=== PATIENT | male | born 1940 | race Caucasian/White ===

== ENCOUNTER → 2016-09-02 | Outpatient (CLI) | payer MEDICARE ==
[2015-10-30 09:16] VITALS: BP 129/58
[~2016-09-02] MED LIST: ASPI325T4 PO; BENA40TA2 PO; CIPR500T94 PO; GABA600T2 PO; HUM100VI SQ; HYDR-2666 PO; NITR100C63 PO; SIMV40TA3 PO; TAMS0.4C2 PO
[2016-09-02 15:01] LABS: CALCIUM 8.3 mg/dL (8.5-10.1); CREATININE 2.1 mg/dL (0.7-1.3); GFR 30.9; POTASSIUM 4.1 mmol/L (3.5-5.1)
--- NOTE | 2016-09-02 15:03 | RAD ---
Exam performed: Renal sonogram. Indication: Chronic severe ureteral stricture Date of Service: 09/02/16 . Comparison: None available Technique: Real-time grayscale imaging of the kidneys is performed and images are obtained. Findings: Both kidneys are normal in size and echogenicity. The right kidney measures 11.8 x 8.4 x 7.0 cm whereas the left kidney measures 8.5 x 5.0 x 5.5 cm. There is moderate bilateral hydronephrosis. The urinary bladder is markedly distended with distorted contour and diffuse wall thickening. The urinary bladder wall measures 3.4 cm in thickness. Prostatomegaly. Precath bladder volume measures 309.8 mL. Impression: 1. Moderate bilateral hydronephrosis. 2. Distended distorted urinary bladder with severe wall thickening probably related to chronic outlet obstruction.
== END | disposition home or self-care (01) ==
LOC: US 14:02
PROVIDERS: ATTEND Urology
DX: Z12.5 Encounter for screening for malignant neoplasm of prostate (principal); N99.111 Postprocedural bulbous urethral stricture, male
CPT/HCPCS: 36415; 76770; 80048; G0103

== ENCOUNTER 2016-10-12 14:08 | Inpatient (IN) | payer MEDICARE ==
[~2016-10-12] VITALS: Ht 182.9 cm; Wt 78.1 kg
[~2016-10-12 14:08] MED LIST changes: -ASPI325T4 PO; +ASPI325T8 PO; -HYDR-2666 PO; +HYDR-2758 PO
[2016-10-12 15:00] VITALS: BP 99/49
[2016-10-12] MEDS ORDERED: DEXTROSE 50% 25 GM / 50ML DISP.SYRIN. IV PRN (15:15)
[2016-10-12] MEDS ORDERED: SODIUM POLYSTYRENE SULFONATE 15 GM/60 ML ORAL.SUSP. PO ONE ×2 (15:15→20:00)
[2016-10-12 15:56] LABS: HEMATOCRIT 35.6 % (39.0-53.0); HEMOGLOBIN 11.9 g/dL (13.0-17.5); RED BLOOD COUNT 3.99 x10^6/uL (4.30-5.70); RED CELL DISTRIBUTION WIDTH 14.6 % (11.5-14.5); WHITE BLOOD COUNT 11.6 x10^3/uL (4.0-11.0)
[2016-10-12] MEDS ORDERED: IV DEXTROSE 5% - 0.9 % NACL 1,000 ML IV SCH (16:00)
--- NOTE | 2016-10-12 16:24 | RAD ---
Indication hyperkalemia. Grayscale imaging targeted to the kidneys was performed. Note is made of a previous examination 09/02/2016 referencing bilateral hydronephrosis. The right kidney measures 12.3 x 6.3 x 6.7 cm. There is moderately severe hydronephrosis. A solid mass is not seen. The left kidney measures 10 x 5.4 x 5.3 cm. There is moderate hydronephrosis seen associated with the left kidney as well. There is irregularity associated with the urinary bladder. This may reflect debris and chronic bladder wall thickening.. A bladder mass is not entirely excluded. The abdominal aorta appeared unremarkable. The bilateral hydronephrosis is similar to the previous exam. IMPRESSION: Bilateral hydronephrosis similar to the previous exam. Probable debris and/or urinary bladder wall thickening. Bladder mass not entirely excluded.
[2016-10-12 16:25] LABS: ALBUMIN 2.2 g/dL (3.4-5.0); ALBUMIN/GLOBULIN RATIO 0.5 (1.0-1.7); CALCIUM 8.3 mg/dL (8.5-10.1); CREATININE 2.9 mg/dL (0.7-1.3); GFR 21.3; TOTAL BILIRUBIN 0.4 mg/dL (0.2-1.0); TOTAL PROTEIN 6.6 g/dL (6.4-8.2)
[2016-10-12 16:29] LABS: POTASSIUM 6.1 mmol/L (3.5-5.1)
[2016-10-12 16:37] LABS: BILIRUBIN,URINE NEGATIVE (NEG); GLUCOSE,URINE NEGATIVE (NEG); NITRITE,URINE POSITIVE (NEG); PH,URINE 5.5; PROTEIN,URINE 30 mg/dL (NEG-TRACE); UROBILINOGEN,URINE 0.2 mg/dL (0.2 mg/dL)
[2016-10-12] MEDS: IV DEXTROSE 5% - 0.9 % NACL 1,000 ML IV SCH ×2 (16:41→16:44)
[2016-10-12] MEDS: FAMOTIDINE 20 MG TABLET. PO SCH (16:42)
[2016-10-12 16:48] LABS: BACTERIA,URINE MANY /HPF (0-FEW); SQUAMOUS EPITHELIAL CELL,UR FEW /LPF; WBC,URINE TNTC /HPF (0-4)
--- NOTE | 2016-10-12 16:56 | RAD ---
Indication weight loss. Suspect occult malignancy. Axial noncontrast images through the chest abdomen and pelvis were obtained. No similar imaging is available. CT chest: Findings. There is moderately extensive coronary artery calcification. The ascending thoracic aorta is moderately prominent measuring approximately 4.3 cm in greatest dimension. There is no significant hilar or mediastinal adenopathy. There are 2 densely calcified granulomas in the right lower lobe. A similar calcified granuloma is noted in the lingula. In the left upper lobe there is a possible 1 cm nodule. The finding is not certain and could be artifactual and related to vessels. CT abdomen and pelvis: Findings The liver and spleen appear unremarkable. Clips are noted in the gallbladder fossa. The pancreas appears unremarkable. There are no adrenal masses. There is bilateral hydronephrosis. The left kidney is significantly atrophied. A solid mass is not seen associated with either kidney. There is significant bilateral hydroureter. There is asymmetric wall thickening particularly involving the cephalad aspect of the urinary bladder. There is a soft tissue mass at the base of the urinary bladder. The findings are most suggestive of neoplastic disease, likely primary, associated with the urinary bladder with associated significant obstruction at the ureterovesical junctions bilaterally. Diverticular disease is seen associated with the large bowel. Active inflammation is not seen. IMPRESSION: Findings in the pelvis most suggestive of primary urinary bladder neoplasm with associated moderate obstruction involving both ureterovesical junctions. Bilateral hydronephrosis and hydroureter is noted. The left kidney is atrophied. Prominent ascending thoracic aorta to approximately 4.3 cm. Possible 1 cm pulmonary in the left upper lobe. Finding is not certain PQRS Compliance Statement: One or more of the following individualized dose reduction techniques were utilized for this examination: 1. Automated exposure control 2. Adjustment of the mA and/or kV according to patient size 3. Use of iterative reconstruction technique
[2016-10-12] MEDS: INSULIN ASPART 300 UNITS/3 ML INSULN.PEN SQ SCH (17:00)
--- NOTE | 2016-10-12 17:30 | HP ---
ADMIT DATE: 10/12/2016 CHIEF COMPLAINT: Renal failure, hyperkalemia. HISTORY OF PRESENT ILLNESS: A 76-year-old white male who has been seen in our office for the last 2 weeks with progressive weight loss. He has known insulin-dependent diabetes and some degree of chronic kidney disease being stage 3 about a year ago. He has had a recent 40-50 pound weight loss with anorexia, but no clear etiology and CT scans were scheduled, but the lab works showed his creatinine to be around 2.8 with a potassium of 6.2 and he was admitted for hydration and potassium reduction therapy and further evaluation. He has been self-catheterizing per Dr. Lynn suggestion over the last few months, then stopped taking insulin 2 weeks ago because of weight loss and fear of hypoglycemia. PAST MEDICAL HISTORY: Medications include benazepril, Flomax, gabapentin, and Humulin 70/30 insulin. ALLERGIES: He has no allergies. PAST SURGICAL HISTORY: He has had "kidney surgery of uncertain type." Never had known heart disease. Recent laboratory study showed a normal PSA, TSH, and CBC with abnormal renal function mainly. SOCIAL HISTORY: Nonsmoker, , retired, not physically active, nondrinker. FAMILY HISTORY: Unremarkable. REVIEW OF SYSTEMS: No other specific complaints. OBJECTIVE: ENT: Significant periodontal disease and some missing teeth, otherwise all within normal limits. NECK: Revealed no carotid bruits, thyroid enlargement, masses, or nodes. LUNGS: Decreased breath sounds. No wheezing or tachypnea. CARDIOVASCULAR: Regular rate, mild tachycardia. No murmur. ABDOMEN: Soft, benign, nontender. No masses are felt. EXTREMITIES: Decreased pedal pulses. No joint or skin lesions or overt nail bed findings. No muscle masses noted. NEUROLOGIC: Physiologic, nonfocal, oriented x 4. ASSESSMENT: Progressive acute renal failure, multiple possible etiologies. He has also had ongoing significant weight loss of unknown cause and now has hyperkalemia likely secondary to renal failure and benazepril use. PLAN: Admit for saline hydration, Kayexalate therapy. Renal sonogram. CT scans of abdomen, pelvis and chest without contrast regarding his weight loss and further evaluation as his underlying malignancy certainly a concern. EMMA SHEIKH MD DR: CLAYTON/lester JOB#: [id number] / [id number]
[2016-10-12 19:15] VITALS: BP 114/95
[2016-10-12] MEDS: TAMSULOSIN 0.4 MG CAP.ER.24H. PO SCH (21:39)
[2016-10-12] MEDS: GABAPENTIN 300 MG CAPSULE. PO SCH (21:39)
[2016-10-12] MEDS: INSULIN DETEMIR 300 UNITS/3 ML INSULN.PEN. SQ SCH (21:46)
[2016-10-12] MEDS: PIPERACILLIN/TAZOBACTAM 2.25 GM in IV NORMAL SALINE 50ML 50 ML IV SCH (22:40)
[2016-10-12 22:44] VITALS: BP 70/39
[2016-10-13] VITALS (8 sets, daily range): BP systolic 73–141; BP diastolic 41–59
--- NOTE | 2016-10-13 03:20 | ACF ---
Admission Forms Criteria RENAL FAILURE, ACUTE Clinical Indications for Admission to Inpatient Care ( Place 'X' for any and all applicable criteria): Admission is indicated for ALL (if I & II) or III of the following [A](2)(3)(4)( 5)(6)(7): [ ]I. Acute renal failure as indicated by ANY ONE of the following: [ ]a) A 3-fold rise in serum creatinine from baseline [ ]b) Serum creatinine greater than 4 mg/dL (354 micromoles/L) with an acute rise greater than 0.5 mg/dL (44.2 micromoles/L) [ ]c) Reduction of more than 75% in estimated glomerular filtration rate from baseline [ ]d) Estimated glomerular filtration rate less than 35 mL/min/1.73m2 (0.59mL/sec/1.73m2)in a child up to 18 years of age [ ]e) Anuria indicated by ALL of the following: [ ]i) Adequate volume status [ ]ii) Cessation of urine output indicated by ANY ONE of the following: [ ]1) Urine output less than 0.3 mL/kg/hr for 24 hours [ ]2) Anuria (urine output less than 0.1 mL/kg/ hr) for 12 hours [ ] II. Renal failure cannot be managed in an outpatient setting or observational care setting as indicating by ANY ONE of the following: [ ]a) Altered mental status that is severe or persistent [ ]b) Volume overload or Respiratory distress (eg, clinically significant pulmonary edema) that is severe or persistent [ ]c) Cardiac arrhythmias of immediate concern [ ]d) Hemodynamic instability [ ]e) Clinically significant electrolyte abnormality that requires inpatient care (eg, hyperkalemia with severe ECG findings)[B] [ ]f) Clinically significant metabolic abnormality (eg, acidosis) that is severe or persistent [ ]g) Acute treatment of renal failure (eg, renal replacement therapy) not feasible or appropriate in observational care setting [ ]h) Clinical situation too unstable or uncertain (eg, inadequate urine output, ongoing decline in renal function, etiology unclear) [ ]i) Necessary support and caregiver ability to comply with outpatient treatment cannot be arranged in observation care timeframe (eg, within 24 hours) [ ]j) Other significant finding or clinical condition judged not to be within scope of observation care [X]III.General contraindications and/or Inappropriate clinical situations for Observational Care in patients with Acute Renal Failure, when ANY ONE of the following is required: [X]a) Prediction of prolongation of LOS based on ANY ONE of the following may be considered as a contraindication for observational care 2, 3, 4, 5, 6, 7, 8 , 9, 10, 11 [X]i) Age > 65 yrs. [ ]ii) Patient arriving by ambulance [ ]iii) Patient with high acuity [ ]iv) Patient requiring vital sign monitoring [ ]v) Patient on IV medication [ ]b) Systolic blood pressures 180mmHg 3,12 [ ]c) Patient with altered mental status including delirium and other alteration of consciousness, (3) [ ]d) Patient whose discharge disposition will be to a longterm home or rehabilitation home should not be managed in Emergency Department Observation Unit. CMS rule requires 3 days hospital stay before such placement.3,13 [ ]e) Patient with failure to thrive due to broad array of etiologies 3, 16,17 [ ]f) Inability to ambulate 3,14 Extended stay beyond goal length of stay may be needed for(13) [ ]a) Continuing uremic complications [ ]b) Care for comorbidities [ ]c) acute renal failure [ ]d) Need for dialysis The original [employer] content created by [employer] has been revised. The portions of the content which have been revised are identified through the use of italic text or in bold, and [facility] [employer] has neither reviewed nor approved the modified material. All other unmodified content is copyright [employer]. Please see references footnoted in the original [email or web address] edition 2015 Admission Criteria Met?: Yes CHIARA HERNANDEZ Oct 13, 2016 03:20
[2016-10-13 04:08] LABS: CALCIUM 7.9 mg/dL (8.5-10.1); CREATININE 2.9 mg/dL (0.7-1.3); GFR 21.3; POTASSIUM 5.2 mmol/L (3.5-5.1)
[2016-10-13] MEDS: PIPERACILLIN/TAZOBACTAM 2.25 GM in IV NORMAL SALINE 50ML 50 ML IV SCH ×3 (05:31→22:43)
[2016-10-13] MEDS: INSULIN ASPART 300 UNITS/3 ML INSULN.PEN SQ SCH ×3 (08:00→17:00)
[2016-10-13] MEDS: IV DEXTROSE 5% 250 ML IV PRN ×2 (08:15→12:30)
--- NOTE | 2016-10-13 08:56 | PDOC2 ---
CONSULT Date of Consult Date of Consult DATE: 10/13/16 TIME: 08:55 Reason for Consult Reason for Consult: LATA, ^ K Referring Physician Referring Physician: Dr Milligan Identification/Chief Complaint Chief Complaint ABN Labs Problems: Source Source: Chart review, Patient History of Present Illness Reason for Visit: as dictated Current Medications Current Medications Current Medications Dextrose/Sodium Chloride 187.5 ml @ 250 mls/hr Q45M IV Last administered on 16:44; Start 10/12/16 at 15:15; Stop 10/12/16 at 16:00; Status DC Dextrose/Sodium Chloride 1,000 ml @ 125 mls/hr Q8H IV Last administered on 18:30; Start 10/12/16 at 16:00; Stop 10/12/16 at 19:44; Status DC Gabapentin (Neurontin) 300 mg BID PO Last administered on 10/12/16 21:39; Start 10/12/16 at 21:00 Insulin Detemir (Levemir) 15 units BID SQ Last administered on 10/12/16 21:46 ; Start 10/12/16 at 21:00 Tamsulosin HCl (Flomax) 0.4 mg QHS PO Last administered on 10/12/16 21:39; Start 10/12/16 at 21:00 Famotidine (Pepcid) 20 mg DAILY PO Last administered on 10/12/16 16:42; Start 10/12/16 at 16:00 Sodium Polystyrene Sulfonate (Kayexalate) 15 gm 1X ONCE PO Last administered on 10/12/16 16:41; Start 10/12/16 at 15:15; Stop 10/12/16 at 15:29; Status DC Insulin Aspart (NovoLOG) 0-9 UNITS TIDWMEALS SQ ; Start 10/12/16 at 17:00 Dextrose (Dextrose 50%-Water Syringe) 12.5 gm PRN Q15MIN PRN IV SEE COMMENTS; Start 10/12/16 at 15:15 Sodium Polystyrene Sulfonate (Kayexalate) 45 gm 1X ONCE PO Last administered on 10/12/16 21:39; Start 10/12/16 at 20:00; Stop 10/12/16 at 20:01; Status DC Piperacillin Sod/ Tazobactam Sod 2.25 gm/Sodium Chloride 50 ml @ 100 mls/hr Q8HRS IV Last administered on 10/13/16t 05:31; Start 10/12/16 at 22:30 Active Scripts Active Reported Benazepril Hcl 40 Mg Tablet 40 Mg PO DAILY Tamsulosin Hcl 0.4 Mg Cap.er.24h 0.4 Mg PO DAILY Macrodantin (Nitrofurantoin Macrocrystal) 100 Mg Capsule 100 Mg PO DAILY Gabapentin 600 Mg Tablet 300 Mg PO BID Humulin 70-30 Vial (Hum Insulin Nph/Reg Insulin Hm) 100 Unit/1 Ml Vial 25 Unit SQ BID Allergies Allergies: Coded Allergies: No Known Drug Allergies (Unverified , 04/02/15) ROS Review of System GEN: no Fevers no Chills + Weakness and fatigue and wt loss EYES: no new Visual Complaints ENT: no EN Drainage no Hearing deficiets CVS: no Orthopnea no CP RESP: no SOB no PATEL GI: no Nausea no Vomiting : no Dysuria no Urgency - pt self caths TID HEME: no easy bruising no Palp Ly Nodes NEURO no Focal Weakness no Sz PSYCH: no Suicidal Ideation min Depression SKIN: no Rashes ENDO: no Polyuria or Polydipsia no Hot/Cold Intolerance MU SK: + Arthraigia no Myalgia Physical Exam Physical Exam General Appearance: Awake Alert Oriented x 3 In no Distress; Ch Ill appearring WM Eyes: VIsion Unchanged Conjunctiva Normal EN: No EN Drainage Mucous Memb. moist Neck: no JVD no JVP Supple no Thyromegaly CVS: S1 S2 no Murmur No Gallop No Rub no Edema Resp: no Rales no Rhonchi no Acc. Muscle use GI: BAS +ve NO Bruit Non Tender Non Distended : no CVA tenderness; no Suprapubic Tenderness SKIN: no Rashes Breast Exam deferred Mu.Sk: Adequate ROM + Muscle Atrophy Heme: Unable to palpate Obvious LAD no Splenomegaly NEURO: Good Strength and Tone Cranial Nerves II - XII grossly intact Psych: ? Depressed no Active hallucination Vital Signs Vital Signs Date Time Temp Pulse Resp B/P (MAP) Pulse Ox O2 Delivery O2 Flow Rate FiO2 10/13/16 07:46 97.5 61 20 101/42 (61) 98 Room Air 97.5 Assessment & Plan ARF: Not sure if Obst Uropahty isnew or old. Current FLuid and E-lyte status does not necessitate emergent need for Dialysis. Will re-evaluate for Dialysis in am ^K - now resolved with Kayexalate; D/c ZACKERY-i in setting of LATA/ CKD for now Wt loss - suspect associated with Pelvic Pathology (PSA WNL) Sev HypoAlbuminemia - ? due to FTT, Poor PO itnake CKD III at least vs IV due to Unilateral small kidney as noted on US/ CT Unilateral small kidney as noted on US/ CT - ? Ischemic Protirenuia is in the setting of hematuria Hematuria (ROLF) suspect due to bladder pathology - ? Need for Perc Bx in absence of URO services here vs Transfer to [facility] HTN: Current BP meds reviewed. See orders for changes. Hydronephrosis - unclear if this is Ch vs Ac - so PCN shantelle to Rt May be an option although UO is good so far Discussed Plan of Care and prognosis etc. at length with family. Labs Labs Laboratory Tests Test 10/12/16 15:50 10/12/16 16:30 10/12/16 16:41 10/12/16 20:47 White Blood Count 11.6 x10^3/uL (4.0-11.0) Red Blood Count 3.99 x10^6/uL (4.30-5.70) Hemoglobin 11.9 g/dL (13.0-17.5) Hematocrit 35.6 % (39.0-53.0) Mean Corpuscular Volume 89 fL (79-100) Mean Corpuscular Hemoglobin 30 pg (25-35) Mean Corpuscular Hemoglobin Concent 34 g/dL (31-37) Red Cell Distribution Width 14.6 % (11.5-14.5) Platelet Count 397 x10^3/uL (140-400) Erythrocyte Sedimentation Rate 60 (0-15) Sodium Level 138 mmol/L (136-145) Potassium Level 6.1 mmol/L (3.5-5.1) Chloride Level 106 mmol/L (98-107) Carbon Dioxide Level 23 mmol/L (21-32) Anion Gap 9 (6-14) Blood Urea Nitrogen 65 mg/dL (8-26) Creatinine 2.9 mg/dL (0.7-1.3) Estimated GFR (Cockcroft-Gault) 21.3 BUN/Creatinine Ratio 22 (6-20) Glucose Level 184 mg/dL (70-99) Calcium Level 8.3 mg/dL (8.5-10.1) Total Bilirubin 0.4 mg/dL (0.2-1.0) Aspartate Amino Transf (AST/SGOT) 12 U/L (15-37) Alanine Aminotransferase (ALT/SGPT) 19 U/L (16-63) Alkaline Phosphatase 217 U/L (46-116) Total Protein 6.6 g/dL (6.4-8.2) Albumin 2.2 g/dL (3.4-5.0) Albumin/Globulin Ratio 0.5 (1.0-1.7) Urine Collection Type Unknown Urine Color Yellow Urine Clarity Turbid Urine pH 5.5 Urine Specific [place] 1.010 Urine Protein 30 mg/dL (NEG-TRACE) Urine Glucose (UA) Negative mg/dL (NEG) Urine Ketones (Stick) Negative mg/dL (NEG) Urine Blood Large (NEG) Urine Nitrite Positive (NEG) Urine Bilirubin Negative (NEG) Urine Urobilinogen Dipstick 0.2 mg/dL (0.2 mg/dL) Urine Leukocyte Esterase Large (NEG) Urine RBC 3-5 /HPF (0-2) Urine WBC Tntc /HPF (0-4) Urine Squamous Epithelial Cells Few /LPF Urine Bacteria Many /HPF (0-FEW) Glucose (Fingerstick) 160 mg/dL (70-99) 186 mg/dL (70-99) Test 10/13/16 03:35 10/13/16 07:53 Sodium Level 142 mmol/L (136-145) Potassium Level 5.2 mmol/L (3.5-5.1) Chloride Level 111 mmol/L (98-107) Carbon Dioxide Level 21 mmol/L (21-32) Anion Gap 10 (6-14) Blood Urea Nitrogen 59 mg/dL (8-26) Creatinine 2.9 mg/dL (0.7-1.3) Estimated GFR (Cockcroft-Gault) 21.3 Glucose Level 145 mg/dL (70-99) Calcium Level 7.9 mg/dL (8.5-10.1) Glucose (Fingerstick) 47 mg/dL (70-99) Laboratory Tests Test 10/12/16 15:50 10/12/16 16:30 10/12/16 16:41 10/12/16 20:47 White Blood Count 11.6 x10^3/uL (4.0-11.0) Red Blood Count 3.99 x10^6/uL (4.30-5.70) Hemoglobin 11.9 g/dL (13.0-17.5) Hematocrit 35.6 % (39.0-53.0) Mean Corpuscular Volume 89 fL (79-100) Mean Corpuscular Hemoglobin 30 pg (25-35) Mean Corpuscular Hemoglobin Concent 34 g/dL (31-37) Red Cell Distribution Width 14.6 % (11.5-14.5) Platelet Count 397 x10^3/uL (140-400) Erythrocyte Sedimentation Rate 60 (0-15) Sodium Level 138 mmol/L (136-145) Potassium Level 6.1 mmol/L (3.5-5.1) Chloride Level 106 mmol/L (98-107) Carbon Dioxide Level 23 mmol/L (21-32) Anion Gap 9 (6-14) Blood Urea Nitrogen 65 mg/dL (8-26) Creatinine 2.9 mg/dL (0.7-1.3) Estimated GFR (Cockcroft-Gault) 21.3 BUN/Creatinine Ratio 22 (6-20) Glucose Level 184 mg/dL (70-99) Calcium Level 8.3 mg/dL (8.5-10.1) Total Bilirubin 0.4 mg/dL (0.2-1.0) Aspartate Amino Transf (AST/SGOT) 12 U/L (15-37) Alanine Aminotransferase (ALT/SGPT) 19 U/L (16-63) Alkaline Phosphatase 217 U/L (46-116) Total Protein 6.6 g/dL (6.4-8.2) Albumin 2.2 g/dL (3.4-5.0) Albumin/Globulin Ratio 0.5 (1.0-1.7) Urine Collection Type Unknown Urine Color Yellow Urine Clarity Turbid Urine pH 5.5 Urine Specific [place] 1.010 Urine Protein 30 mg/dL (NEG-TRACE) Urine Glucose (UA) Negative mg/dL (NEG) Urine Ketones (Stick) Negative mg/dL (NEG) Urine Blood Large (NEG) Urine Nitrite Positive (NEG) Urine Bilirubin Negative (NEG) Urine Urobilinogen Dipstick 0.2 mg/dL (0.2 mg/dL) Urine Leukocyte Esterase Large (NEG) Urine RBC 3-5 /HPF (0-2) Urine WBC Tntc /HPF (0-4) Urine Squamous Epithelial Cells Few /LPF Urine Bacteria Many /HPF (0-FEW) Glucose (Fingerstick) 160 mg/dL (70-99) 186 mg/dL (70-99) Test 10/13/16 03:35 10/13/16 07:53 Sodium Level 142 mmol/L (136-145) Potassium Level 5.2 mmol/L (3.5-5.1) Chloride Level 111 mmol/L (98-107) Carbon Dioxide Level 21 mmol/L (21-32) Anion Gap 10 (6-14) Blood Urea Nitrogen 59 mg/dL (8-26) Creatinine 2.9 mg/dL (0.7-1.3) Estimated GFR (Cockcroft-Gault) 21.3 Glucose Level 145 mg/dL (70-99) Calcium Level 7.9 mg/dL (8.5-10.1) Glucose (Fingerstick) 47 mg/dL (70-99) Images Images US IMPRESSION: Bilateral hydronephrosis similar to the previous exam. Probable debris and/or urinary bladder wall thickening. Bladder mass not entirely excluded. NON-CONTRAST CT : IMPRESSION: Findings in the pelvis most suggestive of primary urinary bladder neoplasm with associated moderate obstruction involving both ureterovesical junctions. Bilateral hydronephrosis and hydroureter is noted. The left kidney is atrophied. Prominent ascending thoracic aorta to approximately 4.3 cm. Possible 1 cm pulmonary in the left upper lobe. JACQUIE VALENZUELA MD Oct 13, 2016 08:56
[2016-10-13] MEDS: INSULIN DETEMIR 300 UNITS/3 ML INSULN.PEN. SQ SCH ×2 (09:00→22:51)
[2016-10-13] MEDS ORDERED: MAGNESIUM SULFATE 2GM 50 ML IV PRN (09:00)
[2016-10-13] MEDS ORDERED: IV DEXTROSE 5% 250 ML IV PRN (09:00)
[2016-10-13 09:01] LABS: INR 1.2 (0.8-1.1); PROTHROMBIN TIME PATIENT 14.2 SEC (11.7-14.0)
[2016-10-13] MEDS: FAMOTIDINE 20 MG TABLET. PO SCH (09:13)
[2016-10-13] MEDS: GABAPENTIN 300 MG CAPSULE. PO SCH ×2 (09:13→22:42)
--- NOTE | 2016-10-13 09:49 | PDOC ---
Provider Note Provider Note K+ down , creat better after fluids, was 2.1 - diwscussed likely dx of bladder CA, need for bx /nephrostomy re hysdro- likely will need to go to [facility] re uro needs EMMA SHEIKH MD Oct 13, 2016 09:49
[2016-10-13] MEDS: TAMSULOSIN 0.4 MG CAP.ER.24H. PO SCH (22:42)
[2016-10-14] VITALS (25 sets, daily range): BP systolic 72–111; BP diastolic 39–63
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
[2016-10-14 06:10] LABS: ALBUMIN 1.8 g/dL (3.4-5.0); CALCIUM 7.4 mg/dL (8.5-10.1); CREATININE 2.6 mg/dL (0.7-1.3); GFR 24.1; PHOSPHORUS 4.2 mg/dL (2.6-4.7); POTASSIUM 4.6 mmol/L (3.5-5.1)
[2016-10-14] MEDS: PIPERACILLIN/TAZOBACTAM 2.25 GM in IV NORMAL SALINE 50ML 50 ML IV SCH ×5 (06:20→18:29)
--- NOTE | 2016-10-14 06:50 | PDOC ---
Provider Note Provider Note IR Note: Image guided right percutaneous nephrostomy tube insertion planned this morning. Advanced right hydronephrosis and hydroureter noted at CT and U/S. Hydronephrotic, but globally atrophic left kidney also noted. Afebrile. VSS. INR normal. Platelets satisfactory. NPO. Thanks for the consult. FRANK TRIPP MD Oct 14, 2016 06:50
[2016-10-14] MEDS ORDERED: LIDOCAINE 1% / SOD BICARB 8.4% 20 ML VIAL. IJ ONE ×3 (06:59→09:00)
[2016-10-14] MEDS ORDERED: MIDAZOLAM HCL/PF 2 MG/2 ML VIAL. ONE (07:02)
[2016-10-14] MEDS ORDERED: fentaNYL PF VIAL 100 MCG/2 ML VIAL ONE (07:02)
[2016-10-14] MEDS: INSULIN ASPART 300 UNITS/3 ML INSULN.PEN SQ SCH ×3 (08:00→17:00)
[2016-10-14] MEDS ORDERED: IOHEXOL 300 MG/ML 50 ML VIAL. ONE ×2 (08:06→08:21)
[2016-10-14] MEDS ORDERED: IOHEXOL 300 MG/ML 50 ML VIAL. IART ONE (08:45)
--- NOTE | 2016-10-14 08:53 | PDOC ---
Provider Note Provider Note no temp- labs ok, urine cult pending- for nephrostomy today, will still need to go to [facility] for urologic dx/cysto- renal a little better , K+ EMMA Burgess MD Oct 14, 2016 08:53
[2016-10-14] MEDS ORDERED: fentaNYL PF VIAL 100 MCG/2 ML VIAL IV ONE (09:00)
[2016-10-14] MEDS ORDERED: MIDAZOLAM HCL/PF 2 MG/2 ML VIAL. IV ONE (09:00)
[2016-10-14] MEDS: INSULIN DETEMIR 300 UNITS/3 ML INSULN.PEN. SQ SCH ×2 (09:00→21:24)
--- NOTE | 2016-10-14 09:28 | PDOC ---
MODERATE SEDATION ASSESSMENT RISKS/ALTERNATIVES Risks/Alternatives Risks and alternatives of this type of sedation and procedure discussed with: RISK/ALTERNATIVES: Patient H & P ON CHART H & P H & P on chart and reviewed for co-morbid conditions and appropriate labs. H&P ON CHART: Yes STATUS PREG STATUS ASSESSED: N/A MEDS/ALLERGIES REVIEWED Meds/Allergies Reviewed Medications and Allergies including time and route of recently administered narcotics and sedatives. MEDS/ALLERGIES REVIEWED: Yes ASA RATING ASA RATING: III AIRWAY ASSESSMENT Airway Assessment Airway patency, oral function limitations, presence of caps, crowns, dentures, partials, and ability to extend neck assessed. AIRWAY ASSESSMENT: Yes MALLAMPATI SCORE MALLAMPATI SCORE: II PRE-SEDATION ASSESSMENT PRE-SEDATION ASSESSMENT: Yes FRANK TRIPP MD Oct 14, 2016 09:28
--- NOTE | 2016-10-14 09:30 | PDOC ---
Exam Powdered Sugar Supervisor Powdered Sugar Supervisor Mika Tree Surgeon Tree Surgeon F Ndumbu Pre-Procedure Diagnosis Pre-Procedure Diagnosis Advanced right hydronephrosis and hydroureter Post-Procedure Diagnosis Post-Procedure Diagnosis Mild-mod right hydronephrosis, improved since the CT study done 10/12/16. Partially obstructing filling defect within distal right ureter suggesting radiolucent stone or blood clot or polypoid tumor. Procedure Performed Procedure Performed CT and fluoro guided right PCN tube insertion Type of Anesthesia Type of Anesthesia Local + Mod sedation Estimated Blood Loss EBL: Minimal Drain/Tubes Drains/Tubes 10F locking pigtail right PCN drain-----to gravity drainage Condition of Patient Condition of Patient Stable. No apparent complication. Disposition Disposition From IR return to 206 for recovery. F/u with PCP and Renal. Full report to follow. FRANK TRIPP MD Oct 14, 2016 09:30
[2016-10-14] MEDS: IV DEXTROSE 5% 250 ML IV PRN (10:11)
--- NOTE | 2016-10-14 11:21 | PDOC ---
SUBJECTIVE ROS LATA Just back from PCN placment CVS: no Orthopnea, no CP RESP: no SOB, no PATEL GI: no Nausea, no Vomiting : no Dysuria, no Urgency - [place] in [place] OBJECTIVE Vital Signs Vital Signs Date Time Temp Pulse Resp B/P (MAP) Pulse Ox O2 Delivery O2 Flow Rate FiO2 10/14/16 09:09 17 98 Room Air 10/14/16 09:01 80 10/14/16 08:55 2.0 10/14/16 07:00 97.6 86/39 (55) 97.6 I & 0 Intake and Output 10/14/16 06:59 Intake Total 120 ml Output Total 1525 ml Balance -1405 ml Intake Oral 120 ml Output Urine Total 1525 ml # Bowel Movements 2 PHYSICAL EXAM Physical Exam General Appearance: Awake Alert Oriented x 3 In no Distress; Ch Ill appearring WM Eyes: VIsion Unchanged Conjunctiva Normal EN: No EN Drainage Mucous Memb. moist Neck: no JVD no JVP Supple no Thyromegaly CVS: S1 S2 no Murmur No Gallop No Rub no Edema Resp: no Rales no Rhonchi no Acc. Muscle use GI: BAS +ve NO Bruit Non Tender Non Distended : no CVA tenderness; no Suprapubic Tenderness Assessment & Plan ARF: Not sure if Obst Uropahty isnew or old. URO eval requested. Current FLuid and E-lyte status does not necessitate emergent need for Dialysis. Will re- evaluate for Dialysis in am ^K - now resolved , recc D/c ZACKERY-i in setting of LATA/ CKD for now Wt loss - suspect associated with Pelvic Pathology (PSA WNL) - may need CYSTO - defer timing to URO. Sev Hypoalbuminemia - ? due to FTT, Poor PO intake CKD III at least vs IV due to Unilateral small kidney as noted on US/ CT Unilateral small kidney as noted on US/ CT - ? Ischemic vs Ch Obstruction Proteinuria is in the setting of hematuria so not worked up further currenlty Hematuria (ROLF) suspect due to bladder pathology - URO eval pending HypoTN: May need IVF/ Alb Hydronephrosis - unclear if this is Ch vs Ac - so PCN to Rt done - Await URO eval Discussed Plan of Care and prognosis etc. at length with family. COMMENT/RELEVANT DATA Meds Current Medications Medications (Trade) Dose Ordered Sig/Cristina Start Time Stop Time Status Last Admin Dose Admin Dextrose 250 ml @ 1,500 mls/hr PRN Q1HR PRN 10/13/16 09:15 10/14/16 10:11 1,500 MLS/HR Dextrose (Dextrose 50%-Water Syringe) 12.5 gm PRN Q15MIN PRN 10/12/16 15:15 Dextrose/Sodium Chloride 1,000 ml @ 125 mls/hr Q8H 10/12/16 16:00 10/12/16 19:44 DC 10/12/16 18:30 125 MLS/HR Famotidine (Pepcid) 20 mg DAILY 10/12/16 16:00 10/13/16 09:13 20 MG Fentanyl Citrate (Fentanyl 2ml Vial) 100 mcg 1X ONCE 10/14/16 09:00 10/14/16 09:03 DC 10/14/16 09:09 100 MCG Gabapentin (Neurontin) 300 mg DAILY08 10/14/16 09:00 Heparin Sodium/ Sodium Chloride 1,000 unit 1X ONCE 10/14/16 08:45 10/14/16 08:46 DC 10/14/16 08:58 1,000 UNIT Insulin Aspart (NovoLOG) 0-9 UNITS TIDWMEALS 10/12/16 17:00 Insulin Detemir (Levemir) 6 units BID 10/14/16 09:00 Iohexol (Omnipaque 300 Mg/ml) 50 ml 1X ONCE 10/14/16 08:45 10/14/16 08:46 DC 10/14/16 08:58 15 ML Levofloxacin/ Dextrose 100 ml @ 100 mls/hr 1X ONCE 10/14/16 08:35 10/14/16 09:34 DC 10/14/16 08:58 100 MLS/HR Lidocaine/Sodium Bicarbonate (Buffered Lidocaine 1%) 7 ml 1X ONCE 10/14/16 09:00 10/14/16 09:03 DC 10/14/16 09:10 7 ML Magnesium Sulfate/ Dextrose 50 ml @ 25 mls/hr PRN DAILY PRN 10/13/16 09:00 Midazolam HCl (Versed) 2 mg 1X ONCE 10/14/16 09:00 10/14/16 09:03 DC 10/14/16 09:08 2 MG Piperacillin Sod/ Tazobactam Sod 2.25 gm/Sodium Chloride 50 ml @ 100 mls/hr Q6HRS 10/13/16 14:00 10/14/16 06:20 100 MLS/HR Sodium Polystyrene Sulfonate (Kayexalate) 45 gm 1X ONCE 10/12/16 20:00 10/12/16 20:01 DC 10/12/16 21:39 45 GM Tamsulosin HCl (Flomax) 0.4 mg QHS 10/12/16 21:00 10/13/16 22:42 0.4 MG Lab Laboratory Tests Test 10/13/16 11:53 10/13/16 13:05 10/13/16 14:17 10/13/16 17:02 Glucose (Fingerstick) 54 mg/dL (70-99) 73 mg/dL (70-99) 87 mg/dL (70-99) 115 mg/dL (70-99) Test 10/13/16 22:32 10/14/16 04:30 10/14/16 05:00 10/14/16 09:17 Glucose (Fingerstick) 149 mg/dL (70-99) 56 mg/dL (70-99) Hemoglobin 11.3 g/dL (13.0-17.5) Sodium Level 144 mmol/L (136-145) Potassium Level 4.6 mmol/L (3.5-5.1) Chloride Level 111 mmol/L (98-107) Carbon Dioxide Level 21 mmol/L (21-32) Anion Gap 12 (6-14) Blood Urea Nitrogen 52 mg/dL (8-26) Creatinine 2.6 mg/dL (0.7-1.3) Estimated GFR (Cockcroft-Gault) 24.1 Glucose Level 78 mg/dL (70-99) Calcium Level 7.4 mg/dL (8.5-10.1) Phosphorus Level 4.2 mg/dL (2.6-4.7) Albumin 1.8 g/dL (3.4-5.0) Magnesium Level 2.3 mg/dL (1.8-2.4) Test 10/14/16 09:55 10/14/16 11:07 Glucose (Fingerstick) 59 mg/dL (70-99) 144 mg/dL (70-99) JACQUIE VALENZUELA MD Oct 14, 2016 11:21
[2016-10-14] MEDS: FAMOTIDINE 20 MG TABLET. PO SCH (11:58)
[2016-10-14] MEDS: GABAPENTIN 300 MG CAPSULE. PO SCH (11:58)
[2016-10-14] MEDS: ALBUMIN HUMAN 5% 500 ML IV SCH ×2 (11:59→16:25)
--- NOTE | 2016-10-14 13:35 | PDOC ---
PROGRESS NOTES Subjective Subjective Pt. with urethral stricture disease Objective Objective Vital Signs Date Time Temp Pulse Resp B/P (MAP) Pulse Ox O2 Delivery O2 Flow Rate FiO2 10/14/16 12:56 97.4 59 18 103/45 (64) 99 Room Air 97.4 10/14/16 11:00 2.0 Intake and Output 10/14/16 07:00 Intake Total 120 ml Output Total 1525 ml Balance -1405 ml Intake Oral 120 ml Output Urine Total 1525 ml # Bowel Movements 2 Physical Exam Physical Exam Bladder mass on CT-possible bladder tumor vs. prostate Plan Plan of Care Plan for cysto and possible biopsy on Tuesday 10/17 Comment Review of Relevant I have reviewed the following items vikash (where applicable) has been applied. Labs Laboratory Tests Test 10/12/16 15:50 10/12/16 16:30 10/12/16 16:41 10/12/16 20:47 White Blood Count 11.6 x10^3/uL (4.0-11.0) Red Blood Count 3.99 x10^6/uL (4.30-5.70) Hemoglobin 11.9 g/dL (13.0-17.5) Hematocrit 35.6 % (39.0-53.0) Mean Corpuscular Volume 89 fL (79-100) Mean Corpuscular Hemoglobin 30 pg (25-35) Mean Corpuscular Hemoglobin Concent 34 g/dL (31-37) Red Cell Distribution Width 14.6 % (11.5-14.5) Platelet Count 397 x10^3/uL (140-400) Erythrocyte Sedimentation Rate 60 (0-15) Sodium Level 138 mmol/L (136-145) Potassium Level 6.1 mmol/L (3.5-5.1) Chloride Level 106 mmol/L (98-107) Carbon Dioxide Level 23 mmol/L (21-32) Anion Gap 9 (6-14) Blood Urea Nitrogen 65 mg/dL (8-26) Creatinine 2.9 mg/dL (0.7-1.3) Estimated GFR (Cockcroft-Gault) 21.3 BUN/Creatinine Ratio 22 (6-20) Glucose Level 184 mg/dL (70-99) Calcium Level 8.3 mg/dL (8.5-10.1) Total Bilirubin 0.4 mg/dL (0.2-1.0) Aspartate Amino Transf (AST/SGOT) 12 U/L (15-37) Alanine Aminotransferase (ALT/SGPT) 19 U/L (16-63) Alkaline Phosphatase 217 U/L (46-116) Total Protein 6.6 g/dL (6.4-8.2) Albumin 2.2 g/dL (3.4-5.0) Albumin/Globulin Ratio 0.5 (1.0-1.7) Urine Collection Type Unknown Urine Color Yellow Urine Clarity Turbid Urine pH 5.5 Urine Specific [place] 1.010 Urine Protein 30 mg/dL (NEG-TRACE) Urine Glucose (UA) Negative mg/dL (NEG) Urine Ketones (Stick) Negative mg/dL (NEG) Urine Blood Large (NEG) Urine Nitrite Positive (NEG) Urine Bilirubin Negative (NEG) Urine Urobilinogen Dipstick 0.2 mg/dL (0.2 mg/dL) Urine Leukocyte Esterase Large (NEG) Urine RBC 3-5 /HPF (0-2) Urine WBC Tntc /HPF (0-4) Urine Squamous Epithelial Cells Few /LPF Urine Bacteria Many /HPF (0-FEW) Glucose (Fingerstick) 160 mg/dL (70-99) 186 mg/dL (70-99) Test 10/13/16 03:35 10/13/16 07:53 10/13/16 08:35 10/13/16 09:20 Sodium Level 142 mmol/L (136-145) Potassium Level 5.2 mmol/L (3.5-5.1) Chloride Level 111 mmol/L (98-107) Carbon Dioxide Level 21 mmol/L (21-32) Anion Gap 10 (6-14) Blood Urea Nitrogen 59 mg/dL (8-26) Creatinine 2.9 mg/dL (0.7-1.3) Estimated GFR (Cockcroft-Gault) 21.3 Glucose Level 145 mg/dL (70-99) Calcium Level 7.9 mg/dL (8.5-10.1) Glucose (Fingerstick) 47 mg/dL (70-99) 110 mg/dL (70-99) Prothrombin Time 14.2 SEC (11.7-14.0) Prothromb Time International Ratio 1.2 (0.8-1.1) Test 10/13/16 11:53 10/13/16 13:05 10/13/16 14:17 10/13/16 17:02 Glucose (Fingerstick) 54 mg/dL (70-99) 73 mg/dL (70-99) 87 mg/dL (70-99) 115 mg/dL (70-99) Test 10/13/16 22:32 10/14/16 04:30 10/14/16 05:00 10/14/16 09:17 Glucose (Fingerstick) 149 mg/dL (70-99) 56 mg/dL (70-99) Hemoglobin 11.3 g/dL (13.0-17.5) Sodium Level 144 mmol/L (136-145) Potassium Level 4.6 mmol/L (3.5-5.1) Chloride Level 111 mmol/L (98-107) Carbon Dioxide Level 21 mmol/L (21-32) Anion Gap 12 (6-14) Blood Urea Nitrogen 52 mg/dL (8-26) Creatinine 2.6 mg/dL (0.7-1.3) Estimated GFR (Cockcroft-Gault) 24.1 Glucose Level 78 mg/dL (70-99) Calcium Level 7.4 mg/dL (8.5-10.1) Phosphorus Level 4.2 mg/dL (2.6-4.7) Albumin 1.8 g/dL (3.4-5.0) Magnesium Level 2.3 mg/dL (1.8-2.4) Test 10/14/16 09:55 10/14/16 11:07 Glucose (Fingerstick) 59 mg/dL (70-99) 144 mg/dL (70-99) Laboratory Tests Test 10/13/16 14:17 10/13/16 17:02 10/13/16 22:32 10/14/16 04:30 Glucose (Fingerstick) 87 mg/dL (70-99) 115 mg/dL (70-99) 149 mg/dL (70-99) Hemoglobin 11.3 g/dL (13.0-17.5) Sodium Level 144 mmol/L (136-145) Potassium Level 4.6 mmol/L (3.5-5.1) Chloride Level 111 mmol/L (98-107) Carbon Dioxide Level 21 mmol/L (21-32) Anion Gap 12 (6-14) Blood Urea Nitrogen 52 mg/dL (8-26) Creatinine 2.6 mg/dL (0.7-1.3) Estimated GFR (Cockcroft-Gault) 24.1 Glucose Level 78 mg/dL (70-99) Calcium Level 7.4 mg/dL (8.5-10.1) Phosphorus Level 4.2 mg/dL (2.6-4.7) Albumin 1.8 g/dL (3.4-5.0) Test 10/14/16 05:00 10/14/16 09:17 10/14/16 09:55 10/14/16 11:07 Magnesium Level 2.3 mg/dL (1.8-2.4) Glucose (Fingerstick) 56 mg/dL (70-99) 59 mg/dL (70-99) 144 mg/dL (70-99) Medications Current Medications Dextrose/Sodium Chloride 187.5 ml @ 250 mls/hr Q45M IV Last administered on 16:44; Start 10/12/16 at 15:15; Stop 10/12/16 at 16:00; Status DC Dextrose/Sodium Chloride 1,000 ml @ 125 mls/hr Q8H IV Last administered on 18:30; Start 10/12/16 at 16:00; Stop 10/12/16 at 19:44; Status DC Gabapentin (Neurontin) 300 mg BID PO Last administered on 10/13/16 22:42; Start 10/12/16 at 21:00; Stop 10/14/16 at 08:51; Status DC Insulin Detemir (Levemir) 15 units BID SQ Last administered on 10/13/16 22:51 ; Start 10/12/16 at 21:00; Stop 10/14/16 at 08:51; Status DC Tamsulosin HCl (Flomax) 0.4 mg QHS PO Last administered on 10/13/16 22:42; Start 10/12/16 at 21:00 Famotidine (Pepcid) 20 mg DAILY PO Last administered on 10/14/16 11:58; Start 10/12/16 at 16:00 Sodium Polystyrene Sulfonate (Kayexalate) 15 gm 1X ONCE PO Last administered on 10/12/16 16:41; Start 10/12/16 at 15:15; Stop 10/12/16 at 15:29; Status DC Insulin Aspart (NovoLOG) 0-9 UNITS TIDWMEALS SQ ; Start 10/12/16 at 17:00 Dextrose (Dextrose 50%-Water Syringe) 12.5 gm PRN Q15MIN PRN IV SEE COMMENTS; Start 10/12/16 at 15:15 Sodium Polystyrene Sulfonate (Kayexalate) 45 gm 1X ONCE PO Last administered on 10/12/16 21:39; Start 10/12/16 at 20:00; Stop 10/12/16 at 20:01; Status DC Piperacillin Sod/ Tazobactam Sod 2.25 gm/Sodium Chloride 50 ml @ 100 mls/hr Q8HRS IV Last administered on 10/13/16 05:31; Start 10/12/16 at 22:30; Stop at 13:09; Status DC Dextrose 250 ml @ 250 mls/hr Q1H PRN IV LOW BLOOD SUGAR; Start 10/13/16 at 09: 00; Status UNV Dextrose 250 ml @ 1,500 mls/hr PRN Q1HR PRN IV LOW BLOOD SUGAR Last administered on 10/14/16 10:11; Start 10/13/16 at 09:15 Magnesium Sulfate/ Dextrose 50 ml @ 25 mls/hr PRN DAILY PRN IV for Mag < 1.7 on am labs; Start 10/13/16 at 09:00 Piperacillin Sod/ Tazobactam Sod 2.25 gm/Sodium Chloride 50 ml @ 100 mls/hr Q6HRS IV Last administered on 10/14/16 11:59; Start 10/13/16 at 14:00 Lidocaine/Sodium Bicarbonate (Buffered Lidocaine 1%) 20 ml STK-MED ONCE IJ ; Start 10/14/16 at 06:59; Stop 10/14/16 at 07:00; Status DC Midazolam HCl (Versed) 2 mg STK-MED ONCE .ROUTE ; Start 10/14/16 at 07:02; Stop 10/14/16 at 07:03; Status DC Fentanyl Citrate (Fentanyl 2ml Vial) 100 mcg STK-MED ONCE .ROUTE ; Start at 07:02; Stop 10/14/16 at 07:03; Status DC Iohexol (Omnipaque 300 Mg/ml) 50 ml STK-MED ONCE .ROUTE ; Start 10/14/16 at 08: 06; Stop 10/14/16 at 08:07; Status DC Lidocaine/Sodium Bicarbonate (Buffered Lidocaine 1%) 20 ml STK-MED ONCE IJ ; Start 10/14/16 at 08:21; Stop 10/14/16 at 08:22; Status DC Iohexol (Omnipaque 300 Mg/ml) 50 ml STK-MED ONCE .ROUTE ; Start 10/14/16 at 08: 21; Stop 10/14/16 at 08:22; Status DC Heparin Sodium/ Sodium Chloride 500 ml @ As Directed STK-MED ONCE .ROUTE ; Start 10/14/16 at 08:21; Stop 10/14/16 at 08:22; Status DC Levofloxacin/ Dextrose 100 ml @ As Directed STK-MED ONCE IV ; Start 10/14/16 at 08:30; Stop 10/14/16 at 08:31; Status DC Heparin Sodium/ Sodium Chloride 1,000 unit 1X ONCE IART Last administered on 08:58; Start 10/14/16 at 08:45; Stop 10/14/16 at 08:46; Status DC Iohexol (Omnipaque 300 Mg/ml) 50 ml 1X ONCE IART Last administered on 08:58; Start 10/14/16 at 08:45; Stop 10/14/16 at 08:46; Status DC Levofloxacin/ Dextrose 100 ml @ 100 mls/hr 1X ONCE IV Last administered on 08:58; Start 10/14/16 at 08:35; Stop 10/14/16 at 09:34; Status DC Gabapentin (Neurontin) 300 mg DAILY08 PO Last administered on 10/14/16 11:58; Start 10/14/16 at 09:00 Insulin Detemir (Levemir) 6 units BID SQ ; Start 10/14/16 at 09:00 Lidocaine/Sodium Bicarbonate (Buffered Lidocaine 1%) 7 ml 1X ONCE IJ Last administered on 10/14/16 09:10; Start 10/14/16 at 09:00; Stop 10/14/16 at 09:03 ; Status DC Midazolam HCl (Versed) 2 mg 1X ONCE IV Last administered on 10/14/16 09:08; Start 10/14/16 at 09:00; Stop 10/14/16 at 09:03; Status DC Fentanyl Citrate (Fentanyl 2ml Vial) 100 mcg 1X ONCE IV Last administered on 09:09; Start 10/14/16 at 09:00; Stop 10/14/16 at 09:03; Status DC Albumin Human 500 ml @ 125 mls/hr Q4HRS IV Last administered on 10/14/16 11: 59; Start 10/14/16 at 11:30; Stop 10/14/16 at 15:59 Active Scripts Active Reported Benazepril Hcl 40 Mg Tablet 40 Mg PO DAILY Tamsulosin Hcl 0.4 Mg Cap.er.24h 0.4 Mg PO DAILY Macrodantin (Nitrofurantoin Macrocrystal) 100 Mg Capsule 100 Mg PO DAILY Gabapentin 600 Mg Tablet 300 Mg PO BID Humulin 70-30 Vial (Hum Insulin Nph/Reg Insulin Hm) 100 Unit/1 Ml Vial 25 Unit SQ BID Vitals/I & O Vital Sign - Last 24 Hours 10/13/16 10/13/16 10/13/16 10/13/16 14:50 19:10 20:00 22:21 Temp 97.7 97.9 98.0 97.7 97.9 98.0 Pulse 56 58 56 Resp 18 18 18 B/P (MAP) 116/43 (67) 141/59 (86) 136/50 (78) Pulse Ox 94 95 96 O2 Delivery Room Air Room Air Room Air Room Air 10/14/16 10/14/16 10/14/16 10/14/16 02:30 07:00 07:34 07:39 Temp 97.5 97.6 97.5 97.6 Pulse 54 57 51 47 Resp 16 18 18 13 B/P (MAP) 93/52 (66) 86/39 (55) Pulse Ox 98 98 100 100 O2 Delivery Room Air Room Air Nasal Cannula Nasal Cannula O2 Flow Rate 2.0 2.0 10/14/16 10/14/16 10/14/16 10/14/16 07:44 07:49 07:54 07:59 Pulse 53 66 59 51 Resp 13 14 17 16 Pulse Ox 100 100 100 100 O2 Delivery Nasal Cannula Nasal Cannula Nasal Cannula Nasal Cannula O2 Flow Rate 2.0 2.0 2.0 2.0 6/23/10/14/16 10/14/16 10/14/16 08:00 08:04 08:09 08:35 Pulse 54 56 63 Resp 18 18 18 Pulse Ox 100 100 100 O2 Delivery Room Air Nasal Cannula Nasal Cannula Nasal Cannula O2 Flow Rate 2.0 2.0 2.0 10/14/16 10/14/16 10/14/16 10/14/16 08:40 08:45 08:50 08:55 Pulse 58 70 70 67 Resp 18 16 18 18 Pulse Ox 100 100 100 100 O2 Delivery Nasal Cannula Nasal Cannula Nasal Cannula Nasal Cannula O2 Flow Rate 2.0 2.0 2.0 2.0 10/14/16 10/14/16 10/14/16 10/14/16 09:01 09:09 09:15 09:30 Temp 97.4 97.4 97.4 97.4 Pulse 80 40 69 Resp 17 16 16 B/P (MAP) 90/51 (64) 80/60 (67) Pulse Ox 98 98 91 91 O2 Delivery Room Air Room Air Room Air Room Air 10/14/16 10/14/16 10/14/16 10/14/16 10:00 10:30 11:00 12:56 Temp 97.4 97.4 97.4 97.4 97.4 97.4 97.4 97.4 Pulse 60 51 65 59 Resp 16 16 16 18 B/P (MAP) 105/61 (76) 95/41 (59) 100/52 (68) 103/45 (64) Pulse Ox 99 91 100 99 O2 Delivery Room Air Nasal Cannula Nasal Cannula Room Air O2 Flow Rate 2.0 2.0 Intake and Output 10/13/16 10/13/16 10/14/16 15:00 23:00 07:00 Intake Total 120 ml Output Total 500 ml 1025 ml Balance -500 ml -905 ml Nutrition Consultation Dietary Evaluation: Recommendations by RD: Increase Calorie Intake, Protein supplementation Comments: 49# wt loss x's 5 weeks, poor intake over the past month (1-2 bites of food at meals) Rec. add chocolate boost glucose control protein icecream shakes TID Encourage good PO intake Stage I pressure ulcer- rec. 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
[2016-10-14] MEDS: TAMSULOSIN 0.4 MG CAP.ER.24H. PO SCH (21:16)
[2016-10-15] MEDS: PIPERACILLIN/TAZOBACTAM 2.25 GM in IV NORMAL SALINE 50ML 50 ML IV SCH ×4 (00:22→17:32)
[2016-10-15 03:40] VITALS: BP 137/53
[2016-10-15 05:04] LABS: ALBUMIN 2.4 g/dL (3.4-5.0); CALCIUM 7.5 mg/dL (8.5-10.1); CREATININE 2.5 mg/dL (0.7-1.3); GFR 25.2; PHOSPHORUS 3.3 mg/dL (2.6-4.7)
[2016-10-15 07:00] VITALS: BP 112/55
[2016-10-15] MEDS: INSULIN ASPART 300 UNITS/3 ML INSULN.PEN SQ SCH ×3 (08:00→17:00)
[2016-10-15] MEDS: GABAPENTIN 300 MG CAPSULE. PO SCH (08:32)
[2016-10-15] MEDS: FAMOTIDINE 20 MG TABLET. PO SCH (08:32)
[2016-10-15] MEDS: INSULIN DETEMIR 300 UNITS/3 ML INSULN.PEN. SQ SCH ×2 (08:33→21:13)
[2016-10-15 11:10] VITALS: BP 105/41
--- NOTE | 2016-10-15 11:24 | RAD ---
CT and fluoroscopy guided insertion of right percutaneous nephrostomy tube Indication: 76-year-old male with advanced right hydronephrosis and hydroureter to a level near UVJ, as demonstrated on [facility] noncontrast CT from 10/12/2016. Left kidney also appeared hydronephrotic, but globally atrophic. Image guided right percutaneous nephrostomy tube insertion has been requested to preserve right renal function. Fluoroscopy time: 5.7 minutes Kerma-area Product: 22 Gycm2 Contrast material: 15 cc Omnipaque 300 was utilized. Anesthesia: 76 minutes moderate sedation was provided utilizing a total of 2 mg Versed and 100 mcg fentanyl, IV. The patient was appropriately monitored by a qualified independent observer throughout the time of moderate sedation. 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 This included a discussion of risks and benefits and commonly accepted alternatives to the procedure, as well as expected consequences of no treatment at all. Discussion of risks included, but was not limited to, those that are most frequent and those that are rare, but possibly severe or life-threatening, as well as the possibility of unforeseen complications. Sterility: All elements of maximal sterile barrier technique were utilized, including cap, mask, sterile gown, sterile gloves, large sterile sheet, appropriate hand hygiene, and 2% chlorhexidine for cutaneous antisepsis. Antibiotic: A single dose of Levaquin was administered within 1 hour of the procedure start time. Levaquin was considered superior to cephalosporin for this procedure. Procedure: Informed consent was obtained from the patient. Moderate sedation was provided with IV Versed and fentanyl. 500 mg Levaquin was given IV, prophylactically. CT-guided percutaneous access: Right renal collecting system was suboptimally evaluated on preliminary ultrasound examination. In order to avoid requirement for IV contrast material in this patient with renal insufficiency, the patient was placed prone on the CT scanner. Preliminary noncontrast CT images were obtained through abdomen. Those images revealed residual moderate right hydronephrosis, representing improvement since the CT scan done 10/12/2016. A right posterolateral skin site suitable for CT-guided needle access into right lower pole calyx was selected and marked. That area was prepped and draped in the usual sterile fashion. Using aseptic technique, local anesthesia, and CT guidance, a 19-gauge needle was successfully advanced into the selected right lower pole calyx. This needle was exchanged over a microguidewire for a 4 Mozambican dilator. A small amount of dilute contrast material was injected through the dilator and repeat CT images were obtained, which confirmed intraluminal position of the dilator, with contrast opacification of right renal collecting system and visualized proximal right ureter. The 4 Mozambican dilator was then secured in place at the skin exit site, and the patient was transported to the angiography suite for fluoroscopy guided nephrostomy tube insertion. Fluoroscopy percutaneous nephrostomy tube insertion: Following CT-guided percutaneous access into right lower pole collecting system, the patient was transported to the angiography suite. He was placed prone on the angiography table. Left flank was prepped and draped in the usual sterile fashion, utilizing all elements of maximal sterile barrier technique, as described above. Using aseptic technique and fluoroscopic control, diluted Omnipaque 300 was injected through the indwelling 4 Mozambican dilator, and antegrade pyelogram fluoroscopic spot images were obtained. Those images revealed moderate right hydronephrosis and moderate right hydroureter. A partially obstructing intraluminal filling defect was identified within distal right ureter, above UVJ. This filling defect is nonspecific, and could represent radiolucent stone, blood clot, or, possibly, polypoid tumor. The 4 Mozambican dilator was then removed over a 0.018 inch nitinol guidewire. The Skater introducer system was then advanced over the nitinol wire into right renal pelvis under fluoroscopic guidance. The skater introducer system was then removed over a 0.035 inch Amplatz wire. The percutaneous tract was then dilated and a 10 Mozambican locking pigtail all-purpose nephrostomy drain drain was easily introduced over the Amplatz wire, and was successfully coiled within right renal pelvis. Satisfactory position of the nephrostomy drain was confirmed with contrast injection and fluoroscopic spot images. The nephrostomy tube was then gently lavaged with heparinized saline, was connected to gravity drainage, and was secured at the skin exit site utilizing suture and sterile dressing. Patient tolerated the procedures well without apparent complication. Impression: 1. Successful, uneventful CT-guided percutaneous access into right renal collecting system, as described. 2. Fluoroscopy guided right antegrade pyelogram revealed moderate right hydronephrosis and moderate hydroureter to the level of distal ureter, where a partially obstructing intraluminal filling defect was demonstrated--- this defect is nonspecific, and could represent radiolucent stone, blood clot, or polypoid tumor. 3. Successful, uneventful fluoroscopy guided insertion of a 10 Mozambican locking pigtail right percutaneous nephrostomy drain, as described. PQRS Compliance Statement: One or more of the following individualized dose reduction techniques was/were utilized for this CT examination or procedure: 1. Automated exposure control. 2. Adjustment of mA and/or kV according to patient size. 3. Iterative reconstruction technique.
--- NOTE | 2016-10-15 12:47 | PDOC ---
GENERAL General: vss and afebrile. awake and alert and eating lunch. feels better. bladder mass with bilateral ureteral obstruction and bilateral hydronephrosis. percutaneous drainage right kidney by IR. left kidney atrophic. for cystoscopy on Monday. chest clear and heart regular. Problems: VITAL SIGNS Vital Signs: Vital Signs Date Time Temp Pulse Resp B/P (MAP) Pulse Ox O2 Delivery O2 Flow Rate FiO2 10/15/16 11:10 97.4 78 16 105/41 (62) 100 Room Air 97.4 10/15/16 08:05 2.0 I & O I & O Intake and Output 10/15/16 06:59 Intake Total 450 ml Output Total 1525 ml Balance -1075 ml Intake Oral 450 ml Output Urine Total 700 ml Drainage Total 825 ml # Bowel Movements 1 ALLERGIES Allergies: Allergies Coded Allergies Type Severity Reaction Last Updated Verified No Known Drug Allergies 04/02/15 No MEDS Medications: Current Medications Medications (Trade) Dose Ordered Sig/Cristina Start Time Stop Time Status Last Admin Dose Admin Albumin Human 500 ml @ 125 mls/hr Q4HRS 10/14/16 11:30 10/14/16 15:59 DC 10/14/16 16:25 125 MLS/HR Dextrose 250 ml @ 1,500 mls/hr PRN Q1HR PRN 10/13/16 09:15 10/14/16 10:11 1,500 MLS/HR Dextrose (Dextrose 50%-Water Syringe) 12.5 gm PRN Q15MIN PRN 10/12/16 15:15 Dextrose/Sodium Chloride 1,000 ml @ 125 mls/hr Q8H 10/12/16 16:00 10/12/16 19:44 DC 10/12/16 18:30 125 MLS/HR Famotidine (Pepcid) 20 mg DAILY 10/12/16 16:00 10/15/16 08:32 20 MG Fentanyl Citrate (Fentanyl 2ml Vial) 50 mcg PRN Q5MIN PRN 10/17/16 07:00 10/18/16 06:59 Gabapentin (Neurontin) 300 mg DAILY08 10/14/16 09:00 10/15/16 08:32 300 MG Heparin Sodium/ Sodium Chloride 1,000 unit 1X ONCE 10/14/16 08:45 10/14/16 08:46 DC 10/14/16 08:58 1,000 UNIT Hydromorphone HCl (Dilaudid) 0.5 mg PRN Q10MIN PRN 10/17/16 07:00 10/18/16 06:59 Insulin Aspart (NovoLOG) 0-9 UNITS TIDWMEALS 10/12/16 17:00 Insulin Detemir (Levemir) 6 units BID 10/14/16 09:00 10/14/16 21:24 6 UNITS Iohexol (Omnipaque 300 Mg/ml) 50 ml 1X ONCE 10/14/16 08:45 10/14/16 08:46 DC 10/14/16 08:58 15 ML Levofloxacin/ Dextrose 100 ml @ 100 mls/hr 1X ONCE 10/14/16 08:35 10/14/16 09:34 DC 10/14/16 08:58 100 MLS/HR Lidocaine HCl 2 ml PRN 1X PRN 10/17/16 07:00 10/18/16 06:59 Lidocaine/Sodium Bicarbonate (Buffered Lidocaine 1%) 7 ml 1X ONCE 10/14/16 09:00 10/14/16 09:03 DC 10/14/16 09:10 7 ML Magnesium Sulfate/ Dextrose 50 ml @ 25 mls/hr PRN DAILY PRN 10/13/16 09:00 Midazolam HCl (Versed) 2 mg 1X ONCE 10/14/16 09:00 10/14/16 09:03 DC 10/14/16 09:08 2 MG Morphine Sulfate 1 mg PRN Q10MIN PRN 10/17/16 07:00 10/18/16 06:59 Ondansetron HCl (Zofran) 4 mg PRN Q6HRS PRN 10/17/16 07:00 10/18/16 06:59 Piperacillin Sod/ Tazobactam Sod 2.25 gm/Sodium Chloride 50 ml @ 100 mls/hr Q6HRS 10/13/16 14:00 10/15/16 05:59 100 MLS/HR Prochlorperazine Edisylate (Compazine) 5 mg PACU PRN PRN 10/17/16 07:00 10/18/16 06:59 Ringer's Solution 1,000 ml @ 30 mls/hr Q24H 10/17/16 07:00 10/17/16 18:59 Sodium Polystyrene Sulfonate (Kayexalate) 45 gm 1X ONCE 10/12/16 20:00 10/12/16 20:01 DC 10/12/16 21:39 45 GM Tamsulosin HCl (Flomax) 0.4 mg QHS 10/12/16 21:00 10/14/16 21:16 0.4 MG LAB Lab: Laboratory Tests Test 10/14/16 16:39 10/14/16 21:20 10/15/16 04:00 10/15/16 07:34 Glucose (Fingerstick) 144 mg/dL (70-99) 153 mg/dL (70-99) 106 mg/dL (70-99) Sodium Level 144 mmol/L (136-145) Potassium Level 5.0 mmol/L (3.5-5.1) Chloride Level 111 mmol/L (98-107) Carbon Dioxide Level 22 mmol/L (21-32) Anion Gap 11 (6-14) Blood Urea Nitrogen 42 mg/dL (8-26) Creatinine 2.5 mg/dL (0.7-1.3) Estimated GFR (Cockcroft-Gault) 25.2 Glucose Level 113 mg/dL (70-99) Calcium Level 7.5 mg/dL (8.5-10.1) Phosphorus Level 3.3 mg/dL (2.6-4.7) Magnesium Level 2.0 mg/dL (1.8-2.4) Albumin 2.4 g/dL (3.4-5.0) Test 10/15/16 11:30 Glucose (Fingerstick) 122 mg/dL (70-99) Nutrition Consultation Dietary Evaluation: Recommendations by RD: Increase Calorie Intake, Protein supplementation Comments: 49# wt loss x's 5 weeks, poor intake over the past month (1-2 bites of food at meals) Rec. add chocolate boost glucose control protein icecream shakes TID Encourage good PO intake Stage I pressure ulcer- rec. a daily MVT and 500 mg Vitamin C/day Expected Outcomes/Goals: meet 75% estimated nutrition needs no further wt loss Interpretation of weight loss: >5% in 1 month Malnutrition Findings: Food and Nutrition Intake (Mod: <75% est energy req 7days Body Fat Depletion (Non Severe: Mild Depletion Reduced Asset Protection Assistant Strength: N/A Malnutrition related to morbid: No Weight Status: Appropriate Fluid Accumulation (N/A): N/A ESSENCE WEINER MD Oct 15, 2016 12:47
--- NOTE | 2016-10-15 12:59 | CONS ---
DATE OF CONSULTATION: 10/14/2016 LOCATION: The patient is in room #206. HISTORY OF PRESENT ILLNESS: The patient is a very pleasant 76-year-old white male with a history of urethral stricture disease, who came in with renal failure. The patient had a right percutaneous nephrostomy placed today. The patient has been doing intermittent self catheterization t.i.d. and is a regular patient of Dr. Joseph. He has had multiple urethral dilations and VIU procedures by Dr. Gonsalves and Dr. Soliman in the past. He was actually seen in the Urology office recently and referred to Urology with Dr. Carlson and ____. and the patient did not keep the appointment. The patient had a CT scan, which showed possible bladder mass and hydronephrosis. He had a right percutaneous nephrostomy tube placement. He has an atrophic left kidney. His creatinine currently is 2.6, down from 2.9. The patient is on IV antibiotics. He has Painter catheter to gravity drainage. He has right percutaneous nephrostomy to gravity drainage. Urine is grossly yellow in color. Testes are descended bilaterally. Phallus within normal limits. The patient also reports weight loss over the last 6 months of almost 50 pounds. I talked with the patient and his family concerning his findings - we will plan on doing a cystoscopy and possible biopsy on 10/17/2016 and then proceed accordingly. I certainly appreciate being allowed to participate in this patient's care. The patient had a rectal examination in the office on 08/26/2016 which was 30 grams, no nodules. ASAD GALVAN MD DR: STEW/lester JOB#: [id number] / [id number]
--- NOTE | 2016-10-15 13:48 | PDOC ---
SUBJECTIVE ROS LATA Doign better overall zhanna CVS: no Orthopnea, no CP RESP: no SOB, no PATEL GI: no Nausea, no Vomiting : no Dysuria, no Urgency OBJECTIVE Vital Signs Vital Signs Date Time Temp Pulse Resp B/P (MAP) Pulse Ox O2 Delivery O2 Flow Rate FiO2 10/15/16 11:10 97.4 78 16 105/41 (62) 100 Room Air 97.4 10/15/16 08:05 2.0 I & 0 Intake and Output 10/15/16 07:00 Intake Total 450 ml Output Total 1525 ml Balance -1075 ml Intake Oral 450 ml Output Urine Total 700 ml Drainage Total 825 ml # Bowel Movements 1 PHYSICAL EXAM Physical Exam General Appearance: Awake Alert Oriented x 3 In no Distress; Ch Ill appearing WM Eyes: VIsion Unchanged Conjunctiva Normal EN: No EN Drainage Mucous Memb. moist Neck: no JVD no JVP Supple no Thyromegaly CVS: S1 S2 no Murmur No Gallop No Rub no Edema Resp: no Rales no Rhonchi no Acc. Muscle use GI: BAS +ve NO Bruit Non Tender Non Distended : no CVA tenderness; no Suprapubic Tenderness Assessment & Plan ARF: Not sure if Obst Uropathy is new or old. URO eval appreciated. creat slowly trending down with PCN. Current FLuid and E-lyte status does not necessitate emergent need for Dialysis. Will re-evaluate for Dialysis in am Wt loss - suspect associated with Pelvic Pathology (PSA WNL) - CYSTO per URO. Sev Hypoalbuminemia - ? due to FTT, Poor PO intake CKD III at least vs IV due to Unilateral small kidney as noted on US/ CT Unilateral small kidney as noted on US/ CT - ? Ischemic vs Ch Obstruction Hematuria (ROLF) suspect due to bladder pathology - pending Cysto Discussed Plan of Care and prognosis etc. at length with family. COMMENT/RELEVANT DATA Meds Current Medications Medications (Trade) Dose Ordered Sig/Cristina Start Time Stop Time Status Last Admin Dose Admin Albumin Human 500 ml @ 125 mls/hr Q4HRS 10/14/16 11:30 10/14/16 15:59 DC 10/14/16 16:25 125 MLS/HR Dextrose 250 ml @ 1,500 mls/hr PRN Q1HR PRN 10/13/16 09:15 10/14/16 10:11 1,500 MLS/HR Dextrose (Dextrose 50%-Water Syringe) 12.5 gm PRN Q15MIN PRN 10/12/16 15:15 Dextrose/Sodium Chloride 1,000 ml @ 125 mls/hr Q8H 10/12/16 16:00 10/12/16 19:44 DC 10/12/16 18:30 125 MLS/HR Famotidine (Pepcid) 20 mg DAILY 10/12/16 16:00 10/15/16 08:32 20 MG Fentanyl Citrate (Fentanyl 2ml Vial) 50 mcg PRN Q5MIN PRN 10/17/16 07:00 10/18/16 06:59 Gabapentin (Neurontin) 300 mg DAILY08 10/14/16 09:00 10/15/16 08:32 300 MG Heparin Sodium/ Sodium Chloride 1,000 unit 1X ONCE 10/14/16 08:45 10/14/16 08:46 DC 10/14/16 08:58 1,000 UNIT Hydromorphone HCl (Dilaudid) 0.5 mg PRN Q10MIN PRN 10/17/16 07:00 10/18/16 06:59 Insulin Aspart (NovoLOG) 0-9 UNITS TIDWMEALS 10/12/16 17:00 Insulin Detemir (Levemir) 6 units BID 10/14/16 09:00 10/14/16 21:24 6 UNITS Iohexol (Omnipaque 300 Mg/ml) 50 ml 1X ONCE 10/14/16 08:45 10/14/16 08:46 DC 10/14/16 08:58 15 ML Levofloxacin/ Dextrose 100 ml @ 100 mls/hr 1X ONCE 10/14/16 08:35 10/14/16 09:34 DC 10/14/16 08:58 100 MLS/HR Lidocaine HCl 2 ml PRN 1X PRN 10/17/16 07:00 10/18/16 06:59 Lidocaine/Sodium Bicarbonate (Buffered Lidocaine 1%) 7 ml 1X ONCE 10/14/16 09:00 10/14/16 09:03 DC 10/14/16 09:10 7 ML Magnesium Sulfate/ Dextrose 50 ml @ 25 mls/hr PRN DAILY PRN 10/13/16 09:00 Midazolam HCl (Versed) 2 mg 1X ONCE 10/14/16 09:00 10/14/16 09:03 DC 10/14/16 09:08 2 MG Morphine Sulfate 1 mg PRN Q10MIN PRN 10/17/16 07:00 10/18/16 06:59 Ondansetron HCl (Zofran) 4 mg PRN Q6HRS PRN 10/17/16 07:00 10/18/16 06:59 Piperacillin Sod/ Tazobactam Sod 2.25 gm/Sodium Chloride 50 ml @ 100 mls/hr Q6HRS 10/13/16 14:00 10/15/16 13:11 100 MLS/HR Prochlorperazine Edisylate (Compazine) 5 mg PACU PRN PRN 10/17/16 07:00 10/18/16 06:59 Ringer's Solution 1,000 ml @ 30 mls/hr Q24H 10/17/16 07:00 10/17/16 18:59 Sodium Polystyrene Sulfonate (Kayexalate) 45 gm 1X ONCE 10/12/16 20:00 10/12/16 20:01 DC 10/12/16 21:39 45 GM Tamsulosin HCl (Flomax) 0.4 mg QHS 10/12/16 21:00 10/14/16 21:16 0.4 MG Lab Laboratory Tests Test 10/14/16 16:39 10/14/16 21:20 10/15/16 04:00 10/15/16 07:34 Glucose (Fingerstick) 144 mg/dL (70-99) 153 mg/dL (70-99) 106 mg/dL (70-99) Sodium Level 144 mmol/L (136-145) Potassium Level 5.0 mmol/L (3.5-5.1) Chloride Level 111 mmol/L (98-107) Carbon Dioxide Level 22 mmol/L (21-32) Anion Gap 11 (6-14) Blood Urea Nitrogen 42 mg/dL (8-26) Creatinine 2.5 mg/dL (0.7-1.3) Estimated GFR (Cockcroft-Gault) 25.2 Glucose Level 113 mg/dL (70-99) Calcium Level 7.5 mg/dL (8.5-10.1) Phosphorus Level 3.3 mg/dL (2.6-4.7) Magnesium Level 2.0 mg/dL (1.8-2.4) Albumin 2.4 g/dL (3.4-5.0) Test 10/15/16 11:30 Glucose (Fingerstick) 122 mg/dL (70-99) JACQUIE VALENZUELA MD Oct 15, 2016 13:48
[2016-10-15 15:00] VITALS: BP 114/48
--- NOTE | 2016-10-15 15:13 | PDOC2 ---
CONSULT Date of Consult Date of Consult DATE: 10/15/16 TIME: 15:05 Reason for Consult Reason for Consult: Bradycardia Referring Physician Referring Physician: Dr. Milligan Identification/Chief Complaint Chief Complaint Renal failure and hyperkalemia Problems: History of Present Illness Reason for Visit: Patient is a 76-year-old gentleman that denies any previous history of heart disease. He has been having kidney problems for sometimes and he requires self catheterizations. The patient has had a 50 pound weight loss over the last 6 months and he was brought in because he was feeling very poorly and was found to have an elevated potassium as well as BUN/creatinine. Following admission he appears to have obstructive uropathy with hydronephrosis and renal failure. The patient is being seen by the supervisor paper machine as well as the urologist and is probably going for a cystoscopy and possible bladder mass biopsy on Monday. From a cardiac standpoint the patient has been in sinus bradycardia since admission with very frequent PVCs but no V. tach. The blood pressure has not been compromised by the bradycardia. The vagus post that I found so far was 1.8 seconds. Past Medical History Cardiovascular: HTN Renal/: Chronic renal insuff, Benign prostatic enlarg., Other (urinary retention) Endocrine: Diabetes Current Medications Current Medications Current Medications Dextrose/Sodium Chloride 187.5 ml @ 250 mls/hr Q45M IV Last administered on 16:44; Start 10/12/16 at 15:15; Stop 10/12/16 at 16:00; Status DC Dextrose/Sodium Chloride 1,000 ml @ 125 mls/hr Q8H IV Last administered on 18:30; Start 10/12/16 at 16:00; Stop 10/12/16 at 19:44; Status DC Gabapentin (Neurontin) 300 mg BID PO Last administered on 10/13/16 22:42; Start 10/12/16 at 21:00; Stop 10/14/16 at 08:51; Status DC Insulin Detemir (Levemir) 15 units BID SQ Last administered on 10/13/16 22:51 ; Start 10/12/16 at 21:00; Stop 10/14/16 at 08:51; Status DC Tamsulosin HCl (Flomax) 0.4 mg QHS PO Last administered on 10/14/16 21:16; Start 10/12/16 at 21:00 Famotidine (Pepcid) 20 mg DAILY PO Last administered on 10/15/16 08:32; Start 10/12/16 at 16:00 Sodium Polystyrene Sulfonate (Kayexalate) 15 gm 1X ONCE PO Last administered on 10/12/16 16:41; Start 10/12/16 at 15:15; Stop 10/12/16 at 15:29; Status DC Insulin Aspart (NovoLOG) 0-9 UNITS TIDWMEALS SQ ; Start 10/12/16 at 17:00 Dextrose (Dextrose 50%-Water Syringe) 12.5 gm PRN Q15MIN PRN IV SEE COMMENTS; Start 10/12/16 at 15:15 Sodium Polystyrene Sulfonate (Kayexalate) 45 gm 1X ONCE PO Last administered on 10/12/16 21:39; Start 10/12/16 at 20:00; Stop 10/12/16 at 20:01; Status DC Piperacillin Sod/ Tazobactam Sod 2.25 gm/Sodium Chloride 50 ml @ 100 mls/hr Q8HRS IV Last administered on 10/13/16 05:31; Start 10/12/16 at 22:30; Stop at 13:09; Status DC Dextrose 250 ml @ 250 mls/hr Q1H PRN IV LOW BLOOD SUGAR; Start 10/13/16 at 09: 00; Status UNV Dextrose 250 ml @ 1,500 mls/hr PRN Q1HR PRN IV LOW BLOOD SUGAR Last administered on 10/14/16 10:11; Start 10/13/16 at 09:15 Magnesium Sulfate/ Dextrose 50 ml @ 25 mls/hr PRN DAILY PRN IV for Mag < 1.7 on am labs; Start 10/13/16 at 09:00 Piperacillin Sod/ Tazobactam Sod 2.25 gm/Sodium Chloride 50 ml @ 100 mls/hr Q6HRS IV Last administered on 10/15/16 13:11; Start 10/13/16 at 14:00 Lidocaine/Sodium Bicarbonate (Buffered Lidocaine 1%) 20 ml STK-MED ONCE IJ ; Start 10/14/16 at 06:59; Stop 10/14/16 at 07:00; Status DC Midazolam HCl (Versed) 2 mg STK-MED ONCE .ROUTE ; Start 10/14/16 at 07:02; Stop 10/14/16 at 07:03; Status DC Fentanyl Citrate (Fentanyl 2ml Vial) 100 mcg STK-MED ONCE .ROUTE ; Start at 07:02; Stop 10/14/16 at 07:03; Status DC Iohexol (Omnipaque 300 Mg/ml) 50 ml STK-MED ONCE .ROUTE ; Start 10/14/16 at 08: 06; Stop 10/14/16 at 08:07; Status DC Lidocaine/Sodium Bicarbonate (Buffered Lidocaine 1%) 20 ml STK-MED ONCE IJ ; Start 10/14/16 at 08:21; Stop 10/14/16 at 08:22; Status DC Iohexol (Omnipaque 300 Mg/ml) 50 ml STK-MED ONCE .ROUTE ; Start 10/14/16 at 08: 21; Stop 10/14/16 at 08:22; Status DC Heparin Sodium/ Sodium Chloride 500 ml @ As Directed STK-MED ONCE .ROUTE ; Start 10/14/16 at 08:21; Stop 10/14/16 at 08:22; Status DC Levofloxacin/ Dextrose 100 ml @ As Directed STK-MED ONCE IV ; Start 10/14/16 at 08:30; Stop 10/14/16 at 08:31; Status DC Heparin Sodium/ Sodium Chloride 1,000 unit 1X ONCE IART Last administered on 08:58; Start 10/14/16 at 08:45; Stop 10/14/16 at 08:46; Status DC Iohexol (Omnipaque 300 Mg/ml) 50 ml 1X ONCE IART Last administered on 08:58; Start 10/14/16 at 08:45; Stop 10/14/16 at 08:46; Status DC Levofloxacin/ Dextrose 100 ml @ 100 mls/hr 1X ONCE IV Last administered on 08:58; Start 10/14/16 at 08:35; Stop 10/14/16 at 09:34; Status DC Gabapentin (Neurontin) 300 mg DAILY08 PO Last administered on 10/15/16 08:32; Start 10/14/16 at 09:00 Insulin Detemir (Levemir) 6 units BID SQ Last administered on 10/14/16 21:24; Start 10/14/16 at 09:00 Lidocaine/Sodium Bicarbonate (Buffered Lidocaine 1%) 7 ml 1X ONCE IJ Last administered on 10/14/16 09:10; Start 10/14/16 at 09:00; Stop 10/14/16 at 09:03 ; Status DC Midazolam HCl (Versed) 2 mg 1X ONCE IV Last administered on 10/14/16 09:08; Start 10/14/16 at 09:00; Stop 10/14/16 at 09:03; Status DC Fentanyl Citrate (Fentanyl 2ml Vial) 100 mcg 1X ONCE IV Last administered on 09:09; Start 10/14/16 at 09:00; Stop 10/14/16 at 09:03; Status DC Albumin Human 500 ml @ 125 mls/hr Q4HRS IV Last administered on 10/14/16 16: 25; Start 10/14/16 at 11:30; Stop 10/14/16 at 15:59; Status DC Ondansetron HCl (Zofran) 4 mg PRN Q6HRS PRN IV NAUSEA/VOMITING; Start 10/17/16 at 07:00; Stop 10/18/16 at 06:59 Fentanyl Citrate (Fentanyl 2ml Vial) 25 mcg PRN Q5MIN PRN IV MILD PAIN; Start 10/17/16 at 07:00; Stop 10/18/16 at 06:59 Fentanyl Citrate (Fentanyl 2ml Vial) 50 mcg PRN Q5MIN PRN IV MODERATE PAIN; Start 10/17/16 at 07:00; Stop 10/18/16 at 06:59 Morphine Sulfate 1 mg PRN Q10MIN PRN IV SEVERE PAIN; Start 10/17/16 at 07:00; Stop 10/18/16 at 06:59 Ringer's Solution 1,000 ml @ 30 mls/hr Q24H IV ; Start 10/17/16 at 07:00; Stop 10/17/16 at 18:59 Lidocaine HCl 2 ml PRN 1X PRN ID PRIOR TO IV START; Start 10/17/16 at 07:00; Stop 10/18/16 at 06:59 Hydromorphone HCl (Dilaudid) 0.5 mg PRN Q10MIN PRN IV SEV PAIN, Second choice; Start 10/17/16 at 07:00; Stop 10/18/16 at 06:59 Prochlorperazine Edisylate (Compazine) 5 mg PACU PRN PRN IV NAUSEA, MRX1; Start 10/17/16 at 07:00; Stop 10/18/16 at 06:59 Active Scripts Active Reported Benazepril Hcl 40 Mg Tablet 40 Mg PO DAILY Tamsulosin Hcl 0.4 Mg Cap.er.24h 0.4 Mg PO DAILY Macrodantin (Nitrofurantoin Macrocrystal) 100 Mg Capsule 100 Mg PO DAILY Gabapentin 600 Mg Tablet 300 Mg PO BID Humulin 70-30 Vial (Hum Insulin Nph/Reg Insulin Hm) 100 Unit/1 Ml Vial 25 Unit SQ BID Allergies Allergies: Coded Allergies: No Known Drug Allergies (Unverified , 04/02/15) Physical Exam Physical Exam Patient is not in acute distress at this time. H EENT oral mucosa dry, poor dentition, pupils reactive. Neck is supple no JVD. Lungs are clear. Heart bradycardic but regular rate and rhythm with frequent ectopy S1-S2 no S3 no S4. Abdomen is soft bowel sounds are present. Extremities 1+ edema. Vitals VITALS Vital Signs Date Time Temp Pulse Resp B/P (MAP) Pulse Ox O2 Delivery O2 Flow Rate FiO2 10/15/16 11:10 97.4 78 16 105/41 (62) 100 Room Air 97.4 10/15/16 08:05 2.0 Labs Labs Laboratory Tests Test 10/13/16 17:02 10/13/16 22:32 10/14/16 04:30 10/14/16 05:00 Glucose (Fingerstick) 115 mg/dL (70-99) 149 mg/dL (70-99) Hemoglobin 11.3 g/dL (13.0-17.5) Sodium Level 144 mmol/L (136-145) Potassium Level 4.6 mmol/L (3.5-5.1) Chloride Level 111 mmol/L (98-107) Carbon Dioxide Level 21 mmol/L (21-32) Anion Gap 12 (6-14) Blood Urea Nitrogen 52 mg/dL (8-26) Creatinine 2.6 mg/dL (0.7-1.3) Estimated GFR (Cockcroft-Gault) 24.1 Glucose Level 78 mg/dL (70-99) Calcium Level 7.4 mg/dL (8.5-10.1) Phosphorus Level 4.2 mg/dL (2.6-4.7) Albumin 1.8 g/dL (3.4-5.0) Magnesium Level 2.3 mg/dL (1.8-2.4) Test 10/14/16 09:17 10/14/16 09:55 10/14/16 11:07 10/14/16 16:39 Glucose (Fingerstick) 56 mg/dL (70-99) 59 mg/dL (70-99) 144 mg/dL (70-99) 144 mg/dL (70-99) Test 10/14/16 21:20 10/15/16 04:00 10/15/16 07:34 10/15/16 11:30 Glucose (Fingerstick) 153 mg/dL (70-99) 106 mg/dL (70-99) 122 mg/dL (70-99) Sodium Level 144 mmol/L (136-145) Potassium Level 5.0 mmol/L (3.5-5.1) Chloride Level 111 mmol/L (98-107) Carbon Dioxide Level 22 mmol/L (21-32) Anion Gap 11 (6-14) Blood Urea Nitrogen 42 mg/dL (8-26) Creatinine 2.5 mg/dL (0.7-1.3) Estimated GFR (Cockcroft-Gault) 25.2 Glucose Level 113 mg/dL (70-99) Calcium Level 7.5 mg/dL (8.5-10.1) Phosphorus Level 3.3 mg/dL (2.6-4.7) Magnesium Level 2.0 mg/dL (1.8-2.4) Albumin 2.4 g/dL (3.4-5.0) Laboratory Tests Test 10/14/16 16:39 10/14/16 21:20 10/15/16 04:00 10/15/16 07:34 Glucose (Fingerstick) 144 mg/dL (70-99) 153 mg/dL (70-99) 106 mg/dL (70-99) Sodium Level 144 mmol/L (136-145) Potassium Level 5.0 mmol/L (3.5-5.1) Chloride Level 111 mmol/L (98-107) Carbon Dioxide Level 22 mmol/L (21-32) Anion Gap 11 (6-14) Blood Urea Nitrogen 42 mg/dL (8-26) Creatinine 2.5 mg/dL (0.7-1.3) Estimated GFR (Cockcroft-Gault) 25.2 Glucose Level 113 mg/dL (70-99) Calcium Level 7.5 mg/dL (8.5-10.1) Phosphorus Level 3.3 mg/dL (2.6-4.7) Magnesium Level 2.0 mg/dL (1.8-2.4) Albumin 2.4 g/dL (3.4-5.0) Test 10/15/16 11:30 Glucose (Fingerstick) 122 mg/dL (70-99) Assessment/Plan Assessment/Plan Patient with acute on chronic renal failure that has an obstructive uropathy and a possible bladder mass is being worked up for that and treated for the hyperkalemia and the renal insufficiency. Some of the patient's dysrhythmias may be secondary to the hyperkalemia however he has been tolerating the bradycardia very well without any significant drop in the blood pressure. I would like to get an echocardiogram to evaluate the present left ventricular function and will need to follow labs to correct the electrolyte imbalance. I will be happy to follow the patient with you. Thank you very much for asking me to participate in the care of this patient PHILIPPE HSU MD Oct 15, 2016 15:13
[2016-10-15 19:00] VITALS: BP 144/81
[2016-10-15] MEDS: TAMSULOSIN 0.4 MG CAP.ER.24H. PO SCH (21:09)
[2016-10-15 23:00] VITALS: BP 132/70
[2016-10-16] MEDS: PIPERACILLIN/TAZOBACTAM 2.25 GM in IV NORMAL SALINE 50ML 50 ML IV SCH ×5 (00:23→23:07)
[2016-10-16 03:00] VITALS: BP 113/47
[2016-10-16 05:49] LABS: ALBUMIN 2.3 g/dL (3.4-5.0); CALCIUM 8.1 mg/dL (8.5-10.1); CREATININE 2.4 mg/dL (0.7-1.3); GFR 26.5; PHOSPHORUS 3.1 mg/dL (2.6-4.7); POTASSIUM 4.7 mmol/L (3.5-5.1)
[2016-10-16 07:05] VITALS: BP 117/48
[2016-10-16] MEDS: INSULIN ASPART 300 UNITS/3 ML INSULN.PEN SQ SCH ×3 (08:00→17:06)
[2016-10-16] MEDS: FAMOTIDINE 20 MG TABLET. PO SCH (08:16)
[2016-10-16] MEDS: GABAPENTIN 300 MG CAPSULE. PO SCH (08:16)
[2016-10-16] MEDS: INSULIN DETEMIR 300 UNITS/3 ML INSULN.PEN. SQ SCH ×2 (08:19→20:59)
--- NOTE | 2016-10-16 09:59 | PDOC ---
SUBJECTIVE ROS LATA/ CKD ? doign and feeling better overall CVS: no Orthopnea, no CP RESP: no SOB, no PATEL GI: no Nausea, no Vomiting : no Dysuria, no Urgency OBJECTIVE Vital Signs Vital Signs Date Time Temp Pulse Resp B/P (MAP) Pulse Ox O2 Delivery O2 Flow Rate FiO2 10/16/16 08:03 Room Air 10/16/16 07:05 98.1 60 18 117/48 (71) 98 98.1 10/15/16 20:00 2.0 I & 0 Intake and Output 10/16/16 07:00 Intake Total 850 ml Output Total 2151 ml Balance -1301 ml Intake Oral 850 ml Output Urine Total 950 ml Stool Total 1 ml Drainage Total 1200 ml PHYSICAL EXAM Physical Exam General Appearance: Awake Alert Oriented x 3 In no Distress; Ch Ill appearing WM Eyes: VIsion Unchanged Conjunctiva Normal EN: No EN Drainage Mucous Memb. moist Neck: no JVD no JVP Supple no Thyromegaly CVS: S1 S2 no Murmur No Gallop No Rub no Edema Resp: no Rales no Rhonchi no Acc. Muscle use GI: BAS +ve NO Bruit Non Tender Non Distended : no CVA tenderness; no Suprapubic Tenderness Assessment & Plan ARF: Not sure if Obst Uropathy is new or old. Creat gradually trending down after PCN. URO eval appreciated. Current FLuid and E-lyte status does not necessitate emergent need for Dialysis. Will re-evaluate for Dialysis in am Wt loss - suspect associated with Pelvic Pathology (PSA WNL) - CYSTO per URO in am Sev Hypoalbuminemia - ? due to FTT, Poor PO intake CKD III at least vs IV due to Unilateral small kidney as noted on US/ CT Unilateral small kidney as noted on US/ CT - ? Ischemic vs Ch Obstruction Hematuria (ROLF) suspect due to bladder pathology - pending Cysto COMMENT/RELEVANT DATA Meds Current Medications Medications (Trade) Dose Ordered Sig/Cristina Start Time Stop Time Status Last Admin Dose Admin Albumin Human 500 ml @ 125 mls/hr Q4HRS 10/14/16 11:30 10/14/16 15:59 DC 10/14/16 16:25 125 MLS/HR Dextrose 250 ml @ 1,500 mls/hr PRN Q1HR PRN 10/13/16 09:15 10/14/16 10:11 1,500 MLS/HR Dextrose (Dextrose 50%-Water Syringe) 12.5 gm PRN Q15MIN PRN 10/12/16 15:15 Dextrose/Sodium Chloride 1,000 ml @ 125 mls/hr Q8H 10/12/16 16:00 10/12/16 19:44 DC 10/12/16 18:30 125 MLS/HR Famotidine (Pepcid) 20 mg DAILY 10/12/16 16:00 10/16/16 08:16 20 MG Fentanyl Citrate (Fentanyl 2ml Vial) 50 mcg PRN Q5MIN PRN 10/17/16 07:00 10/18/16 06:59 Gabapentin (Neurontin) 300 mg DAILY08 10/14/16 09:00 10/16/16 08:16 300 MG Heparin Sodium/ Sodium Chloride 1,000 unit 1X ONCE 10/14/16 08:45 10/14/16 08:46 DC 10/14/16 08:58 1,000 UNIT Hydromorphone HCl (Dilaudid) 0.5 mg PRN Q10MIN PRN 10/17/16 07:00 10/18/16 06:59 Insulin Aspart (NovoLOG) 0-9 UNITS TIDWMEALS 10/12/16 17:00 Insulin Detemir (Levemir) 6 units BID 10/14/16 09:00 10/16/16 08:19 6 UNITS Iohexol (Omnipaque 300 Mg/ml) 50 ml 1X ONCE 10/14/16 08:45 10/14/16 08:46 DC 10/14/16 08:58 15 ML Levofloxacin/ Dextrose 100 ml @ 100 mls/hr 1X ONCE 10/14/16 08:35 10/14/16 09:34 DC 10/14/16 08:58 100 MLS/HR Lidocaine HCl 2 ml PRN 1X PRN 10/17/16 07:00 10/18/16 06:59 Lidocaine/Sodium Bicarbonate (Buffered Lidocaine 1%) 7 ml 1X ONCE 10/14/16 09:00 10/14/16 09:03 DC 10/14/16 09:10 7 ML Magnesium Sulfate/ Dextrose 50 ml @ 25 mls/hr PRN DAILY PRN 10/13/16 09:00 Midazolam HCl (Versed) 2 mg 1X ONCE 10/14/16 09:00 10/14/16 09:03 DC 10/14/16 09:08 2 MG Morphine Sulfate 1 mg PRN Q10MIN PRN 10/17/16 07:00 10/18/16 06:59 Ondansetron HCl (Zofran) 4 mg PRN Q6HRS PRN 10/17/16 07:00 10/18/16 06:59 Piperacillin Sod/ Tazobactam Sod 2.25 gm/Sodium Chloride 50 ml @ 100 mls/hr Q6HRS 10/13/16 14:00 10/16/16 06:22 100 MLS/HR Prochlorperazine Edisylate (Compazine) 5 mg PACU PRN PRN 10/17/16 07:00 10/18/16 06:59 Ringer's Solution 1,000 ml @ 30 mls/hr Q24H 10/17/16 07:00 10/17/16 18:59 Sodium Polystyrene Sulfonate (Kayexalate) 45 gm 1X ONCE 10/12/16 20:00 10/12/16 20:01 DC 10/12/16 21:39 45 GM Tamsulosin HCl (Flomax) 0.4 mg QHS 10/12/16 21:00 10/15/16 21:09 0.4 MG Lab Laboratory Tests Test 10/15/16 11:30 10/15/16 17:20 10/15/16 18:04 10/15/16 21:07 Glucose (Fingerstick) 122 mg/dL (70-99) 100 mg/dL (70-99) 142 mg/dL (70-99) 105 mg/dL (70-99) Test 10/16/16 04:30 10/16/16 08:15 Sodium Level 143 mmol/L (136-145) Potassium Level 4.7 mmol/L (3.5-5.1) Chloride Level 110 mmol/L (98-107) Carbon Dioxide Level 25 mmol/L (21-32) Anion Gap 8 (6-14) Blood Urea Nitrogen 36 mg/dL (8-26) Creatinine 2.4 mg/dL (0.7-1.3) Estimated GFR (Cockcroft-Gault) 26.5 Glucose Level 73 mg/dL (70-99) Calcium Level 8.1 mg/dL (8.5-10.1) Phosphorus Level 3.1 mg/dL (2.6-4.7) Magnesium Level 2.0 mg/dL (1.8-2.4) Albumin 2.3 g/dL (3.4-5.0) Glucose (Fingerstick) 75 mg/dL (70-99) JACQUIE VALENZUELA MD Oct 16, 2016 09:59
--- NOTE | 2016-10-16 10:04 | PDOC ---
GENERAL General: vss and afebrile. awake and alert and feeling better. creatinine 2.4 and suspect CKD. chest clear and heart regular. PCN drainage little blood tinged. for cysto tomorrow, otherwise same. Problems: VITAL SIGNS Vital Signs: Vital Signs Date Time Temp Pulse Resp B/P (MAP) Pulse Ox O2 Delivery O2 Flow Rate FiO2 10/16/16 08:03 Room Air 10/16/16 07:05 98.1 60 18 117/48 (71) 98 98.1 10/15/16 20:00 2.0 I & O I & O Intake and Output 10/16/16 07:00 Intake Total 850 ml Output Total 2151 ml Balance -1301 ml Intake Oral 850 ml Output Urine Total 950 ml Stool Total 1 ml Drainage Total 1200 ml ALLERGIES Allergies: Allergies Coded Allergies Type Severity Reaction Last Updated Verified No Known Drug Allergies 04/02/15 No MEDS Medications: Current Medications Medications (Trade) Dose Ordered Sig/Cristina Start Time Stop Time Status Last Admin Dose Admin Albumin Human 500 ml @ 125 mls/hr Q4HRS 10/14/16 11:30 10/14/16 15:59 DC 10/14/16 16:25 125 MLS/HR Dextrose 250 ml @ 1,500 mls/hr PRN Q1HR PRN 10/13/16 09:15 10/14/16 10:11 1,500 MLS/HR Dextrose (Dextrose 50%-Water Syringe) 12.5 gm PRN Q15MIN PRN 10/12/16 15:15 Dextrose/Sodium Chloride 1,000 ml @ 125 mls/hr Q8H 10/12/16 16:00 10/12/16 19:44 DC 10/12/16 18:30 125 MLS/HR Famotidine (Pepcid) 20 mg DAILY 10/12/16 16:00 10/16/16 08:16 20 MG Fentanyl Citrate (Fentanyl 2ml Vial) 50 mcg PRN Q5MIN PRN 10/17/16 07:00 10/18/16 06:59 Gabapentin (Neurontin) 300 mg DAILY08 10/14/16 09:00 10/16/16 08:16 300 MG Heparin Sodium/ Sodium Chloride 1,000 unit 1X ONCE 10/14/16 08:45 10/14/16 08:46 DC 10/14/16 08:58 1,000 UNIT Hydromorphone HCl (Dilaudid) 0.5 mg PRN Q10MIN PRN 10/17/16 07:00 10/18/16 06:59 Insulin Aspart (NovoLOG) 0-9 UNITS TIDWMEALS 10/12/16 17:00 Insulin Detemir (Levemir) 6 units BID 10/14/16 09:00 10/16/16 08:19 6 UNITS Iohexol (Omnipaque 300 Mg/ml) 50 ml 1X ONCE 10/14/16 08:45 10/14/16 08:46 DC 10/14/16 08:58 15 ML Levofloxacin/ Dextrose 100 ml @ 100 mls/hr 1X ONCE 10/14/16 08:35 10/14/16 09:34 DC 10/14/16 08:58 100 MLS/HR Lidocaine HCl 2 ml PRN 1X PRN 10/17/16 07:00 10/18/16 06:59 Lidocaine/Sodium Bicarbonate (Buffered Lidocaine 1%) 7 ml 1X ONCE 10/14/16 09:00 10/14/16 09:03 DC 10/14/16 09:10 7 ML Magnesium Sulfate/ Dextrose 50 ml @ 25 mls/hr PRN DAILY PRN 10/13/16 09:00 Midazolam HCl (Versed) 2 mg 1X ONCE 10/14/16 09:00 10/14/16 09:03 DC 10/14/16 09:08 2 MG Morphine Sulfate 1 mg PRN Q10MIN PRN 10/17/16 07:00 10/18/16 06:59 Ondansetron HCl (Zofran) 4 mg PRN Q6HRS PRN 10/17/16 07:00 10/18/16 06:59 Piperacillin Sod/ Tazobactam Sod 2.25 gm/Sodium Chloride 50 ml @ 100 mls/hr Q6HRS 10/13/16 14:00 10/16/16 06:22 100 MLS/HR Prochlorperazine Edisylate (Compazine) 5 mg PACU PRN PRN 10/17/16 07:00 10/18/16 06:59 Ringer's Solution 1,000 ml @ 30 mls/hr Q24H 10/17/16 07:00 10/17/16 18:59 Sodium Polystyrene Sulfonate (Kayexalate) 45 gm 1X ONCE 10/12/16 20:00 10/12/16 20:01 DC 10/12/16 21:39 45 GM Tamsulosin HCl (Flomax) 0.4 mg QHS 10/12/16 21:00 10/15/16 21:09 0.4 MG LAB Lab: Laboratory Tests Test 10/15/16 11:30 10/15/16 17:20 10/15/16 18:04 10/15/16 21:07 Glucose (Fingerstick) 122 mg/dL (70-99) 100 mg/dL (70-99) 142 mg/dL (70-99) 105 mg/dL (70-99) Test 10/16/16 04:30 10/16/16 08:15 Sodium Level 143 mmol/L (136-145) Potassium Level 4.7 mmol/L (3.5-5.1) Chloride Level 110 mmol/L (98-107) Carbon Dioxide Level 25 mmol/L (21-32) Anion Gap 8 (6-14) Blood Urea Nitrogen 36 mg/dL (8-26) Creatinine 2.4 mg/dL (0.7-1.3) Estimated GFR (Cockcroft-Gault) 26.5 Glucose Level 73 mg/dL (70-99) Calcium Level 8.1 mg/dL (8.5-10.1) Phosphorus Level 3.1 mg/dL (2.6-4.7) Magnesium Level 2.0 mg/dL (1.8-2.4) Albumin 2.3 g/dL (3.4-5.0) Glucose (Fingerstick) 75 mg/dL (70-99) Nutrition Consultation Dietary Evaluation: Recommendations by RD: Increase Calorie Intake, Protein supplementation Comments: 49# wt loss x's 5 weeks, poor intake over the past month (1-2 bites of food at meals) Rec. add chocolate boost glucose control protein icecream shakes TID Encourage good PO intake Stage I pressure ulcer- rec. 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
[2016-10-16 11:01] VITALS: BP 113/49
--- NOTE | 2016-10-16 14:42 | CARD ---
APPROVED REPORT EXAM: Two-dimensional and M-mode echocardiogram with Doppler and color Doppler. Other Information Quality : Average Rhythm : NSR INDICATION Bradycardia 2D DIMENSIONS RVDd2.4 (2.9-3.5cm)Left Atrium(2D)2.9 (1.6-4.0cm) IVSd1.0 (0.7-1.1cm)Aortic Root(2D)3.3 (2.0-3.7cm) LVDd5.7 (3.9-5.9cm)LVOT Diameter2.3 (1.8-2.4cm) PWd1.0 (0.7-1.1cm)LVDs4.8 (2.5-4.0cm) FS (%) 18.9 %SV52.6 ml LVEF(%)35.0 (>50%) Aortic Valve AoV Peak Bar.110.0cm/sAoV VTI22.6cm AO Peak GR.4.8mmHgLVOT VTI 15.51cm AO Mean GR.3mmHgAI P 1/2 [id number] Mitral Valve MV E Vobcokkk01.2cm/sMV DECEL [id number] MV A Upeqyifp520.1cm/sE/A Ratio0.7 TDI Lateral E' P. V5.72cm/sMedial E' P. V5.92cm/s E/Lateral E'12.8E/Medial E'12.4 Tricuspid Valve TR P. [id number]/sRAP [id number] TR Peak Gr.[id number] LEFT VENTRICLE The left ventricle is mildly dilated There is normal left ventricular wall thickness. Left ventricle systolic function is moderately impaired. The Ejection Fraction is 35%. There is global hypokinesis o f the left ventricle. Tissue Doppler imaging reveals mild left ventricular diastolic dysfunction. Tra nsmitral Doppler flow pattern is Grade I-abnormal relaxation pattern. RIGHT VENTRICLE The right ventricle is normal size. The right ventricular systolic function is normal. ATRIA The left atrium size is normal. The right atrium size is normal. The interatrial septum is intact wit h no evidence for an atrial septal defect or patent foramen ovale as noted on 2-D or Doppler imaging. AORTIC VALVE The aortic valve is mildly calcified. The aortic valve is trileaflet. Doppler and Color Flow revealed mild to moderate aortic regurgitation. There is no significant aortic valvular stenosis. MITRAL VALVE The mitral valve is normal in structure There is no mitral valve stenosis. Doppler and Color Flow rev ealed mild mitral regurgitation. TRICUSPID VALVE The tricuspid valve is normal in structure and function. Doppler and Color Flow revealed trace tricus pid regurgitation. The PA pressure was estimated at 24 mmHg. There is no tricuspid valve stenosis. PULMONIC VALVE The pulmonic valve is not well visualized. Doppler and Color Flow revealed no pulmonic valvular regur gitation. There is no pulmonic valvular stenosis. GREAT VESSELS The aortic root is normal in size. The IVC was not visualized. PERICARDIAL EFFUSION There is no evidence of significant pericardial effusion. Critical Notification Date: 10/16/2016 Time: 10:41 Other Discipline : MARICRUZ Bucio Critical Value: Yes <Conclusion> Left ventricle systolic function is moderately impaired. The Ejection Fraction is 35%. Tissue Doppler imaging reveals mild left ventricular diastolic dysfunction. Transmitral Doppler flow pattern is Grade I-abnormal relaxation pattern. The left ventricle is mildly dilated The left atrium size is normal. The right atrium size is normal. The aortic valve is mildly calcified. The aortic valve is trileaflet. Doppler and Color Flow revealed mild to moderate aortic regurgitation. Doppler and Color Flow revealed mild mitral regurgitation. Doppler and Color Flow revealed trace tricuspid regurgitation. The PA pressure was estimated at 24 mmHg. The pulmonic valve is not well visualized. There is no evidence of significant pericardial effusion.
--- NOTE | 2016-10-16 15:07 | PDOC ---
PROGRESS NOTES Subjective Subjective Patient had the echocardiogram done and it showed: Left ventricle systolic function is moderately impaired. The Ejection Fraction is 35%. Tissue Doppler imaging reveals mild left ventricular diastolic dysfunction. Transmitral Doppler flow pattern is Grade I-abnormal relaxation pattern. The left ventricle is mildly dilated The left atrium size is normal. The right atrium size is normal. The aortic valve is mildly calcified. The aortic valve is trileaflet. Doppler and Color Flow revealed mild to moderate aortic regurgitation. Doppler and Color Flow revealed mild mitral regurgitation. Doppler and Color Flow revealed trace tricuspid regurgitation. The PA pressure was estimated at 24 mmHg. The pulmonic valve is not well visualized. There is no evidence of significant pericardial effusion. Objective Objective Vital Signs Date Time Temp Pulse Resp B/P (MAP) Pulse Ox O2 Delivery O2 Flow Rate FiO2 10/16/16 11:01 97.7 60 18 113/49 (70) Room Air 97.7 10/16/16 07:05 98 10/15/16 20:00 2.0 Intake and Output 10/16/16 07:00 Intake Total 850 ml Output Total 2151 ml Balance -1301 ml Intake Oral 850 ml Output Urine Total 950 ml Stool Total 1 ml Drainage Total 1200 ml Physical Exam Physical Exam No significant changes in cardiac exam Assessment Assessment The patient is going for a possible renal biopsy tomorrow and he is receiving IV antibiotics. I agree with the present plan for treatment and workup. He had in his previous echocardiogram a left ventricular ejection fraction of 55 % and now it's down to 35%. He needs a left heart catheterization to evaluate coronaries as well as the aortic valve. I would like to wait until the noncardiac workup is done before doing the heart catheterization. We will plan on doing that on Monday. Comment Review of Relevant I have reviewed the following items vikash (where applicable) has been applied. Labs Laboratory Tests Test 10/14/16 16:39 10/14/16 21:20 10/15/16 04:00 10/15/16 07:34 Glucose (Fingerstick) 144 mg/dL (70-99) 153 mg/dL (70-99) 106 mg/dL (70-99) Sodium Level 144 mmol/L (136-145) Potassium Level 5.0 mmol/L (3.5-5.1) Chloride Level 111 mmol/L (98-107) Carbon Dioxide Level 22 mmol/L (21-32) Anion Gap 11 (6-14) Blood Urea Nitrogen 42 mg/dL (8-26) Creatinine 2.5 mg/dL (0.7-1.3) Estimated GFR (Cockcroft-Gault) 25.2 Glucose Level 113 mg/dL (70-99) Calcium Level 7.5 mg/dL (8.5-10.1) Phosphorus Level 3.3 mg/dL (2.6-4.7) Magnesium Level 2.0 mg/dL (1.8-2.4) Albumin 2.4 g/dL (3.4-5.0) Test 10/15/16 11:30 10/15/16 17:20 10/15/16 18:04 10/15/16 21:07 Glucose (Fingerstick) 122 mg/dL (70-99) 100 mg/dL (70-99) 142 mg/dL (70-99) 105 mg/dL (70-99) Test 10/16/16 04:30 10/16/16 08:15 10/16/16 12:16 Sodium Level 143 mmol/L (136-145) Potassium Level 4.7 mmol/L (3.5-5.1) Chloride Level 110 mmol/L (98-107) Carbon Dioxide Level 25 mmol/L (21-32) Anion Gap 8 (6-14) Blood Urea Nitrogen 36 mg/dL (8-26) Creatinine 2.4 mg/dL (0.7-1.3) Estimated GFR (Cockcroft-Gault) 26.5 Glucose Level 73 mg/dL (70-99) Calcium Level 8.1 mg/dL (8.5-10.1) Phosphorus Level 3.1 mg/dL (2.6-4.7) Magnesium Level 2.0 mg/dL (1.8-2.4) Albumin 2.3 g/dL (3.4-5.0) Glucose (Fingerstick) 75 mg/dL (70-99) 93 mg/dL (70-99) Laboratory Tests Test 10/15/16 17:20 10/15/16 18:04 10/15/16 21:07 10/16/16 04:30 Glucose (Fingerstick) 100 mg/dL (70-99) 142 mg/dL (70-99) 105 mg/dL (70-99) Sodium Level 143 mmol/L (136-145) Potassium Level 4.7 mmol/L (3.5-5.1) Chloride Level 110 mmol/L (98-107) Carbon Dioxide Level 25 mmol/L (21-32) Anion Gap 8 (6-14) Blood Urea Nitrogen 36 mg/dL (8-26) Creatinine 2.4 mg/dL (0.7-1.3) Estimated GFR (Cockcroft-Gault) 26.5 Glucose Level 73 mg/dL (70-99) Calcium Level 8.1 mg/dL (8.5-10.1) Phosphorus Level 3.1 mg/dL (2.6-4.7) Magnesium Level 2.0 mg/dL (1.8-2.4) Albumin 2.3 g/dL (3.4-5.0) Test 10/16/16 08:15 10/16/16 12:16 Glucose (Fingerstick) 75 mg/dL (70-99) 93 mg/dL (70-99) Microbiology 10/14/16 Urine Culture - Preliminary, Resulted 10/14/16 Urine Culture Result 1 (PANTERA) - Preliminary, Resulted Medications Current Medications Dextrose/Sodium Chloride 187.5 ml @ 250 mls/hr Q45M IV Last administered on 16:44; Start 10/12/16 at 15:15; Stop 10/12/16 at 16:00; Status DC Dextrose/Sodium Chloride 1,000 ml @ 125 mls/hr Q8H IV Last administered on 18:30; Start 10/12/16 at 16:00; Stop 10/12/16 at 19:44; Status DC Gabapentin (Neurontin) 300 mg BID PO Last administered on 10/13/16 22:42; Start 10/12/16 at 21:00; Stop 10/14/16 at 08:51; Status DC Insulin Detemir (Levemir) 15 units BID SQ Last administered on 10/13/16 22:51 ; Start 10/12/16 at 21:00; Stop 10/14/16 at 08:51; Status DC Tamsulosin HCl (Flomax) 0.4 mg QHS PO Last administered on 10/15/16 21:09; Start 10/12/16 at 21:00 Famotidine (Pepcid) 20 mg DAILY PO Last administered on 10/16/16 08:16; Start 10/12/16 at 16:00 Sodium Polystyrene Sulfonate (Kayexalate) 15 gm 1X ONCE PO Last administered on 10/12/16 16:41; Start 10/12/16 at 15:15; Stop 10/12/16 at 15:29; Status DC Insulin Aspart (NovoLOG) 0-9 UNITS TIDWMEALS SQ ; Start 10/12/16 at 17:00 Dextrose (Dextrose 50%-Water Syringe) 12.5 gm PRN Q15MIN PRN IV SEE COMMENTS; Start 10/12/16 at 15:15 Sodium Polystyrene Sulfonate (Kayexalate) 45 gm 1X ONCE PO Last administered on 10/12/16 21:39; Start 10/12/16 at 20:00; Stop 10/12/16 at 20:01; Status DC Piperacillin Sod/ Tazobactam Sod 2.25 gm/Sodium Chloride 50 ml @ 100 mls/hr Q8HRS IV Last administered on 10/13/16 05:31; Start 10/12/16 at 22:30; Stop at 13:09; Status DC Dextrose 250 ml @ 250 mls/hr Q1H PRN IV LOW BLOOD SUGAR; Start 10/13/16 at 09: 00; Status UNV Dextrose 250 ml @ 1,500 mls/hr PRN Q1HR PRN IV LOW BLOOD SUGAR Last administered on 10/14/16 10:11; Start 10/13/16 at 09:15 Magnesium Sulfate/ Dextrose 50 ml @ 25 mls/hr PRN DAILY PRN IV for Mag < 1.7 on am labs; Start 10/13/16 at 09:00 Piperacillin Sod/ Tazobactam Sod 2.25 gm/Sodium Chloride 50 ml @ 100 mls/hr Q6HRS IV Last administered on 10/16/16 12:17; Start 10/13/16 at 14:00 Lidocaine/Sodium Bicarbonate (Buffered Lidocaine 1%) 20 ml STK-MED ONCE IJ ; Start 10/14/16 at 06:59; Stop 10/14/16 at 07:00; Status DC Midazolam HCl (Versed) 2 mg STK-MED ONCE .ROUTE ; Start 10/14/16 at 07:02; Stop 10/14/16 at 07:03; Status DC Fentanyl Citrate (Fentanyl 2ml Vial) 100 mcg STK-MED ONCE .ROUTE ; Start at 07:02; Stop 10/14/16 at 07:03; Status DC Iohexol (Omnipaque 300 Mg/ml) 50 ml STK-MED ONCE .ROUTE ; Start 10/14/16 at 08: 06; Stop 10/14/16 at 08:07; Status DC Lidocaine/Sodium Bicarbonate (Buffered Lidocaine 1%) 20 ml STK-MED ONCE IJ ; Start 10/14/16 at 08:21; Stop 10/14/16 at 08:22; Status DC Iohexol (Omnipaque 300 Mg/ml) 50 ml STK-MED ONCE .ROUTE ; Start 10/14/16 at 08: 21; Stop 10/14/16 at 08:22; Status DC Heparin Sodium/ Sodium Chloride 500 ml @ As Directed STK-MED ONCE .ROUTE ; Start 10/14/16 at 08:21; Stop 10/14/16 at 08:22; Status DC Levofloxacin/ Dextrose 100 ml @ As Directed STK-MED ONCE IV ; Start 10/14/16 at 08:30; Stop 10/14/16 at 08:31; Status DC Heparin Sodium/ Sodium Chloride 1,000 unit 1X ONCE IART Last administered on 08:58; Start 10/14/16 at 08:45; Stop 10/14/16 at 08:46; Status DC Iohexol (Omnipaque 300 Mg/ml) 50 ml 1X ONCE IART Last administered on 08:58; Start 10/14/16 at 08:45; Stop 10/14/16 at 08:46; Status DC Levofloxacin/ Dextrose 100 ml @ 100 mls/hr 1X ONCE IV Last administered on 08:58; Start 10/14/16 at 08:35; Stop 10/14/16 at 09:34; Status DC Gabapentin (Neurontin) 300 mg DAILY08 PO Last administered on 10/16/16 08:16; Start 10/14/16 at 09:00 Insulin Detemir (Levemir) 6 units BID SQ Last administered on 10/16/16 08:19; Start 10/14/16 at 09:00 Lidocaine/Sodium Bicarbonate (Buffered Lidocaine 1%) 7 ml 1X ONCE IJ Last administered on 10/14/16 09:10; Start 10/14/16 at 09:00; Stop 10/14/16 at 09:03 ; Status DC Midazolam HCl (Versed) 2 mg 1X ONCE IV Last administered on 10/14/16 09:08; Start 10/14/16 at 09:00; Stop 10/14/16 at 09:03; Status DC Fentanyl Citrate (Fentanyl 2ml Vial) 100 mcg 1X ONCE IV Last administered on 09:09; Start 10/14/16 at 09:00; Stop 10/14/16 at 09:03; Status DC Albumin Human 500 ml @ 125 mls/hr Q4HRS IV Last administered on 10/14/16 16: 25; Start 10/14/16 at 11:30; Stop 10/14/16 at 15:59; Status DC Ondansetron HCl (Zofran) 4 mg PRN Q6HRS PRN IV NAUSEA/VOMITING; Start 10/17/16 at 07:00; Stop 10/18/16 at 06:59 Fentanyl Citrate (Fentanyl 2ml Vial) 25 mcg PRN Q5MIN PRN IV MILD PAIN; Start 10/17/16 at 07:00; Stop 10/18/16 at 06:59 Fentanyl Citrate (Fentanyl 2ml Vial) 50 mcg PRN Q5MIN PRN IV MODERATE PAIN; Start 10/17/16 at 07:00; Stop 10/18/16 at 06:59 Morphine Sulfate 1 mg PRN Q10MIN PRN IV SEVERE PAIN; Start 10/17/16 at 07:00; Stop 10/18/16 at 06:59 Ringer's Solution 1,000 ml @ 30 mls/hr Q24H IV ; Start 10/17/16 at 07:00; Stop 10/17/16 at 18:59 Lidocaine HCl 2 ml PRN 1X PRN ID PRIOR TO IV START; Start 10/17/16 at 07:00; Stop 10/18/16 at 06:59 Hydromorphone HCl (Dilaudid) 0.5 mg PRN Q10MIN PRN IV SEV PAIN, Second choice; Start 10/17/16 at 07:00; Stop 10/18/16 at 06:59 Prochlorperazine Edisylate (Compazine) 5 mg PACU PRN PRN IV NAUSEA, MRX1; Start 10/17/16 at 07:00; Stop 10/18/16 at 06:59 Active Scripts Active Reported Benazepril Hcl 40 Mg Tablet 40 Mg PO DAILY Tamsulosin Hcl 0.4 Mg Cap.er.24h 0.4 Mg PO DAILY Macrodantin (Nitrofurantoin Macrocrystal) 100 Mg Capsule 100 Mg PO DAILY Gabapentin 600 Mg Tablet 300 Mg PO BID Humulin 70-30 Vial (Hum Insulin Nph/Reg Insulin Hm) 100 Unit/1 Ml Vial 25 Unit SQ BID Vitals/I & O Vital Sign - Last 24 Hours 10/15/16 10/15/16 10/15/16 10/16/16 19:00 20:00 23:00 03:00 Temp 98.2 98.2 98.1 98.2 98.2 98.1 Pulse 62 53 46 Resp 16 16 16 B/P (MAP) 144/81 (102) 132/70 (90) 113/47 (69) Pulse Ox 100 O2 Delivery Room Air Room Air Room Air Room Air O2 Flow Rate 2.0 10/16/16 10/16/16 10/16/16 07:05 08:03 11:01 Temp 98.1 97.7 98.1 97.7 Pulse 60 60 Resp 18 18 B/P (MAP) 117/48 (71) 113/49 (70) Pulse Ox 98 O2 Delivery Room Air Room Air Room Air Intake and Output 10/15/16 10/15/16 10/16/16 15:00 23:00 07:00 Intake Total 530 ml 320 ml Output Total 525 ml 876 ml 750 ml Balance -525 ml -346 ml -430 ml Nutrition Consultation Dietary Evaluation: Recommendations by RD: Increase Calorie Intake, Protein supplementation Comments: 49# wt loss x's 5 weeks, poor intake over the past month (1-2 bites of food at meals) Rec. add chocolate boost glucose control protein icecream shakes TID Encourage good PO intake Stage I pressure ulcer- rec. a daily MVT and 500 mg Vitamin C/day Expected Outcomes/Goals: meet 75% estimated nutrition needs no further wt loss Interpretation of weight loss: >5% in 1 month Malnutrition Findings: Food and Nutrition Intake (Mod: <75% est energy req 7days Body Fat Depletion (Non Severe: Mild Depletion Reduced [employer]otype [employer]er Strength: N/A Malnutrition related to morbid: No Weight Status: Appropriate Fluid Accumulation (N/A): N/A PHILIPPE HSU MD Oct 16, 2016 15:07
[2016-10-16 15:10] VITALS: BP 91/45
[2016-10-16 19:00] VITALS: BP 96/57
[2016-10-16] MEDS: TAMSULOSIN 0.4 MG CAP.ER.24H. PO SCH (20:59)
[2016-10-16 23:11] VITALS: BP 88/44
[2016-10-17] VITALS (11 sets, daily range): BP systolic 95–127; BP diastolic 48–76
[2016-10-17 05:05] LABS: ALBUMIN 2.1 g/dL (3.4-5.0); CREATININE 2.2 mg/dL (0.7-1.3); GFR 29.2; PHOSPHORUS 2.9 mg/dL (2.6-4.7); POTASSIUM 4.3 mmol/L (3.5-5.1)
[2016-10-17] MEDS: PIPERACILLIN/TAZOBACTAM 2.25 GM in IV NORMAL SALINE 50ML 50 ML IV SCH ×3 (05:38→17:43)
[2016-10-17] MEDS ORDERED: LIDOCAINE 1% 1 ML SYRINGE. ID PRN ×2 (07:00→11:30)
[2016-10-17] MEDS ORDERED: fentaNYL PF VIAL 100 MCG/2 ML VIAL IV PRN ×5 (07:00→11:30)
[2016-10-17] MEDS ORDERED: PROCHLORPERAZINE 10 MG/2 ML VIAL. IV PRN ×2 (07:00→11:30)
[2016-10-17] MEDS ORDERED: IV RINGERS,LACTATED 1000ML 1,000 ML IV SCH ×2 (07:00→11:23)
[2016-10-17] MEDS ORDERED: MORPHINE SULFATE 2 MG/ML DISP.SYRIN. IV PRN (07:00)
[2016-10-17] MEDS ORDERED: HYDROmorphone 2 MG/ML VIAL IV PRN ×2 (07:00→11:30)
[2016-10-17] MEDS ORDERED: ONDANSETRON PF 4 MG/2 ML VIAL. IV PRN (07:00)
[2016-10-17] MEDS: INSULIN ASPART 300 UNITS/3 ML INSULN.PEN SQ SCH ×3 (08:00→16:40)
--- NOTE | 2016-10-17 08:15 | PDOC ---
Provider Note Provider Note vss, bp low- renal fx slowly better , creat 2.2- for cysto today, cat 10/19, may well need consideration for cystectomy- glucose fine, culture shows enterococcus EMMA SHEIKH MD Oct 17, 2016 08:15
[2016-10-17] MEDS: INSULIN DETEMIR 300 UNITS/3 ML INSULN.PEN. SQ SCH ×2 (08:44→21:04)
[2016-10-17] MEDS ORDERED: LIDOCAINE 2% JELLY 6ML IN APPLICATOR. ONE (09:48)
--- NOTE | 2016-10-17 11:16 | PDOC ---
Renal-Progress Notes Subjective Notes Notes NO COMPLAINTS History of Present Illness Hx of present illness STABLE Vitals Vitals Vital Signs Date Time Temp Pulse Resp B/P (MAP) Pulse Ox O2 Delivery O2 Flow Rate FiO2 10/17/16 08:10 Room Air 10/17/16 07:00 98.0 52 20 103/56 (72) 100 98.0 Weight Weight [ ] I.O. Intake and Output Intake and Output 10/17/16 07:00 Intake Total 1100 ml Output Total 2025 ml Balance -925 ml Intake Oral 950 ml IV Total 150 ml Output Urine Total 1100 ml Drainage Total 925 ml Labs Labs Laboratory Tests Test 10/16/16 12:16 10/16/16 16:53 10/16/16 20:56 10/17/16 03:00 Glucose (Fingerstick) 93 mg/dL (70-99) 211 mg/dL (70-99) 146 mg/dL (70-99) Sodium Level 143 mmol/L (136-145) Potassium Level 4.3 mmol/L (3.5-5.1) Chloride Level 110 mmol/L (98-107) Carbon Dioxide Level 22 mmol/L (21-32) Anion Gap 11 (6-14) Blood Urea Nitrogen 33 mg/dL (8-26) Creatinine 2.2 mg/dL (0.7-1.3) Estimated GFR (Cockcroft-Gault) 29.2 Glucose Level 56 mg/dL (70-99) Calcium Level 8.0 mg/dL (8.5-10.1) Phosphorus Level 2.9 mg/dL (2.6-4.7) Magnesium Level 2.0 mg/dL (1.8-2.4) Albumin 2.1 g/dL (3.4-5.0) Test 10/17/16 07:41 10/17/16 08:39 Glucose (Fingerstick) 66 mg/dL (70-99) 104 mg/dL (70-99) Micro Micro Microbiology 10/14/16 Urine Culture - Preliminary, Resulted 10/14/16 Urine Culture Result 1 (PANTERA) - Preliminary, Resulted Review of Systems Constitutional: yes: malaise, weakness, alert, oriented Ears/Nose/Throat: Yes: no symptom reported Eyes: Yes: no symptom reported Pulmonary: Yes no symptom reported Cardiovascular: Yes no symptom reported Gastrointestional: Yes: no symptom reported Musculoskeletal: Yes: muscle stiffness Skin: Yes no symptom reported Psychiatric/Neurological: Yes: no symptom reported Physical Exam General Appearance: no apparent distress Skin: warm Respiratory: bilateral CTA Heart: S1S2, RRR Abdomen: soft, bowel sounds present Genitourinary: bladder flat Extremities: pulses present Neurology: alert, oriented Assessment Assessment IMP HYDRONEPHROSIS S/P RIGHT PCN LEFT RENAL ATROPHY LATA - BETTER WITH CR 2.2 FROM 2.6 ? CKD - CR WAS 2.1 IN AUGUST THIS YEAR BLADDER MASS WITH RECENT WT LOSS PLAN START IVF'S BLADDER MASS BX PENDING LABS IN AM UPDATED FAMILY RAN PACE MD Oct 17, 2016 11:16
[2016-10-17] MEDS ORDERED: MIDAZOLAM HCL/PF 2 MG/2 ML VIAL. IV PRN ×2 (11:30)
[2016-10-17] MEDS ORDERED: diphenhydrAMINE 50 MG/ML VIAL IV PRN (11:30)
[2016-10-17] MEDS ORDERED: MEPERIDINE PF 25 MG/ML VIAL. IV PRN (11:30)
[2016-10-17] MEDS ORDERED: MORPHINE SULFATE 4 MG/ML DISP.SYRIN. IV PRN (11:30)
[2016-10-17] MEDS: IV NORMAL SALINE 1000ML BAG 1,000 ML IV SCH (11:57)
[2016-10-17] MEDS ORDERED: ONDANSETRON PF 4 MG/2 ML VIAL. ONE (12:51)
[2016-10-17] MEDS ORDERED: PROPOFOL 20 ML IV ONE (12:51)
[2016-10-17] MEDS ORDERED: DEXAMETHASONE SOD PHOS 20 MG/5 ML VIAL. ONE (12:51)
[2016-10-17] MEDS ORDERED: LIDOCAINE 2% PF Vial for OR 5 ML VIAL. ONE (12:51)
[2016-10-17] MEDS ORDERED: ePHEDrine PF IN SALINE 50 MG/5 ML DISP.SYRIN IV ONE (14:19)
[2016-10-17] MEDS ORDERED: fentaNYL PF VIAL 100 MCG/2 ML VIAL ONE (14:50)
[2016-10-17] MEDS ORDERED: SEVOFLURANE 31 TO 60 MINUTES. IH ONE (15:00)
[2016-10-17] MEDS ORDERED: SEVOFLURANE 61 TO 120 MINUTES. IH ONE (15:03)
--- NOTE | 2016-10-17 15:23 | PDOC4 ---
Operative Note Operative Note pre-op dx-urethral stricture disease procedure-cystoscopy, bladder washings for cytology, [place] catheter change surgeon-amparo vale-general Pt. to PACU in stable condition ASAD GALVAN MD Oct 17, 2016 15:23
[2016-10-17] MEDS: GABAPENTIN 300 MG CAPSULE. PO SCH (16:39)
[2016-10-17] MEDS: FAMOTIDINE 20 MG TABLET. PO SCH (16:39)
--- NOTE | 2016-10-17 17:47 | PDOC ---
PROGRESS NOTES Subjective Subjective Tolerated the cystoscopy well. No cardiac complaints now Objective Objective Vital Signs Date Time Temp Pulse Resp B/P (MAP) Pulse Ox O2 Delivery O2 Flow Rate FiO2 10/17/16 16:40 97.4 72 18 124/76 (92) 100 Room Air 97.4 10/17/16 15:33 10 Intake and Output 10/17/16 07:00 Intake Total 1100 ml Output Total 2025 ml Balance -925 ml Intake Oral 950 ml IV Total 150 ml Output Urine Total 1100 ml Drainage Total 925 ml Physical Exam Physical Exam No changes in cardiac exam Assessment Assessment Patient undergoing evaluation. From a cardiac standpoint he has a cardiomyopathy and will need to evaluate him with a heart catheterization if it's okay with urology and nephrology. We will do it on Monday if patient is cleared. Comment Review of Relevant I have reviewed the following items vikash (where applicable) has been applied. Labs Laboratory Tests Test 10/15/16 18:04 10/15/16 21:07 10/16/16 04:30 10/16/16 08:15 Glucose (Fingerstick) 142 mg/dL (70-99) 105 mg/dL (70-99) 75 mg/dL (70-99) Sodium Level 143 mmol/L (136-145) Potassium Level 4.7 mmol/L (3.5-5.1) Chloride Level 110 mmol/L (98-107) Carbon Dioxide Level 25 mmol/L (21-32) Anion Gap 8 (6-14) Blood Urea Nitrogen 36 mg/dL (8-26) Creatinine 2.4 mg/dL (0.7-1.3) Estimated GFR (Cockcroft-Gault) 26.5 Glucose Level 73 mg/dL (70-99) Calcium Level 8.1 mg/dL (8.5-10.1) Phosphorus Level 3.1 mg/dL (2.6-4.7) Magnesium Level 2.0 mg/dL (1.8-2.4) Albumin 2.3 g/dL (3.4-5.0) Test 10/16/16 12:16 10/16/16 16:53 10/16/16 20:56 10/17/16 03:00 Glucose (Fingerstick) 93 mg/dL (70-99) 211 mg/dL (70-99) 146 mg/dL (70-99) Sodium Level 143 mmol/L (136-145) Potassium Level 4.3 mmol/L (3.5-5.1) Chloride Level 110 mmol/L (98-107) Carbon Dioxide Level 22 mmol/L (21-32) Anion Gap 11 (6-14) Blood Urea Nitrogen 33 mg/dL (8-26) Creatinine 2.2 mg/dL (0.7-1.3) Estimated GFR (Cockcroft-Gault) 29.2 Glucose Level 56 mg/dL (70-99) Calcium Level 8.0 mg/dL (8.5-10.1) Phosphorus Level 2.9 mg/dL (2.6-4.7) Magnesium Level 2.0 mg/dL (1.8-2.4) Albumin 2.1 g/dL (3.4-5.0) Test 10/17/16 07:41 10/17/16 08:39 10/17/16 11:21 10/17/16 15:30 Glucose (Fingerstick) 66 mg/dL (70-99) 104 mg/dL (70-99) 83 mg/dL (70-99) 92 mg/dL (70-99) Test 10/17/16 16:37 Glucose (Fingerstick) 105 mg/dL (70-99) Laboratory Tests Test 10/16/16 20:56 10/17/16 03:00 10/17/16 07:41 10/17/16 08:39 Glucose (Fingerstick) 146 mg/dL (70-99) 66 mg/dL (70-99) 104 mg/dL (70-99) Sodium Level 143 mmol/L (136-145) Potassium Level 4.3 mmol/L (3.5-5.1) Chloride Level 110 mmol/L (98-107) Carbon Dioxide Level 22 mmol/L (21-32) Anion Gap 11 (6-14) Blood Urea Nitrogen 33 mg/dL (8-26) Creatinine 2.2 mg/dL (0.7-1.3) Estimated GFR (Cockcroft-Gault) 29.2 Glucose Level 56 mg/dL (70-99) Calcium Level 8.0 mg/dL (8.5-10.1) Phosphorus Level 2.9 mg/dL (2.6-4.7) Magnesium Level 2.0 mg/dL (1.8-2.4) Albumin 2.1 g/dL (3.4-5.0) Test 10/17/16 11:21 10/17/16 15:30 10/17/16 16:37 Glucose (Fingerstick) 83 mg/dL (70-99) 92 mg/dL (70-99) 105 mg/dL (70-99) Microbiology 10/14/16 Urine Culture - Preliminary, Resulted 10/14/16 Urine Culture Result 1 (PANTERA) - Preliminary, Resulted Medications Current Medications Dextrose/Sodium Chloride 187.5 ml @ 250 mls/hr Q45M IV Last administered on 16:44; Start 10/12/16 at 15:15; Stop 10/12/16 at 16:00; Status DC Dextrose/Sodium Chloride 1,000 ml @ 125 mls/hr Q8H IV Last administered on 18:30; Start 10/12/16 at 16:00; Stop 10/12/16 at 19:44; Status DC Gabapentin (Neurontin) 300 mg BID PO Last administered on 10/13/16 22:42; Start 10/12/16 at 21:00; Stop 10/14/16 at 08:51; Status DC Insulin Detemir (Levemir) 15 units BID SQ Last administered on 10/13/16 22:51 ; Start 10/12/16 at 21:00; Stop 10/14/16 at 08:51; Status DC Tamsulosin HCl (Flomax) 0.4 mg QHS PO Last administered on 10/16/16 20:59; Start 10/12/16 at 21:00 Famotidine (Pepcid) 20 mg DAILY PO Last administered on 10/17/16 16:39; Start 10/12/16 at 16:00 Sodium Polystyrene Sulfonate (Kayexalate) 15 gm 1X ONCE PO Last administered on 10/12/16 16:41; Start 10/12/16 at 15:15; Stop 10/12/16 at 15:29; Status DC Insulin Aspart (NovoLOG) 0-9 UNITS TIDWMEALS SQ Last administered on 10/16/16 17:06; Start 10/12/16 at 17:00 Dextrose (Dextrose 50%-Water Syringe) 12.5 gm PRN Q15MIN PRN IV SEE COMMENTS; Start 10/12/16 at 15:15 Sodium Polystyrene Sulfonate (Kayexalate) 45 gm 1X ONCE PO Last administered on 10/12/16 21:39; Start 10/12/16 at 20:00; Stop 10/12/16 at 20:01; Status DC Piperacillin Sod/ Tazobactam Sod 2.25 gm/Sodium Chloride 50 ml @ 100 mls/hr Q8HRS IV Last administered on 10/13/16 05:31; Start 10/12/16 at 22:30; Stop at 13:09; Status DC Dextrose 250 ml @ 250 mls/hr Q1H PRN IV LOW BLOOD SUGAR; Start 10/13/16 at 09: 00; Status UNV Dextrose 250 ml @ 1,500 mls/hr PRN Q1HR PRN IV LOW BLOOD SUGAR Last administered on 10/14/16 10:11; Start 10/13/16 at 09:15 Magnesium Sulfate/ Dextrose 50 ml @ 25 mls/hr PRN DAILY PRN IV for Mag < 1.7 on am labs; Start 10/13/16 at 09:00 Piperacillin Sod/ Tazobactam Sod 2.25 gm/Sodium Chloride 50 ml @ 100 mls/hr Q6HRS IV Last administered on 10/17/16 17:43; Start 10/13/16 at 14:00 Lidocaine/Sodium Bicarbonate (Buffered Lidocaine 1%) 20 ml STK-MED ONCE IJ ; Start 10/14/16 at 06:59; Stop 10/14/16 at 07:00; Status DC Midazolam HCl (Versed) 2 mg STK-MED ONCE .ROUTE ; Start 10/14/16 at 07:02; Stop 10/14/16 at 07:03; Status DC Fentanyl Citrate (Fentanyl 2ml Vial) 100 mcg STK-MED ONCE .ROUTE ; Start at 07:02; Stop 10/14/16 at 07:03; Status DC Iohexol (Omnipaque 300 Mg/ml) 50 ml STK-MED ONCE .ROUTE ; Start 10/14/16 at 08: 06; Stop 10/14/16 at 08:07; Status DC Lidocaine/Sodium Bicarbonate (Buffered Lidocaine 1%) 20 ml STK-MED ONCE IJ ; Start 10/14/16 at 08:21; Stop 10/14/16 at 08:22; Status DC Iohexol (Omnipaque 300 Mg/ml) 50 ml STK-MED ONCE .ROUTE ; Start 10/14/16 at 08: 21; Stop 10/14/16 at 08:22; Status DC Heparin Sodium/ Sodium Chloride 500 ml @ As Directed STK-MED ONCE .ROUTE ; Start 10/14/16 at 08:21; Stop 10/14/16 at 08:22; Status DC Levofloxacin/ Dextrose 100 ml @ As Directed STK-MED ONCE IV ; Start 10/14/16 at 08:30; Stop 10/14/16 at 08:31; Status DC Heparin Sodium/ Sodium Chloride 1,000 unit 1X ONCE IART Last administered on 08:58; Start 10/14/16 at 08:45; Stop 10/14/16 at 08:46; Status DC Iohexol (Omnipaque 300 Mg/ml) 50 ml 1X ONCE IART Last administered on 08:58; Start 10/14/16 at 08:45; Stop 10/14/16 at 08:46; Status DC Levofloxacin/ Dextrose 100 ml @ 100 mls/hr 1X ONCE IV Last administered on 08:58; Start 10/14/16 at 08:35; Stop 10/14/16 at 09:34; Status DC Gabapentin (Neurontin) 300 mg DAILY08 PO Last administered on 10/17/16 16:39; Start 10/14/16 at 09:00 Insulin Detemir (Levemir) 6 units BID SQ Last administered on 10/16/16 20:59; Start 10/14/16 at 09:00; Stop 10/17/16 at 08:17; Status DC Lidocaine/Sodium Bicarbonate (Buffered Lidocaine 1%) 7 ml 1X ONCE IJ Last administered on 10/14/16 09:10; Start 10/14/16 at 09:00; Stop 10/14/16 at 09:03 ; Status DC Midazolam HCl (Versed) 2 mg 1X ONCE IV Last administered on 10/14/16 09:08; Start 10/14/16 at 09:00; Stop 10/14/16 at 09:03; Status DC Fentanyl Citrate (Fentanyl 2ml Vial) 100 mcg 1X ONCE IV Last administered on 09:09; Start 10/14/16 at 09:00; Stop 10/14/16 at 09:03; Status DC Albumin Human 500 ml @ 125 mls/hr Q4HRS IV Last administered on 10/14/16t 16: 25; Start 10/14/16 at 11:30; Stop 10/14/16 at 15:59; Status DC Ondansetron HCl (Zofran) 4 mg PRN Q6HRS PRN IV NAUSEA/VOMITING; Start 10/17/16 at 07:00; Stop 10/18/16 at 06:59 Fentanyl Citrate (Fentanyl 2ml Vial) 25 mcg PRN Q5MIN PRN IV MILD PAIN; Start 10/17/16 at 07:00; Stop 10/18/16 at 06:59 Fentanyl Citrate (Fentanyl 2ml Vial) 50 mcg PRN Q5MIN PRN IV MODERATE PAIN; Start 10/17/16 at 07:00; Stop 10/18/16 at 06:59 Morphine Sulfate 1 mg PRN Q10MIN PRN IV SEVERE PAIN; Start 10/17/16 at 07:00; Stop 10/18/16 at 06:59 Ringer's Solution 1,000 ml @ 30 mls/hr Q24H IV ; Start 10/17/16 at 07:00; Stop 10/17/16 at 17:29; Status DC Lidocaine HCl 2 ml PRN 1X PRN ID PRIOR TO IV START; Start 10/17/16 at 07:00; Stop 10/18/16 at 06:59 Hydromorphone HCl (Dilaudid) 0.5 mg PRN Q10MIN PRN IV SEV PAIN, Second choice; Start 10/17/16 at 07:00; Stop 10/18/16 at 06:59 Prochlorperazine Edisylate (Compazine) 5 mg PACU PRN PRN IV NAUSEA, MRX1; Start 10/17/16 at 07:00; Stop 10/18/16 at 06:59 Insulin Detemir (Levemir) 3 units BID SQ ; Start 10/17/16 at 09:00 Lidocaine HCl (Glydo (Lidocaine) Jelly) 6 ursula STK-MED ONCE .ROUTE ; Start at 09:48; Stop 10/17/16 at 09:49; Status DC Sodium Chloride 1,000 ml @ 75 mls/hr [id number] IV Last administered on t 11:57; Start 10/17/16 at 11:30 Fentanyl Citrate (Fentanyl 2ml Vial) 50 mcg PRN Q5MIN PRN IV Acute Pain; Start 10/17/16 at 11:30; Stop 10/18/16 at 11:29 Morphine Sulfate 4 mg PRN Q10MIN PRN IV Moderate Pain; Start 10/17/16 at 11:30 ; Stop 10/18/16 at 11:29 Hydromorphone HCl (Dilaudid) 0.4 mg PRN Q10MIN PRN IV Moderate to severe pain; Start 10/17/16 at 11:30; Stop 10/18/16 at 11:29 Meperidine HCl (Demerol) 12.5 mg PRN Q5MIN PRN IV SHIVERING; Start 10/17/16 at 11:30; Stop 10/18/16 at 11:29 Prochlorperazine Edisylate (Compazine) 5 mg PRN Q6HRS PRN IV Nausea/Vomiting, 1st Choice; Start 10/17/16 at 11:30; Stop 10/18/16 at 11:29 Diphenhydramine HCl (Benadryl) 12.5 mg PRN Q2HR PRN IV ITCHING; Start 10/17/16 at 11:30; Stop 10/18/16 at 11:29 Midazolam HCl (Versed) 2 mg PRN 1X PRN IV PRIOR TO PROCEDURE; Start 10/17/16 at 11:30; Stop 10/18/16 at 11:29 Midazolam HCl (Versed) 1 mg PRN 1X PRN IV PRIOR TO PROCEDURE; Start 10/17/16 at 11:30; Stop 10/18/16 at 11:29 Fentanyl Citrate (Fentanyl 2ml Vial) 25 mcg PRN Q5MIN PRN IV X 2 DOSES FOR PAIN ; Start 10/17/16 at 11:30; Stop 10/18/16 at 11:29 Fentanyl Citrate (Fentanyl 2ml Vial) 50 mcg PRN Q5MIN PRN IV X 2 DOSES FOR PAIN ; Start 10/17/16 at 11:30; Stop 10/18/16 at 11:29 Ringer's Solution 1,000 ml @ 125 mls/hr Q8H IV ; Start 10/17/16 at 11:23; Stop 10/17/16 at 17:29; Status DC Lidocaine HCl 2 ml 1X PRN PRN ID IV START; Start 10/17/16 at 11:30; Stop at 11:29 Dexamethasone Sodium Phosphate (Decadron) 20 mg STK-MED ONCE .ROUTE ; Start at 12:51; Stop 10/17/16 at 13:20; Status DC Lidocaine HCl (Lidocaine Pf 2% Vial) 5 ml STK-MED ONCE .ROUTE ; Start 10/17/16 at 12:51; Stop 10/17/16 at 13:20; Status DC Ondansetron HCl (Zofran) 4 mg STK-MED ONCE .ROUTE ; Start 10/17/16 at 12:51; Stop 10/17/16 at 13:20; Status DC Propofol 20 ml @ As Directed STK-MED ONCE IV ; Start 10/17/16 at 12:51; Stop at 13:20; Status DC Ephedrine Sulfate 50 mg STK-MED ONCE IV ; Start 10/17/16 at 14:19; Stop at 14:20; Status DC Fentanyl Citrate (Fentanyl 2ml Vial) 100 mcg STK-MED ONCE .ROUTE ; Start at 14:50; Stop 10/17/16 at 14:51; Status DC Sevoflurane (Ultane) 30 ml STK-MED ONCE IH ; Start 10/17/16 at 15:00; Stop 10/17 at 15:01; Status DC Sevoflurane (Ultane) 60 ml STK-MED ONCE IH ; Start 10/17/16 at 15:03; Stop 10/17 at 15:04; Status DC Active Scripts Active Reported Benazepril Hcl 40 Mg Tablet 40 Mg PO DAILY Tamsulosin Hcl 0.4 Mg Cap.er.24h 0.4 Mg PO DAILY Macrodantin (Nitrofurantoin Macrocrystal) 100 Mg Capsule 100 Mg PO DAILY Gabapentin 600 Mg Tablet 300 Mg PO BID Humulin 70-30 Vial (Hum Insulin Nph/Reg Insulin Hm) 100 Unit/1 Ml Vial 25 Unit SQ BID Vitals/I & O Vital Sign - Last 24 Hours 10/16/16 10/16/16 10/16/16/26/17 19:00 19:51 23:11 03:00 Temp 98.1 98.1 98.2 98.1 98.1 98.2 Pulse 62 67 56 Resp 18 18 18 B/P (MAP) 96/57 (70) 88/44 (59) 95/58 (70) Pulse Ox 98 100 98 O2 Delivery Room Air Room Air Room Air Room Air 10/17/16 10/17/16 10/17/16 10/17/16 07:00 08:10 11:00 12:40 Temp 98.0 98.0 97.1 98.0 98.0 97.1 Pulse 52 52 59 Resp 20 18 18 B/P (MAP) 103/56 (72) 113/48 (69) 118/57 Pulse Ox 100 94 100 O2 Delivery Room Air Room Air Room Air Room Air O2 Flow Rate 2.0 10/17/16 10/17/16 10/17/16 10/17/16 15:18 15:18 15:33 15:48 Temp 99.3 99.3 Pulse 73 74 70 Resp 22 21 20 B/P (MAP) 116/65 112/61 119/57 Pulse Ox 100 100 99 O2 Delivery Simple Mask Mask Simple Mask Room Air O2 Flow Rate 10 10 10 10/17/16 10/17/16 10/17/16 15:49 16:03 16:40 Temp 98.1 97.4 98.1 97.4 Pulse 68 72 Resp 20 18 B/P (MAP) 109/52 124/76 (92) Pulse Ox 99 100 O2 Delivery Room Air Room Air Room Air Intake and Output 10/16/16 10/16/16 10/17/16 15:00 23:00 07:00 Intake Total 400 ml 500 ml 200 ml Output Total 1200 ml 825 ml Balance 400 ml -700 ml -625 ml Nutrition Consultation Dietary Evaluation: Recommendations by RD: Increase Calorie Intake, Protein supplementation Comments: 49# wt loss x's 5 weeks, poor intake over the past month (1-2 bites of food at meals) Stage I pressure ulcer- rec. a daily MVT and 500 mg Vitamin C/day Add boost breeze BID @ lunch and dinner (250 calories/9 grams protein) Add vanilla boost pudding @ breakfast (240 calories/7 grams protein) add 2% milk TID Expected Outcomes/Goals: meet 75% estimated nutrition needs no further wt loss Interpretation of weight loss: >5% in 1 month Malnutrition Findings: Food and Nutrition Intake (Mod: <75% est energy req 7days Body Fat Depletion (Non Severe: Mild Depletion Reduced First Coat Operator Strength: N/A Malnutrition related to morbid: No Weight Status: Appropriate Fluid Accumulation (N/A): N/A PHILIPPE HSU MD Oct 17, 2016 17:47
[2016-10-17] MEDS: TAMSULOSIN 0.4 MG CAP.ER.24H. PO SCH (20:30)
--- NOTE | 2016-10-17 21:47 | OP ---
DATE OF SURGERY: OPERATION: Cystoscopy with bladder washings and Painter catheter change. SURGEON: Asad Lynn MD ANESTHESIA: General. PREOPERATIVE DIAGNOSIS: Urethral stricture disease, in question of bladder tumor. POSTOPERATIVE DIAGNOSES: Urethral stricture disease and median lobe protrusion of the prostate. INDICATIONS: The patient is a very pleasant 76-year-old white male with a long history of urethral stricture disease with multiple urethral procedures including VIU and dilation. The patient was hospitalized for some renal failure and had a right percutaneous nephrostomy tube placed along with a Painter catheter placed. X-ray studies showed a question of bladder mass and with bilateral hydronephrosis and an atrophied left kidney. I discussed with the patient and his family the options, alternatives, benefits, risks, and possible complications of cystoscopy and possible biopsy and they understand this and they wish to proceed with the operation. DESCRIPTION OF PROCEDURE: After obtaining informed consent, the patient was taken to the operating room. After an excellent general anesthetic, the patient was placed in a dorsal lithotomy position. Groin was prepped and draped in the sterile fashion. ____The patient is already on IV antibiotics, which will cover him for the procedure today. Indwelling Painter catheter was removed. Penis was prepped and draped in the sterile fashion. Flexible cystoscopy was then performed. The patient was noted to have severe urethral stricture disease and ____ panurethral stricture disease involving the entire urethra. Scope was unable to be passed through this area; however external sphincter appeared intact. Prostatic urethra showed marked bilobar enlargement with significant median lobe protrusion up into the bladder and this in fact is what appears to be the mass that was seen on CT scan. Bladder was inspected after irrigating out a large amount of mucus from the bladder. Bladder washings were obtained and sent for cytologic analysis. The patient was noted to have a markedly trabeculated bladder with cellule and diverticular formation, but no obvious bladder tumors or bladder stones were identified, just appeared to be inflammation of the bladder mucosa, but no true bladder tumors were identified. Following this, the bladder was inspected and found to be intact and a floppy-tipped ZIP wire was passed under direct vision into the bladder and the scope removed from the patient and a 16-[place] catheter was then passed over the ZIP wire into the bladder. Clear drainage was noted; therefore, Painter balloon was inflated, the ZIP wire removed and the Painter catheter connected to gravity drainage and secured the patient's left thigh with a StatLock. The patient tolerated the procedure well and was taken to recovery room in stable condition. Plan will be to keep the Painter catheter in place along with the right percutaneous nephrostomy tube in place and then have the patient follow up with Dr. Ellis and Dr. Martinez at Urology for further evaluation of his upper tract obstruction and severe urethral stricture disease and then proceed accordingly. ASAD LYNN MD DR: STEW/lester JOB#: [id number] / [id number]
[2016-10-18] MEDS: PIPERACILLIN/TAZOBACTAM 2.25 GM in IV NORMAL SALINE 50ML 50 ML IV SCH ×2 (00:26→06:16)
[2016-10-18 03:45] VITALS: BP 92/49
[2016-10-18 05:38] LABS: BASO % 0 % (0-3); EOS % 0 % (0-3); HEMATOCRIT 33.1 % (39.0-53.0); HEMOGLOBIN 11.1 g/dL (13.0-17.5); LYMPH # 1.7 x10^3/uL (1.0-4.8); LYMPH % 21 % (24-48); MEAN CORPUSCULAR HEMOGLOBIN 30 pg (25-35); MEAN CORPUSCULAR HGB CONC 34 g/dL (31-37); MEAN CORPUSCULAR VOLUME 89 fL (79-100); MONO % 6 % (0-9); NEUT % 73 % (31-73); PLATELET COUNT 367 x10^3/uL (140-400); RED BLOOD COUNT 3.73 x10^6/uL (4.30-5.70); RED CELL DISTRIBUTION WIDTH 14.1 % (11.5-14.5); WHITE BLOOD COUNT 8.2 x10^3/uL (4.0-11.0)
[2016-10-18] MEDS: IV NORMAL SALINE 1000ML BAG 1,000 ML IV SCH ×2 (06:17→19:49)
[2016-10-18 07:00] VITALS: BP 116/64
[2016-10-18] MEDS: INSULIN ASPART 300 UNITS/3 ML INSULN.PEN SQ SCH ×3 (08:00→17:00)
--- NOTE | 2016-10-18 08:35 | PDOC ---
Provider Note Provider Note CREAT BACK TO BASELINE 2.1- NO BLADDER ca SEEN PER DR GALVAN, WILL NEED UROLOGIC SURG PER KU WHEN HEART EVAL OVER- EMMA SHEIKH MD Oct 18, 2016 08:35
--- NOTE | 2016-10-18 08:42 | PDOC ---
PROGRESS NOTES Subjective Subjective Pt. feeling well Objective Objective Vital Signs Date Time Temp Pulse Resp B/P (MAP) Pulse Ox O2 Delivery O2 Flow Rate FiO2 10/18/16 07:00 97.7 50 18 116/64 (81) 95 Room Air 97.7 10/17/16 15:33 10 Intake and Output 10/18/16 07:00 Intake Total 1955 ml Output Total 950 ml Balance 1005 ml Intake Oral 505 ml IV Total 550 ml Other 900 ml Output Urine Total 950 ml # Bowel Movements 1 Physical Exam Physical Exam [place] and perc tube in place large median lobe and inflammation seen on cysto yesterday bladder washings for cytology sent Plan Plan of Care keep sal[place] and perc in place follow up with Dr. Blanton and Dr. Marks at urology in 2-3 weeks for further evaluation and treatment Comment Review of Relevant I have reviewed the following items vikash (where applicable) has been applied. Labs Laboratory Tests Test 10/16/16 12:16 10/16/16 16:53 10/16/16 20:56 10/17/16 03:00 Glucose (Fingerstick) 93 mg/dL (70-99) 211 mg/dL (70-99) 146 mg/dL (70-99) Sodium Level 143 mmol/L (136-145) Potassium Level 4.3 mmol/L (3.5-5.1) Chloride Level 110 mmol/L (98-107) Carbon Dioxide Level 22 mmol/L (21-32) Anion Gap 11 (6-14) Blood Urea Nitrogen 33 mg/dL (8-26) Creatinine 2.2 mg/dL (0.7-1.3) Estimated GFR (Cockcroft-Gault) 29.2 Glucose Level 56 mg/dL (70-99) Calcium Level 8.0 mg/dL (8.5-10.1) Phosphorus Level 2.9 mg/dL (2.6-4.7) Magnesium Level 2.0 mg/dL (1.8-2.4) Albumin 2.1 g/dL (3.4-5.0) Test 10/17/16 07:41 10/17/16 08:39 10/17/16 11:21 10/17/16 15:30 Glucose (Fingerstick) 66 mg/dL (70-99) 104 mg/dL (70-99) 83 mg/dL (70-99) 92 mg/dL (70-99) Test 10/17/16 16:37 10/17/16 20:43 10/18/16 05:08 10/18/16 07:56 Glucose (Fingerstick) 105 mg/dL (70-99) 227 mg/dL (70-99) 144 mg/dL (70-99) White Blood Count 8.2 x10^3/uL (4.0-11.0) Red Blood Count 3.73 x10^6/uL (4.30-5.70) Hemoglobin 11.1 g/dL (13.0-17.5) Hematocrit 33.1 % (39.0-53.0) Mean Corpuscular Volume 89 fL (79-100) Mean Corpuscular Hemoglobin 30 pg (25-35) Mean Corpuscular Hemoglobin Concent 34 g/dL (31-37) Red Cell Distribution Width 14.1 % (11.5-14.5) Platelet Count 367 x10^3/uL (140-400) Neutrophils (%) (Auto) 73 % (31-73) Lymphocytes (%) (Auto) 21 % (24-48) Monocytes (%) (Auto) 6 % (0-9) Eosinophils (%) (Auto) 0 % (0-3) Basophils (%) (Auto) 0 % (0-3) Neutrophils # (Auto) 6.0 x10^3uL (1.8-7.7) Lymphocytes # (Auto) 1.7 x10^3/uL (1.0-4.8) Monocytes # (Auto) 0.5 x10^3/uL (0.0-1.1) Eosinophils # (Auto) 0.0 x10^3/uL (0.0-0.7) Basophils # (Auto) 0.0 x10^3/uL (0.0-0.2) Sodium Level 141 mmol/L (136-145) Potassium Level 4.6 mmol/L (3.5-5.1) Chloride Level 110 mmol/L (98-107) Carbon Dioxide Level 22 mmol/L (21-32) Anion Gap 9 (6-14) Blood Urea Nitrogen 31 mg/dL (8-26) Creatinine 2.1 mg/dL (0.7-1.3) Estimated GFR (Cockcroft-Gault) 30.9 Glucose Level 178 mg/dL (70-99) Calcium Level 7.6 mg/dL (8.5-10.1) Magnesium Level 1.9 mg/dL (1.8-2.4) Laboratory Tests Test 10/17/16 11:21 10/17/16 15:30 10/17/16 16:37 10/17/16 20:43 Glucose (Fingerstick) 83 mg/dL (70-99) 92 mg/dL (70-99) 105 mg/dL (70-99) 227 mg/dL (70-99) Test 10/18/16 05:08 10/18/16 07:56 White Blood Count 8.2 x10^3/uL (4.0-11.0) Red Blood Count 3.73 x10^6/uL (4.30-5.70) Hemoglobin 11.1 g/dL (13.0-17.5) Hematocrit 33.1 % (39.0-53.0) Mean Corpuscular Volume 89 fL (79-100) Mean Corpuscular Hemoglobin 30 pg (25-35) Mean Corpuscular Hemoglobin Concent 34 g/dL (31-37) Red Cell Distribution Width 14.1 % (11.5-14.5) Platelet Count 367 x10^3/uL (140-400) Neutrophils (%) (Auto) 73 % (31-73) Lymphocytes (%) (Auto) 21 % (24-48) Monocytes (%) (Auto) 6 % (0-9) Eosinophils (%) (Auto) 0 % (0-3) Basophils (%) (Auto) 0 % (0-3) Neutrophils # (Auto) 6.0 x10^3uL (1.8-7.7) Lymphocytes # (Auto) 1.7 x10^3/uL (1.0-4.8) Monocytes # (Auto) 0.5 x10^3/uL (0.0-1.1) Eosinophils # (Auto) 0.0 x10^3/uL (0.0-0.7) Basophils # (Auto) 0.0 x10^3/uL (0.0-0.2) Sodium Level 141 mmol/L (136-145) Potassium Level 4.6 mmol/L (3.5-5.1) Chloride Level 110 mmol/L (98-107) Carbon Dioxide Level 22 mmol/L (21-32) Anion Gap 9 (6-14) Blood Urea Nitrogen 31 mg/dL (8-26) Creatinine 2.1 mg/dL (0.7-1.3) Estimated GFR (Cockcroft-Gault) 30.9 Glucose Level 178 mg/dL (70-99) Calcium Level 7.6 mg/dL (8.5-10.1) Magnesium Level 1.9 mg/dL (1.8-2.4) Glucose (Fingerstick) 144 mg/dL (70-99) Microbiology 10/14/16 Urine Culture - Preliminary, Resulted 10/14/16 Urine Culture Result 1 (PANTERA) - Preliminary, Resulted Medications Current Medications Dextrose/Sodium Chloride 187.5 ml @ 250 mls/hr Q45M IV Last administered on 16:44; Start 10/12/16 at 15:15; Stop 10/12/16 at 16:00; Status DC Dextrose/Sodium Chloride 1,000 ml @ 125 mls/hr Q8H IV Last administered on 18:30; Start 10/12/16 at 16:00; Stop 10/12/16 at 19:44; Status DC Gabapentin (Neurontin) 300 mg BID PO Last administered on 10/13/16 22:42; Start 10/12/16 at 21:00; Stop 10/14/16 at 08:51; Status DC Insulin Detemir (Levemir) 15 units BID SQ Last administered on 10/13/16 22:51 ; Start 10/12/16 at 21:00; Stop 10/14/16 at 08:51; Status DC Tamsulosin HCl (Flomax) 0.4 mg QHS PO Last administered on 10/17/16 20:30; Start 10/12/16 at 21:00 Famotidine (Pepcid) 20 mg DAILY PO Last administered on 10/17/16 16:39; Start 10/12/16 at 16:00 Sodium Polystyrene Sulfonate (Kayexalate) 15 gm 1X ONCE PO Last administered on 10/12/16 16:41; Start 10/12/16 at 15:15; Stop 10/12/16 at 15:29; Status DC Insulin Aspart (NovoLOG) 0-9 UNITS TIDWMEALS SQ Last administered on 10/16/16 17:06; Start 10/12/16 at 17:00 Dextrose (Dextrose 50%-Water Syringe) 12.5 gm PRN Q15MIN PRN IV SEE COMMENTS; Start 10/12/16 at 15:15 Sodium Polystyrene Sulfonate (Kayexalate) 45 gm 1X ONCE PO Last administered on 10/12/16 21:39; Start 10/12/16 at 20:00; Stop 10/12/16 at 20:01; Status DC Piperacillin Sod/ Tazobactam Sod 2.25 gm/Sodium Chloride 50 ml @ 100 mls/hr Q8HRS IV Last administered on 10/13/16 05:31; Start 10/12/16 at 22:30; Stop at 13:09; Status DC Dextrose 250 ml @ 250 mls/hr Q1H PRN IV LOW BLOOD SUGAR; Start 10/13/16 at 09: 00; Status UNV Dextrose 250 ml @ 1,500 mls/hr PRN Q1HR PRN IV LOW BLOOD SUGAR Last administered on 10/14/16 10:11; Start 10/13/16 at 09:15 Magnesium Sulfate/ Dextrose 50 ml @ 25 mls/hr PRN DAILY PRN IV for Mag < 1.7 on am labs; Start 10/13/16 at 09:00 Piperacillin Sod/ Tazobactam Sod 2.25 gm/Sodium Chloride 50 ml @ 100 mls/hr Q6HRS IV Last administered on 10/18/16 06:16; Start 10/13/16 at 14:00; Stop at 08:31; Status DC Lidocaine/Sodium Bicarbonate (Buffered Lidocaine 1%) 20 ml STK-MED ONCE IJ ; Start 10/14/16 at 06:59; Stop 10/14/16 at 07:00; Status DC Midazolam HCl (Versed) 2 mg STK-MED ONCE .ROUTE ; Start 10/14/16 at 07:02; Stop 10/14/16 at 07:03; Status DC Fentanyl Citrate (Fentanyl 2ml Vial) 100 mcg STK-MED ONCE .ROUTE ; Start at 07:02; Stop 10/14/16 at 07:03; Status DC Iohexol (Omnipaque 300 Mg/ml) 50 ml STK-MED ONCE .ROUTE ; Start 10/14/16 at 08: 06; Stop 10/14/16 at 08:07; Status DC Lidocaine/Sodium Bicarbonate (Buffered Lidocaine 1%) 20 ml STK-MED ONCE IJ ; Start 10/14/16 at 08:21; Stop 10/14/16 at 08:22; Status DC Iohexol (Omnipaque 300 Mg/ml) 50 ml STK-MED ONCE .ROUTE ; Start 10/14/16 at 08: 21; Stop 10/14/16 at 08:22; Status DC Heparin Sodium/ Sodium Chloride 500 ml @ As Directed STK-MED ONCE .ROUTE ; Start 10/14/16 at 08:21; Stop 10/14/16 at 08:22; Status DC Levofloxacin/ Dextrose 100 ml @ As Directed STK-MED ONCE IV ; Start 10/14/16 at 08:30; Stop 10/14/16 at 08:31; Status DC Heparin Sodium/ Sodium Chloride 1,000 unit 1X ONCE IART Last administered on 08:58; Start 10/14/16 at 08:45; Stop 10/14/16 at 08:46; Status DC Iohexol (Omnipaque 300 Mg/ml) 50 ml 1X ONCE IART Last administered on 08:58; Start 10/14/16 at 08:45; Stop 10/14/16 at 08:46; Status DC Levofloxacin/ Dextrose 100 ml @ 100 mls/hr 1X ONCE IV Last administered on 08:58; Start 10/14/16 at 08:35; Stop 10/14/16 at 09:34; Status DC Gabapentin (Neurontin) 300 mg DAILY08 PO Last administered on 10/17/16 16:39; Start 10/14/16 at 09:00 Insulin Detemir (Levemir) 6 units BID SQ Last administered on 10/16/16 20:59; Start 10/14/16 at 09:00; Stop 10/17/16 at 08:17; Status DC Lidocaine/Sodium Bicarbonate (Buffered Lidocaine 1%) 7 ml 1X ONCE IJ Last administered on 10/14/16 09:10; Start 10/14/16 at 09:00; Stop 10/14/16 at 09:03 ; Status DC Midazolam HCl (Versed) 2 mg 1X ONCE IV Last administered on 10/14/16 09:08; Start 10/14/16 at 09:00; Stop 10/14/16 at 09:03; Status DC Fentanyl Citrate (Fentanyl 2ml Vial) 100 mcg 1X ONCE IV Last administered on 09:09; Start 10/14/16 at 09:00; Stop 10/14/16 at 09:03; Status DC Albumin Human 500 ml @ 125 mls/hr Q4HRS IV Last administered on 10/14/16 16: 25; Start 10/14/16 at 11:30; Stop 10/14/16 at 15:59; Status DC Ondansetron HCl (Zofran) 4 mg PRN Q6HRS PRN IV NAUSEA/VOMITING; Start 10/17/16 at 07:00; Stop 10/18/16 at 06:59; Status DC Fentanyl Citrate (Fentanyl 2ml Vial) 25 mcg PRN Q5MIN PRN IV MILD PAIN; Start 10/17/16 at 07:00; Stop 10/18/16 at 06:59; Status DC Fentanyl Citrate (Fentanyl 2ml Vial) 50 mcg PRN Q5MIN PRN IV MODERATE PAIN; Start 10/17/16 at 07:00; Stop 10/18/16 at 06:59; Status DC Morphine Sulfate 1 mg PRN Q10MIN PRN IV SEVERE PAIN; Start 10/17/16 at 07:00; Stop 10/18/16 at 06:59; Status DC Ringer's Solution 1,000 ml @ 30 mls/hr Q24H IV ; Start 10/17/16 at 07:00; Stop 10/17/16 at 17:29; Status DC Lidocaine HCl 2 ml PRN 1X PRN ID PRIOR TO IV START; Start 10/17/16 at 07:00; Stop 10/18/16 at 06:59; Status DC Hydromorphone HCl (Dilaudid) 0.5 mg PRN Q10MIN PRN IV SEV PAIN, Second choice; Start 10/17/16 at 07:00; Stop 10/18/16 at 06:59; Status DC Prochlorperazine Edisylate (Compazine) 5 mg PACU PRN PRN IV NAUSEA, MRX1; Start 10/17/16 at 07:00; Stop 10/18/16 at 06:59; Status DC Insulin Detemir (Levemir) 3 units BID SQ Last administered on 10/17/16t 21:04; Start 10/17/16 at 09:00 Lidocaine HCl (Glydo (Lidocaine) Jelly) 6 ursula STK-MED ONCE .ROUTE ; Start at 09:48; Stop 10/17/16 at 09:49; Status DC Sodium Chloride 1,000 ml @ 75 mls/hr [id number] IV Last administered on 06:17; Start 10/17/16 at 11:30 Fentanyl Citrate (Fentanyl 2ml Vial) 50 mcg PRN Q5MIN PRN IV Acute Pain; Start 10/17/16 at 11:30; Stop 10/18/16 at 11:29 Morphine Sulfate 4 mg PRN Q10MIN PRN IV Moderate Pain; Start 10/17/16 at 11:30 ; Stop 10/18/16 at 11:29 Hydromorphone HCl (Dilaudid) 0.4 mg PRN Q10MIN PRN IV Moderate to severe pain; Start 10/17/16 at 11:30; Stop 10/18/16 at 11:29 Meperidine HCl (Demerol) 12.5 mg PRN Q5MIN PRN IV SHIVERING; Start 10/17/16 at 11:30; Stop 10/18/16 at 11:29 Prochlorperazine Edisylate (Compazine) 5 mg PRN Q6HRS PRN IV Nausea/Vomiting, 1st Choice; Start 10/17/16 at 11:30; Stop 10/18/16 at 11:29 Diphenhydramine HCl (Benadryl) 12.5 mg PRN Q2HR PRN IV ITCHING; Start 10/17/16 at 11:30; Stop 10/18/16 at 11:29 Midazolam HCl (Versed) 2 mg PRN 1X PRN IV PRIOR TO PROCEDURE; Start 10/17/16 at 11:30; Stop 10/18/16 at 11:29 Midazolam HCl (Versed) 1 mg PRN 1X PRN IV PRIOR TO PROCEDURE; Start 10/17/16 at 11:30; Stop 10/18/16 at 11:29 Fentanyl Citrate (Fentanyl 2ml Vial) 25 mcg PRN Q5MIN PRN IV X 2 DOSES FOR PAIN ; Start 10/17/16 at 11:30; Stop 10/18/16 at 11:29 Fentanyl Citrate (Fentanyl 2ml Vial) 50 mcg PRN Q5MIN PRN IV X 2 DOSES FOR PAIN ; Start 10/17/16 at 11:30; Stop 10/18/16 at 11:29 Ringer's Solution 1,000 ml @ 125 mls/hr Q8H IV ; Start 10/17/16 at 11:23; Stop 10/17/16 at 17:29; Status DC Lidocaine HCl 2 ml 1X PRN PRN ID IV START; Start 10/17/16 at 11:30; Stop at 11:29 Dexamethasone Sodium Phosphate (Decadron) 20 mg STK-MED ONCE .ROUTE ; Start at 12:51; Stop 10/17/16 at 13:20; Status DC Lidocaine HCl (Lidocaine Pf 2% Vial) 5 ml STK-MED ONCE .ROUTE ; Start 10/17/16 at 12:51; Stop 10/17/16 at 13:20; Status DC Ondansetron HCl (Zofran) 4 mg STK-MED ONCE .ROUTE ; Start 10/17/16 at 12:51; Stop 10/17/16 at 13:20; Status DC Propofol 20 ml @ As Directed STK-MED ONCE IV ; Start 10/17/16 at 12:51; Stop at 13:20; Status DC Ephedrine Sulfate 50 mg STK-MED ONCE IV ; Start 10/17/16 at 14:19; Stop at 14:20; Status DC Fentanyl Citrate (Fentanyl 2ml Vial) 100 mcg STK-MED ONCE .ROUTE ; Start at 14:50; Stop 10/17/16 at 14:51; Status DC Sevoflurane (Ultane) 30 ml STK-MED ONCE IH ; Start 10/17/16 at 15:00; Stop 10/17 at 15:01; Status DC Sevoflurane (Ultane) 60 ml STK-MED ONCE IH ; Start 10/17/16 at 15:03; Stop 10/17 at 15:04; Status DC Active Scripts Active Reported Benazepril Hcl 40 Mg Tablet 40 Mg PO DAILY Tamsulosin Hcl 0.4 Mg Cap.er.24h 0.4 Mg PO DAILY Macrodantin (Nitrofurantoin Macrocrystal) 100 Mg Capsule 100 Mg PO DAILY Gabapentin 600 Mg Tablet 300 Mg PO BID Humulin 70-30 Vial (Hum Insulin Nph/Reg Insulin Hm) 100 Unit/1 Ml Vial 25 Unit SQ BID Vitals/I & O Vital Sign - Last 24 Hours 10/17/16 10/17/16 10/17/16 10/17/16 11:00 12:40 15:18 15:18 Temp 98.0 97.1 99.3 98.0 97.1 99.3 Pulse 52 59 73 Resp 18 18 22 B/P (MAP) 113/48 (69) 118/57 116/65 Pulse Ox 94 100 100 O2 Delivery Room Air Room Air Simple Mask Mask O2 Flow Rate 2.0 10 10 10/17/16 10/17/16 10/17/16 10/17/16 15:33 15:48 15:49 16:03 Temp 98.1 98.1 Pulse 74 70 68 Resp 21 20 20 B/P (MAP) 112/61 119/57 109/52 Pulse Ox 100 99 99 O2 Delivery Simple Mask Room Air Room Air Room Air O2 Flow Rate 10 10/17/16 10/17/16 10/17/16 10/17/16 16:40 16:45 17:00 17:30 Temp 97.4 97.4 Pulse 72 60 66 66 Resp 18 B/P (MAP) 124/76 (92) 124/70 (88) 114/61 (78) 119/72 (88) Pulse Ox 100 100 100 100 O2 Delivery Room Air 10/17/16 10/17/16 10/17/16 10/17/16 17:45 18:30 19:30 20:26 Temp 97.7 97.7 Pulse 62 66 67 Resp 20 B/P (MAP) 127/71 (89) 112/51 (71) 109/64 (79) Pulse Ox 100 100 100 O2 Delivery Room Air Room Air 10/17/16 10/18/16 10/18/16 23:00 03:45 07:00 Temp 97.8 97.8 97.7 97.8 97.8 97.7 Pulse 71 58 50 Resp 18 20 18 B/P (MAP) 100/58 (72) 92/49 (63) 116/64 (81) Pulse Ox 98 99 95 O2 Delivery Room Air Room Air Room Air Intake and Output 10/17/16 10/17/16 10/18/16 15:00 23:00 07:00 Intake Total 550 ml 25 ml 1380 ml Output Total 200 ml 750 ml Balance 550 ml -175 ml 630 ml Nutrition Consultation Dietary Evaluation: Recommendations by RD: Increase Calorie Intake, Protein supplementation Comments: 49# wt loss x's 5 weeks, poor intake over the past month (1-2 bites of food at meals) Stage I pressure ulcer- rec. a daily MVT and 500 mg Vitamin C/day Add boost breeze BID @ lunch and dinner (250 calories/9 grams protein) Add vanilla boost pudding @ breakfast (240 calories/7 grams protein) add 2% milk TID Expected Outcomes/Goals: meet 75% estimated nutrition needs no further wt loss Interpretation of weight loss: >5% in 1 month Malnutrition Findings: Food and Nutrition Intake (Mod: <75% est energy req 7days Body Fat Depletion (Non Severe: Mild Depletion Reduced Weed Eradicator Strength: N/A Malnutrition related to morbid: No Weight Status: Appropriate Fluid Accumulation (N/A): N/A ASAD GALVAN MD Oct 18, 2016 08:42
[2016-10-18] MEDS: GABAPENTIN 300 MG CAPSULE. PO SCH (09:58)
[2016-10-18] MEDS: FAMOTIDINE 20 MG TABLET. PO SCH (09:58)
[2016-10-18] MEDS: INSULIN DETEMIR 300 UNITS/3 ML INSULN.PEN. SQ SCH ×2 (10:00→21:37)
[2016-10-18 10:10] LABS: ALBUMIN 2.1 g/dL (3.4-5.0); CREATININE 2.1 mg/dL (0.7-1.3); GFR 30.9; PHOSPHORUS 4.4 mg/dL (2.6-4.7)
[2016-10-18 10:12] LABS: CALCIUM 7.6 mg/dL (8.5-10.1); POTASSIUM 4.6 mmol/L (3.5-5.1)
--- NOTE | 2016-10-18 10:37 | PDOC ---
Renal-Progress Notes Subjective Notes Notes NONE History of Present Illness Hx of present illness STABLE Vitals Vitals Vital Signs Date Time Temp Pulse Resp B/P (MAP) Pulse Ox O2 Delivery O2 Flow Rate FiO2 10/18/16 07:00 97.7 50 18 116/64 (81) 95 Room Air 97.7 10/17/16 15:33 10 Weight Weight [ ] I.O. Intake and Output Intake and Output 10/18/16 06:59 Intake Total 1955 ml Output Total 950 ml Balance 1005 ml Intake Oral 505 ml IV Total 550 ml Other 900 ml Output Urine Total 950 ml # Bowel Movements 1 Labs Labs Laboratory Tests Test 10/17/16 11:21 10/17/16 15:30 10/17/16 16:37 10/17/16 20:43 Glucose (Fingerstick) 83 mg/dL (70-99) 92 mg/dL (70-99) 105 mg/dL (70-99) 227 mg/dL (70-99) Test 10/18/16 05:08 10/18/16 07:56 White Blood Count 8.2 x10^3/uL (4.0-11.0) Red Blood Count 3.73 x10^6/uL (4.30-5.70) Hemoglobin 11.1 g/dL (13.0-17.5) Hematocrit 33.1 % (39.0-53.0) Mean Corpuscular Volume 89 fL (79-100) Mean Corpuscular Hemoglobin 30 pg (25-35) Mean Corpuscular Hemoglobin Concent 34 g/dL (31-37) Red Cell Distribution Width 14.1 % (11.5-14.5) Platelet Count 367 x10^3/uL (140-400) Neutrophils (%) (Auto) 73 % (31-73) Lymphocytes (%) (Auto) 21 % (24-48) Monocytes (%) (Auto) 6 % (0-9) Eosinophils (%) (Auto) 0 % (0-3) Basophils (%) (Auto) 0 % (0-3) Neutrophils # (Auto) 6.0 x10^3uL (1.8-7.7) Lymphocytes # (Auto) 1.7 x10^3/uL (1.0-4.8) Monocytes # (Auto) 0.5 x10^3/uL (0.0-1.1) Eosinophils # (Auto) 0.0 x10^3/uL (0.0-0.7) Basophils # (Auto) 0.0 x10^3/uL (0.0-0.2) Sodium Level 141 mmol/L (136-145) Potassium Level 4.6 mmol/L (3.5-5.1) Chloride Level 110 mmol/L (98-107) Carbon Dioxide Level 22 mmol/L (21-32) Anion Gap 9 (6-14) Blood Urea Nitrogen 31 mg/dL (8-26) Creatinine 2.1 mg/dL (0.7-1.3) Estimated GFR (Cockcroft-Gault) 30.9 Glucose Level 178 mg/dL (70-99) Calcium Level 7.6 mg/dL (8.5-10.1) Phosphorus Level 4.4 mg/dL (2.6-4.7) Magnesium Level 1.9 mg/dL (1.8-2.4) Albumin 2.1 g/dL (3.4-5.0) Glucose (Fingerstick) 144 mg/dL (70-99) Micro Micro Microbiology 10/14/16 Urine Culture - Preliminary, Resulted 10/14/16 Urine Culture Result 1 (PANTERA) - Preliminary, Resulted Review of Systems Constitutional: yes: malaise, weakness, alert, oriented Ears/Nose/Throat: Yes: no symptom reported Eyes: Yes: no symptom reported Pulmonary: Yes no symptom reported Cardiovascular: Yes no symptom reported Gastrointestional: Yes: no symptom reported Musculoskeletal: Yes: muscle stiffness Skin: Yes no symptom reported Psychiatric/Neurological: Yes: no symptom reported Physical Exam General Appearance: no apparent distress Skin: warm Respiratory: bilateral CTA Heart: S1S2, RRR Abdomen: soft, bowel sounds present Genitourinary: bladder flat Extremities: pulses present Neurology: alert, oriented Assessment Assessment 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 CKD - CR WAS 2.1 IN AUGUST THIS YEAR BLADDER MASS WITH RECENT WT LOSS PLAN CONT IVF'S BLADDER WASHING CYTOLOGY PENDING PROB TRANSFER TO [facility] PER UROLOGY LABS IN AM RAN PACE MD Oct 18, 2016 10:37
[2016-10-18 11:00] VITALS: BP 97/52
[2016-10-18 15:00] VITALS: BP 107/56
--- NOTE | 2016-10-18 18:29 | PDOC ---
PROGRESS NOTES Subjective Subjective Patient feels much better today. He is still very forgetful. Objective Objective Vital Signs Date Time Temp Pulse Resp B/P (MAP) Pulse Ox O2 Delivery O2 Flow Rate FiO2 10/18/16 15:00 98.1 52 18 107/56 (73) 99 Room Air 98.1 10/17/16 15:33 10 Intake and Output 10/18/16 07:00 Intake Total 1955 ml Output Total 950 ml Balance 1005 ml Intake Oral 505 ml IV Total 550 ml Other 900 ml Output Urine Total 950 ml # Bowel Movements 1 Physical Exam Physical Exam No significant changes in cardiac exam Assessment Assessment Patient seems to be doing better today. I would like to do a heart catheterization tomorrow if it's okay with nephrology. I have discussed the procedure with the patient and his family. Comment Review of Relevant I have reviewed the following items vikash (where applicable) has been applied. Labs Laboratory Tests Test 10/16/16 20:56 10/17/16 03:00 10/17/16 07:41 10/17/16 08:39 Glucose (Fingerstick) 146 mg/dL (70-99) 66 mg/dL (70-99) 104 mg/dL (70-99) Sodium Level 143 mmol/L (136-145) Potassium Level 4.3 mmol/L (3.5-5.1) Chloride Level 110 mmol/L (98-107) Carbon Dioxide Level 22 mmol/L (21-32) Anion Gap 11 (6-14) Blood Urea Nitrogen 33 mg/dL (8-26) Creatinine 2.2 mg/dL (0.7-1.3) Estimated GFR (Cockcroft-Gault) 29.2 Glucose Level 56 mg/dL (70-99) Calcium Level 8.0 mg/dL (8.5-10.1) Phosphorus Level 2.9 mg/dL (2.6-4.7) Magnesium Level 2.0 mg/dL (1.8-2.4) Albumin 2.1 g/dL (3.4-5.0) Test 10/17/16 11:21 10/17/16 15:30 10/17/16 16:37 10/17/16 20:43 Glucose (Fingerstick) 83 mg/dL (70-99) 92 mg/dL (70-99) 105 mg/dL (70-99) 227 mg/dL (70-99) Test 10/18/16 05:08 10/18/16 07:56 10/18/16 12:21 10/18/16 16:43 White Blood Count 8.2 x10^3/uL (4.0-11.0) Red Blood Count 3.73 x10^6/uL (4.30-5.70) Hemoglobin 11.1 g/dL (13.0-17.5) Hematocrit 33.1 % (39.0-53.0) Mean Corpuscular Volume 89 fL (79-100) Mean Corpuscular Hemoglobin 30 pg (25-35) Mean Corpuscular Hemoglobin Concent 34 g/dL (31-37) Red Cell Distribution Width 14.1 % (11.5-14.5) Platelet Count 367 x10^3/uL (140-400) Neutrophils (%) (Auto) 73 % (31-73) Lymphocytes (%) (Auto) 21 % (24-48) Monocytes (%) (Auto) 6 % (0-9) Eosinophils (%) (Auto) 0 % (0-3) Basophils (%) (Auto) 0 % (0-3) Neutrophils # (Auto) 6.0 x10^3uL (1.8-7.7) Lymphocytes # (Auto) 1.7 x10^3/uL (1.0-4.8) Monocytes # (Auto) 0.5 x10^3/uL (0.0-1.1) Eosinophils # (Auto) 0.0 x10^3/uL (0.0-0.7) Basophils # (Auto) 0.0 x10^3/uL (0.0-0.2) Sodium Level 141 mmol/L (136-145) Potassium Level 4.6 mmol/L (3.5-5.1) Chloride Level 110 mmol/L (98-107) Carbon Dioxide Level 22 mmol/L (21-32) Anion Gap 9 (6-14) Blood Urea Nitrogen 31 mg/dL (8-26) Creatinine 2.1 mg/dL (0.7-1.3) Estimated GFR (Cockcroft-Gault) 30.9 Glucose Level 178 mg/dL (70-99) Calcium Level 7.6 mg/dL (8.5-10.1) Phosphorus Level 4.4 mg/dL (2.6-4.7) Magnesium Level 1.9 mg/dL (1.8-2.4) Albumin 2.1 g/dL (3.4-5.0) Glucose (Fingerstick) 144 mg/dL (70-99) 193 mg/dL (70-99) 110 mg/dL (70-99) Laboratory Tests Test 10/17/16 20:43 10/18/16 05:08 10/18/16 07:56 10/18/16 12:21 Glucose (Fingerstick) 227 mg/dL (70-99) 144 mg/dL (70-99) 193 mg/dL (70-99) White Blood Count 8.2 x10^3/uL (4.0-11.0) Red Blood Count 3.73 x10^6/uL (4.30-5.70) Hemoglobin 11.1 g/dL (13.0-17.5) Hematocrit 33.1 % (39.0-53.0) Mean Corpuscular Volume 89 fL (79-100) Mean Corpuscular Hemoglobin 30 pg (25-35) Mean Corpuscular Hemoglobin Concent 34 g/dL (31-37) Red Cell Distribution Width 14.1 % (11.5-14.5) Platelet Count 367 x10^3/uL (140-400) Neutrophils (%) (Auto) 73 % (31-73) Lymphocytes (%) (Auto) 21 % (24-48) Monocytes (%) (Auto) 6 % (0-9) Eosinophils (%) (Auto) 0 % (0-3) Basophils (%) (Auto) 0 % (0-3) Neutrophils # (Auto) 6.0 x10^3uL (1.8-7.7) Lymphocytes # (Auto) 1.7 x10^3/uL (1.0-4.8) Monocytes # (Auto) 0.5 x10^3/uL (0.0-1.1) Eosinophils # (Auto) 0.0 x10^3/uL (0.0-0.7) Basophils # (Auto) 0.0 x10^3/uL (0.0-0.2) Sodium Level 141 mmol/L (136-145) Potassium Level 4.6 mmol/L (3.5-5.1) Chloride Level 110 mmol/L (98-107) Carbon Dioxide Level 22 mmol/L (21-32) Anion Gap 9 (6-14) Blood Urea Nitrogen 31 mg/dL (8-26) Creatinine 2.1 mg/dL (0.7-1.3) Estimated GFR (Cockcroft-Gault) 30.9 Glucose Level 178 mg/dL (70-99) Calcium Level 7.6 mg/dL (8.5-10.1) Phosphorus Level 4.4 mg/dL (2.6-4.7) Magnesium Level 1.9 mg/dL (1.8-2.4) Albumin 2.1 g/dL (3.4-5.0) Test 10/18/16 16:43 Glucose (Fingerstick) 110 mg/dL (70-99) Microbiology 10/14/16 Urine Culture - Preliminary, Resulted 10/14/16 Urine Culture Result 1 (PANTERA) - Preliminary, Resulted Medications Current Medications Dextrose/Sodium Chloride 187.5 ml @ 250 mls/hr Q45M IV Last administered on 16:44; Start 10/12/16 at 15:15; Stop 10/12/16 at 16:00; Status DC Dextrose/Sodium Chloride 1,000 ml @ 125 mls/hr Q8H IV Last administered on 18:30; Start 10/12/16 at 16:00; Stop 10/12/16 at 19:44; Status DC Gabapentin (Neurontin) 300 mg BID PO Last administered on 10/13/16 22:42; Start 10/12/16 at 21:00; Stop 10/14/16 at 08:51; Status DC Insulin Detemir (Levemir) 15 units BID SQ Last administered on 10/13/16 22:51 ; Start 10/12/16 at 21:00; Stop 10/14/16 at 08:51; Status DC Tamsulosin HCl (Flomax) 0.4 mg QHS PO Last administered on 10/17/16 20:30; Start 10/12/16 at 21:00 Famotidine (Pepcid) 20 mg DAILY PO Last administered on 10/18/16 09:58; Start 10/12/16 at 16:00 Sodium Polystyrene Sulfonate (Kayexalate) 15 gm 1X ONCE PO Last administered on 10/12/16 16:41; Start 10/12/16 at 15:15; Stop 10/12/16 at 15:29; Status DC Insulin Aspart (NovoLOG) 0-9 UNITS TIDWMEALS SQ Last administered on 10/18/16 12:59; Start 10/12/16 at 17:00 Dextrose (Dextrose 50%-Water Syringe) 12.5 gm PRN Q15MIN PRN IV SEE COMMENTS; Start 10/12/16 at 15:15 Sodium Polystyrene Sulfonate (Kayexalate) 45 gm 1X ONCE PO Last administered on 10/12/16 21:39; Start 10/12/16 at 20:00; Stop 10/12/16 at 20:01; Status DC Piperacillin Sod/ Tazobactam Sod 2.25 gm/Sodium Chloride 50 ml @ 100 mls/hr Q8HRS IV Last administered on 10/13/16 05:31; Start 10/12/16 at 22:30; Stop at 13:09; Status DC Dextrose 250 ml @ 250 mls/hr Q1H PRN IV LOW BLOOD SUGAR; Start 10/13/16 at 09: 00; Status UNV Dextrose 250 ml @ 1,500 mls/hr PRN Q1HR PRN IV LOW BLOOD SUGAR Last administered on 10/14/16 10:11; Start 10/13/16 at 09:15 Magnesium Sulfate/ Dextrose 50 ml @ 25 mls/hr PRN DAILY PRN IV for Mag < 1.7 on am labs; Start 10/13/16 at 09:00 Piperacillin Sod/ Tazobactam Sod 2.25 gm/Sodium Chloride 50 ml @ 100 mls/hr Q6HRS IV Last administered on 10/18/16 06:16; Start 10/13/16 at 14:00; Stop at 08:31; Status DC Lidocaine/Sodium Bicarbonate (Buffered Lidocaine 1%) 20 ml STK-MED ONCE IJ ; Start 10/14/16 at 06:59; Stop 10/14/16 at 07:00; Status DC Midazolam HCl (Versed) 2 mg STK-MED ONCE .ROUTE ; Start 10/14/16 at 07:02; Stop 10/14/16 at 07:03; Status DC Fentanyl Citrate (Fentanyl 2ml Vial) 100 mcg STK-MED ONCE .ROUTE ; Start at 07:02; Stop 10/14/16 at 07:03; Status DC Iohexol (Omnipaque 300 Mg/ml) 50 ml STK-MED ONCE .ROUTE ; Start 10/14/16 at 08: 06; Stop 10/14/16 at 08:07; Status DC Lidocaine/Sodium Bicarbonate (Buffered Lidocaine 1%) 20 ml STK-MED ONCE IJ ; Start 10/14/16 at 08:21; Stop 10/14/16 at 08:22; Status DC Iohexol (Omnipaque 300 Mg/ml) 50 ml STK-MED ONCE .ROUTE ; Start 10/14/16 at 08: 21; Stop 10/14/16 at 08:22; Status DC Heparin Sodium/ Sodium Chloride 500 ml @ As Directed STK-MED ONCE .ROUTE ; Start 10/14/16 at 08:21; Stop 10/14/16 at 08:22; Status DC Levofloxacin/ Dextrose 100 ml @ As Directed STK-MED ONCE IV ; Start 10/14/16 at 08:30; Stop 10/14/16 at 08:31; Status DC Heparin Sodium/ Sodium Chloride 1,000 unit 1X ONCE IART Last administered on 08:58; Start 10/14/16 at 08:45; Stop 10/14/16 at 08:46; Status DC Iohexol (Omnipaque 300 Mg/ml) 50 ml 1X ONCE IART Last administered on 08:58; Start 10/14/16 at 08:45; Stop 10/14/16 at 08:46; Status DC Levofloxacin/ Dextrose 100 ml @ 100 mls/hr 1X ONCE IV Last administered on 08:58; Start 10/14/16 at 08:35; Stop 10/14/16 at 09:34; Status DC Gabapentin (Neurontin) 300 mg DAILY08 PO Last administered on 10/18/16 09:58; Start 10/14/16 at 09:00 Insulin Detemir (Levemir) 6 units BID SQ Last administered on 10/16/16 20:59; Start 10/14/16 at 09:00; Stop 10/17/16 at 08:17; Status DC Lidocaine/Sodium Bicarbonate (Buffered Lidocaine 1%) 7 ml 1X ONCE IJ Last administered on 10/14/16 09:10; Start 10/14/16 at 09:00; Stop 10/14/16 at 09:03 ; Status DC Midazolam HCl (Versed) 2 mg 1X ONCE IV Last administered on 10/14/16 09:08; Start 10/14/16 at 09:00; Stop 10/14/16 at 09:03; Status DC Fentanyl Citrate (Fentanyl 2ml Vial) 100 mcg 1X ONCE IV Last administered on 09:09; Start 10/14/16 at 09:00; Stop 10/14/16 at 09:03; Status DC Albumin Human 500 ml @ 125 mls/hr Q4HRS IV Last administered on 10/14/16 16: 25; Start 10/14/16 at 11:30; Stop 10/14/16 at 15:59; Status DC Ondansetron HCl (Zofran) 4 mg PRN Q6HRS PRN IV NAUSEA/VOMITING; Start 10/17/16 at 07:00; Stop 10/18/16 at 06:59; Status DC Fentanyl Citrate (Fentanyl 2ml Vial) 25 mcg PRN Q5MIN PRN IV MILD PAIN; Start 10/17/16 at 07:00; Stop 10/18/16 at 06:59; Status DC Fentanyl Citrate (Fentanyl 2ml Vial) 50 mcg PRN Q5MIN PRN IV MODERATE PAIN; Start 10/17/16 at 07:00; Stop 10/18/16 at 06:59; Status DC Morphine Sulfate 1 mg PRN Q10MIN PRN IV SEVERE PAIN; Start 10/17/16 at 07:00; Stop 10/18/16 at 06:59; Status DC Ringer's Solution 1,000 ml @ 30 mls/hr Q24H IV ; Start 10/17/16 at 07:00; Stop 10/17/16 at 17:29; Status DC Lidocaine HCl 2 ml PRN 1X PRN ID PRIOR TO IV START; Start 10/17/16 at 07:00; Stop 10/18/16 at 06:59; Status DC Hydromorphone HCl (Dilaudid) 0.5 mg PRN Q10MIN PRN IV SEV PAIN, Second choice; Start 10/17/16 at 07:00; Stop 10/18/16 at 06:59; Status DC Prochlorperazine Edisylate (Compazine) 5 mg PACU PRN PRN IV NAUSEA, MRX1; Start 10/17/16 at 07:00; Stop 10/18/16 at 06:59; Status DC Insulin Detemir (Levemir) 3 units BID SQ Last administered on 10/18/16 10:00; Start 10/17/16 at 09:00 Lidocaine HCl (Glydo (Lidocaine) Jelly) [facility] ; Start at 09:48; Stop 10/17/16 at 09:49; Status DC Sodium Chloride 1,000 ml @ 75 mls/hr [id number] IV Last administered on 06:17; Start 10/17/16 at 11:30 Fentanyl Citrate (Fentanyl 2ml Vial) 50 mcg PRN Q5MIN PRN IV Acute Pain; Start 10/17/16 at 11:30; Stop 10/18/16 at 11:29; Status DC Morphine Sulfate 4 mg PRN Q10MIN PRN IV Moderate Pain; Start 10/17/16 at 11:30 ; Stop 10/18/16 at 11:29; Status DC Hydromorphone HCl (Dilaudid) 0.4 mg PRN Q10MIN PRN IV Moderate to severe pain; Start 10/17/16 at 11:30; Stop 10/18/16 at 11:29; Status DC Meperidine HCl (Demerol) 12.5 mg PRN Q5MIN PRN IV SHIVERING; Start 10/17/16 at 11:30; Stop 10/18/16 at 11:29; Status DC Prochlorperazine Edisylate (Compazine) 5 mg PRN Q6HRS PRN IV Nausea/Vomiting, 1st Choice; Start 10/17/16 at 11:30; Stop 10/18/16 at 11:29; Status DC Diphenhydramine HCl (Benadryl) 12.5 mg PRN Q2HR PRN IV ITCHING; Start 10/17/16 at 11:30; Stop 10/18/16 at 11:29; Status DC Midazolam HCl (Versed) 2 mg PRN 1X PRN IV PRIOR TO PROCEDURE; Start 10/17/16 at 11:30; Stop 10/18/16 at 11:29; Status DC Midazolam HCl (Versed) 1 mg PRN 1X PRN IV PRIOR TO PROCEDURE; Start 10/17/16 at 11:30; Stop 10/18/16 at 11:29; Status DC Fentanyl Citrate (Fentanyl 2ml Vial) 25 mcg PRN Q5MIN PRN IV X 2 DOSES FOR PAIN ; Start 10/17/16 at 11:30; Stop 10/18/16 at 11:29; Status DC Fentanyl Citrate (Fentanyl 2ml Vial) 50 mcg PRN Q5MIN PRN IV X 2 DOSES FOR PAIN ; Start 10/17/16 at 11:30; Stop 10/18/16 at 11:29; Status DC Ringer's Solution 1,000 ml @ 125 mls/hr Q8H IV ; Start 10/17/16 at 11:23; Stop 10/17/16 at 17:29; Status DC Lidocaine HCl 2 ml 1X PRN PRN ID IV START; Start 10/17/16 at 11:30; Stop at 11:29; Status DC Dexamethasone Sodium Phosphate (Decadron) 20 mg STK-MED ONCE .ROUTE ; Start at 12:51; Stop 10/17/16 at 13:20; Status DC Lidocaine HCl (Lidocaine Pf 2% Vial) 5 ml STK-MED ONCE .ROUTE ; Start 10/17/16 at 12:51; Stop 10/17/16 at 13:20; Status DC Ondansetron HCl (Zofran) 4 mg STK-MED ONCE .ROUTE ; Start 10/17/16 at 12:51; Stop 10/17/16 at 13:20; Status DC Propofol 20 ml @ As Directed STK-MED ONCE IV ; Start 10/17/16 at 12:51; Stop at 13:20; Status DC Ephedrine Sulfate 50 mg STK-MED ONCE IV ; Start 10/17/16 at 14:19; Stop at 14:20; Status DC Fentanyl Citrate (Fentanyl 2ml Vial) 100 mcg STK-MED ONCE .ROUTE ; Start at 14:50; Stop 10/17/16 at 14:51; Status DC Sevoflurane (Ultane) 30 ml STK-MED ONCE IH ; Start 10/17/16 at 15:00; Stop 10/17 at 15:01; Status DC Sevoflurane (Ultane) 60 ml STK-MED ONCE IH ; Start 10/17/16 at 15:03; Stop 10/17 at 15:04; Status DC Active Scripts Active Reported Benazepril Hcl 40 Mg Tablet 40 Mg PO DAILY Tamsulosin Hcl 0.4 Mg Cap.er.24h 0.4 Mg PO DAILY Macrodantin (Nitrofurantoin Macrocrystal) 100 Mg Capsule 100 Mg PO DAILY Gabapentin 600 Mg Tablet 300 Mg PO BID Humulin 70-30 Vial (Hum Insulin Nph/Reg Insulin Hm) 100 Unit/1 Ml Vial 25 Unit SQ BID Vitals/I & O Vital Sign - Last 24 Hours 10/17/16 10/17/16 10/17/16 10/17/16 18:30 19:30 20:26 23:00 Temp 97.7 97.8 97.7 97.8 Pulse 66 67 71 Resp 20 18 B/P (MAP) 112/51 (71) 109/64 (79) 100/58 (72) Pulse Ox 100 100 98 O2 Delivery Room Air Room Air Room Air 10/18/16 10/18/16 10/18/16 10/18/16 03:45 07:00 08:00 11:00 Temp 97.8 97.7 97.9 97.8 97.7 97.9 Pulse 58 50 50 Resp 20 18 18 B/P (MAP) 92/49 (63) 116/64 (81) 97/52 (67) Pulse Ox 99 95 100 O2 Delivery Room Air Room Air Room Air Room Air 10/18/16 15:00 Temp 98.1 98.1 Pulse 52 Resp 18 B/P (MAP) 107/56 (73) Pulse Ox 99 O2 Delivery Room Air Intake and Output 10/17/16 10/17/16 10/18/16 15:00 23:00 07:00 Intake Total 550 ml 25 ml 1380 ml Output Total 200 ml 750 ml Balance 550 ml -175 ml 630 ml Nutrition Consultation Dietary Evaluation: Recommendations by RD: Increase Calorie Intake, Protein supplementation Comments: 49# wt loss x's 5 weeks, poor intake over the past month (1-2 bites of food at meals) Stage I pressure ulcer- rec. 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
[2016-10-18 19:40] VITALS: BP 110/48
[2016-10-18] MEDS: TAMSULOSIN 0.4 MG CAP.ER.24H. PO SCH (19:53)
[2016-10-18 23:00] VITALS: BP 117/57
[2016-10-19] VITALS (19 sets, daily range): BP systolic 98–132; BP diastolic 50–66
[2016-10-19] MEDS: IV NORMAL SALINE 1000ML BAG 1,000 ML IV SCH ×2 (03:30→15:20)
[2016-10-19 05:30] LABS: CALCIUM 7.7 mg/dL (8.5-10.1); CREATININE 1.7 mg/dL (0.7-1.3); GFR 39.4; PHOSPHORUS 2.7 mg/dL (2.6-4.7); POTASSIUM 4.3 mmol/L (3.5-5.1)
[2016-10-19] MEDS: INSULIN ASPART 300 UNITS/3 ML INSULN.PEN SQ SCH ×3 (08:00→17:00)
[2016-10-19] MEDS: INSULIN DETEMIR 300 UNITS/3 ML INSULN.PEN. SQ SCH ×2 (08:46→21:28)
--- NOTE | 2016-10-19 08:46 | PDOC ---
Provider Note Provider Note vss, no new sxs- creat lower 1.7 pre cath- cont same, mild bradycardia at present, ? may need pacer- will go to [facility] urology 11/05 EMMA SHEIKH MD Oct 19, 2016 08:46
--- NOTE | 2016-10-19 10:25 | PDOC ---
MODERATE SEDATION ASSESSMENT RISKS/ALTERNATIVES Risks/Alternatives Risks and alternatives of this type of sedation and procedure discussed with: RISK/ALTERNATIVES: Patient H & P ON CHART H & P H & P on chart and reviewed for co-morbid conditions and appropriate labs. H&P ON CHART: Yes STATUS PREG STATUS ASSESSED: Yes MEDS/ALLERGIES REVIEWED Meds/Allergies Reviewed Medications and Allergies including time and route of recently administered narcotics and sedatives. MEDS/ALLERGIES REVIEWED: Yes ASA RATING ASA RATING: II AIRWAY ASSESSMENT Airway Assessment Airway patency, oral function limitations, presence of caps, crowns, dentures, partials, and ability to extend neck assessed. AIRWAY ASSESSMENT: Yes MALLAMPATI SCORE MALLAMPATI SCORE: II PRE-SEDATION ASSESSMENT PRE-SEDATION ASSESSMENT: Yes PHILIPPE HSU MD Oct 19, 2016 10:25
[2016-10-19] MEDS ORDERED: LIDOCAINE 2% 20 ML VIAL. ONE (10:48)
[2016-10-19] MEDS ORDERED: IODIXANOL 320 MG/ML 100 ML VIAL. ONE (10:48)
[2016-10-19] MEDS ORDERED: MIDAZOLAM HCL/PF 2 MG/2 ML VIAL. ONE (11:05)
[2016-10-19] MEDS ORDERED: fentaNYL PF VIAL 100 MCG/2 ML VIAL ONE (11:05)
[2016-10-19] MEDS ORDERED: fentaNYL PF VIAL 100 MCG/2 ML VIAL IV ONE (11:30)
[2016-10-19] MEDS ORDERED: IODIXANOL 320 MG/ML 100 ML VIAL. IART ONE (11:30)
[2016-10-19] MEDS ORDERED: LIDOCAINE 2% 20 ML VIAL. IJ ONE (11:30)
[2016-10-19] MEDS ORDERED: CONTRAST GIVEN MC PRN (11:30)
[2016-10-19] MEDS ORDERED: MIDAZOLAM HCL/PF 2 MG/2 ML VIAL. IV ONE (11:30)
--- NOTE | 2016-10-19 11:44 | PDOC ---
Renal-Progress Notes Subjective Notes Notes NONE History of Present Illness Hx of present illness NO CHANGE Vitals Vitals Vital Signs Date Time Temp Pulse Resp B/P (MAP) Pulse Ox O2 Delivery O2 Flow Rate FiO2 10/19/16 11:36 12 99 Room Air 10/19/16 11:28 72 10/19/16 07:00 98.0 108/53 (71) 98.0 Weight Weight [ ] I.O. Intake and Output Intake and Output 10/19/16 07:00 Intake Total 2300 ml Output Total 1650 ml Balance 650 ml Intake Oral 650 ml IV Total 750 ml Other 900 ml Output Urine Total 1650 ml Labs Labs Laboratory Tests Test 10/18/16 12:21 10/18/16 16:43 10/18/16 21:08 10/19/16 04:05 Glucose (Fingerstick) 193 mg/dL (70-99) 110 mg/dL (70-99) 176 mg/dL (70-99) Sodium Level 143 mmol/L (136-145) Potassium Level 4.3 mmol/L (3.5-5.1) Chloride Level 111 mmol/L (98-107) Carbon Dioxide Level 24 mmol/L (21-32) Anion Gap 8 (6-14) Blood Urea Nitrogen 28 mg/dL (8-26) Creatinine 1.7 mg/dL (0.7-1.3) Estimated GFR (Cockcroft-Gault) 39.4 Glucose Level 85 mg/dL (70-99) Calcium Level 7.7 mg/dL (8.5-10.1) Phosphorus Level 2.7 mg/dL (2.6-4.7) Albumin 2.0 g/dL (3.4-5.0) Test 10/19/16 07:59 Glucose (Fingerstick) 84 mg/dL (70-99) Micro Micro Microbiology 10/14/16 Urine Culture - Preliminary, Resulted 10/14/16 Urine Culture Result 1 (PANTERA) - Preliminary, Resulted Review of Systems Constitutional: yes: malaise, weakness, alert, oriented Ears/Nose/Throat: Yes: no symptom reported Eyes: Yes: no symptom reported Pulmonary: Yes no symptom reported Cardiovascular: Yes no symptom reported Gastrointestional: Yes: no symptom reported Musculoskeletal: Yes: muscle stiffness Skin: Yes no symptom reported Psychiatric/Neurological: Yes: no symptom reported Physical Exam General Appearance: no apparent distress Skin: warm Respiratory: bilateral CTA Heart: S1S2, RRR Abdomen: soft, bowel sounds present Genitourinary: bladder flat Extremities: pulses present Neurology: alert, oriented Assessment Assessment IMP HYDRONEPHROSIS S/P RIGHT PCN LEFT RENAL ATROPHY LATA - BETTER WITH CR 1.7 FROM 2.6 ? CKD - CR WAS 2.1 IN AUGUST THIS YEAR HX OF URETHRAL STRICTURES PLAN CONT IVF'S D/W UROLOGY PLAN APPARENTLY IS TO D/C WITH PCN AND ANGULO AND F/U WITH [facility] CATH TODAY RAN PACE MD Oct 19, 2016 11:44
--- NOTE | 2016-10-19 13:12 | PATHOLOGY ---
CYTOPATHOLOGY REPORT CLINICAL HISTORY: Ureteral stricture SPECIMEN(S) RECEIVED: A.Washing, Bladder B.Washing, Bladder FINAL DIAGNOSIS: A. Bladder washing, ThinPrep: - No malignant cells identified. - Reactive urothelial cells and squamous epithelial cells are identified within a background of marked acute inflammation with focal small yeast/pseudohyphae identified. B. Bladder washing: - No malignant cells identified. - Scattered reactive urothelial cells and squamous epithelial cells are identified within a background of acute inflammatory cells. PATHOLOGIST: Ashish Soriano M.D. REPORT ELECTRONICALLY SIGNED BY: Ashish Soriano M.D. DATE/TIME: 10/19/2016 13:12 GROSS PATHOLOGY: A. Washing, Bladder : The specimen is submitted unfixed, labeled "Thomas Panchal". Received by the Cytology Department is 115 mL of peach colored fluid. One ThinPrep slide was prepared. (mm 10.17.2016) B. Washing, Bladder: The specimen is submitted unfixed, labeled "Rush Thomas Salas". Received by the Cytology Department is 120 mL of clear colorless fluid. One ThinPrep slide was prepared. (mm 6) GUARD RANGE(S): JAZMIN Brandon(ASCP) INITIAL CPT CODE(S): A; 35328 B; 32303 Professional services performed [place] [facility] [place] [address] Technical services performed by [facility] at [address] [place] [address], [address] [address]. PATIENT: THOMAS PANCHAL /AGE: 10 1940 (Age: 76) SEX: M PATIENT #: [id number] ALT CASE #: SPECIMEN COLLECTION DATE: 10/17/2016 SPECIMEN RECEIVED DATE: 10/17/[address] [facility] [address] [place] [address], [address] [place] [address] PHONE: [phone] DIRECTOR: Franko Augustine M.D. * * * END OF REPORT * * *
[2016-10-19] MEDS: GABAPENTIN 300 MG CAPSULE. PO SCH (15:19)
[2016-10-19] MEDS: FAMOTIDINE 20 MG TABLET. PO SCH (15:19)
--- NOTE | 2016-10-19 19:06 | PDOC4 ---
PROCEDURE Procedure Procedure note This patient had a left heart catheterization done. The patient tolerated the procedure well. The report for the procedure has been done in PHILIPPE Mendez MD Oct 19, 2016 19:06
[2016-10-19] MEDS: TAMSULOSIN 0.4 MG CAP.ER.24H. PO SCH (21:27)
--- NOTE | 2016-10-19 21:59 | CARD ---
APPROVED REPORT Procedure(s) performed: Left Heart Catheterization w/ Aortic Root Injection HISTORY The patient is a 76 year-old male with a history of : previous CHF, coronary artery disease, previous PCI (The PCI date was ), hypertension. INDICATION The indication(s) include : murmur, jugular vein distension, peripheral edema, dyspnea, valvular hear t disease. CASE TECHNIQUE The patient was brought electively into the cardiac catheterization lab. A timeout was performed conf irming the patient's name, date of , procedure, and site of procedure. All necessary parties wer e wearing the appropriate personal protective equipment and radiation monitoring devices. After expla ining the risks and benefits of the procedure, informed consent was obtained.(See nursing notes for m edications administered). The right groin was sterilely prepped and draped. The right femoral groin w as infiltrated with 2% Lidocaine subcutaneous anesthesia. During this case, Fluoroscopy and low osmol ar contrast were used for imaging. A sheath was inserted into the right femoral artery without diffic ulty. Coronary angiography was performed using coronary diagnostic catheters. The left coronary syste m was accessed and visualized with a Diagnostic catheter. The right coronary system was accessed and visualized with a Diagnostic catheter. The left ventricle was accessed and visualized with a Diagnost ic catheter. Left ventricular/Aortic Valve gradient assessed on pullback. Left ventriculogram was per formed in AVITIA projection. An aortogram of the ascending aorta was performed. Pre-demployment femoral angiogram was performed . Closure device was deployed with a Angioseal without any complications. The patient tolerated the procedure well and there were no complications associated with the procedure. Coronary Angiography The patient's coronary anatomy is left dominant. The left main coronary artery is a large size vessel free of disease. The left main trifurcates to th e left anterior descending, circumflex, and ramus. The left anterior descending artery is a large size vessel with intimal irregularities and without si gnificant stenosis. The first diagonal branch is a medium size vessel with intimal irregularities and without significant stenosis. The second diagonal branch is a small size vessel with intimal irregul arities and without significant stenosis. The third diagonal branch is a small size vessel free of di sease. The circumflex artery is a large size vessel with intimal irregularities and without significant sten osis. There is a 40% stenosis in the mid segment. The first obtuse marginal branch is a medium size v essel with intimal irregularities and without significant stenosis. The second obtuse marginal branch is a small size vessel free of disease. The third obtuse marginal branch is a small size vessel with intimal irregularities and without significant stenosis. The left posterior descending artery is a s mall size vessel free of disease. The ramus intermedius artery is a small size vessel free of disease. The right coronary artery is a small size vessel with intimal irregularities and without significant stenosis. There is a 45% stenosis in the proximal segment. Left Ventriculography The left ventricle is dilated in size with poor contractility. The left ventricular ejection fraction is estimated to be 25-30%%. The left ventricular end diastolic pressure is 20 mmHg. There was no gra dient across the aortic valve upon pullback. Aorta The ascending aorta appears to be mildly dilated and in the ascending aortogram mild to moderate aort ic insufficiency was seen. Conclusion This patient has a dilated cardiomyopathy with an ejection fraction that was estimated to be at the 25-30% range. There is no significant coronary artery disease but there is some plaquing of all the vessels. The ascending aorta is mildly dilated and there is mild to moderate aortic insufficiency. At this time from a cardiac standpoint I would recommend medical treatment for this patient. If he needs to have any noncardiac surgery I would suggest to try to minimize fluids to avoid overloa ding the patient. I do not think that the patient needs to go for any cardiac surgery at this time. Recommendations Medical Therapy
[2016-10-20 02:47] VITALS: BP 98/50
[2016-10-20] MEDS: IV NORMAL SALINE 1000ML BAG 1,000 ML IV SCH (02:53)
[2016-10-20 05:37] LABS: ALBUMIN 2.1 g/dL (3.4-5.0); CALCIUM 7.5 mg/dL (8.5-10.1); CREATININE 1.5 mg/dL (0.7-1.3); GFR 45.5; PHOSPHORUS 2.5 mg/dL (2.6-4.7); POTASSIUM 4.4 mmol/L (3.5-5.1)
[2016-10-20 07:00] VITALS: BP 117/70
[2016-10-20] MEDS: INSULIN ASPART 300 UNITS/3 ML INSULN.PEN SQ SCH ×3 (08:00→17:59)
[2016-10-20] MEDS: GABAPENTIN 300 MG CAPSULE. PO SCH (08:39)
[2016-10-20] MEDS: FAMOTIDINE 20 MG TABLET. PO SCH (08:39)
[2016-10-20] MEDS: INSULIN DETEMIR 300 UNITS/3 ML INSULN.PEN. SQ SCH (08:41)
--- NOTE | 2016-10-20 08:46 | PDOC ---
Provider Note Provider Note vss, bp ok, creat 1.5- will dc iv fluid too allow better pt, may need short rehab re weakness EMMA SHEIKH MD Oct 20, 2016 08:46
[2016-10-20 11:00] VITALS: BP 100/57
--- NOTE | 2016-10-20 12:33 | PDOC ---
Renal-Progress Notes Subjective Notes Notes FEELING WELL, SITTING UP History of Present Illness Hx of present illness STABLE Vitals Vitals Vital Signs Date Time Temp Pulse Resp B/P (MAP) Pulse Ox O2 Delivery O2 Flow Rate FiO2 10/20/16 11:00 97.9 65 18 100/57 (71) 100 Room Air 97.9 10/19/16 15:51 10.0 Weight Weight [ ] I.O. Intake and Output Intake and Output 10/20/16 07:00 Intake Total 300 ml Output Total 2000 ml Balance -1700 ml Intake Oral 300 ml Output Urine Total 2000 ml Labs Labs Laboratory Tests Test 10/19/16 17:20 10/19/16 21:26 10/20/16 04:35 10/20/16 07:38 Glucose (Fingerstick) 199 mg/dL (70-99) 143 mg/dL (70-99) 96 mg/dL (70-99) Sodium Level 142 mmol/L (136-145) Potassium Level 4.4 mmol/L (3.5-5.1) Chloride Level 112 mmol/L (98-107) Carbon Dioxide Level 24 mmol/L (21-32) Anion Gap 6 (6-14) Blood Urea Nitrogen 22 mg/dL (8-26) Creatinine 1.5 mg/dL (0.7-1.3) Estimated GFR (Cockcroft-Gault) 45.5 Glucose Level 98 mg/dL (70-99) Calcium Level 7.5 mg/dL (8.5-10.1) Phosphorus Level 2.5 mg/dL (2.6-4.7) Albumin 2.1 g/dL (3.4-5.0) Test 10/20/16 11:17 Glucose (Fingerstick) 122 mg/dL (70-99) Micro Micro Microbiology 10/14/16 Urine Culture - Final, Complete 10/14/16 Urine Culture Result 1 (PANTERA) - Final, Complete 10/14/16 Antimicrobic Susceptibility - Final, Complete Review of Systems Constitutional: yes: malaise, weakness, alert, oriented Ears/Nose/Throat: Yes: no symptom reported Eyes: Yes: no symptom reported Pulmonary: Yes no symptom reported Cardiovascular: Yes no symptom reported Gastrointestional: Yes: no symptom reported Musculoskeletal: Yes: muscle stiffness Skin: Yes no symptom reported Psychiatric/Neurological: Yes: no symptom reported Physical Exam General Appearance: no apparent distress Skin: warm Respiratory: bilateral CTA Heart: S1S2, RRR Abdomen: soft, bowel sounds present Genitourinary: bladder flat Extremities: pulses present Neurology: alert, oriented Assessment Assessment IMP HYDRONEPHROSIS S/P RIGHT PCN LEFT RENAL ATROPHY LATA - BETTER WITH CR 1.5 FROM 2.6 ? CKD - UNKNOWN BASELINE HX OF URETHRAL STRICTURES MILD HYPOPHOSPHATEMIA-SHOULD CORRECT ITSELF PLAN OFF IVF'S D/W UROLOGY PLAN APPARENTLY IS TO D/C WITH PCN AND ANGULO AND F/U WITH [facility] UPDATED FAMILY RAN PACE MD Oct 20, 2016 12:33
[2016-10-20 14:55] VITALS: BP 107/54
--- NOTE | 2016-10-20 16:50 | PDOC ---
PROGRESS NOTES Subjective Subjective Patient has no new complaints. He has been having PVCs and episodes of bradycardia usually with a compensatory pause following the PVCs. Objective Objective Vital Signs Date Time Temp Pulse Resp B/P (MAP) Pulse Ox O2 Delivery O2 Flow Rate FiO2 10/20/16 14:55 97.9 62 107/54 (71) 96 Room Air 97.9 10/20/16 11:00 18 10/19/16 15:51 10.0 Intake and Output 10/20/16 07:00 Intake Total 300 ml Output Total 2000 ml Balance -1700 ml Intake Oral 300 ml Output Urine Total 2000 ml Physical Exam Physical Exam Lungs moving air well. No Rales. Heart no changes. Extremities no changes. Assessment Assessment Chin compensated at this time. I would recommend to continue with medical treatment on this patient. He needs physical therapy to help with his weakness and severe deconditioning Comment Review of Relevant I have reviewed the following items vikash (where applicable) has been applied. Labs Laboratory Tests Test 10/18/16 21:08 10/19/16 04:05 10/19/16 07:59 10/19/16 12:08 Glucose (Fingerstick) 176 mg/dL (70-99) 84 mg/dL (70-99) 90 mg/dL (70-99) Sodium Level 143 mmol/L (136-145) Potassium Level 4.3 mmol/L (3.5-5.1) Chloride Level 111 mmol/L (98-107) Carbon Dioxide Level 24 mmol/L (21-32) Anion Gap 8 (6-14) Blood Urea Nitrogen 28 mg/dL (8-26) Creatinine 1.7 mg/dL (0.7-1.3) Estimated GFR (Cockcroft-Gault) 39.4 Glucose Level 85 mg/dL (70-99) Calcium Level 7.7 mg/dL (8.5-10.1) Phosphorus Level 2.7 mg/dL (2.6-4.7) Albumin 2.0 g/dL (3.4-5.0) Test 10/19/16 17:20 10/19/16 21:26 10/20/16 04:35 10/20/16 07:38 Glucose (Fingerstick) 199 mg/dL (70-99) 143 mg/dL (70-99) 96 mg/dL (70-99) Sodium Level 142 mmol/L (136-145) Potassium Level 4.4 mmol/L (3.5-5.1) Chloride Level 112 mmol/L (98-107) Carbon Dioxide Level 24 mmol/L (21-32) Anion Gap 6 (6-14) Blood Urea Nitrogen 22 mg/dL (8-26) Creatinine 1.5 mg/dL (0.7-1.3) Estimated GFR (Cockcroft-Gault) 45.5 Glucose Level 98 mg/dL (70-99) Calcium Level 7.5 mg/dL (8.5-10.1) Phosphorus Level 2.5 mg/dL (2.6-4.7) Albumin 2.1 g/dL (3.4-5.0) Test 10/20/16 11:17 10/20/16 16:41 Glucose (Fingerstick) 122 mg/dL (70-99) 250 mg/dL (70-99) Laboratory Tests Test 10/19/16 17:20 10/19/16 21:26 10/20/16 04:35 10/20/16 07:38 Glucose (Fingerstick) 199 mg/dL (70-99) 143 mg/dL (70-99) 96 mg/dL (70-99) Sodium Level 142 mmol/L (136-145) Potassium Level 4.4 mmol/L (3.5-5.1) Chloride Level 112 mmol/L (98-107) Carbon Dioxide Level 24 mmol/L (21-32) Anion Gap 6 (6-14) Blood Urea Nitrogen 22 mg/dL (8-26) Creatinine 1.5 mg/dL (0.7-1.3) Estimated GFR (Cockcroft-Gault) 45.5 Glucose Level 98 mg/dL (70-99) Calcium Level 7.5 mg/dL (8.5-10.1) Phosphorus Level 2.5 mg/dL (2.6-4.7) Albumin 2.1 g/dL (3.4-5.0) Test 10/20/16 11:17 10/20/16 16:41 Glucose (Fingerstick) 122 mg/dL (70-99) 250 mg/dL (70-99) Microbiology 10/14/16 Urine Culture - Final, Complete 10/14/16 Urine Culture Result 1 (PANTERA) - Final, Complete 10/14/16 Antimicrobic Susceptibility - Final, Complete Medications Current Medications Dextrose/Sodium Chloride 187.5 ml @ 250 mls/hr Q45M IV Last administered on 16:44; Start 10/12/16 at 15:15; Stop 10/12/16 at 16:00; Status DC Dextrose/Sodium Chloride 1,000 ml @ 125 mls/hr Q8H IV Last administered on 18:30; Start 10/12/16 at 16:00; Stop 10/12/16 at 19:44; Status DC Gabapentin (Neurontin) 300 mg BID PO Last administered on 10/13/16 22:42; Start 10/12/16 at 21:00; Stop 10/14/16 at 08:51; Status DC Insulin Detemir (Levemir) 15 units BID SQ Last administered on 10/13/16 22:51 ; Start 10/12/16 at 21:00; Stop 10/14/16 at 08:51; Status DC Tamsulosin HCl (Flomax) 0.4 mg QHS PO Last administered on 10/19/16 21:27; Start 10/12/16 at 21:00; Stop 10/20/16 at 08:45; Status DC Famotidine (Pepcid) 20 mg DAILY PO Last administered on 10/20/16 08:39; Start 10/12/16 at 16:00 Sodium Polystyrene Sulfonate (Kayexalate) 15 gm 1X ONCE PO Last administered on 10/12/16 16:41; Start 10/12/16 at 15:15; Stop 10/12/16 at 15:29; Status DC Insulin Aspart (NovoLOG) 0-9 UNITS TIDWMEALS SQ Last administered on 10/18/16 12:59; Start 10/12/16 at 17:00 Dextrose (Dextrose 50%-Water Syringe) 12.5 gm PRN Q15MIN PRN IV SEE COMMENTS; Start 10/12/16 at 15:15 Sodium Polystyrene Sulfonate (Kayexalate) 45 gm 1X ONCE PO Last administered on 10/12/16 21:39; Start 10/12/16 at 20:00; Stop 10/12/16 at 20:01; Status DC Piperacillin Sod/ Tazobactam Sod 2.25 gm/Sodium Chloride 50 ml @ 100 mls/hr Q8HRS IV Last administered on 10/13/16 05:31; Start 10/12/16 at 22:30; Stop at 13:09; Status DC Dextrose 250 ml @ 250 mls/hr Q1H PRN IV LOW BLOOD SUGAR; Start 10/13/16 at 09: 00; Status UNV Dextrose 250 ml @ 1,500 mls/hr PRN Q1HR PRN IV LOW BLOOD SUGAR Last administered on 10/14/16 10:11; Start 10/13/16 at 09:15 Magnesium Sulfate/ Dextrose 50 ml @ 25 mls/hr PRN DAILY PRN IV for Mag < 1.7 on am labs; Start 10/13/16 at 09:00 Piperacillin Sod/ Tazobactam Sod 2.25 gm/Sodium Chloride 50 ml @ 100 mls/hr Q6HRS IV Last administered on 10/18/16 06:16; Start 10/13/16 at 14:00; Stop at 08:31; Status DC Lidocaine/Sodium Bicarbonate (Buffered Lidocaine 1%) 20 ml STK-MED ONCE IJ ; Start 10/14/16 at 06:59; Stop 10/14/16 at 07:00; Status DC Midazolam HCl (Versed) 2 mg STK-MED ONCE .ROUTE ; Start 10/14/16 at 07:02; Stop 10/14/16 at 07:03; Status DC Fentanyl Citrate (Fentanyl 2ml Vial) 100 mcg STK-MED ONCE .ROUTE ; Start at 07:02; Stop 10/14/16 at 07:03; Status DC Iohexol (Omnipaque 300 Mg/ml) 50 ml STK-MED ONCE .ROUTE ; Start 10/14/16 at 08: 06; Stop 10/14/16 at 08:07; Status DC Lidocaine/Sodium Bicarbonate (Buffered Lidocaine 1%) 20 ml STK-MED ONCE IJ ; Start 10/14/16 at 08:21; Stop 10/14/16 at 08:22; Status DC Iohexol (Omnipaque 300 Mg/ml) 50 ml STK-MED ONCE .ROUTE ; Start 10/14/16 at 08: 21; Stop 10/14/16 at 08:22; Status DC Heparin Sodium/ Sodium Chloride 500 ml @ As Directed STK-MED ONCE .ROUTE ; Start 10/14/16 at 08:21; Stop 10/14/16 at 08:22; Status DC Levofloxacin/ Dextrose 100 ml @ As Directed STK-MED ONCE IV ; Start 10/14/16 at 08:30; Stop 10/14/16 at 08:31; Status DC Heparin Sodium/ Sodium Chloride 1,000 unit 1X ONCE IART Last administered on 08:58; Start 10/14/16 at 08:45; Stop 10/14/16 at 08:46; Status DC Iohexol (Omnipaque 300 Mg/ml) 50 ml 1X ONCE IART Last administered on 08:58; Start 10/14/16 at 08:45; Stop 10/14/16 at 08:46; Status DC Levofloxacin/ Dextrose 100 ml @ 100 mls/hr 1X ONCE IV Last administered on 08:58; Start 10/14/16 at 08:35; Stop 10/14/16 at 09:34; Status DC Gabapentin (Neurontin) 300 mg DAILY08 PO Last administered on 10/20/16 08:39; Start 10/14/16 at 09:00 Insulin Detemir (Levemir) 6 units BID SQ Last administered on 10/16/16 20:59; Start 10/14/16 at 09:00; Stop 10/17/16 at 08:17; Status DC Lidocaine/Sodium Bicarbonate (Buffered Lidocaine 1%) 7 ml 1X ONCE IJ Last administered on 10/14/16 09:10; Start 10/14/16 at 09:00; Stop 10/14/16 at 09:03 ; Status DC Midazolam HCl (Versed) 2 mg 1X ONCE IV Last administered on 10/14/16 09:08; Start 10/14/16 at 09:00; Stop 10/14/16 at 09:03; Status DC Fentanyl Citrate (Fentanyl 2ml Vial) 100 mcg 1X ONCE IV Last administered on 09:09; Start 10/14/16 at 09:00; Stop 10/14/16 at 09:03; Status DC Albumin Human 500 ml @ 125 mls/hr Q4HRS IV Last administered on 10/14/16 16: 25; Start 10/14/16 at 11:30; Stop 10/14/16 at 15:59; Status DC Ondansetron HCl (Zofran) 4 mg PRN Q6HRS PRN IV NAUSEA/VOMITING; Start 10/17/16 at 07:00; Stop 10/18/16 at 06:59; Status DC Fentanyl Citrate (Fentanyl 2ml Vial) 25 mcg PRN Q5MIN PRN IV MILD PAIN; Start 10/17/16 at 07:00; Stop 10/18/16 at 06:59; Status DC Fentanyl Citrate (Fentanyl 2ml Vial) 50 mcg PRN Q5MIN PRN IV MODERATE PAIN; Start 10/17/16 at 07:00; Stop 10/18/16 at 06:59; Status DC Morphine Sulfate 1 mg PRN Q10MIN PRN IV SEVERE PAIN; Start 10/17/16 at 07:00; Stop 10/18/16 at 06:59; Status DC Ringer's Solution 1,000 ml @ 30 mls/hr Q24H IV ; Start 10/17/16 at 07:00; Stop 10/17/16 at 17:29; Status DC Lidocaine HCl 2 ml PRN 1X PRN ID PRIOR TO IV START; Start 10/17/16 at 07:00; Stop 10/18/16 at 06:59; Status DC Hydromorphone HCl (Dilaudid) 0.5 mg PRN Q10MIN PRN IV SEV PAIN, Second choice; Start 10/17/16 at 07:00; Stop 10/18/16 at 06:59; Status DC Prochlorperazine Edisylate (Compazine) 5 mg PACU PRN PRN IV NAUSEA, MRX1; Start 10/17/16 at 07:00; Stop 10/18/16 at 06:59; Status DC Insulin Detemir (Levemir) 3 units BID SQ Last administered on 10/19/16 21:28; Start 10/17/16 at 09:00; Stop 10/20/16 at 08:45; Status DC Lidocaine HCl (Glydo (Lidocaine) Jelly) 6 urusla [facility]-MED ONCE .ROUTE ; Start at 09:48; Stop 10/17/16 at 09:49; Status DC Sodium Chloride 1,000 ml @ 75 mls/hr [id number] IV Last administered on 6/29/ 17at 02:53; Start 10/17/16 at 11:30; Stop 10/20/16 at 08:45; Status DC Fentanyl Citrate (Fentanyl 2ml Vial) 50 mcg PRN Q5MIN PRN IV Acute Pain; Start 10/17/16 at 11:30; Stop 10/18/16 at 11:29; Status DC Morphine Sulfate 4 mg PRN Q10MIN PRN IV Moderate Pain; Start 10/17/16 at 11:30 ; Stop 10/18/16 at 11:29; Status DC Hydromorphone HCl (Dilaudid) 0.4 mg PRN Q10MIN PRN IV Moderate to severe pain; Start 10/17/16 at 11:30; Stop 10/18/16 at 11:29; Status DC Meperidine HCl (Demerol) 12.5 mg PRN Q5MIN PRN IV SHIVERING; Start 10/17/16 at 11:30; Stop 10/18/16 at 11:29; Status DC Prochlorperazine Edisylate (Compazine) 5 mg PRN Q6HRS PRN IV Nausea/Vomiting, 1st Choice; Start 10/17/16 at 11:30; Stop 10/18/16 at 11:29; Status DC Diphenhydramine HCl (Benadryl) 12.5 mg PRN Q2HR PRN IV ITCHING; Start 10/17/16 at 11:30; Stop 10/18/16 at 11:29; Status DC Midazolam HCl (Versed) 2 mg PRN 1X PRN IV PRIOR TO PROCEDURE; Start 10/17/16 at 11:30; Stop 10/18/16 at 11:29; Status DC Midazolam HCl (Versed) 1 mg PRN 1X PRN IV PRIOR TO PROCEDURE; Start 10/17/16 at 11:30; Stop 10/18/16 at 11:29; Status DC Fentanyl Citrate (Fentanyl 2ml Vial) 25 mcg PRN Q5MIN PRN IV X 2 DOSES FOR PAIN ; Start 10/17/16 at 11:30; Stop 10/18/16 at 11:29; Status DC Fentanyl Citrate (Fentanyl 2ml Vial) 50 mcg PRN Q5MIN PRN IV X 2 DOSES FOR PAIN ; Start 10/17/16 at 11:30; Stop 10/18/16 at 11:29; Status DC Ringer's Solution 1,000 ml @ 125 mls/hr Q8H IV ; Start 10/17/16 at 11:23; Stop 10/17/16 at 17:29; Status DC Lidocaine HCl 2 ml 1X PRN PRN ID IV START; Start 10/17/16 at 11:30; Stop at 11:29; Status DC Dexamethasone Sodium Phosphate (Decadron) 20 mg STK-MED ONCE .ROUTE ; Start at 12:51; Stop 10/17/16 at 13:20; Status DC Lidocaine HCl (Lidocaine Pf 2% Vial) 5 ml STK-MED ONCE .ROUTE ; Start 10/17/16 at 12:51; Stop 10/17/16 at 13:20; Status DC Ondansetron HCl (Zofran) 4 mg STK-MED ONCE .ROUTE ; Start 10/17/16 at 12:51; Stop 10/17/16 at 13:20; Status DC Propofol 20 ml @ As Directed STK-MED ONCE IV ; Start 10/17/16 at 12:51; Stop at 13:20; Status DC Ephedrine Sulfate 50 mg STK-MED ONCE IV ; Start 10/17/16 at 14:19; Stop at 14:20; Status DC Fentanyl Citrate (Fentanyl 2ml Vial) 100 mcg STK-MED ONCE .ROUTE ; Start at 14:50; Stop 10/17/16 at 14:51; Status DC Sevoflurane (Ultane) 30 ml STK-MED ONCE IH ; Start 10/17/16 at 15:00; Stop 10/17 at 15:01; Status DC Sevoflurane (Ultane) 60 ml STK-MED ONCE IH ; Start 10/17/16 at 15:03; Stop 10/17 at 15:04; Status DC Lidocaine HCl 20 ml STK-MED ONCE .ROUTE ; Start 10/19/16 at 10:48; Stop at 10:49; Status DC Heparin Sodium/ Sodium Chloride 500 ml @ As Directed STK-MED ONCE .ROUTE ; Start 10/19/16 at 10:48; Stop 10/19/16 at 10:49; Status DC Iodixanol (Visipaque 320) 100 ml STK-MED ONCE .ROUTE ; Start 10/19/16 at 10:48; Stop 10/19/16 at 10:49; Status DC Midazolam HCl (Versed) 2 mg STK-MED ONCE .ROUTE ; Start 10/19/16 at 11:05; Stop 10/19/16 at 11:06; Status DC Fentanyl Citrate (Fentanyl 2ml Vial) 100 mcg STK-MED ONCE .ROUTE ; Start at 11:05; Stop 10/19/16 at 11:06; Status DC Heparin Sodium/ Sodium Chloride 1,000 unit 1X ONCE IART Last administered on 11:35; Start 10/19/16 at 11:30; Stop 10/19/16 at 11:31; Status DC Midazolam HCl (Versed) 2 mg 1X ONCE IV Last administered on 10/19/16 11:35; Start 10/19/16 at 11:30; Stop 10/19/16 at 11:31; Status DC Fentanyl Citrate (Fentanyl 2ml Vial) 100 mcg 1X ONCE IV Last administered on 11:36; Start 10/19/16 at 11:30; Stop 10/19/16 at 11:31; Status DC Iodixanol (Visipaque 320) 100 ml 1X ONCE IART Last administered on 10/19/16 11:36; Start 10/19/16 at 11:30; Stop 10/19/16 at 11:31; Status DC Lidocaine HCl 20 ml 1X ONCE IJ Last administered on 10/19/16 11:35; Start at 11:30; Stop 10/19/16 at 11:31; Status DC Info (Do NOT chart on this entry -- for MONITORING) 1 each PRN DAILY PRN MC SEE COMMENTS; Start 10/19/16 at 11:30; Stop 10/21/16 at 11:29 Active Scripts Active Reported Benazepril Hcl 40 Mg Tablet 40 Mg PO DAILY Tamsulosin Hcl 0.4 Mg Cap.er.24h 0.4 Mg PO DAILY Macrodantin (Nitrofurantoin Macrocrystal) 100 Mg Capsule 100 Mg PO DAILY Gabapentin 600 Mg Tablet 300 Mg PO BID Humulin 70-30 Vial (Hum Insulin Nph/Reg Insulin Hm) 100 Unit/1 Ml Vial 25 Unit SQ BID Vitals/I & O Vital Sign - Last 24 Hours 10/19/16 10/19/16 10/19/16 10/19/16 17:30 19:42 20:02 22:46 Temp 98.4 97.8 98.4 97.8 Pulse 80 56 60 Resp 18 B/P (MAP) 108/66 (80) 128/52 (77) 115/55 (75) Pulse Ox 98 97 O2 Delivery Room Air Room Air Room Air 10/20/16 10/20/16 10/20/16 10/20/16 02:47 07:00 08:00 11:00 Temp 98.1 97.8 97.9 98.1 97.8 97.9 Pulse 54 56 65 Resp 20 18 18 B/P (MAP) 98/50 (66) 117/70 (86) 100/57 (71) Pulse Ox 97 99 100 O2 Delivery Room Air Room Air Room Air Room Air 10/20/16 14:55 Temp 97.9 97.9 Pulse 62 B/P (MAP) 107/54 (71) Pulse Ox 96 O2 Delivery Room Air Intake and Output 10/19/16 10/19/16 10/20/16 15:00 23:00 07:00 Intake Total 200 ml 100 ml Output Total 1250 ml 750 ml Balance -1050 ml -650 ml Nutrition Consultation Dietary Evaluation: Recommendations by RD: Increase Calorie Intake, Protein supplementation Comments: 49# wt loss x's 5 weeks, poor intake over the past month (1-2 bites of food at meals) Stage I pressure ulcer- rec. a daily MVT and 500 mg Vitamin C/day Pt refusing most foods Agrees to boost icecream shakes at lunch and dinner (boost = 360 calories/14 g pro per serving) Add vanilla boost pudding @ breakfast (240 calories/7 grams protein) Continue the 2% milk at breakfast Expected Outcomes/Goals: meet 75% estimated nutrition needs - goal not met no further wt loss - goal met Interpretation of weight loss: >5% in 1 month Malnutrition Findings: Food and Nutrition Intake (Mod: <75% est energy req 7days Body Fat Depletion (Non Severe: Mild Depletion Reduced Glass Bulb Machine Adjuster Strength: N/A Malnutrition related to morbid: No Weight Status: Appropriate Fluid Accumulation (N/A): N/A PHILIPPE HSU MD Oct 20, 2016 16:50
[2016-10-20 19:39] VITALS: BP 130/72
[2016-10-20 22:48] VITALS: BP 117/61
[2016-10-21 03:06] VITALS: BP 115/44
[2016-10-21 05:53] LABS: CREATININE 1.5 mg/dL (0.7-1.3); GFR 45.5; POTASSIUM 4.3 mmol/L (3.5-5.1)
[2016-10-21 07:00] VITALS: BP 126/74
[2016-10-21] MEDS: INSULIN ASPART 300 UNITS/3 ML INSULN.PEN SQ SCH (08:00)
--- NOTE | 2016-10-21 08:38 | DISCH ---
DISCHARGE CONDITION ON DISCHARGE: Stable SNF STAY <30 DAYS: Yes POST DISCHARGE ORDERS ACTIVITY ORDERS: Activity as tolerated DIET AFTER DISCHARGE: ADA CHECKS AFTER DISCHARGE COMMENTS: back/kidney- drainage tube FOLLOW-UP PHYSICIAN FOLLOW-UP: as scheduled EMMA SHEIKH MD Oct 21, 2016 08:38
[2016-10-21] MEDS: GABAPENTIN 300 MG CAPSULE. PO SCH (08:41)
[2016-10-21] MEDS: FAMOTIDINE 20 MG TABLET. PO SCH (08:41)
--- NOTE | 2016-10-21 08:47 | PDOC ---
Provider Note Provider Note dc summary- presented w/ wt loss, found bilat hydro on ct w/ atrpphic L kidney, R nephrostomy place per dr nash and renal fx better, creat 1.5 from 2.9- cysto dr christensen revealed large prostate , no mass, washings neg re CA- cardiac cath clearm, EF 35 % by echo0=- still very weak, to [facility] for rehab, off insulin re wt loss- will go to [facility] in 2 weeks for definative procedure re hydronephrosis, strictures EMMA SHEIKH MD Oct 21, 2016 08:47
[2016-10-21 11:00] VITALS: BP 132/72
--- NOTE | 2016-10-21 12:28 | PDOC ---
Renal-Progress Notes Subjective Notes Notes FEELS WELL History of Present Illness Hx of present illness NO CHANGE Vitals Vitals Vital Signs Date Time Temp Pulse Resp B/P (MAP) Pulse Ox O2 Delivery O2 Flow Rate FiO2 10/21/16 11:00 97.9 54 20 132/72 (92) 99 Room Air 97.9 Weight Weight [ ] I.O. Intake and Output Intake and Output 10/21/16 07:00 Intake Total 1300 ml Output Total 2300 ml Balance -1000 ml Intake Oral 1300 ml Output Urine Total 2300 ml # Bowel Movements 1 Labs Labs Laboratory Tests Test 10/20/16 16:41 10/20/16 21:01 10/21/16 05:20 10/21/16 07:35 Glucose (Fingerstick) 250 mg/dL (70-99) 155 mg/dL (70-99) 111 mg/dL (70-99) Sodium Level 141 mmol/L (136-145) Potassium Level 4.3 mmol/L (3.5-5.1) Chloride Level 113 mmol/L (98-107) Carbon Dioxide Level 25 mmol/L (21-32) Anion Gap 3 (6-14) Blood Urea Nitrogen 18 mg/dL (8-26) Creatinine 1.5 mg/dL (0.7-1.3) Estimated GFR (Cockcroft-Gault) 45.5 Glucose Level 112 mg/dL (70-99) Calcium Level 8.0 mg/dL (8.5-10.1) Test 10/21/16 11:42 Glucose (Fingerstick) 152 mg/dL (70-99) Micro Micro Microbiology 10/14/16 Urine Culture - Final, Complete 10/14/16 Urine Culture Result 1 (PANTERA) - Final, Complete 10/14/16 Antimicrobic Susceptibility - Final, Complete Review of Systems Constitutional: yes: malaise, weakness, alert, oriented Ears/Nose/Throat: Yes: no symptom reported Eyes: Yes: no symptom reported Pulmonary: Yes no symptom reported Cardiovascular: Yes no symptom reported Gastrointestional: Yes: no symptom reported Musculoskeletal: Yes: muscle stiffness Skin: Yes no symptom reported Psychiatric/Neurological: Yes: no symptom reported Physical Exam General Appearance: no apparent distress Skin: warm Respiratory: bilateral CTA Heart: S1S2, RRR Abdomen: soft, bowel sounds present Genitourinary: bladder flat Extremities: pulses present Neurology: alert, oriented Assessment Assessment IMP HYDRONEPHROSIS S/P RIGHT PCN LEFT RENAL ATROPHY LATA - BETTER WITH CR 1.5 FROM 2.6 ? CKD - UNKNOWN BASELINE HX OF URETHRAL STRICTURES MILD HYPOPHOSPHATEMIA-SHOULD CORRECT ITSELF PLAN TO PP TODAY UPDATED FAMILY RAN PACE MD Oct 21, 2016 12:28
--- NOTE | 2016-10-21 12:33 | PDOC ---
PROGRESS NOTES Subjective Subjective Patient has no new complaints at this point. He is being transferred to a residential facility. Objective Objective Vital Signs Date Time Temp Pulse Resp B/P (MAP) Pulse Ox O2 Delivery O2 Flow Rate FiO2 10/21/16 11:00 97.9 54 20 132/72 (92) 99 Room Air 97.9 10/19/16 15:51 10.0 Intake and Output 10/21/16 07:00 Intake Total 1300 ml Output Total 2300 ml Balance -1000 ml Intake Oral 1300 ml Output Urine Total 2300 ml # Bowel Movements 1 Physical Exam Physical Exam No significant changes in cardiac exam Assessment Assessment Patient with aortic insufficiency and a severe cardiomyopathy is a poor surgical risk in view of his overall deconditioning. I agree with transfer to a residential facility for rehabilitation. He is going to need to go to for bladder surgery. I have had a long conversation with the patient and his about his situation options and prognosis. I have answered all their questions. I have explained to them what a poor surgical candidate he would be for a big open heart surgery with a valve replacement. I would recommend medical treatment for this patient for now. The patient and the agree with this approach. Comment Review of Relevant I have reviewed the following items vikash (where applicable) has been applied. Labs Laboratory Tests Test 10/19/16 17:20 10/19/16 21:26 10/20/16 04:35 10/20/16 07:38 Glucose (Fingerstick) 199 mg/dL (70-99) 143 mg/dL (70-99) 96 mg/dL (70-99) Sodium Level 142 mmol/L (136-145) Potassium Level 4.4 mmol/L (3.5-5.1) Chloride Level 112 mmol/L (98-107) Carbon Dioxide Level 24 mmol/L (21-32) Anion Gap 6 (6-14) Blood Urea Nitrogen 22 mg/dL (8-26) Creatinine 1.5 mg/dL (0.7-1.3) Estimated GFR (Cockcroft-Gault) 45.5 Glucose Level 98 mg/dL (70-99) Calcium Level 7.5 mg/dL (8.5-10.1) Phosphorus Level 2.5 mg/dL (2.6-4.7) Albumin 2.1 g/dL (3.4-5.0) Test 10/20/16 11:17 10/20/16 16:41 10/20/16 21:01 10/21/16 05:20 Glucose (Fingerstick) 122 mg/dL (70-99) 250 mg/dL (70-99) 155 mg/dL (70-99) Sodium Level 141 mmol/L (136-145) Potassium Level 4.3 mmol/L (3.5-5.1) Chloride Level 113 mmol/L (98-107) Carbon Dioxide Level 25 mmol/L (21-32) Anion Gap 3 (6-14) Blood Urea Nitrogen 18 mg/dL (8-26) Creatinine 1.5 mg/dL (0.7-1.3) Estimated GFR (Cockcroft-Gault) 45.5 Glucose Level 112 mg/dL (70-99) Calcium Level 8.0 mg/dL (8.5-10.1) Test 10/21/16 07:35 10/21/16 11:42 Glucose (Fingerstick) 111 mg/dL (70-99) 152 mg/dL (70-99) Laboratory Tests Test 10/20/16 16:41 10/20/16 21:01 10/21/16 05:20 10/21/16 07:35 Glucose (Fingerstick) 250 mg/dL (70-99) 155 mg/dL (70-99) 111 mg/dL (70-99) Sodium Level 141 mmol/L (136-145) Potassium Level 4.3 mmol/L (3.5-5.1) Chloride Level 113 mmol/L (98-107) Carbon Dioxide Level 25 mmol/L (21-32) Anion Gap 3 (6-14) Blood Urea Nitrogen 18 mg/dL (8-26) Creatinine 1.5 mg/dL (0.7-1.3) Estimated GFR (Cockcroft-Gault) 45.5 Glucose Level 112 mg/dL (70-99) Calcium Level 8.0 mg/dL (8.5-10.1) Test 10/21/16 11:42 Glucose (Fingerstick) 152 mg/dL (70-99) Microbiology 10/14/16 Urine Culture - Final, Complete 10/14/16 Urine Culture Result 1 (PANTERA) - Final, Complete 10/14/16 Antimicrobic Susceptibility - Final, Complete Medications Current Medications Dextrose/Sodium Chloride 187.5 ml @ 250 mls/hr Q45M IV Last administered on 16:44; Start 10/12/16 at 15:15; Stop 10/12/16 at 16:00; Status DC Dextrose/Sodium Chloride 1,000 ml @ 125 mls/hr Q8H IV Last administered on 18:30; Start 10/12/16 at 16:00; Stop 10/12/16 at 19:44; Status DC Gabapentin (Neurontin) 300 mg BID PO Last administered on 10/13/16 22:42; Start 10/12/16 at 21:00; Stop 10/14/16 at 08:51; Status DC Insulin Detemir (Levemir) 15 units BID SQ Last administered on 10/13/16 22:51 ; Start 10/12/16 at 21:00; Stop 10/14/16 at 08:51; Status DC Tamsulosin HCl (Flomax) 0.4 mg QHS PO Last administered on 10/19/16 21:27; Start 10/12/16 at 21:00; Stop 10/20/16 at 08:45; Status DC Famotidine (Pepcid) 20 mg DAILY PO Last administered on 10/21/16 08:41; Start 10/12/16 at 16:00; Stop 10/21/16 at 12:28; Status DC Sodium Polystyrene Sulfonate (Kayexalate) 15 gm 1X ONCE PO Last administered on 10/12/16 16:41; Start 10/12/16 at 15:15; Stop 10/12/16 at 15:29; Status DC Insulin Aspart (NovoLOG) 0-9 UNITS TIDWMEALS SQ Last administered on 10/20/16 17:59; Start 10/12/16 at 17:00; Stop 10/21/16 at 12:28; Status DC Dextrose (Dextrose 50%-Water Syringe) 12.5 gm PRN Q15MIN PRN IV SEE COMMENTS; Start 10/12/16 at 15:15; Stop 10/21/16 at 12:28; Status DC Sodium Polystyrene Sulfonate (Kayexalate) 45 gm 1X ONCE PO Last administered on 10/12/16 21:39; Start 10/12/16 at 20:00; Stop 10/12/16 at 20:01; Status DC Piperacillin Sod/ Tazobactam Sod 2.25 gm/Sodium Chloride 50 ml @ 100 mls/hr Q8HRS IV Last administered on 10/13/16 05:31; Start 10/12/16 at 22:30; Stop at 13:09; Status DC Dextrose 250 ml @ 250 mls/hr Q1H PRN IV LOW BLOOD SUGAR; Start 10/13/16 at 09: 00; Status UNV Dextrose 250 ml @ 1,500 mls/hr PRN Q1HR PRN IV LOW BLOOD SUGAR Last administered on 10/14/16 10:11; Start 10/13/16 at 09:15; Stop 10/21/16 at 12:28 ; Status DC Magnesium Sulfate/ Dextrose 50 ml @ 25 mls/hr PRN DAILY PRN IV for Mag < 1.7 on am labs; Start 10/13/16 at 09:00; Stop 10/21/16 at 12:28; Status DC Piperacillin Sod/ Tazobactam Sod 2.25 gm/Sodium Chloride 50 ml @ 100 mls/hr Q6HRS IV Last administered on 10/18/16 06:16; Start 10/13/16 at 14:00; Stop at 08:31; Status DC Lidocaine/Sodium Bicarbonate (Buffered Lidocaine 1%) 20 ml STK-MED ONCE IJ ; Start 10/14/16 at 06:59; Stop 10/14/16 at 07:00; Status DC Midazolam HCl (Versed) 2 mg STK-MED ONCE .ROUTE ; Start 10/14/16 at 07:02; Stop 10/14/16 at 07:03; Status DC Fentanyl Citrate (Fentanyl 2ml Vial) 100 mcg STK-MED ONCE .ROUTE ; Start at 07:02; Stop 10/14/16 at 07:03; Status DC Iohexol (Omnipaque 300 Mg/ml) 50 ml STK-MED ONCE .ROUTE ; Start 10/14/16 at 08: 06; Stop 10/14/16 at 08:07; Status DC Lidocaine/Sodium Bicarbonate (Buffered Lidocaine 1%) 20 ml STK-MED ONCE IJ ; Start 10/14/16 at 08:21; Stop 10/14/16 at 08:22; Status DC Iohexol (Omnipaque 300 Mg/ml) 50 ml STK-MED ONCE .ROUTE ; Start 10/14/16 at 08: 21; Stop 10/14/16 at 08:22; Status DC Heparin Sodium/ Sodium Chloride 500 ml @ As Directed STK-MED ONCE .ROUTE ; Start 10/14/16 at 08:21; Stop 10/14/16 at 08:22; Status DC Levofloxacin/ Dextrose 100 ml @ As Directed STK-MED ONCE IV ; Start 10/14/16 at 08:30; Stop 10/14/16 at 08:31; Status DC Heparin Sodium/ Sodium Chloride 1,000 unit 1X ONCE IART Last administered on 08:58; Start 10/14/16 at 08:45; Stop 10/14/16 at 08:46; Status DC Iohexol (Omnipaque 300 Mg/ml) 50 ml 1X ONCE IART Last administered on 08:58; Start 10/14/16 at 08:45; Stop 10/14/16 at 08:46; Status DC Levofloxacin/ Dextrose 100 ml @ 100 mls/hr 1X ONCE IV Last administered on 08:58; Start 10/14/16 at 08:35; Stop 10/14/16 at 09:34; Status DC Gabapentin (Neurontin) 300 mg DAILY08 PO Last administered on 10/21/16 08:41; Start 10/14/16 at 09:00; Stop 10/21/16 at 12:28; Status DC Insulin Detemir (Levemir) 6 units BID SQ Last administered on 10/16/16 20:59; Start 10/14/16 at 09:00; Stop 10/17/16 at 08:17; Status DC Lidocaine/Sodium Bicarbonate (Buffered Lidocaine 1%) 7 ml 1X ONCE IJ Last administered on 10/14/16 09:10; Start 10/14/16 at 09:00; Stop 10/14/16 at 09:03 ; Status DC Midazolam HCl (Versed) 2 mg 1X ONCE IV Last administered on 10/14/16 09:08; Start 10/14/16 at 09:00; Stop 10/14/16 at 09:03; Status DC Fentanyl Citrate (Fentanyl 2ml Vial) 100 mcg 1X ONCE IV Last administered on 09:09; Start 10/14/16 at 09:00; Stop 10/14/16 at 09:03; Status DC Albumin Human 500 ml @ 125 mls/hr Q4HRS IV Last administered on 10/14/16 16: 25; Start 10/14/16 at 11:30; Stop 10/14/16 at 15:59; Status DC Ondansetron HCl (Zofran) 4 mg PRN Q6HRS PRN IV NAUSEA/VOMITING; Start 10/17/16 at 07:00; Stop 10/18/16 at 06:59; Status DC Fentanyl Citrate (Fentanyl 2ml Vial) 25 mcg PRN Q5MIN PRN IV MILD PAIN; Start 10/17/16 at 07:00; Stop 10/18/16 at 06:59; Status DC Fentanyl Citrate (Fentanyl 2ml Vial) 50 mcg PRN Q5MIN PRN IV MODERATE PAIN; Start 10/17/16 at 07:00; Stop 10/18/16 at 06:59; Status DC Morphine Sulfate 1 mg PRN Q10MIN PRN IV SEVERE PAIN; Start 10/17/16 at 07:00; Stop 10/18/16 at 06:59; Status DC Ringer's Solution 1,000 ml @ 30 mls/hr Q24H IV ; Start 10/17/16 at 07:00; Stop 10/17/16 at 17:29; Status DC Lidocaine HCl 2 ml PRN 1X PRN ID PRIOR TO IV START; Start 10/17/16 at 07:00; Stop 10/18/16 at 06:59; Status DC Hydromorphone HCl (Dilaudid) 0.5 mg PRN Q10MIN PRN IV SEV PAIN, Second choice; Start 10/17/16 at 07:00; Stop 10/18/16 at 06:59; Status DC Prochlorperazine Edisylate (Compazine) 5 mg PACU PRN PRN IV NAUSEA, MRX1; Start 10/17/16 at 07:00; Stop 10/18/16 at 06:59; Status DC Insulin Detemir (Levemir) 3 units BID SQ Last administered on 10/19/16 21:28; Start 10/17/16 at 09:00; Stop 10/20/16 at 08:45; Status DC Lidocaine HCl (Glydo (Lidocaine) Jelly) 6 ursula [facility]-MED ONCE .ROUTE ; Start at 09:48; Stop 10/17/16 at 09:49; Status DC Sodium Chloride 1,000 ml @ 75 mls/hr [id number] IV Last administered on t 02:53; Start 10/17/16 at 11:30; Stop 10/20/16 at 08:45; Status DC Fentanyl Citrate (Fentanyl 2ml Vial) 50 mcg PRN Q5MIN PRN IV Acute Pain; Start 10/17/16 at 11:30; Stop 10/18/16 at 11:29; Status DC Morphine Sulfate 4 mg PRN Q10MIN PRN IV Moderate Pain; Start 10/17/16 at 11:30 ; Stop 10/18/16 at 11:29; Status DC Hydromorphone HCl (Dilaudid) 0.4 mg PRN Q10MIN PRN IV Moderate to severe pain; Start 10/17/16 at 11:30; Stop 10/18/16 at 11:29; Status DC Meperidine HCl (Demerol) 12.5 mg PRN Q5MIN PRN IV SHIVERING; Start 10/17/16 at 11:30; Stop 10/18/16 at 11:29; Status DC Prochlorperazine Edisylate (Compazine) 5 mg PRN Q6HRS PRN IV Nausea/Vomiting, 1st Choice; Start 10/17/16 at 11:30; Stop 10/18/16 at 11:29; Status DC Diphenhydramine HCl (Benadryl) 12.5 mg PRN Q2HR PRN IV ITCHING; Start 10/17/16 at 11:30; Stop 10/18/16 at 11:29; Status DC Midazolam HCl (Versed) 2 mg PRN 1X PRN IV PRIOR TO PROCEDURE; Start 10/17/16 at 11:30; Stop 10/18/16 at 11:29; Status DC Midazolam HCl (Versed) 1 mg PRN 1X PRN IV PRIOR TO PROCEDURE; Start 10/17/16 at 11:30; Stop 10/18/16 at 11:29; Status DC Fentanyl Citrate (Fentanyl 2ml Vial) 25 mcg PRN Q5MIN PRN IV X 2 DOSES FOR PAIN ; Start 10/17/16 at 11:30; Stop 10/18/16 at 11:29; Status DC Fentanyl Citrate (Fentanyl 2ml Vial) 50 mcg PRN Q5MIN PRN IV X 2 DOSES FOR PAIN ; Start 10/17/16 at 11:30; Stop 10/18/16 at 11:29; Status DC Ringer's Solution 1,000 ml @ 125 mls/hr Q8H IV ; Start 10/17/16 at 11:23; Stop 10/17/16 at 17:29; Status DC Lidocaine HCl 2 ml 1X PRN PRN ID IV START; Start 10/17/16 at 11:30; Stop at 11:29; Status DC Dexamethasone Sodium Phosphate (Decadron) 20 mg STK-MED ONCE .ROUTE ; Start at 12:51; Stop 10/17/16 at 13:20; Status DC Lidocaine HCl (Lidocaine Pf 2% Vial) 5 ml STK-MED ONCE .ROUTE ; Start 10/17/16 at 12:51; Stop 10/17/16 at 13:20; Status DC Ondansetron HCl (Zofran) 4 mg STK-MED ONCE .ROUTE ; Start 10/17/16 at 12:51; Stop 10/17/16 at 13:20; Status DC Propofol 20 ml @ As Directed STK-MED ONCE IV ; Start 10/17/16 at 12:51; Stop at 13:20; Status DC Ephedrine Sulfate 50 mg STK-MED ONCE IV ; Start 10/17/16 at 14:19; Stop at 14:20; Status DC Fentanyl Citrate (Fentanyl 2ml Vial) 100 mcg STK-MED ONCE .ROUTE ; Start at 14:50; Stop 10/17/16 at 14:51; Status DC Sevoflurane (Ultane) 30 ml STK-MED ONCE IH ; Start 10/17/16 at 15:00; Stop 10/17 at 15:01; Status DC Sevoflurane (Ultane) 60 ml STK-MED ONCE IH ; Start 10/17/16 at 15:03; Stop 10/17 at 15:04; Status DC Lidocaine HCl 20 ml STK-MED ONCE .ROUTE ; Start 10/19/16 at 10:48; Stop at 10:49; Status DC Heparin Sodium/ Sodium Chloride 500 ml @ As Directed STK-MED ONCE .ROUTE ; Start 10/19/16 at 10:48; Stop 10/19/16 at 10:49; Status DC Iodixanol (Visipaque 320) 100 ml STK-MED ONCE .ROUTE ; Start 10/19/16 at 10:48; Stop 10/19/16 at 10:49; Status DC Midazolam HCl (Versed) 2 mg STK-MED ONCE .ROUTE ; Start 10/19/16 at 11:05; Stop 10/19/16 at 11:06; Status DC Fentanyl Citrate (Fentanyl 2ml Vial) 100 mcg STK-MED ONCE .ROUTE ; Start at 11:05; Stop 10/19/16 at 11:06; Status DC Heparin Sodium/ Sodium Chloride 1,000 unit 1X ONCE IART Last administered on 11:35; Start 10/19/16 at 11:30; Stop 10/19/16 at 11:31; Status DC Midazolam HCl (Versed) 2 mg 1X ONCE IV Last administered on 10/19/16 11:35; Start 10/19/16 at 11:30; Stop 10/19/16 at 11:31; Status DC Fentanyl Citrate (Fentanyl 2ml Vial) 100 mcg 1X ONCE IV Last administered on 11:36; Start 10/19/16 at 11:30; Stop 10/19/16 at 11:31; Status DC Iodixanol (Visipaque 320) 100 ml 1X ONCE IART Last administered on 10/19/16 11:36; Start 10/19/16 at 11:30; Stop 10/19/16 at 11:31; Status DC Lidocaine HCl 20 ml 1X ONCE IJ Last administered on 10/19/16 11:35; Start at 11:30; Stop 10/19/16 at 11:31; Status DC Info (Do NOT chart on this entry -- for MONITORING) 1 each PRN DAILY PRN MC SEE COMMENTS; Start 10/19/16 at 11:30; Stop 10/21/16 at 11:29; Status DC Active Scripts Active Reported Benazepril Hcl 40 Mg Tablet 40 Mg PO DAILY Tamsulosin Hcl 0.4 Mg Cap.er.24h 0.4 Mg PO DAILY Macrodantin (Nitrofurantoin Macrocrystal) 100 Mg Capsule 100 Mg PO DAILY Gabapentin 600 Mg Tablet 300 Mg PO BID Humulin 70-30 Vial (Hum Insulin Nph/Reg Insulin Hm) 100 Unit/1 Ml Vial 25 Unit SQ BID Vitals/I & O Vital Sign - Last 24 Hours 10/20/16 10/20/16 10/20/16 10/20/16 14:55 19:39 19:55 22:48 Temp 97.9 97.9 97.6 97.9 97.9 97.6 Pulse 62 65 53 Resp 18 20 B/P (MAP) 107/54 (71) 130/72 (91) 117/61 (79) Pulse Ox 96 99 100 O2 Delivery Room Air Room Air Room Air Room Air 10/21/16 10/21/16 10/21/16 10/21/16 03:06 07:00 08:00 11:00 Temp 98.3 98.4 97.9 98.3 98.4 97.9 Pulse 55 70 54 Resp 16 19 20 B/P (MAP) 115/44 (67) 126/74 (91) 132/72 (92) Pulse Ox 98 98 99 O2 Delivery Room Air Room Air Room Air Room Air Intake and Output 10/20/16 10/20/16 10/21/16 15:00 23:00 07:00 Intake Total 900 ml 400 ml Output Total 1000 ml 1300 ml Balance -100 ml -900 ml Nutrition Consultation Dietary Evaluation: Recommendations by RD: Increase Calorie Intake, Protein supplementation Comments: 49# wt loss x's 5 weeks, poor intake over the past month (1-2 bites of food at meals) Stage I pressure ulcer- rec. a daily MVT and 500 mg Vitamin C/day Pt refusing most foods Agrees to boost icecream shakes at lunch and dinner (boost = 360 calories/14 g pro per serving) Add vanilla boost pudding @ breakfast (240 calories/7 grams protein) Continue the 2% milk at breakfast Expected Outcomes/Goals: meet 75% estimated nutrition needs - goal not met no further wt loss - goal met Interpretation of weight loss: >5% in 1 month Malnutrition Findings: Food and Nutrition Intake (Mod: <75% est energy req 7days Body Fat Depletion (Non Severe: Mild Depletion Reduced [place] Reporter Strength: N/A Malnutrition related to morbid: No Weight Status: Appropriate Fluid Accumulation (N/A): N/A PHILIPPE HSU MD Oct 21, 2016 12:33
== END 2016-10-21 12:28 | DRG 682 ==
LOC: 2 NORTH 14:29
PROVIDERS: ADMIT Family Medicine; ATTEND Family Medicine
PROC: 0T9030Z Drainage of Right Kidney with Drainage Device, Percutaneous Approach (ICD-10-PCS; 2016-10-14)
PROC: 0T2BX0Z Change Drainage Device in Bladder, External Approach (ICD-10-PCS; 2016-10-17)
PROC: 3E1K88Z Irrigation of Genitourinary Tract using Irrigating Substance, Via Natural or Artificial Opening Endoscopic (ICD-10-PCS; 2016-10-17)
PROC: 4A023N7 Measurement of Cardiac Sampling and Pressure, Left Heart, Percutaneous Approach (ICD-10-PCS; principal; 2016-10-19)
PROC: B2111ZZ Fluoroscopy of Multiple Coronary Arteries using Low Osmolar Contrast (ICD-10-PCS; 2016-10-19)
PROC: B2151ZZ Fluoroscopy of Left Heart using Low Osmolar Contrast (ICD-10-PCS; 2016-10-19)
DX: N17.9 Acute kidney failure, unspecified (principal); E43 Unspecified severe protein-calorie malnutrition; I42.0 Dilated cardiomyopathy; N13.30 Unspecified hydronephrosis; N35.9 Urethral stricture, unspecified; E87.5 Hyperkalemia; E11.42 Type 2 diabetes mellitus with diabetic polyneuropathy; E11.22 Type 2 diabetes mellitus with diabetic chronic kidney disease; I25.10 Atherosclerotic heart disease of native coronary artery without angina pectoris; I12.9 Hypertensive chronic kidney disease with stage 1 through stage 4 chronic kidney disease, or unspecified chronic kidney disease; E83.39 Other disorders of phosphorus metabolism; K21.9 Gastro-esophageal reflux disease without esophagitis; I49.3 Ventricular premature depolarization; I48.91 Unspecified atrial fibrillation; N18.3 Chronic kidney disease, stage 3 (moderate); M19.90 Unspecified osteoarthritis, unspecified site; E88.09 Other disorders of plasma-protein metabolism, not elsewhere classified; I95.9 Hypotension, unspecified; H54.7 Unspecified visual loss; Z79.899 Other long term (current) drug therapy; Z79.4 Long term (current) use of insulin; Z82.49 Family history of ischemic heart disease and other diseases of the circulatory system; Z87.440 Personal history of urinary (tract) infections; Z95.2 Presence of prosthetic heart valve; Z87.442 Personal history of urinary calculi; Z95.5 Presence of coronary angioplasty implant and graft; Z87.898 Personal history of other specified conditions; Z79.1 Long term (current) use of non-steroidal anti-inflammatories (NSAID); Z86.718 Personal history of other venous thrombosis and embolism; Z68.23 Body mass index [BMI] 23.0-23.9, adult; R31.9 Hematuria, unspecified; I35.1 Nonrheumatic aortic (valve) insufficiency
CPT/HCPCS: 36415; 50432; 71250; 74176; 76770; 80048; 80053; 80069; 81001; 82962; 83735; 85018; 85027; 85610; 85651; 87086; 87186; 88112; 93306; 93458; 93567; 99152; 99153; A4215; A6539; C1713; C1729; C1769; C1771; C1892; C1894; G0269; J1100; J1644; J1815; J1956; J2001; J2250; J2405; J2543; J2704; J3010; J7030; J7042; P9045; Q9967; 97110; 97116; 97530

== ENCOUNTER 2016-11-14 17:47 | Emergency (ER) | payer MEDICARE ==
[~2016-11-14] VITALS: Ht 182.9 cm; Wt 78.0 kg
[2016-11-14 18:54] LABS: BILIRUBIN,URINE NEGATIVE (NEG); GLUCOSE,URINE NEGATIVE (NEG); NITRITE,URINE POSITIVE (NEG); PH,URINE 5.5; PROTEIN,URINE 100 mg/dL (NEG-TRACE); UROBILINOGEN,URINE 0.2 mg/dL (0.2 mg/dL)
[2016-11-14 18:59] VITALS: BP 137/67
[2016-11-14 19:03] LABS: BACTERIA,URINE MANY /HPF (0-FEW); RBC,URINE TNTC /HPF (0-2); SQUAMOUS EPITHELIAL CELL,UR MOD /LPF; WBC,URINE TNTC /HPF (0-4)
[2016-11-14] MEDS ORDERED: LEVO750T31 PO (19:35)
--- NOTE | 2016-11-14 19:35 | PHYS DOC ---
Past Medical History Past Medical History: Other Additional Past Medical Histor: kidney disease, only has one kidney, bph, Past Surgical History: Other Additional Past Surgical Histo: unknown sx Alcohol Use: None Drug Use: None Adult General Chief Complaint Chief Complaint: URINE CATHETER PROBLEM HPI HPI Patient is a 76 year old male who presents with [place] catheter problem. The patient states he was hospitalized last week, experiencing urinary retention secondary to BPH. Had [place] catheter placed and discharged home with leg bag. Since last night he has been leaking urine around the catheter with decreased urine output. Reports suprapubic discomfort. Denies fevers or chills, nausea or vomiting, flank pain. History of hydronephrosis and nephrostomy tube placement by interventional radiology. Review of Systems Review of Systems Constitutional: Denies fever or chills HENT: Denies nasal congestion or sore throat Respiratory: Denies cough or shortness of breath Cardiovascular: Denies chest pain GI: Denies abdominal pain, nausea, vomiting or diarrhea : Reports catheter problem Musculoskeletal: Denies back pain or joint pain Integument: Denies rash Neurologic: Denies headache Allergies Allergies Allergies Coded Allergies Type Severity Reaction Last Updated Verified No Known Drug Allergies 04/02/15 No Physical Exam Physical Exam Constitutional: Well developed, well nourished, no acute distress, non-toxic appearance. HENT: Normocephalic, atraumatic, bilateral external ears normal, oropharynx moist, nose normal. Eyes: conjunctiva normal, no discharge. Cardiovascular: no edema. Lungs & Thorax: no respiratory distress. Abdomen: soft, nontender, nondistended. Skin: Warm, dry, no erythema, no rash. Back: No CVA tenderness. Extremities: No deformity Neurologic: Alert and oriented X 3 Current Patient Data Vital Signs Vital Signs Date Time Temp Pulse Resp B/P (MAP) Pulse Ox O2 Delivery O2 Flow Rate FiO2 11/14/16 18:59 65 24 137/67 (90) 99 Room Air 11/14/16 18:00 97.9 97.9 Lab Values Laboratory Tests Test 11/14/16 18:46 Urine Collection Type U cath Urine Color Yellow Urine Clarity Turbid Urine pH 5.5 Urine Specific [place] 1.015 Urine Protein 100 mg/dL (NEG-TRACE) Urine Glucose (UA) Negative mg/dL (NEG) Urine Ketones (Stick) Negative mg/dL (NEG) Urine Blood Large (NEG) Urine Nitrite Positive (NEG) Urine Bilirubin Negative (NEG) Urine Urobilinogen Dipstick 0.2 mg/dL (0.2 mg/dL) Urine Leukocyte Esterase Large (NEG) Urine RBC Tntc /HPF (0-2) Urine WBC Tntc /HPF (0-4) Urine Squamous Epithelial Cells Mod /LPF Urine Bacteria Many /HPF (0-FEW) EKG EKG [] Radiology/Procedures Radiology/Procedures [] Course & Med Decision Making Course & Med Decision Making Pertinent Labs and Imaging studies reviewed. (See chart for details) The patient presents with [place] problem. Catheter was replaced by software test technician. Had outflow yellow urine and improvement of symptoms. UA shows hematuria and urinary tract infection. Gave prescription for Levaquin. Recommend rest and by mouth hydration. Follow up if possible with Dr. Lynn in the urology clinic within one week. May need to establish care with a different urologist due to staffing changes. Return to the emergency department for high fever, severe pain , uncontrolled vomiting, any otherwise worsening condition. Discharged home in stable and improved condition. [] Dragon Disclaimer Dragon Disclaimer This electronic medical record was generated, in whole or in part, using a voice recognition dictation system. Departure Departure Impression: Primary Impression: [place] catheter problem Additional Impressions: Urinary tract infection Hematuria Disposition: 01 HOME, SELF-CARE Condition: STABLE Referrals: EMMA SHEIKH MD (PCP) ASAD LYNN MD Patient Instructions: [place] Catheter Care, Adult, Urinary Tract Infection, Easy -to-Read Additional Instructions: You were seen in the emergency department today for salinas catheter problem. It was replaced by the nurse. You have infection and blood in your urine. Please take the prescribed antibiotic. Drink fluids to stay hydrated. Follow-up with Dr. Lynn if possible. If he is not excepting appointments you may need to find a new urologist. Return to the emergency department for high fever, severe pain, uncontrolled vomiting, any otherwise worsening condition. Scripts Levofloxacin (LEVAQUIN) 750 Mg Tablet 1 TAB PO DAILY, #5 TAB Prov: RM PATEL MD 11/14/16 Problem Qualifiers RM PATEL MD Nov 14, 2016 19:35
== END 2016-11-14 19:41 | disposition home or self-care (01) ==
LOC: ER 17:47
DX: T83.098A Other mechanical complication of other urinary catheter, initial encounter (principal); N39.0 Urinary tract infection, site not specified; N40.1 Benign prostatic hyperplasia with lower urinary tract symptoms; Y84.6 Urinary catheterization as the cause of abnormal reaction of the patient, or of later complication, without mention of misadventure at the time of the procedure; Y92.89 Other specified places as the place of occurrence of the external cause
CPT/HCPCS: 51702; 81001; 87086; 99284-25

== ENCOUNTER 2017-03-10 17:52 | Emergency (ER) | payer MEDICARE ==
[~2017-03-10] VITALS: Ht 182.9 cm; Wt 75.3 kg
[~2017-03-10 17:52] MED LIST changes: +LEVO750T31 PO
[2017-03-10 18:17] VITALS: BP 132/86
[2017-03-10 19:02] LABS: BILIRUBIN,URINE NEGATIVE (NEG); GLUCOSE,URINE NEGATIVE (NEG); NITRITE,URINE NEGATIVE (NEG); PH,URINE 8.5; PROTEIN,URINE 100 mg/dL (NEG-TRACE); UROBILINOGEN,URINE 0.2 mg/dL (0.2 mg/dL)
[2017-03-10 19:20] LABS: BACTERIA,URINE MOD /HPF (0-FEW); SQUAMOUS EPITHELIAL CELL,UR OCC /LPF; WBC,URINE TNTC /HPF (0-4)
[2017-03-10] MEDS ORDERED: CEPHALEXIN 250 MG CAPSULE. PO STA (19:35)
[2017-03-10] MEDS ORDERED: CEPHALEXIN 250 MG CAPSULE. ONE (19:42)
[2017-03-10] MEDS ORDERED: CEPH-264 PO (19:46)
--- NOTE | 2017-03-10 19:46 | PHYS DOC ---
Past Medical History Past Medical History: A-Fib, Diabetes-Type II, GERD, Hypertension, Renal Disease, Other Additional Past Medical Histor: bph, neuropathy Past Surgical History: Knee Replacement, Other Additional Past Surgical Histo: Suprapubic Catheter, Heart Cath Alcohol Use: None Drug Use: None Adult General Chief Complaint Chief Complaint: URINE CATHETER PROBLEM HPI HPI 77-year-old male with a history of suprapubic catheter in place now sent to the emergency department for evaluation of obstructed catheter. Patient feels some discomfort that he thinks is from bladder distention. Catheter was unable to be flushed prior to arrival. Review of Systems Review of Systems Constitutional: Denies fever or chills [] Eyes: Denies change in visual acuity, redness, or eye pain [] HENT: Denies nasal congestion or sore throat [] Respiratory: Denies cough or shortness of breath [] Cardiovascular: No additional information not addressed in HPI [] GI: Denies abdominal pain, nausea, vomiting, bloody stools or diarrhea [] : Denies dysuria or hematuria [] Musculoskeletal: Denies back pain or joint pain [] Integument: Denies rash or skin lesions [] Neurologic: Denies headache, focal weakness or sensory changes [] Endocrine: Denies polyuria or polydipsia [] All other systems were reviewed and found to be within normal limits, except as documented in this note. Current Medications Current Medications Current Medications Medications (Trade) Dose Ordered Sig/Cristina Start Time Stop Time Status Last Admin Dose Admin Cephalexin HCl (Keflex) 500 mg 1X STAT 03/10/17 19:35 03/10/17 19:36 UNV Allergies Allergies Allergies Coded Allergies Type Severity Reaction Last Updated Verified No Known Drug Allergies 04/02/15 No Physical Exam Physical Exam Well-appearing 77-year-old male no acute distress clear lungs regular rate and rhythm no tachycardia benign abdomen positive suprapubic fullness and leakage around urinary catheter. Catheter cannot be flushed despite treatment with [employer]. Extremities unremarkable Constitutional: Well developed, well nourished, no acute distress, non-toxic appearance. [] HENT: Normocephalic, atraumatic, bilateral external ears normal, oropharynx moist, no oral exudates, nose normal. [] Eyes: PERRLA, EOMI, conjunctiva normal, no discharge. [] Neck: Normal range of motion, no tenderness, supple, no stridor. [] Cardiovascular:Heart rate regular rhythm, no murmur [] Lungs & Thorax: Bilateral breath sounds clear to auscultation [] Abdomen: Bowel sounds normal, soft, no tenderness, no masses, no pulsatile masses. [] Skin: Warm, dry, no erythema, no rash. [] Back: No tenderness, no CVA tenderness. [] Extremities: No tenderness, no cyanosis, no clubbing, ROM intact, no edema. [] Neurologic: Alert and oriented X 3, normal motor function, normal sensory function, no focal deficits noted. [] Psychologic: Affect normal, judgement normal, mood normal. [] Current Patient Data Vital Signs Vital Signs Date Time Temp Pulse Resp B/P (MAP) Pulse Ox O2 Delivery O2 Flow Rate FiO2 03/10/17 18:17 98.7 66 18 132/86 (101) 97 Room Air 98.7 Lab Values Laboratory Tests Test 03/10/17 18:53 Urine Collection Type Unknown Urine Color Yellow Urine Clarity Turbid Urine pH 8.5 Urine Specific [place] 1.015 Urine Protein 100 mg/dL (NEG-TRACE) Urine Glucose (UA) Negative mg/dL (NEG) Urine Ketones (Stick) Negative mg/dL (NEG) Urine Blood Large (NEG) Urine Nitrite Negative (NEG) Urine Bilirubin Negative (NEG) Urine Urobilinogen Dipstick 0.2 mg/dL (0.2 mg/dL) Urine Leukocyte Esterase Large (NEG) Urine RBC 11-20 /HPF (0-2) Urine WBC Tntc /HPF (0-4) Urine Squamous Epithelial Cells Occ /LPF Urine Bacteria Mod /HPF (0-FEW) EKG EKG [] Radiology/Procedures Radiology/Procedures [] Course & Med Decision Making Course & Med Decision Making Pertinent Labs and Imaging studies reviewed. (See chart for details) Signs and symptoms consistent with obstructed urinary catheter. Per patient urology authorized catheter change if flushing unsuccessful. Obstruction unable to be cleared with [employer]. 18 Somali urinary catheter placed by me to replace clogged tube. Patient tolerated well without complication. Urinalysis clearly consistent with infection. This will be cultured. At about treatment initiated with Keflex by mouth. Patient has no signs of systemic illness prescription will be dispensed for Keflex and will follow-up with his primary care doctor and technical editor. No further workup or treatment indicated patient agrees with outpatient follow-up and strict return precautions given Dragon Disclaimer Dragon Disclaimer This electronic medical record was generated, in whole or in part, using a voice recognition dictation system. Departure Departure Impression: Primary Impression: Urinary tract infection Additional Impression: Obstruction of suprapubic catheter Disposition: HOME, SELF-CARE Condition: IMPROVED Referrals: EMMA SHEIKH MD (PCP) Additional Instructions: Your suprapubic catheter was obstructed today. It's been replaced with a new 18 Somali suprapubic catheter. Your urinalysis results is consistent with infection. We've given you Keflex to start antibiotic treatment and dispensed a prescription for this. Finish as prescribed. A urine culture is pending for your primary care doctor and urologist to follow to guide your continued therapy. Return immediately for new severe worsening symptoms specifically for fevers worsening signs of illness. Scripts Cephalexin (KEFLEX) 500 Mg Capsule 1 CAP PO QID, #40 CAP Prov: MAN BARRON MD 03/10/17 Problem Qualifiers MAN BARRON MD Mar 10, 2017 19:46
--- NOTE | 2017-03-13 16:16 | VNOTE ---
CALL BACK NOTE CALL BACK Microbiology 03/10/17 Urine Culture - Final, Complete 03/10/17 Urine Culture Result 1 (PANTERA) - Final, Complete 03/10/17 Antimicrobic Susceptibility - Final, Complete Cephalexin provides coverage. No additional antibiotic required. Reviewed with Dr. Vasquez. CONNIE KILLIAN Mar 13, 2017 16:16
== END 2017-03-10 19:50 | disposition home or self-care (01) ==
LOC: ER 17:52
DX: N39.0 Urinary tract infection, site not specified (principal); T83.198A Other mechanical complication of other urinary devices and implants, initial encounter; I48.91 Unspecified atrial fibrillation; K21.9 Gastro-esophageal reflux disease without esophagitis; N40.0 Benign prostatic hyperplasia without lower urinary tract symptoms; E11.40 Type 2 diabetes mellitus with diabetic neuropathy, unspecified; I12.9 Hypertensive chronic kidney disease with stage 1 through stage 4 chronic kidney disease, or unspecified chronic kidney disease; E11.22 Type 2 diabetes mellitus with diabetic chronic kidney disease; N18.9 Chronic kidney disease, unspecified; Y84.6 Urinary catheterization as the cause of abnormal reaction of the patient, or of later complication, without mention of misadventure at the time of the procedure; Y92.89 Other specified places as the place of occurrence of the external cause
CPT/HCPCS: 51702; 81001; 87086; 99284-25

== ENCOUNTER 2017-03-31 13:31 | Emergency (ER) | payer MEDICARE ==
[~2017-03-31] VITALS: Ht 182.9 cm; Wt 77.6 kg
[~2017-03-31 13:31] MED LIST changes: +CEPH-264 PO
[2017-03-31 14:53] LABS: BILIRUBIN,URINE NEGATIVE (NEG); GLUCOSE,URINE NEGATIVE (NEG); NITRITE,URINE POSITIVE (NEG); PROTEIN,URINE 100 mg/dL (NEG-TRACE); UROBILINOGEN,URINE 0.2 mg/dL (0.2 mg/dL)
[2017-03-31 15:00] VITALS: BP 162/75
[2017-03-31 15:16] LABS: BACTERIA,URINE MANY /HPF (0-FEW); RBC,URINE 0 /HPF (0-2)
[2017-03-31] MEDS ORDERED: CIPR500T94 PO (15:20)
--- NOTE | 2017-03-31 15:20 | PHYS DOC ---
Past Medical History Past Medical History: A-Fib, Diabetes-Type II, GERD, Hypertension, Renal Disease, Other Additional Past Medical Histor: bph, neuropathy Past Surgical History: Knee Replacement, Other Additional Past Surgical Histo: Suprapubic Catheter, Heart Cath Alcohol Use: None Drug Use: None Adult General Chief Complaint Chief Complaint: decreased urine output [facility] HPI Patient is a 77 year old male who presents with decreased urine output in salinas bag with suprapubic pain. He normally flushes his salinas daily and it has not been able to flush since yesterday. Urology is at . Pt has suprapubic catheter for BPH. No fevers, no nausea or vomiting. Pt's noted some of the urine coming out of the penis. Review of Systems Review of Systems Constitutional: Denies fever or chills [] Eyes: Denies change in visual acuity, redness, or eye pain [] HENT: Denies nasal congestion or sore throat [] Respiratory: Denies cough or shortness of breath [] Cardiovascular: No additional information not addressed in HPI [] GI: Denies nausea, vomiting, bloody stools or diarrhea [] : per hpi Musculoskeletal: Denies back pain or joint pain [] Integument: Denies rash or skin lesions [] Neurologic: Denies headache, focal weakness or sensory changes [] Allergies Allergies Allergies Coded Allergies Type Severity Reaction Last Updated Verified No Known Drug Allergies 04/02/15 No Physical Exam Physical Exam Constitutional: Well developed, well nourished, no acute distress, non-toxic appearance. [] HENT: Normocephalic, atraumatic, bilateral external ears normal, oropharynx moist, no oral exudates, nose normal. [] Eyes: PERRLA, EOMI, conjunctiva normal, no discharge. [] Neck: Normal range of motion, no tenderness, supple, no stridor. [] Cardiovascular:Heart rate regular with regular rhythm, no murmur [] Lungs & Thorax: Bilateral breath sounds clear to auscultation [] Abdomen: Bowel sounds normal, soft, no tenderness, no masses, no pulsatile masses. [] Skin: Warm, dry, no erythema, no rash. [] Back: No tenderness, no CVA tenderness. [] Extremities: No tenderness, no cyanosis, no clubbing, ROM intact, no edema. [] Neurologic: Alert and oriented X 3, normal motor function, normal sensory function, no focal deficits noted. [] Psychologic: Affect normal, judgement normal, mood normal. [] Current Patient Data Vital Signs Vital Signs Date Time Temp Pulse Resp B/P (MAP) Pulse Ox O2 Delivery O2 Flow Rate FiO2 03/31/17 13:57 97.9 68 18 216/123 (154) 100 Room Air 97.9 EKG EKG [] Radiology/Procedures Radiology/Procedures Bladder scan showed about 225 ml in bladder, but as no output, I exchanged it with a 16Fr salinas without difficulty using sterile technique. Pt tolerated well and immediately had good urine output. Course & Med Decision Making Course & Med Decision Making Pertinent Labs and Imaging studies reviewed. (See chart for details) Salinas changed, urine ordered. Pt's blood pressure significantly improved but still slightly elevated. Pt instructed to f/u with PCP for recheck of blood pressure. Pt declined blood work. Urinalysis + UTI, dc'd with cipro, pt to f/u with urologist. Dragon Disclaimer Dragon Disclaimer This electronic medical record was generated, in whole or in part, using a voice recognition dictation system. Departure Departure Impression: Primary Impression: Salinas catheter problem Additional Impressions: Hypertension UTI (urinary tract infection) Disposition: 01 HOME, SELF-CARE Condition: STABLE Referrals: EMMA SHEIKH MD (PCP) Patient Instructions: [place] Catheter Care, Adult, Hypertension Scripts Ciprofloxacin Hcl (CIPRO) 500 Mg Tablet 1 TAB PO BID, #14 TAB Prov: GRISELDA MARTINO MD 03/31/17 Problem Qualifiers GRISELDA MARTINO MD Mar 31, 2017 15:20
== END 2017-03-31 15:30 | disposition home or self-care (01) ==
LOC: ER 13:31
DX: T83.098A Other mechanical complication of other urinary catheter, initial encounter (principal); N39.0 Urinary tract infection, site not specified; I12.9 Hypertensive chronic kidney disease with stage 1 through stage 4 chronic kidney disease, or unspecified chronic kidney disease; E11.22 Type 2 diabetes mellitus with diabetic chronic kidney disease; N18.9 Chronic kidney disease, unspecified; E11.40 Type 2 diabetes mellitus with diabetic neuropathy, unspecified; I48.91 Unspecified atrial fibrillation; K21.9 Gastro-esophageal reflux disease without esophagitis; N40.0 Benign prostatic hyperplasia without lower urinary tract symptoms; Y92.89 Other specified places as the place of occurrence of the external cause
CPT/HCPCS: 51702; 81001; 87086; 99285-25

== ENCOUNTER 2017-05-01 08:27 | Emergency (ER) | payer MEDICARE ==
[2017-05-01 09:22] LABS: BILIRUBIN,URINE NEGATIVE (NEG); CLARITY,URINE CLOUDY; COLOR,URINE YELLOW; GLUCOSE,URINE NEGATIVE (NEG); NITRITE,URINE POSITIVE (NEG); PROTEIN,URINE 100 mg/dL (NEG-TRACE); UROBILINOGEN,URINE 0.2 mg/dL (0.2 mg/dL)
[2017-05-01 09:31] LABS: SQUAMOUS EPITHELIAL CELL,UR FEW /LPF
[2017-05-01 09:32] LABS: BACTERIA,URINE MANY /HPF (0-FEW); WBC,URINE TNTC /HPF (0-4)
== END 2017-05-01 10:30 | disposition home or self-care (01) ==
LOC: ER 08:27
DX: T83.098A Other mechanical complication of other urinary catheter, initial encounter (principal); E11.9 Type 2 diabetes mellitus without complications; I48.91 Unspecified atrial fibrillation; I12.9 Hypertensive chronic kidney disease with stage 1 through stage 4 chronic kidney disease, or unspecified chronic kidney disease; E11.22 Type 2 diabetes mellitus with diabetic chronic kidney disease; N18.9 Chronic kidney disease, unspecified; E11.40 Type 2 diabetes mellitus with diabetic neuropathy, unspecified; N40.0 Benign prostatic hyperplasia without lower urinary tract symptoms; Y82.8 Other medical devices associated with adverse incidents; Y92.89 Other specified places as the place of occurrence of the external cause
CPT/HCPCS: 51702; 81001; 87086; 99285-25

== ENCOUNTER 2018-12-27 08:32 | Inpatient (IN) | payer MEDICARE ==
[~2018-12-27] VITALS: Ht 185.4 cm; Wt 78.7 kg
[~2018-12-27 08:32] MED LIST changes: -BENA40TA2 PO; +BENA40TA3 PO; -GABA600T2 PO; +GABA600T7 PO; -HYDR-2758 PO; +HYDR-2761 PO
--- NOTE | 2018-12-27 09:03 | PHYS DOC ---
Past Medical History Past Medical History: A-Fib, Diabetes-Type II, GERD, Hypertension, Renal Disease, Other Additional Past Medical Histor: bph, neuropathy Past Surgical History: Knee Replacement, Other Additional Past Surgical Histo: Suprapubic Catheter, Heart Cath Alcohol Use: None Drug Use: None Adult General Chief Complaint Chief Complaint: MECHANICAL FALL HPI HPI Patient is a 78 year old male with history of A. fib, diabetes type 2, hypertension, renal disease, who presents to the ED today from home to be inflated after being found on the floor this morning. Patient apparently sleeps in a chair. The woke up this morning and found patient on the floor. She states the last time she had checked on patient was 2 AM this morning. Patient is alert and oriented �1, states this is unusual for him. She reports patient is usually alert and oriented �3. also reports patient has not had anything to eat or drink in 4 days. Review of Systems Review of Systems Constitutional: Denies fever or chills [] Eyes: Denies change in visual acuity, redness, or eye pain [] HENT: Denies nasal congestion or sore throat [] Respiratory: Denies cough or shortness of breath [] Cardiovascular: No additional information not addressed in HPI [] GI: Denies abdominal pain, nausea, vomiting, bloody stools or diarrhea [] : Denies dysuria or hematuria [] Musculoskeletal: Reports falling. Denies back pain or joint pain [] Integument: Denies rash or skin lesions [] Neurologic: Reports altered mental status. Denies headache, focal weakness or sensory changes [] All other systems were reviewed and found to be within normal limits, except as documented in this note. Current Medications Current Medications Current Medications Medications (Trade) Dose Ordered Sig/[facility] Start Time Stop Time Status Last Admin Dose Admin Sodium Chloride 1,000 ml @ 1,000 mls/hr 1X ONCE 12/27/18 09:30 12/27/18 10:29 DC 12/27/18 09:21 1,000 MLS/HR Allergies Allergies Allergies Coded Allergies Type Severity Reaction Last Updated Verified No Known Drug Allergies 04/02/15 No Physical Exam Physical Exam Constitutional: Well developed, well nourished, no acute distress, non-toxic appearance. [] HENT: Normocephalic, atraumatic, bilateral external ears normal, oropharynx moist, no oral exudates, nose normal. [] Eyes: PERRLA, EOMI, conjunctiva normal, no discharge. [] Neck: Normal range of motion, no tenderness, supple, no stridor. [] Cardiovascular: Irregular heartbeat Lungs & Thorax: Bilateral breath sounds clear to auscultation [] Abdomen: Bowel sounds normal, soft, no tenderness, no masses, no pulsatile masses. [] Skin: Warm, dry, no erythema, no rash. Bruising noted to bilateral upper and lower extremities consistent with a patient on blood thinner Back: No tenderness, no CVA tenderness. [] Extremities: No tenderness, no cyanosis, no clubbing, ROM intact, no edema. [] Neurologic: Alert and oriented X 1, normal motor function, normal sensory function, no focal deficits noted. Cranial nerves II through XII intact. Psychologic: Affect normal, judgement normal, mood normal. [] Current Patient Data Vital Signs Vital Signs Date Time Temp Pulse Resp B/P (MAP) Pulse Ox O2 Delivery O2 Flow Rate FiO2 12/27/18 10:54 66 18 97 12/27/18 08:40 97.4 152/95 (114) 97.4 Lab Values Laboratory Tests Test 12/27/18 08:50 12/27/18 10:21 White Blood Count 11.7 x10^3/uL (4.0-11.0) H Red Blood Count 4.35 x10^6/uL (4.30-5.70) Hemoglobin 12.6 g/dL (13.0-17.5) L Hematocrit 39.0 % (39.0-53.0) Mean Corpuscular Volume 90 fL (79-100) Mean Corpuscular Hemoglobin 29 pg (25-35) Mean Corpuscular Hemoglobin Concent 32 g/dL (31-37) Red Cell Distribution Width 18.0 % (11.5-14.5) H Platelet Count 336 x10^3/uL (140-400) Neutrophils (%) (Auto) 87 % (31-73) H Lymphocytes (%) (Auto) 5 % (24-48) L Monocytes (%) (Auto) 8 % (0-9) Eosinophils (%) (Auto) 0 % (0-3) Basophils (%) (Auto) 0 % (0-3) Neutrophils # (Auto) 10.1 x10^3/uL (1.8-7.7) H Lymphocytes # (Auto) 0.6 x10^3/uL (1.0-4.8) L Monocytes # (Auto) 0.9 x10^3/uL (0.0-1.1) Eosinophils # (Auto) 0.0 x10^3/uL (0.0-0.7) Basophils # (Auto) 0.0 x10^3/uL (0.0-0.2) Segmented Neutrophils % 93 % (35-66) H Band Neutrophils % 2 % (0-9) Lymphocytes % 5 % (24-48) L Platelet Estimate Adequate (ADEQUATE) Sodium Level 148 mmol/L (136-145) H Potassium Level 4.4 mmol/L (3.5-5.1) Chloride Level 111 mmol/L (98-107) H Carbon Dioxide Level 24 mmol/L (21-32) Anion Gap 13 (6-14) Blood Urea Nitrogen 46 mg/dL (8-26) H Creatinine 1.7 mg/dL (0.7-1.3) H Estimated GFR (Cockcroft-Gault) 39.2 BUN/Creatinine Ratio 27 (6-20) H Glucose Level 144 mg/dL (70-99) H Lactic Acid Level 2.9 mmol/L (0.4-2.0) H Calcium Level 8.6 mg/dL (8.5-10.1) Magnesium Level 2.2 mg/dL (1.8-2.4) Total Bilirubin 2.5 mg/dL (0.2-1.0) H Aspartate Amino Transferase (AST) 282 U/L (15-37) H Alanine Aminotransferase (ALT) 271 U/L (16-63) H Alkaline Phosphatase 228 U/L (46-116) H Ammonia 13 mcmol/L (11-34) Creatine Kinase 317 U/L (39-308) H Creatine Kinase MB (Mass) 5.7 ng/mL (0.0-3.6) H Creatine Kinase MB Relative Index 1.8 % (0-4) Troponin I Quantitative 0.079 ng/mL (0.000-0.055) QG-Cgo-G-Type Natriuretic Peptide > 94180 pg/mL (0-449) H Total Protein 6.6 g/dL (6.4-8.2) Albumin 3.0 g/dL (3.4-5.0) L Albumin/Globulin Ratio 0.8 (1.0-1.7) L Procalcitonin 0.11 ng/mL (0.00-0.10) H Thyroid Stimulating Hormone (TSH) 3.775 uIU/mL (0.358-3.74) H Ethyl Alcohol Level < 10 mg/dL (0-10) Urine Collection Type Void Urine Color Yellow Urine Clarity Cloudy Urine pH 6.5 Urine Specific [employer] 1.015 Urine Protein 100 mg/dL (NEG-TRACE) Urine Glucose (UA) Negative mg/dL (NEG) Urine Ketones (Stick) Trace mg/dL (NEG) Urine Blood Moderate (NEG) Urine Nitrite Negative (NEG) Urine Bilirubin Negative (NEG) Urine Urobilinogen Dipstick 1.0 mg/dL (0.2 mg/dL) Urine Leukocyte Esterase Large (NEG) Urine RBC 3-5 /HPF (0-2) Urine WBC >40 /HPF (0-4) Urine Squamous Epithelial Cells Few /LPF Urine Renal Epithelial Cells Few /LPF Urine Bacteria 0 /HPF (0-FEW) Urine Opiates Screen Neg (NEG) Urine Methadone Screen Neg (NEG) Urine Barbiturates Neg (NEG) Urine Phencyclidine Screen Neg (NEG) Urine Amphetamine/Methamphetamine Neg (NEG) Urine Benzodiazepines Screen Neg (NEG) Urine Cocaine Screen Neg (NEG) Urine Cannabinoids Screen Neg (NEG) Urine Ethyl Alcohol Neg (NEG) Laboratory Tests 12/27/18 08:50 Laboratory Tests 12/27/18 08:50 EKG EKG [address] Card afib HR 74 no STEMI[] Radiology/Procedures Radiology/Procedures []PROCEDURE: PORTABLE CHEST 1V EXAM: CHEST 1 VIEW History: Altered mental status COMPARISON: 09/14/2009 TECHNIQUE: Single portable radiograph of the chest Findings/ impression: Low lung volumes and technique accentuates heart size and pulmonary vascularity. Moderate cardiomegaly. Diffuse prominent appearing bilateral interstitial lung markings could be congestive changes with diffuse airspace opacities identified in the bilateral lungs, left greater than right, could be multifocal pneumonia or atelectasis or infiltrates. Right upper lobe consolidation changes identified. Probable bilateral pleural effusions, right greater than left. Electronically signed by: Rah Urena MD (12/27/2018 9:35 AM) [facility] DICTATED and SIGNED BY: RAH URENA MD DATE: 12/27/18 0935 PROCEDURE: CT HEAD AND CERVICAL SPINE WO EXAM: CT HEAD WITHOUT IV CONTRAST CLINICAL HISTORY: Fall, altered mental status COMPARISON: None. TECHNIQUE: Routine CT of the head without contrast. Soft tissues and bone windows were reviewed. PQRS compliance statement - One or more of the following individualized dose reduction techniques were utilized for this study: 1. Automated exposure control 2. Adjustment of the mA and/or kV according to patient size 3. Use of iterative reconstruction technique FINDINGS: There is no evidence of hemorrhage, mass or extra-axial fluid collection. Eaton-white differentiation is maintained. Subcortical, periventricular as well as deep white matter hypoattenuation may be seen with chronic small vessel disease. There is no mass effect or shift of the intracranial structures. There is prominence of the ventricles and sulci bilaterally consistent with generalized atrophy. Wedge-shaped hypoattenuation in the left cerebellum possibly old cerebellar infarct, evaluation limited given streak artifact. The calvarium demonstrates no evidence of fracture or focal lesion. Nodular opacification of the right maxillary sinus likely sinusitis. The visualized portions of the orbits are normal. IMPRESSION: No evidence for acute intracranial process. EXAM: CT CERVICAL SPINE WITHOUT IV CONTRAST CLINICAL HISTORY: COMPARISON: None available. TECHNIQUE: Helical CT of the cervical spine was performed. Axial, coronal and sagittal reformatted images were also performed. PQRS compliance statement - One or more of the following individualized dose reduction techniques were utilized for this study: 1. Automated exposure control 2. Adjustment of the mA and/or kV according to patient size 3. Use of iterative reconstruction technique FINDINGS: Diffusely decreased bone mineral density. Vertebral body heights are preserved. Moderate C4-5 and mild C3-4, C5-6 disc height loss. Posterior disc osteophyte complex at C4-5 results in moderate central canal stenosis and mild bilateral neural foraminal narrowing. Small posterior disc osteophyte complex at C5-6 results in mild central canal stenosis and mild right neural foraminal narrowing. Atlantodental degenerative changes are seen. Grossly anatomic alignment of the cervical spine. Moderate right pleural effusion. Debris is seen within the auditory canals bilaterally. IMPRESSION: 1. No evidence for acute fracture or subluxation. 2. Multilevel degenerative changes most prominent at C4-5 Electronically signed by: Tony Borjas MD (12/27/2018 9:23 AM) [facility] DICTATED and SIGNED BY: TONY BORJAS MD DATE: 12/27/18 0923 Course & Med Decision Making Course & Med Decision Making Pertinent Labs and Imaging studies reviewed. (See chart for details) This is a 78-year-old male patient presents to the ED today from home, patient fell from his chair sometimes last night, it's unknown how long he was laying on the floor by the believes since 2 AM. Patient is alert and oriented �1 which the reports as unusual for him. He has no complaints of pain. also reports patient has not had anything to eat or drink in [address] of the head and cervical spine are negative for any acute findings. CBC with a WBC of 11.7, CMP with creatinine of 1.7, BUN of 46, sodium 148, AST 282 ALT is 270 1 AM K2 28. Troponin 0.079, patient has no chest pain lactic 2.9 BNP 35,000 Urine analysis is noted for UTI. Vitals on arrival to the ED temperature 97.4, heart rate 67, respirations 16, blood pressure 152/95, O2 sats 97%. Chest x-ray noted for possible CHF exacerbation, possible pneumonia, pleural effusions. Started on Rocephin Patient was given one liter of IV fluids we had to be conservative on IV hydration considering the risk of worsening CHF, poor kidney function, and BNP >[id number] Sheikh who accepted patient for admission Spoke with cardiology estrella who will f/u with patient. Fran Disclaimer Dragon Disclaimer This electronic medical record was generated, in whole or in part, using a voice recognition dictation system. Departure Departure Impression: Primary Impression: Altered mental status Additional Impressions: Urinary tract infection Fall Bilateral pulmonary infiltrates on chest x-ray CHF exacerbation Elevated troponin Disposition: ADMITTED INPATIENT Condition: STABLE Referrals: EMMA SHEIKH MD (PCP) Problem Qualifiers Primary Impression: Altered mental status Altered mental status type: unspecified Qualified Codes: R41.82 - Altered mental status, unspecified Additional Impressions: Urinary tract infection Urinary tract infection type: site unspecified Hematuria presence: without hematuria Qualified Codes: N39.0 - Urinary tract infection, site not specified Fall Encounter type: initial encounter Qualified Codes: W19.XXXA - Unspecified fall, initial encounter CHF exacerbation Heart failure type: unspecified Qualified Codes: I50.9 - Heart failure, unspecified MEÑO BORGES [employer] OPERATOR Dec 27, 2018 09:03
[2018-12-27 09:09] LABS: BASO % 0 % (0-3); EOS % 0 % (0-3); HEMOGLOBIN 12.6 g/dL (13.0-17.5); LYMPH # 0.6 x10^3/uL (1.0-4.8); LYMPH % 5 % (24-48); MEAN CORPUSCULAR HEMOGLOBIN 29 pg (25-35); MEAN CORPUSCULAR HGB CONC 32 g/dL (31-37); MEAN CORPUSCULAR VOLUME 90 fL (79-100); MONO # 0.9 x10^3/uL (0.0-1.1); MONO % 8 % (0-9); NEUT # 10.1 x10^3/uL (1.8-7.7); NEUT % 87 % (31-73); PLATELET COUNT 336 x10^3/uL (140-400); RED BLOOD COUNT 4.35 x10^6/uL (4.30-5.70); WHITE BLOOD COUNT 11.7 x10^3/uL (4.0-11.0)
[2018-12-27 09:20] LABS: CALCIUM 8.6 mg/dL (8.5-10.1); CREATININE 1.7 mg/dL (0.7-1.3); GFR 39.2; POTASSIUM 4.4 mmol/L (3.5-5.1)
--- NOTE | 2018-12-27 09:26 | RAD ---
EXAM: CT HEAD WITHOUT IV CONTRAST CLINICAL HISTORY: Fall, altered mental status COMPARISON: None. TECHNIQUE: Routine CT of the head without contrast. Soft tissues and bone windows were reviewed. PQRS compliance statement - One or more of the following individualized dose reduction techniques were utilized for this study: 1. Automated exposure control 2. Adjustment of the mA and/or kV according to patient size 3. Use of iterative reconstruction technique FINDINGS: There is no evidence of hemorrhage, mass or extra-axial fluid collection. Eaton-white differentiation is maintained. Subcortical, periventricular as well as deep white matter hypoattenuation may be seen with chronic small vessel disease. There is no mass effect or shift of the intracranial structures. There is prominence of the ventricles and sulci bilaterally consistent with generalized atrophy. Wedge-shaped hypoattenuation in the left cerebellum possibly old cerebellar infarct, evaluation limited given streak artifact. The calvarium demonstrates no evidence of fracture or focal lesion. Nodular opacification of the right maxillary sinus likely sinusitis. The visualized portions of the orbits are normal. IMPRESSION: No evidence for acute intracranial process. EXAM: CT CERVICAL SPINE WITHOUT IV CONTRAST CLINICAL HISTORY: COMPARISON: None available. TECHNIQUE: Helical CT of the cervical spine was performed. Axial, coronal and sagittal reformatted images were also performed. PQRS compliance statement - One or more of the following individualized dose reduction techniques were utilized for this study: 1. Automated exposure control 2. Adjustment of the mA and/or kV according to patient size 3. Use of iterative reconstruction technique FINDINGS: Diffusely decreased bone mineral density. Vertebral body heights are preserved. Moderate C4-5 and mild C3-4, C5-6 disc height loss. Posterior disc osteophyte complex at C4-5 results in moderate central canal stenosis and mild bilateral neural foraminal narrowing. Small posterior disc osteophyte complex at C5-6 results in mild central canal stenosis and mild right neural foraminal narrowing. Atlantodental degenerative changes are seen. Grossly anatomic alignment of the cervical spine. Moderate right pleural effusion. Debris is seen within the auditory canals bilaterally. IMPRESSION: 1. No evidence for acute fracture or subluxation. 2. Multilevel degenerative changes most prominent at C4-5 Electronically signed by: Tony Mccarthy MD (12/27/2018 9:23 AM) [facility]
[2018-12-27] MEDS ORDERED: IV NORMAL SALINE 1000ML BAG 1,000 ML IV ONE (09:30)
[2018-12-27 09:32] LABS: ALBUMIN/GLOBULIN RATIO 0.8 (1.0-1.7); MAGNESIUM 2.2 mg/dL (1.8-2.4); TOTAL BILIRUBIN 2.5 mg/dL (0.2-1.0); TOTAL PROTEIN 6.6 g/dL (6.4-8.2)
[2018-12-27 09:34] LABS: CREATINE KINASE 317 U/L (39-308)
--- NOTE | 2018-12-27 09:38 | RAD ---
EXAM: CHEST 1 VIEW History: Altered mental status COMPARISON: 09/14/2009 TECHNIQUE: Single portable radiograph of the chest Findings/ impression: Low lung volumes and technique accentuates heart size and pulmonary vascularity. Moderate cardiomegaly. Diffuse prominent appearing bilateral interstitial lung markings could be congestive changes with diffuse airspace opacities identified in the bilateral lungs, left greater than right, could be multifocal pneumonia or atelectasis or infiltrates. Right upper lobe consolidation changes identified. Probable bilateral pleural effusions, right greater than left. Electronically signed by: Rah Urena MD (12/27/2018 9:35 AM) [place] [id number]
--- NOTE | 2018-12-27 09:54 | EKG ---
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
[2018-12-27 10:39] LABS: BILIRUBIN,URINE NEGATIVE (NEG); CLARITY,URINE CLOUDY; COLOR,URINE YELLOW; NITRITE,URINE NEGATIVE (NEG); PH,URINE 6.5; PROTEIN,URINE 100 mg/dL (NEG-TRACE)
[2018-12-27 10:46] LABS: AMPHETAMINE/METHAMPHETAMINE NEG (NEG); BARBITURATES NEG (NEG); BENZODIAZEPINES NEG (NEG); CANNABINOIDS NEG (NEG); COCAINE NEG (NEG); METHADONE NEG (NEG); OPIATES NEG (NEG); PHENCYCLIDINE NEG (NEG)
[2018-12-27 10:55] LABS: SQUAMOUS EPITHELIAL CELL,UR FEW /LPF
[2018-12-27 10:56] LABS: BACTERIA,URINE 0 /HPF (0-FEW); WBC,URINE >40 /HPF (0-4)
[2018-12-27 11:18] LABS: % BANDS 2 % (0-9); % LYMPHS 5 % (24-48); % SEGS 93 % (35-66); PLT ESTIMATE ADEQUATE (ADEQUATE)
[2018-12-27] MEDS ORDERED: ONDANSETRON PF 4 MG/2 ML VIAL. IV PRN (12:45)
[2018-12-27] MEDS ORDERED: ACETAMINOPHEN 325 MG TABLET. PO PRN (12:45)
[2018-12-27] MEDS ORDERED: cefTRIAXone IV Push 1 GM VIAL. IVP ONE (13:00)
[2018-12-27 13:25] VITALS: BP 139/78
--- NOTE | 2018-12-27 14:03 | PDOC2 ---
YUE NAVARRO ANNETTE 12/27/18 1403: CARDIAC CONSULT DATE OF CONSULT Date of Consult DATE: 12/27/18 TIME: 13:48 REASON FOR CONSULT Reason for Consult: Elevated troponin REFERRING PHYSICIAN Referring Physician: Reta Urban APRN SOURCE Source: Chart review, Patient HISTORY OF PRESENT ILLNESS HISTORY OF PRESENT ILLNESS This is a 78 yo male who presented secondary to being found down on the floor. reports patient hasn't been feel well for the last week for so. C/o his stomach "not feeling right". Has not eaten anything for the last 4 days. Has been confused since late last week. Patient normally sleeps in a recliner for comfort. last checked on him at 4:30am this morning. At 7:45am, she found him face-down on the floor and called EMS. She assumes he attempted to get up as he had one shoe on and the other was off. Did not hear him fall or call for help. reports this is the 3rd fall in the last 3 weeks. Had a toenail take off last Monday at Dr. Milligan's office. Was place on oral antibiotic therapy at that time. Has a chronic history of AFIB, but not on OAC or ASA. No previous h/o GIB or PUD. Also has h/o BPH is scheduled for urology procedure here next week. reports his urine flow has been decreased. PAST MEDICAL HISTORY Cardiovascular: AFIB, CAD, CHF, HTN, Hyperlipidemia CENTRAL NERVOUS SYSTEM: Periperal neuropathy GI: GERD Heme/Onc: Other (PE/DVT) Musculoskeletal: Osteoarthritis Renal/: Chronic renal insuff, Benign prostatic enlarg. Endocrine: Diabetes PAST SURGICAL HISTORY Past Surgical History: Other (PCI/stent 2003) FAMILY HISTORY Family History: Coronary Artery Disease (mom, sister), Diabetes, Hypertension SOCIAL HISTORY Smoke: No ALCOHOL: none Drugs: None Lives: with Family CURRENT MEDICATIONS CURRENT MEDICATIONS Current Medications Medications (Trade) Dose Ordered Sig/Cristina Route PRN Reason Start Time Stop Time Status Last Admin Dose Admin Sodium Chloride 1,000 ml @ 1,000 mls/hr 1X ONCE IV 12/27/18 09:30 12/27/18 10:29 DC 12/27/18 09:21 Ceftriaxone Sodium (Rocephin) 1 gm 1X ONCE IVP 12/27/18 13:00 12/27/18 13:01 DC 12/27/18 13:06 ALLERGIES ALLERGIES: Coded Allergies: No Known Drug Allergies (Unverified , 04/02/15) ROS Review of System unobtainable PHYSICAL EXAM General: Alert, No acute distress, Other (oriented to person only. Processing d elayed) HEENT: Atraumatic, Mucous membr. moist/pink Lungs: Other (fine bibasilar crackles ) Heart: Other (IRRR; tele AFIB) Abdomen: Soft, No tenderness Extremities: Other (1-2+ bilateral LE edema ) Skin: No significant lesion Neuro: Sensation intact Psych/Mental Status: Other (calm, cooperative) MUSCULOSKELETAL: Osteoarthritic changes both hands VITALS/I&O VITALS/I&O: Vital Signs Date Time Temp Pulse Resp B/P (MAP) Pulse Ox O2 Delivery O2 Flow Rate FiO2 12/27/18 13:25 97.6 73 18 139/78 (98) 95 Room Air 97.6 LABS Lab: Laboratory Tests Test 12/27/18 08:50 12/27/18 10:21 12/27/18 12:33 12/27/18 12:35 White Blood Count 11.7 x10^3/uL (4.0-11.0) H Red Blood Count 4.35 x10^6/uL (4.30-5.70) Hemoglobin 12.6 g/dL (13.0-17.5) L Hematocrit 39.0 % (39.0-53.0) Mean Corpuscular Volume 90 fL (79-100) Mean Corpuscular Hemoglobin 29 pg (25-35) Mean Corpuscular Hemoglobin Concent 32 g/dL (31-37) Red Cell Distribution Width 18.0 % (11.5-14.5) H Platelet Count 336 x10^3/uL (140-400) Neutrophils (%) (Auto) 87 % (31-73) H Lymphocytes (%) (Auto) 5 % (24-48) L Monocytes (%) (Auto) 8 % (0-9) Eosinophils (%) (Auto) 0 % (0-3) Basophils (%) (Auto) 0 % (0-3) Neutrophils # (Auto) 10.1 x10^3/uL (1.8-7.7) H Lymphocytes # (Auto) 0.6 x10^3/uL (1.0-4.8) L Monocytes # (Auto) 0.9 x10^3/uL (0.0-1.1) Eosinophils # (Auto) 0.0 x10^3/uL (0.0-0.7) Basophils # (Auto) 0.0 x10^3/uL (0.0-0.2) Segmented Neutrophils % 93 % (35-66) H Band Neutrophils % 2 % (0-9) Lymphocytes % 5 % (24-48) L Platelet Estimate Adequate (ADEQUATE) Sodium Level 148 mmol/L (136-145) H Potassium Level 4.4 mmol/L (3.5-5.1) Chloride Level 111 mmol/L (98-107) H Carbon Dioxide Level 24 mmol/L (21-32) Anion Gap 13 (6-14) Blood Urea Nitrogen 46 mg/dL (8-26) H Creatinine 1.7 mg/dL (0.7-1.3) H Estimated GFR (Cockcroft-Gault) 39.2 BUN/Creatinine Ratio 27 (6-20) H Glucose Level 144 mg/dL (70-99) H Lactic Acid Level 2.9 mmol/L (0.4-2.0) H 1.8 mmol/L (0.4-2.0) Calcium Level 8.6 mg/dL (8.5-10.1) Magnesium Level 2.2 mg/dL (1.8-2.4) Total Bilirubin 2.5 mg/dL (0.2-1.0) H Aspartate Amino Transferase (AST) 282 U/L (15-37) H Alanine Aminotransferase (ALT) 271 U/L (16-63) H Alkaline Phosphatase 228 U/L (46-116) H Ammonia 13 mcmol/L (11-34) Creatine Kinase 317 U/L (39-308) H Creatine Kinase MB (Mass) 5.7 ng/mL (0.0-3.6) H Creatine Kinase MB Relative Index 1.8 % (0-4) Troponin I Quantitative 0.079 ng/mL (0.000-0.055) 0.044 ng/mL (0.000-0.055) EB-Tkc-U-Type Natriuretic Peptide > 55201 pg/mL (0-449) H Total Protein 6.6 g/dL (6.4-8.2) Albumin 3.0 g/dL (3.4-5.0) L Albumin/Globulin Ratio 0.8 (1.0-1.7) L Procalcitonin 0.11 ng/mL (0.00-0.10) H Thyroid Stimulating Hormone (TSH) 3.775 uIU/mL (0.358-3.74) H Ethyl Alcohol Level < 10 mg/dL (0-10) Urine Collection Type Void Urine Color Yellow Urine Clarity Cloudy Urine pH 6.5 Urine Specific [place] 1.015 Urine Protein 100 mg/dL (NEG-TRACE) Urine Glucose (UA) Negative mg/dL (NEG) Urine Ketones (Stick) Trace mg/dL (NEG) Urine Blood Moderate (NEG) Urine Nitrite Negative (NEG) Urine Bilirubin Negative (NEG) Urine Urobilinogen Dipstick 1.0 mg/dL (0.2 mg/dL) Urine Leukocyte Esterase Large (NEG) Urine RBC 3-5 /HPF (0-2) Urine WBC >40 /HPF (0-4) Urine Squamous Epithelial Cells Few /LPF Urine Renal Epithelial Cells Few /LPF Urine Bacteria 0 /HPF (0-FEW) Urine Opiates Screen Neg (NEG) Urine Methadone Screen Neg (NEG) Urine Barbiturates Neg (NEG) Urine Phencyclidine Screen Neg (NEG) Urine Amphetamine/Methamphetamine Neg (NEG) Urine Benzodiazepines Screen Neg (NEG) Urine Cocaine Screen Neg (NEG) Urine Cannabinoids Screen Neg (NEG) Urine Ethyl Alcohol Neg (NEG) Laboratory Tests 12/27/18 08:50 Laboratory Tests 12/27/18 08:50 ECHOCARDIOGRAM ECHOCARDIOGRAM <Conclusion> Left ventricle systolic function is moderately impaired. The Ejection Fraction is 35%. Tissue Doppler imaging reveals mild left ventricular diastolic dysfunction. Transmitral Doppler flow pattern is Grade I-abnormal relaxation pattern. The left ventricle is mildly dilated The left atrium size is normal. The right atrium size is normal. The aortic valve is mildly calcified. The aortic valve is trileaflet. Doppler and Color Flow revealed mild to moderate aortic regurgitation. Doppler and Color Flow revealed mild mitral regurgitation. Doppler and Color Flow revealed trace tricuspid regurgitation. The PA pressure was estimated at 24 mmHg. The pulmonic valve is not well visualized. There is no evidence of significant pericardial effusion. DATE: 10/16/16 1442 HEART CATH HEART CATH Coronary Angiography: - The patient's coronary anatomy is left dominant. - The left main coronary artery is a large size vessel free of disease. The left main trifurcates to the left anterior descending, circumflex, and ramus. - The left anterior descending artery is a large size vessel with intimal irregularities and without significant stenosis. The first diagonal branch is a medium size vessel with intimal irregularities and without significant stenosis. The second diagonal branch is a small size vessel with intimal irregularities and without significant stenosis. The third diagonal branch is a small size vessel free of disease. - The circumflex artery is a large size vessel with intimal irregularities and without significant stenosis. There is a 40% stenosis in the mid segment. The first obtuse marginal branch is a medium size vessel with intimal irregularities and without significant stenosis. The second obtuse marginal branch is a small size vessel free of disease. The third obtuse marginal branch is a small size vessel with intimal irregularities and without significant stenosis. The left posterior descending artery is a small size vessel free of disease. - The ramus intermedius artery is a small size vessel free of disease. - The right coronary artery is a small size vessel with intimal irregularities and without significant stenosis. There is a 45% stenosis in the proximal segment. Left Ventriculography The left ventricle is dilated in size with poor contractility. The left ventricular ejection fraction is estimated to be 25-30%%. The left ventricular end diastolic pressure is 20 mmHg. There was no gradient across the aortic valve upon pullback. Aorta The ascending aorta appears to be mildly dilated and in the ascending aortogram mild to moderate aortic insufficiency was seen. Conclusion This patient has a dilated cardiomyopathy with an ejection fraction that was estimated to be at the 25-30% range. There is no significant coronary artery disease but there is some plaquing of all the vessels. The ascending aorta is mildly dilated and there is mild to moderate aortic insufficiency. At this time from a cardiac standpoint I would recommend medical treatment for this patient. If he needs to have any noncardiac surgery I would suggest to try to minimize fluids to avoid overloading the patient. I do not think that the patient needs to go for any cardiac surgery at this time. Recommendations Medical Therapy DICTATED and SIGNED BY: PHILIPPE GALLO MD DATE: 10/19/16 9962 ASSESSMENT/PLAN ASSESSMENT/PLAN 1. Weakness, falls. FTT. No appetite > 4 days. 2. Elevated troponin; highest 0.07. Most probably type II, demand ischemia. Multifactorial 3. Acute on chronic systolic HF 4. NICM; LVEF 35% 2016 5. CAD s/p PCI/stent 2003. Cath 2016 without obstructive disease. Previous followed with Dr. Gallo. 6. Hypertension; controlled 7. Hyperlipidemia; not on statin 8. Diabetes, II 9. Chronic AFIB; not on ASA or OAC. Rate controlled without therapy. 10. Leukocytosis, Lactic acidosis, ? UTI 11. LATA on CKD 12. Elevated LFTs 13. Metabolic encephalopathy Recommendations Echo to assess LV systolic function Would recommend ASA for stroke prevention. Poor candidate for OAC given recurrent falls. Lipid panel Secondary prevention measures Low-dose BB Antibiotic therapy as per PCP MAGNUS TERRAZAS MD 12/27/18 3386: CARDIAC CONSULT ASSESSMENT/PLAN ASSESSMENT/PLAN Pt. seen and examined. Agree with above BASKET TURNER note. 78 y.o with multiple medical problems and frequent falls. continue rate control and will reassess need for anticoagulation on an outpt b asis given his recurrent falls. Consider referral for watchman device. Thanks YUE NAVARRO APRN Dec 27, 2018 14:03 MAGNUS TERRAZAS MD Dec 27, 2018 18:44
[2018-12-27 15:00] VITALS: BP 145/82
--- NOTE | 2018-12-27 15:22 | CARD ---
MR#: [id number] Date of Study: 12/27/2018 Ordering Physician: BIANCA WARREN, Referring Physician: BIANCA WARREN, Tech: Yusra Hernández APPROVED REPORT EXAM: Two-dimensional and M-mode echocardiogram with Doppler and color Doppler. Other Information Quality : GoodHR: 67bpm Technically limited study due to body habitus. INDICATION Atrial Fibrillation Congestive Heart Failure Elevated Troponin RISK FACTORS Hypertension Hyperlipidemia 2D DIMENSIONS RVDd3.5 (2.9-3.5cm)Left Atrium(2D)4.4 (1.6-4.0cm) IVSd1.3 (0.7-1.1cm)Aortic Root(2D)3.3 (2.0-3.7cm) LVDd6.2 (3.9-5.9cm)LVOT Diameter2.1 (1.8-2.4cm) PWd1.1 (0.7-1.1cm)LVDs5.3 (2.5-4.0cm) FS (%) 14.0 %SV56.8 ml LVEF(%)29.3 (>50%) Aortic Valve AoV Peak Bar.167.3cm/sAoV VTI27.5cm AO Peak GR.11.2mmHgLVOT VTI 18.88cm AO Mean GR.5mmHgAI P 1/2 Ueby470rd Mitral Valve MV E Cnjfcdcc910.4cm/sMV E Peak Gr.94mmHg MV DECEL SALG126ygRJ A Xmvuflnm34.9cm/s E/A Ratio2.8 TDI Lateral E' P. V12.05cm/sMedial E' P. V4.02cm/s E/Lateral E'9.0E/Medial E'27.0 Tricuspid Valve TR P. Jmybqeea084ab/sRAP TFSVFWEE71xhVi TR Peak Gr.67mmHg Pulmonary Vein S1 Ksxaecmx29.9cm/sS2 Aaxbgsqm32.92cm/s D2 Lyvkrhvl23.9cm/s LEFT VENTRICLE The Left Ventricle is mildly dilated. There is mild to moderate concentric left ventricular hypertrop hy. The systolic function is severely impaired. The Ejection Fraction is 30-35%. There is global hypo kinesis of the left ventricle. Tissue Doppler imaging reveals moderate left ventricular diastolic dys function. RIGHT VENTRICLE The right ventricle is borderline dilated. There is normal right ventricular wall thickness. Systolic function is borderline reduced. ATRIA The left atrium size is normal. The right atrium is mildly dilated. The interatrial septum is intact with no evidence for an atrial septal defect or patent foramen ovale as noted on 2-D or Doppler imagi ng. AORTIC VALVE The aortic valve is normal in structure and function. Doppler and Color Flow revealed mild aortic reg urgitation. There is no significant aortic valvular stenosis. MITRAL VALVE The mitral valve is mildly thickened. There is no evidence of mitral valve prolapse. There is no mitr al valve stenosis. Doppler and Color-flow revealed trace to mild mitral regurgitation. TRICUSPID VALVE The tricuspid valve is normal in structure and function. Doppler and Color Flow revealed trace to mil d tricuspid regurgitation with an estimated PAP of 28 mmHg. There is no tricuspid valve stenosis. PULMONIC VALVE Doppler and Color Flow revealed no pulmonic valvular regurgitation. There is no pulmonic valvular marcus nosis. GREAT VESSELS The aortic root is normal in size. The IVC is dilated and collapses <50% with inspiration. PERICARDIAL EFFUSION There is no evidence of significant pericardial effusion. Critical Notification Critical Value: No <Conclusion> The systolic function is severely impaired. The Ejection Fraction is 30-35%. There is global hypokinesis of the left ventricle. Technically difficult study Signed by : Neo Topete, Electronically Approved : 12/27/2018 15:22:02
[2018-12-27] MEDS ORDERED: FUROSEMIDE 20 MG/2 ML VIAL. IVP ONE (17:00)
[2018-12-27] MEDS: ASPIRIN ENTERIC COATED 81 MG TABLET.DR. PO SCH (17:44)
[2018-12-27 19:00] VITALS: BP 128/67
[2018-12-27] MEDS ORDERED: CIPROFLOXACIN HCL 250 MG TABLET. PO SCH (21:00)
[2018-12-27] MEDS: METOPROLOL TART IMMED RELEASE 25 MG TABLET. PO SCH (22:43)
[2018-12-27] MEDS: NEOMY/BACITR/POLYMYXIN OINT PACKET. TP SCH (22:44)
[2018-12-27] MEDS: GABAPENTIN 300 MG CAPSULE. PO SCH (22:44)
[2018-12-27 23:00] VITALS: BP 142/78
[2018-12-28 03:00] VITALS: BP 112/64
[2018-12-28 04:31] LABS: BASO % 0 % (0-3); EOS % 0 % (0-3); HEMATOCRIT 38.3 % (39.0-53.0); HEMOGLOBIN 12.6 g/dL (13.0-17.5); LYMPH # 0.6 x10^3/uL (1.0-4.8); LYMPH % 6 % (24-48); MEAN CORPUSCULAR HEMOGLOBIN 29 pg (25-35); MEAN CORPUSCULAR HGB CONC 33 g/dL (31-37); MEAN CORPUSCULAR VOLUME 89 fL (79-100); MONO # 0.7 x10^3/uL (0.0-1.1); MONO % 7 % (0-9); NEUT # 8.7 x10^3/uL (1.8-7.7); NEUT % 86 % (31-73); PLATELET COUNT 269 x10^3/uL (140-400); RED BLOOD COUNT 4.29 x10^6/uL (4.30-5.70); RED CELL DISTRIBUTION WIDTH 17.7 % (11.5-14.5); WHITE BLOOD COUNT 10.1 x10^3/uL (4.0-11.0)
[2018-12-28 04:41] LABS: CALCIUM 8.1 mg/dL (8.5-10.1); CREATININE 1.6 mg/dL (0.7-1.3); POTASSIUM 3.8 mmol/L (3.5-5.1)
[2018-12-28 04:47] LABS: CHOLESTEROL/HDL RATIO 3.9
[2018-12-28 07:32] VITALS: BP 140/80
--- NOTE | 2018-12-28 09:11 | PDOC ---
Provider Note Provider Note dictated EMMA SHEIKH MD Dec 28, 2018 09:11
[2018-12-28] MEDS: GABAPENTIN 300 MG CAPSULE. PO SCH ×2 (09:31→21:21)
[2018-12-28] MEDS: ASPIRIN ENTERIC COATED 81 MG TABLET.DR. PO SCH (09:32)
[2018-12-28] MEDS: METOPROLOL TART IMMED RELEASE 25 MG TABLET. PO SCH (09:35)
[2018-12-28] MEDS: NEOMY/BACITR/POLYMYXIN OINT PACKET. TP SCH ×2 (09:35→21:21)
[2018-12-28 11:32] VITALS: BP 134/77
--- NOTE | 2018-12-28 11:36 | NUR ---
Wound Care Wound care consult for R great toe wound. Pt has had great toe nail removed, no open wound noted. Left bandaid in place for protection. No other wounds noted on full skin inspection, pt left on right side with heels floated. WC will sign off at this time, please reconsult if new wounds develop.
[2018-12-28] MEDS ORDERED: FUROSEMIDE 20 MG/2 ML VIAL. IVP ONE (12:00)
--- NOTE | 2018-12-28 12:04 | PDOC ---
BIANCA WARREN OPERATION MANAGER 12/28/18 1204: CARDIO Progress Notes Date and Time Date of Service 12/28/2018 Time of Evaluation 1145 Subjective Subjective: No Chest Pain, No shortness of breath, No Palpitations, Other (laying flat no SOA) Vitals Vitals Vital Signs Date Time Temp Pulse Resp B/P (MAP) Pulse Ox O2 Delivery O2 Flow Rate FiO2 12/28/18 09:35 76 140/80 12/28/18 08:12 Room Air 12/28/18 07:32 97.4 20 100 97.4 Weight Weight [ ] Input and Output Intake and Output Intake and Output 12/28/18 06:59 Intake Total 2050 ml Output Total 100 ml Balance 1950 ml Intake Oral 1050 ml IV Total 1000 ml Output Urine Total 100 ml # Voids 1 Laboratory Labs Laboratory Tests Test 12/27/18 12:33 12/27/18 12:35 12/27/18 15:55 12/27/18 17:28 Lactic Acid Level 1.8 mmol/L (0.4-2.0) Troponin I Quantitative 0.044 ng/mL (0.000-0.055) 0.070 ng/mL (0.000-0.055) Glucose (Fingerstick) 107 mg/dL (70-99) Test 12/28/18 04:00 White Blood Count 10.1 x10^3/uL (4.0-11.0) Red Blood Count 4.29 x10^6/uL (4.30-5.70) Hemoglobin 12.6 g/dL (13.0-17.5) Hematocrit 38.3 % (39.0-53.0) Mean Corpuscular Volume 89 fL (79-100) Mean Corpuscular Hemoglobin 29 pg (25-35) Mean Corpuscular Hemoglobin Concent 33 g/dL (31-37) Red Cell Distribution Width 17.7 % (11.5-14.5) Platelet Count 269 x10^3/uL (140-400) Neutrophils (%) (Auto) 86 % (31-73) Lymphocytes (%) (Auto) 6 % (24-48) Monocytes (%) (Auto) 7 % (0-9) Eosinophils (%) (Auto) 0 % (0-3) Basophils (%) (Auto) 0 % (0-3) Neutrophils # (Auto) 8.7 x10^3/uL (1.8-7.7) Lymphocytes # (Auto) 0.6 x10^3/uL (1.0-4.8) Monocytes # (Auto) 0.7 x10^3/uL (0.0-1.1) Eosinophils # (Auto) 0.0 x10^3/uL (0.0-0.7) Basophils # (Auto) 0.0 x10^3/uL (0.0-0.2) Sodium Level 147 mmol/L (136-145) Potassium Level 3.8 mmol/L (3.5-5.1) Chloride Level 111 mmol/L (98-107) Carbon Dioxide Level 24 mmol/L (21-32) Anion Gap 12 (6-14) Blood Urea Nitrogen 44 mg/dL (8-26) Creatinine 1.6 mg/dL (0.7-1.3) Estimated GFR (Cockcroft-Gault) 42.0 Glucose Level 120 mg/dL (70-99) Calcium Level 8.1 mg/dL (8.5-10.1) Triglycerides Level 63 mg/dL (0-150) Cholesterol Level 116 mg/dL (0-200) LDL Cholesterol, Calculated 73 mg/dL (0-100) VLDL Cholesterol, Calculated 13 mg/dL (0-40) Non-HDL Cholesterol Calculated 86 mg/dL (0-129) HDL Cholesterol 30 mg/dL (40-60) Cholesterol/HDL Ratio 3.9 Microbiology Micro Microbiology 12/27/18 Blood Culture - Preliminary, Resulted NO GROWTH AFTER 1 DAY Physical Exam HEENT: Neck Supple W Full Motion Chest: Symmetric LUNGS: Other (basilar crackles) Heart: irregularly irregular (AFIB) Abdomen: Soft N/T Extremities: Other (2+ bilateral LE pitting edema) Neurology: alert, oriented, follow commands, other (forgetful) Assessment Assessment 1. Weakness/debility/falls/FTT 2. Elevated troponin; highest 0.07. Most probably type II, demand ischemia. Multifactorial 3. Acute on chronic systolic CHF: appears compensated but still overloaded 4. NICM; LVEF 35% same as 2017 5. CAD s/p PCI/stent 2003. Cath 2016 without obstructive disease. Previous followed with Dr. Gallo. 6. Hypertension; controlled 7. Hyperlipidemia; not on statin 8. Diabetes, II 9. Chronic AFIB; not on ASA or OAC. Rate controlled with intermittent episodes of bradycardia 10. Leukocytosis/UTI; antibiotic per PCP 11. LATA on CKD 12. Transaminitis: hepatic congestion vs cholestasis issue?. Defer to PCP 13. Metabolic encephalopathy with suspect underlying dementia Recommendations 1. Change to toprol but lower dose. 2. Once renal function is better then consider ACEi or ARB 3. Discussed conservative vs aggressive measures with daughter. Poor supervisor intermediates prognosis 4. AICD/watchman are options for aggressive therapy. 5. Would recommend ASA for stroke prevention. Poor candidate for OAC given recurrent falls. 6. lasix therapy. Hold statin for now. 7. Check INR and LFTs MAGNUS TERRAZAS MD 12/29/18 0024: CARDIO Progress Notes Plan Plan Pt. seen and examined. Agree with above job compositor note. Continue PT/OT modalities and supportive care Will f/u in the office and discuss further any aggresive measures. He is cachectic, bed ridden with poor snf prognosis, no acute indication for icd or other aggressive measures . Thanks BIANCA WARREN APRN Dec 28, 2018 12:04 MAGNUS TERRAZAS MD Dec 29, 2018 00:24
[2018-12-28] MEDS ORDERED: FUROSEMIDE 40 MG/4 ML VIAL. IVP ONE (12:15)
[2018-12-28] MEDS: POTASSIUM CL 20MEQ D5-0.45NACL 1,000 ML IV SCH ×2 (12:27→21:46)
[2018-12-28 12:46] LABS: ALBUMIN 2.6 g/dL (3.4-5.0); TOTAL BILIRUBIN 1.5 mg/dL (0.2-1.0); TOTAL PROTEIN 5.9 g/dL (6.4-8.2)
--- NOTE | 2018-12-28 13:45 | HP ---
ADMIT DATE: 12/28/2018 CHIEF COMPLAINT: Weakness and fall. HISTORY OF PRESENT ILLNESS: The patient was recently seen in the office with an infected toe when he got weaker and had a fall at home, he was unable to ambulate, and was also found to have urinary tract infection. He is sleeping now after receiving IV Rocephin and on the monitor, there have been no further problems. PAST MEDICAL HISTORY: Ongoing chronic urinary tract problems and prostate and bladder manipulations per his urologist. HOME MEDICATIONS: Listed. ALLERGIES: No known allergies. SOCIAL HISTORY: , not physically active, nondrinker. FAMILY HISTORY: Unremarkable. REVIEW OF SYSTEMS: No other known problems. OBJECTIVE: ENT: Mucosa dry. No specific lesions. He has dental caries present. NECK: No masses, nodes or bruits. LUNGS: Clear. CARDIOVASCULAR: Regular rate. No irregular beat or murmur. ABDOMEN: Soft, benign and nontender. EXTREMITIES: Reduced pedal pulses. No joint or skin lesions. NEUROLOGIC: Sleeping, was oriented and physiologic in the ER. ASSESSMENT: Urinary tract infections, infected toe, chronic kidney disease 3 with some degree of dehydration and weakness. PLAN: As ordered. EMMA SHEIKH MD DR: CLAYTON/lester JOB#: [id number] / [id number]
--- NOTE | 2018-12-28 15:11 | NUR ---
SS following for discharge planning. SS reviewed pt chart. Pt is from home with spouse and is currently on room air. No discharge needs noted at this time. SS will continue to follow for discharge planning.
[2018-12-28 15:26] VITALS: BP 126/66
[2018-12-28 16:13] LABS: PROTHROMBIN TIME PATIENT 18.3 SEC (11.7-14.0)
[2018-12-28] MEDS: cefTRIAXone IV Push 1 GM VIAL. IVP SCH (17:04)
[2018-12-28 19:00] VITALS: BP 142/79
[2018-12-28] MEDS: LACTOBACILLUS RHAMNOSUS GG 1 CAPSULE. PO SCH (21:21)
[2018-12-28 23:06] VITALS: BP 109/56
[2018-12-29 03:09] VITALS: BP 142/78
[2018-12-29 05:13] LABS: CALCIUM 7.7 mg/dL (8.5-10.1); CREATININE 1.5 mg/dL (0.7-1.3); GFR 45.3; POTASSIUM 3.9 mmol/L (3.5-5.1)
[2018-12-29 07:55] VITALS: BP 123/73
[2018-12-29] MEDS: GABAPENTIN 300 MG CAPSULE. PO SCH (08:40)
[2018-12-29] MEDS: ASPIRIN ENTERIC COATED 81 MG TABLET.DR. PO SCH (08:40)
[2018-12-29] MEDS: LACTOBACILLUS RHAMNOSUS GG 1 CAPSULE. PO SCH (08:40)
[2018-12-29] MEDS: METOPROLOL SUCC 24HR ER 25 MG TAB.ER.24H. PO SCH (08:41)
[2018-12-29] MEDS: NEOMY/BACITR/POLYMYXIN OINT PACKET. TP SCH ×2 (08:41→20:50)
[2018-12-29] MEDS ORDERED: METOPROLOL SUCC 24HR ER 25 MG TAB.ER.24H. PO SCH (09:00)
[2018-12-29] MEDS ORDERED: FUROSEMIDE 40 MG TABLET. PO SCH (09:00)
[2018-12-29 11:29] VITALS: BP 119/73
--- NOTE | 2018-12-29 11:55 | PDOC ---
Provider Note Provider Note asleep, vss, no temp- renal better re lab, fluids- has large RUL in filtrate/lesion on cxr , suspect tumor- will ct - transfer to floor as comfort care, same meds re ? uti/pneumonia for now EMMA SHEIKH MD Dec 29, 2018 11:55
[2018-12-29] MEDS: POTASSIUM CL 20MEQ D5-0.45NACL 1,000 ML IV SCH (12:00)
[2018-12-29] MEDS: GABAPENTIN 100 MG CAPSULE. PO SCH ×2 (12:01→20:49)
--- NOTE | 2018-12-29 13:08 | RAD ---
CT scan of the chest without contrast 12/29/2018 CLINICAL HISTORY: Consolidation seen in the right upper lobe on chest radiograph. TECHNIQUE: Unenhanced, contiguous, 5 mm axial sections were obtained through the chest and upper abdomen. One or more of the following individualized dose reduction techniques were utilized for this study: 1. Automated exposure control. 2. Adjustment of the mA and/or kV according to patient size. 3. Use of iterative reconstruction technique. FINDINGS: Comparison is made to patient's portable chest radiograph dated 12/27/2018. Atherosclerotic calcification of the thoracic aorta and its branches is noted. The thoracic aorta is tortuous but tapers normally. Fairly extensive coronary artery calcifications are seen. The heart is mildly enlarged. Calcified left hilar lymph nodes are seen. A moderate to large sized right pleural effusion is seen. A small left pleural effusion is noted. Right upper lobe atelectasis and/or infiltrate and right lower lobe atelectasis and/or infiltrate are seen. Dependent subsegmental atelectasis is seen involving the right middle lobe. Subsegmental atelectasis is seen involving the left upper lobe and left lower lobe. No pneumothorax is seen. Images through the upper abdomen demonstrate atrophy of the left kidney. Multiple renal calculi are seen, left greater than right. A small amount of ascites is noted. Atherosclerotic calcification of the abdominal aorta is seen. Degenerative changes are seen involving the thoracic spine. IMPRESSION: Moderate to large right pleural effusion. Small left pleural effusion. Areas of atelectasis and/ or infiltrate are seen involving the right upper lobe and right lower lobe. Areas of subsegmental atelectasis are seen involving the left upper lobe, left upper lobe and right middle lobe. Electronically signed by: Joshua Umana MD (12/29/2018 1:05 PM) [facility]
[2018-12-29] MEDS: cefTRIAXone IV Push 1 GM VIAL. IVP SCH (15:47)
[2018-12-29 15:54] VITALS: BP 116/71
[2018-12-29] MEDS ORDERED: FUROSEMIDE 40 MG/4 ML VIAL. IVP ONE (16:15)
[2018-12-29 19:44] VITALS: BP 120/71
[2018-12-29] MEDS ORDERED: LACTOBACILLUS RHAMNOSUS GG 1 CAPSULE. PO SCH (21:00)
[2018-12-29 22:08] VITALS: BP 123/75
[2018-12-30 03:00] VITALS: BP 119/64
[2018-12-30 07:00] VITALS: BP 125/72
[2018-12-30] MEDS: GABAPENTIN 100 MG CAPSULE. PO SCH ×2 (08:47→21:08)
[2018-12-30] MEDS: NEOMY/BACITR/POLYMYXIN OINT PACKET. TP SCH ×2 (08:47→21:08)
[2018-12-30] MEDS: METOPROLOL SUCC 24HR ER 25 MG TAB.ER.24H. PO SCH (08:48)
--- NOTE | 2018-12-30 10:46 | PDOC ---
Provider Note Provider Note more alert , good output, no more temp- seems some af, rate slow re metop- prior cath 2016 showed no CAD- large R pleural effusion per CT, ? cardiogenic vs infection/occult CA- will seek tap re cytology, cults, ph dr perrin to see as pt states he is having some uro procedure soon- no OAC for now- more iv lasix re fluid- NEEDS TO BE IN HOSPITAL EMMA SHEIKH MD Dec 30, 2018 10:46
[2018-12-30 11:00] VITALS: BP 129/74
[2018-12-30] MEDS ORDERED: FUROSEMIDE 40 MG/4 ML VIAL. IVP ONE (11:00)
[2018-12-30] MEDS: SPIRONOLACTONE 25 MG TABLET PO SCH (12:00)
[2018-12-30] MEDS: POTASSIUM CHLORIDE 10 MEQ TABLET.ER. PO SCH ×2 (12:01→16:07)
--- NOTE | 2018-12-30 12:09 | PDOC ---
Provider Note Provider Note [id number] acute resp fail abnl cxr pleural effusion see orders DULCE FIELDS MD Dec 30, 2018 12:09
--- NOTE | 2018-12-30 12:33 | PDOC2 ---
UROLOGY CONSULT Date of Consult Date of Consult DATE: 12/30/18 TIME: 12:26 Source Source: Chart review, Patient History of Present Illness Reason for Visit: 78 yo male admitted for respiratory failure. CT shows large pleural effusion. Patient reports improved breathing since admission. He sees Dr. Carreno, urology, has known severe urethral stricture, planning for urethral dilation in OR on 01/09. Urine culture 12/27 growing gram negative organisms. Patient denies urinary difficulty. He is having frequent urination, voiding with out awareness. Past Medical History Cardiovascular: AFIB, CAD, CHF, HTN, Hyperlipidemia CENTRAL NERVOUS SYSTEM: Periperal neuropathy GI: GERD Heme/Onc: Other (PE/DVT) Musculoskeletal: Osteoarthritis Renal/: Chronic renal insuff, Benign prostatic enlarg. Endocrine: Diabetes Past Surgical History Past Surgical History: Other Family History Family History: Coronary Artery Disease, Diabetes, Hypertension Social History No ALCOHOL: none Drugs: None Lives: with Family Current Medications Current Medications Current Medications Furosemide (Lasix) 40 mg 1X ONCE IVP Last administered on 12/29/18at 16:38; Start 12/29/18 at 16:15; Stop 12/29/18 at 16:20; Status DC Furosemide (Lasix) 40 mg 1X ONCE IVP Last administered on 12/30/18at 12:04; Start 12/30/18 at 11:00; Stop 12/30/18 at 11:01; Status DC Gabapentin (Neurontin) 100 mg BID PO Last administered on 12/30/18at 08:50; Start 12/29/18 at 12:30 Lactobacillus Rhamnosus (Culturelle) 1 cap BID PO ; Start 12/29/18 at 21:00; Stop 12/29/18 at 16:02; Status DC Potassium Chloride (Klor-Con) 10 meq BIDAFTMEAL PO Last administered on 12/30/18at 12:04; Start 12/30/18 at 12:00 Spironolactone (Aldactone) 25 mg DAILY PO Last administered on 12/30/18at 12:04; Start 12/30/18 at 11:00 Allergies Allergies: Coded Allergies: No Known Drug Allergies (Unverified , 04/02/15) ROS Review Of Systems: Except as noted in HPI: CONSTITUTIONAL: No fever or chills EYES: No recent changes SKIN: No rash or itching CARDIOVASCULAR: No chest pain, syncope, palpitations, or edema RESPIRATORY: + SOB - improved since admission GASTROINTESTINAL: No nausea, vomiting or abdominal pain NEUROLOGICAL: No headaches or weakness ENDOCRINE: No cold or heat intolerance GENITOURINARY: No urgency or frequency of urination MUSCULOSKELETAL: No back pain or joint pain LYMPHATICS: No enlarged lymph nodes PSYCHIATRIC: No anxiety or depression Physical Exam Physical Exam: General: Pleasant, no acute distress, well groomed Eyes: conjunctiva anicteric, eyes full range of motion ENT: moist oral mucosa, normal dentition Neck: Trachea midline, no masses Respiratory: unlabored breathing, not using accessory muscles, no crackles or wheezes Cardiovascular: Regular rate and rhythm, no peripheral edema Abdomen: nontender, nondistended, no hepatosplenomegaly, no masses Skin: no rashes or skin lesions on visualized skin Psych: normal mood, affect. Alert and oriented x 3. Vitals VITALS Vital Signs Date Time Temp Pulse Resp B/P (MAP) Pulse Ox O2 Delivery O2 Flow Rate FiO2 12/30/18 11:00 97.4 60 16 129/74 (92) 100 Nasal Cannula 2.0 97.4 Labs Labs Laboratory Tests Test 12/28/18 14:20 12/29/18 03:00 Prothrombin Time 18.3 SEC (11.7-14.0) Prothromb Time International Ratio 1.6 (0.8-1.1) Sodium Level 146 mmol/L (136-145) Potassium Level 3.9 mmol/L (3.5-5.1) Chloride Level 111 mmol/L (98-107) Carbon Dioxide Level 26 mmol/L (21-32) Anion Gap 9 (6-14) Blood Urea Nitrogen 37 mg/dL (8-26) Creatinine 1.5 mg/dL (0.7-1.3) Estimated GFR (Cockcroft-Gault) 45.3 Glucose Level 256 mg/dL (70-99) Calcium Level 7.7 mg/dL (8.5-10.1) Assessment/Plan Assessment/Plan Urethral stricture: Does not need acute treatment. Needs UTI treated and pleural effusion addressed before he can go to OR. Pending above management, might be able to treat urethral stricture later this admission. CONNIE CARRERA MD Dec 30, 2018 12:33
[2018-12-30 15:00] VITALS: BP 137/75
[2018-12-30] MEDS: cefTRIAXone IV Push 1 GM VIAL. IVP SCH (15:29)
[2018-12-30 19:17] VITALS: BP 127/81
--- NOTE | 2018-12-30 22:20 | CONS ---
DATE OF CONSULTATION: 12/30/2018 I was asked to see this 78-year-old gentleman for abnormal CT of the chest and pleural effusion. HISTORY OF PRESENT ILLNESS: The patient is somewhat confused. He is alert to himself, but does not know how old he is and answers "I don't remember" to most of my questions. Apparently, his found him on the floor. reported that the patient had not been feeling well for a week or so, although he said that he has not been able to walk for 6 weeks. He did not eat much. He was confused. He has had multiple falls. He had a toenail taken off last week and was placed on oral antibiotic per Dr. Milligan. He has history of AFib, but not on anticoagulation. He said he feels tired. Denied shortness of breath. He has occasional cough. He denies fever or chills. He had a chest x-ray done, which did show bilateral effusion. A CT of the chest was done on 12/29 did show bilateral pleural effusion, moderate to large on the right side and small on the left. There is atelectasis and/or infiltrate in the right upper lobe and right lower lobe area. Subsegmental atelectasis is seen in left upper lobe and right middle lobe area. PAST MEDICAL HISTORY: AFib, coronary artery disease, cardiomyopathy, CHF, hypertension, hyperlipidemia and peripheral neuropathy. ALLERGIES: No known drug allergies. MEDICATIONS: Currently, he is on potassium chloride, spironolactone, gabapentin, metoprolol, Rocephin. SOCIAL HISTORY: He is a lifetime nonsmoker. FAMILY HISTORY: Hypertension and coronary artery disease. REVIEW OF SYSTEMS: As mentioned as above. I have discussed the patient with RN, other systems otherwise negative. PHYSICAL EXAMINATION: GENERAL: This is an elderly, chronically ill-appearing gentleman. VITAL SIGNS: His O2 saturation on 2 liters of oxygen is 97%, respiratory rate 16, heart rate 60, blood pressure 129/74, temperature 97.4. HEENT: Normocephalic, atraumatic. Pupils equal, round, reactive to light. Throat is clear. Nose is clear. NECK: Positive JVD. No lymphadenopathy. CARDIOVASCULAR: Irregularly irregular rhythm. CHEST: Inspection is normal. LUNGS: There are bibasilar crackles, dullness at the bases. ABDOMEN: Soft. Bowel sounds are good. There is no mass. EXTREMITIES: There is chronic changes and edema. SKIN: Chronic changes. NEUROLOGIC: Alert, confused at times. LYMPHATICS: There is no lymphadenopathy. LABORATORY DATA: I reviewed the following lab data. CT of the chest and chest x-ray as mentioned as above. WBC 10.1, hemoglobin 12.6, platelet 269. Sodium 146, potassium 3.9, chloride 111, CO2 of 26, glucose 256, BUN 37, creatinine 1.5. His cardiac catheterization in 2017, cardiomyopathy with ejection fraction 25-30%. No significant coronary artery disease. IMPRESSION: 1. Acute respiratory failure secondary to bilateral pleural effusion and atelectasis, ?infiltrate. Differential diagnosis of pleural fluid, inflammatory versus infectious, versus granulomatous, versus malignancy, versus congestive heart failure, versus others. 2. Weakness, status post fall. 3. Acute on chronic systolic congestive heart failure. 4. Nonischemic cardiomyopathy. 5. Coronary artery disease. 6. Hypertension. 7. Hyperlipidemia. 8. Diabetes mellitus. 9. Chronic atrial fibrillation. 10. Acute kidney injury. 11. Elevated liver function test. PLAN AND RECOMMENDATIONS: 1. Titrate FiO2 to keep O2 saturation 92%. 2. Continue antibiotic. 3. I do recommend right pleural effusion thoracentesis by IR. 4. Fall precaution. 5. Monitor creatinine and potassium. 6. The findings and recommendations were discussed with the patient and RN. Thank you very much for allowing me to participate in care of this very nice gentleman. DULCE FIELDS M.D. DR: Rickie JOB#: [id number] / [id number]
[2018-12-30 22:23] VITALS: BP 121/71
[2018-12-31] VITALS (9 sets, daily range): BP systolic 105–149; BP diastolic 59–83
[2018-12-31] MEDS: GABAPENTIN 100 MG CAPSULE. PO SCH ×2 (08:31→20:53)
[2018-12-31] MEDS: NEOMY/BACITR/POLYMYXIN OINT PACKET. TP SCH ×2 (08:31→20:53)
[2018-12-31] MEDS: METOPROLOL SUCC 24HR ER 25 MG TAB.ER.24H. PO SCH (08:32)
[2018-12-31] MEDS: SPIRONOLACTONE 25 MG TABLET PO SCH (08:33)
--- NOTE | 2018-12-31 08:37 | PDOC ---
Provider Note Provider Note vss, no temp, more alert- TAs better, inr 1.6, repeat and do gb sono- ct 2016 showed no gi lesions- for tap today re R effusion, urine cult pendig re gram neg rods- EMMA SHEIKH MD Dec 31, 2018 08:37
[2018-12-31 09:20] LABS: ALBUMIN 2.6 g/dL (3.4-5.0); DIRECT BILIRUBIN 0.5 mg/dL (0.0-0.2); TOTAL BILIRUBIN 0.8 mg/dL (0.2-1.0)
[2018-12-31 09:32] LABS: PROTHROMBIN TIME PATIENT 14.9 SEC (11.7-14.0)
--- NOTE | 2018-12-31 09:52 | RAD ---
ABDOMEN LTD History: Transaminitis Comparison: CT December 29, 2018. Technique: Transabdominal ultrasound images are obtained of the right upper quadrant. Findings: Visualized pancreas is normal seen due to overlying bowel gas Liver is normal in echogenicity. Right hepatic lobe measures 17.4 cm. Portal flow is hepatopedal. Small perihepatic ascites. Prior cholecystectomy. Common bile duct caliber is normal measuring 5 mm in diameter. The right kidney measures 12.0 x 4.5 x 5.0 cm. Right renal calculus measures approximately 1.5 cm. No hydronephrosis. Visualized portions of the aorta and IVC have normal caliber. Right pleural effusion. IMPRESSION: 1. Unremarkable appearance of the liver. 2. Small ascites adjacent to the right hepatic lobe and right kidney. 3. Right pleural effusion. 4. Right nonobstructing renal calculus. 5. Prior cholecystectomy. Electronically signed by: Ricardo Fernández DO (12/31/2018 9:49 AM) [id number]
--- NOTE | 2018-12-31 11:46 | NUR ---
rt thoracentesis drainage is slightly cloudy yellow in appearance Addendum: 12/31/18 at 1147 by JACKY DURAND RN Amended: Links added.
--- NOTE | 2018-12-31 12:10 | RAD ---
Ultrasound-guided right-sided thoracentesis 12/31/2018 10:06 AM Indication: r pleural effusion Procedure: Informed consent was obtained. A timeout procedure was performed. Sonographic evaluation of the right chest was performed demonstrating moderate pleural effusion. The right posterior chest was prepped and draped in sterile fashion. 1% lidocaine without epinephrine was administered for local anesthesia. Real-time ultrasonographic guidance was used in passing a 5 [place] [employer] catheter into the right pleural space. 1.6 L of serosanguineous pleural fluid was removed. Samples of fluid were sent to the lab for further evaluation per ordering physician request. The catheter was removed and pressure held to achieve hemostasis. A sterile dressing was applied. No immediate complications were identified. The patient tolerated the procedure well. Impression: Right sided ultrasound-guided thoracentesis
--- NOTE | 2018-12-31 13:01 | PDOC ---
PULMONARY PROGRESS NOTES Subjective feels better after thoracentesis Vitals Vital Signs Date Time Temp Pulse Resp B/P (MAP) Pulse Ox O2 Delivery O2 Flow Rate FiO2 12/31/18 11:40 64 24 121/65 (83) 99 Nasal Cannula 2.0 12/31/18 10:37 97.9 97.9 General: Alert, No acute distress Lungs: Other (decrease right base) Cardiovascular: S1 Abdomen: Soft Neuro Exam: Alert Extremities: Other (1+edema) Labs Laboratory Tests Test 12/31/18 07:10 12/31/18 11:30 Prothrombin Time 14.9 SEC (11.7-14.0) Prothromb Time International Ratio 1.2 (0.8-1.1) Glucose Level 168 mg/dL (70-99) Total Bilirubin 0.8 mg/dL (0.2-1.0) Direct Bilirubin 0.5 mg/dL (0.0-0.2) Aspartate Amino Transf (AST/SGOT) 77 U/L (15-37) Alanine Aminotransferase (ALT/SGPT) 149 U/L (16-63) Alkaline Phosphatase 217 U/L (46-116) Lactate Dehydrogenase 231 U/L (85-227) Total Protein 6.0 g/dL (6.4-8.2) Albumin 2.6 g/dL (3.4-5.0) Hepatitis C IgG Antibody Nonreactive (Nonreactive) Body Fluid pH 7.78 Laboratory Tests Test 12/31/18 07:10 12/31/18 11:30 Prothrombin Time 14.9 SEC (11.7-14.0) Prothromb Time International Ratio 1.2 (0.8-1.1) Glucose Level 168 mg/dL (70-99) Total Bilirubin 0.8 mg/dL (0.2-1.0) Direct Bilirubin 0.5 mg/dL (0.0-0.2) Aspartate Amino Transf (AST/SGOT) 77 U/L (15-37) Alanine Aminotransferase (ALT/SGPT) 149 U/L (16-63) Alkaline Phosphatase 217 U/L (46-116) Lactate Dehydrogenase 231 U/L (85-227) Total Protein 6.0 g/dL (6.4-8.2) Albumin 2.6 g/dL (3.4-5.0) Hepatitis C IgG Antibody Nonreactive (Nonreactive) Body Fluid pH 7.78 Medications Active Scripts Medications Dose Route/Sig Max Daily Dose Days Date Category Cipro (Ciprofloxacin Hcl) 500 Mg Tablet 1 Tab PO BID 03/31/17 Rx Gabapentin 600 Mg Tablet 300 Mg PO BID 05/27/13 Reported Impression . 1. Acute respiratory failure secondary to bilateral pleural effusion and atelectasis, Highly likely due to ACUTE SYSTOLIC CHF 2. Weakness, status post fall. 3. Acute on chronic systolic congestive heart failure. 4. Nonischemic cardiomyopathy. EF 35% 5. Coronary artery disease. 6. Hypertension. 7. Hyperlipidemia. 8. Diabetes mellitus. 9. Chronic atrial fibrillation. 10. Acute kidney injury. 11. Elevated liver function test. Plan . 1. Titrate FiO2 to keep O2 saturation 92%. 2. may dc antibiotic. 3. S/P right pleural effusion thoracentesis . Will review analysis 4. Fall precaution. 5. Monitor creatinine and potassium. 6. The findings and recommendations were discussed with the patient and RN. 7. cardiology rec CHRISTEN BENITEZ MD Dec 31, 2018 13:01
--- NOTE | 2018-12-31 13:13 | NUR ---
SS following up with discharge planning. Pt is currently requiring oxygen. PT/OT ordered. Per pt's RN, pt will need [facility] unit at discharge. SS met with pt to discuss discharge planning and [facility] unit. Pt reported that he has been to [facility] in the past and would like to return. SS will await PT/OT evaluations and recommendations and will send referral once received. Pt's RN notified.
[2018-12-31 13:17] LABS: BF CLARITY HAZY; BF COLOR YELLOW; BF RBC COUNT 1781 /cmm (Not Established); BF SOURCE PLEURAL; BF WBC COUNT 161 /cmm (Not Established)
[2018-12-31 13:18] LABS: BF OTHER % 6 %
--- NOTE | 2018-12-31 14:49 | RAD ---
PORTABLE CHEST 1V Clinical indications: 1 hour status post thoracentesis. COMPARISON: December 27, 2018 chest x-ray. Findings: Right-sided pleural effusion has decreased in size after thoracentesis. It is now small in size. There is no pneumothorax present. There is improved aeration of the right lung base although persistent right lung base atelectasis is seen. Persistent bilateral interstitial infiltrates or pulmonary edema are seen. Heart size and mediastinum are stable. IMPRESSION: No pneumothorax after thoracentesis. Electronically signed by: Steve Fragoso MD (12/31/2018 2:46 PM) [place] [id number]
[2018-12-31] MEDS: cefTRIAXone IV Push 1 GM VIAL. IVP SCH (15:38)
[2018-12-31] MEDS: traMADol 50 MG TABLET PO PRN (15:46)
[2019-01-01 03:00] VITALS: BP 111/73
[2019-01-01 07:00] VITALS: BP 119/72
--- NOTE | 2019-01-01 08:29 | PDOC ---
Provider Note Provider Note VSS, BETTER AFTER TAP, FLUID LOOKS TRANSUDATIVE- WILL ADD ZACKERY TO ALDACTONE, METOP- URINE SHOWS psa, WILL CHANGE TO CIPRO, URETHRAL OBSTRUCTION IS LIKELY SOURCE- for surgery soon-- 6 min walk, rehab assess EMMA SHEKIH MD Jan 01, 2019 08:29
[2019-01-01] MEDS ORDERED: SPIRONOLACTONE 25 MG TABLET PO SCH (09:00)
[2019-01-01] MEDS: GABAPENTIN 100 MG CAPSULE. PO SCH ×2 (09:17→21:35)
[2019-01-01] MEDS: CIPROFLOXACIN HCL 250 MG TABLET. PO SCH ×2 (09:17→21:36)
[2019-01-01] MEDS: SPIRONOLACTONE 25 MG TABLET PO SCH (09:17)
[2019-01-01] MEDS: METOPROLOL SUCC 24HR ER 25 MG TAB.ER.24H. PO SCH (09:17)
[2019-01-01] MEDS: LISINOPRIL 5 MG TABLET. PO SCH (09:18)
[2019-01-01] MEDS: NEOMY/BACITR/POLYMYXIN OINT PACKET. TP SCH ×2 (09:19→21:35)
[2019-01-01 09:40] LABS: CALCIUM 8.3 mg/dL (8.5-10.1); CREATININE 1.1 mg/dL (0.7-1.3); GFR 64.7; POTASSIUM 4.5 mmol/L (3.5-5.1)
[2019-01-01 11:00] VITALS: BP 107/67
[2019-01-01 11:39] LABS: BF MON % 90 %; BF PMN % 4 %
--- NOTE | 2019-01-01 11:59 | PDOC ---
PULMONARY PROGRESS NOTES Subjective feels better after thoracentesis Vitals Vital Signs Date Time Temp Pulse Resp B/P (MAP) Pulse Ox O2 Delivery O2 Flow Rate FiO2 01/01/19 11:00 97.9 60 18 107/67 (80) 99 Nasal Cannula 2.0 97.9 General: Alert, No acute distress Lungs: Other (decrease right base) Cardiovascular: S1 Abdomen: Soft Neuro Exam: Alert Extremities: Other (1+edema) Labs Laboratory Tests Test 12/31/18 07:10 12/31/18 11:30 01/01/19 09:10 Prothrombin Time 14.9 SEC (11.7-14.0) Prothromb Time International Ratio 1.2 (0.8-1.1) Glucose Level 168 mg/dL (70-99) 152 mg/dL (70-99) Total Bilirubin 0.8 mg/dL (0.2-1.0) Direct Bilirubin 0.5 mg/dL (0.0-0.2) Aspartate Amino Transf (AST/SGOT) 77 U/L (15-37) Alanine Aminotransferase (ALT/SGPT) 149 U/L (16-63) Alkaline Phosphatase 217 U/L (46-116) Lactate Dehydrogenase 231 U/L (85-227) Total Protein 6.0 g/dL (6.4-8.2) Albumin 2.6 g/dL (3.4-5.0) Hepatitis C IgG Antibody Nonreactive (Nonreactive) Body Fluid Source Pleural Body Fluid Color Yellow Body Fluid Clarity Hazy Body Fluid pH 7.78 Body Fluid Nucleated Cells 161 /cmm (Not Established) Body Fluid Mononuclear WBCs (%) 90 % Body Fluid Polymorphonuclear Cells 4 % Body Fluid Total RBCs Counted 1781 /cmm (Not Established) Body Fluid Other Cells (%) 6 % Sodium Level 142 mmol/L (136-145) Potassium Level 4.5 mmol/L (3.5-5.1) Chloride Level 105 mmol/L (98-107) Carbon Dioxide Level 32 mmol/L (21-32) Anion Gap 5 (6-14) Blood Urea Nitrogen 28 mg/dL (8-26) Creatinine 1.1 mg/dL (0.7-1.3) Estimated GFR (Cockcroft-Gault) 64.7 Calcium Level 8.3 mg/dL (8.5-10.1) Laboratory Tests Test 01/01/19 09:10 Sodium Level 142 mmol/L (136-145) Potassium Level 4.5 mmol/L (3.5-5.1) Chloride Level 105 mmol/L (98-107) Carbon Dioxide Level 32 mmol/L (21-32) Anion Gap 5 (6-14) Blood Urea Nitrogen 28 mg/dL (8-26) Creatinine 1.1 mg/dL (0.7-1.3) Estimated GFR (Cockcroft-Gault) 64.7 Glucose Level 152 mg/dL (70-99) Calcium Level 8.3 mg/dL (8.5-10.1) Medications Active Scripts Medications Dose Route/Sig Max Daily Dose Days Date Category Cipro (Ciprofloxacin Hcl) 500 Mg Tablet 1 Tab PO BID 03/31/17 Rx Gabapentin 600 Mg Tablet 300 Mg PO BID 05/27/13 Reported Impression . 1. Acute respiratory failure secondary to bilateral pleural effusion and atelectasis, Highly likely due to ACUTE SYSTOLIC CHF 2. Weakness, status post fall. 3. Acute on chronic systolic congestive heart failure. 4. Nonischemic cardiomyopathy. EF 35% 5. Coronary artery disease. 6. Hypertension. 7. Hyperlipidemia. 8. Diabetes mellitus. 9. Chronic atrial fibrillation. 10. Acute kidney injury. 11. Elevated liver function test. Plan . 1. Titrate FiO2 to keep O2 saturation 92%. 2. po antibiotic. 3. S/P right pleural effusion thoracentesis . Will review analysis, suspect transudate 4. Fall precaution. 5. Monitor creatinine and potassium. 6. The findings and recommendations were discussed with the patient and RN. 7. cardiology rec CHRISTEN BENITEZ MD Jan 01, 2019 11:59
--- NOTE | 2019-01-01 13:32 | NUR ---
SS following up with discharge planning. PT evaluated and recommended group home unit. SS phoned and faxed referral to [facility], ; fax [phone]. SS will await acceptance decision and insurance determination and will proceed accordingly with discharge planning.
[2019-01-01 15:00] VITALS: BP 102/62
--- NOTE | 2019-01-01 16:18 | NUR ---
SS following up with discharge planning. Pt accepted at [facility] pending insurance authorization. Pt's RN notified.
[2019-01-01 19:56] VITALS: BP 114/71
[2019-01-01] MEDS: traMADol 50 MG TABLET PO PRN (21:35)
[2019-01-01 23:16] VITALS: BP 113/78
[2019-01-02 03:12] VITALS: BP 106/64
[2019-01-02 07:11] VITALS: BP 118/71
[2019-01-02] MEDS: LISINOPRIL 5 MG TABLET. PO SCH (08:46)
[2019-01-02] MEDS: NEOMY/BACITR/POLYMYXIN OINT PACKET. TP SCH ×2 (08:46→21:39)
[2019-01-02] MEDS: SPIRONOLACTONE 25 MG TABLET PO SCH (08:46)
[2019-01-02] MEDS: GABAPENTIN 100 MG CAPSULE. PO SCH ×2 (08:46→21:39)
[2019-01-02] MEDS: METOPROLOL SUCC 24HR ER 25 MG TAB.ER.24H. PO SCH (08:46)
[2019-01-02] MEDS: CIPROFLOXACIN HCL 250 MG TABLET. PO SCH (08:46)
--- NOTE | 2019-01-02 09:09 | PDOC ---
Provider Note Provider Note vss, no temp, exam same, af controlled rate - psa/urine is resistant to cipro, he came in w/ sepsis from stricture- will add merrem iv, rest same EMMA SHEIKH MD Jan 02, 2019 09:09
[2019-01-02 10:25] VITALS: BP 110/72
[2019-01-02] MEDS: MEROPENEM 500 MG in IV NORMAL SALINE 50ML 50 ML IV SCH ×3 (10:40→23:30)
--- NOTE | 2019-01-02 11:41 | PDOC ---
JENSEN DAVIS 01/02/19 1141: SUBJECTIVE Subjective Doing well. Denies difficulty urinating or pain. OBJECTIVE Objective Physical Exam: Alert, oriented x3. NAD. pleasant. Breathing unlabored. Abdomen soft, nontender, nondistended UA: culture final - pseudomonas Vital Signs Vital Signs Date Time Temp Pulse Resp B/P (MAP) Pulse Ox O2 Delivery O2 Flow Rate FiO2 01/02/19 10:25 97.7 52 18 110/72 (85) 99 Nasal Cannula 2.0 97.7 01/02/19 08:46 69 118/71 01/02/19 08:46 69 118/71 01/02/19 08:00 Nasal Cannula 2.0 01/02/19 07:11 97.6 59 16 118/71 (87) 99 Nasal Cannula 2.0 97.6 01/02/19 03:12 97.5 57 16 106/64 (78) 96 Room Air 97.5 01/01/19 23:16 98.1 70 18 113/78 (90) 95 Nasal Cannula 2.0 98.1 01/01/19 22:36 18 91 Nasal Cannula 2.0 01/01/19 21:36 18 91 Nasal Cannula 2.0 01/01/19 20:00 Nasal Cannula 2.0 01/01/19 19:56 98.1 57 18 114/71 (85) 91 Room Air 98.1 01/01/19 15:00 98.1 55 18 102/62 (75) 100 Nasal Cannula 2.0 98.1 I & O Intake and Output 01/02/19 07:00 Intake Total 440 ml Output Total 300 ml Balance 140 ml Intake Oral 440 ml Output Urine Total 300 ml # Voids 7 # Bowel Movements 1 ASSESSMENT/PLAN Assessment/Plan Urethral stricture No acute treatment necessary Scheduled for dilation in OR with Dr. Carreno 01/09/19 Dr. Carreno to round on pt Nutrition Consultation Dietary Evaluation: Recommendations by RD: Increase Calorie Intake, Protein supplementation Comments: Continue w/mechanical soft/ADA/low salt diet w/thin liquids Continue w/Glucerna TID (chocolate) Will remove Ensure pudding from meals; offer snacks/supplements prn and/or when PO intake <50% meals Expected Outcomes/Goals: PO intake to meet >75% est needs - met at times, goal ongoing Interpretation of weight loss: >20% in 1 year Malnutrition Findings: Food and Nutrition Intake (Sev: <50% est energy req 5days Weight Status: Appropriate ERON CARRENO MD 01/02/19 1825: ASSESSMENT/PLAN Assessment/Plan Pseudomonas UTI. USD recommend continuing abx till next week for his surgery. JENSEN DAVIS Jan 02, 2019 11:41 ERON CARRENO MD Jan 02, 2019 18:25
--- NOTE | 2019-01-02 11:44 | NUR ---
SS following up with discharge planning. Pt accepted at [facility] and has insurance authorization. Dr. Milligan notified. SS will continue to follow for discharge planning.
--- NOTE | 2019-01-02 12:06 | PATHOLOGY ---
Note [facility] Accession Number: [id number] TESTS RESULT FLAG UNITS REF RANGE LAB Clinician Provided Cytology Information No. of containers..01 Other (Miscellaneous) Source: RT. PLEURAL FLUID DIAGNOSIS: RT. PLEURAL FLUID NEGATIVE FOR MALIGNANT CELLS. FOCALLY REACTIVE MESOTHELIAL CELLS AND CHRONIC INFLAMMATORY CELLS PRESENT. THIS INTERPRETATION INCLUDES EVALUATION OF A CELL BLOCK. Signed out by: 02 Ashish Soriano MD, Pathologist NPI- [id number] Performed by: Danette Moreno, Engineering Mathematician ([facility]) Gross description: 30 ML, YELLOW, CLEAR /LCS 04/23/1840 0000 Local FLAG LEGEND: L-Low Normal,H-High Normal,LL-Alert Low,HH-Alert High <-Panic Low,>-Panic High,A-Abnormal,AA-Critical Abnormal Performed at: [facility] [address] [place] [address] Dawit Chan MD, 02 [facility] [address] [place] [address] Ashish Soriano MD, Specimen Comment: A courtesy copy of this report has been sent to Specimen Comment: [phone], . Specimen Comment: Report sent to / DR SHEIKH Specimen Comment: A duplicate report has been generated due to demographic updates. Performed at: [facility] [address], [place], [place] [id number] MD Dawit Chan MD Phone: [phone]
--- NOTE | 2019-01-02 13:29 | PDOC ---
PULMONARY PROGRESS NOTES Subjective feels better after thoracentesis Vitals Vital Signs Date Time Temp Pulse Resp B/P (MAP) Pulse Ox O2 Delivery O2 Flow Rate FiO2 01/02/19 10:25 97.7 52 18 110/72 (85) 99 Nasal Cannula 2.0 97.7 General: Alert, No acute distress Lungs: Other (decrease right base) Cardiovascular: S1 Abdomen: Soft Neuro Exam: Alert Extremities: Other (1+edema) Labs Laboratory Tests Test 01/01/19 09:10 Sodium Level 142 mmol/L (136-145) Potassium Level 4.5 mmol/L (3.5-5.1) Chloride Level 105 mmol/L (98-107) Carbon Dioxide Level 32 mmol/L (21-32) Anion Gap 5 (6-14) Blood Urea Nitrogen 28 mg/dL (8-26) Creatinine 1.1 mg/dL (0.7-1.3) Estimated GFR (Cockcroft-Gault) 64.7 Glucose Level 152 mg/dL (70-99) Calcium Level 8.3 mg/dL (8.5-10.1) Medications Active Scripts Medications Dose Route/Sig Max Daily Dose Days Date Category Cipro (Ciprofloxacin Hcl) 500 Mg Tablet 1 Tab PO BID 03/31/17 Rx Gabapentin 600 Mg Tablet 300 Mg PO BID 05/27/13 Reported Impression . 1. Acute respiratory failure secondary to bilateral pleural effusion and atelectasis, Highly likely due to ACUTE SYSTOLIC CHF 2. Weakness, status post fall. 3. Acute on chronic systolic congestive heart failure. 4. Nonischemic cardiomyopathy. EF 35% 5. Coronary artery disease. 6. Hypertension. 7. Hyperlipidemia. 8. Diabetes mellitus. 9. Chronic atrial fibrillation. 10. Acute kidney injury. 11. Elevated liver function test. Plan . 1. Titrate FiO2 to keep O2 saturation 92%. 2. po antibiotic. 3. S/P right pleural effusion thoracentesis . Will review analysis, suspect transudate 4. Fall precaution. 5. Monitor creatinine and potassium. 6. The findings and recommendations were discussed with the patient and RN. 7. cardiology rec 8. Not much to add. optimize cardiac status 9. UTI per PCP will see CHRISTEN Maurer MD Jan 02, 2019 13:29
[2019-01-02 14:39] VITALS: BP 108/69
[2019-01-02 19:00] VITALS: BP 116/64
[2019-01-02 23:00] VITALS: BP 117/73
--- NOTE | 2019-01-03 01:29 | DS ---
DATE OF DISCHARGE: 01/02/2019 HOSPITAL SUMMARY: A 78-year-old white male with known multiple medical problems, came in with weakness, fatigue, fever, and signs and symptoms of sepsis. Chest x-ray showed diffuse upper lobe infiltrates, primarily on the right, but a CT scan showed only a large pleural effusion and no masses. CBC showed mild leukocytosis. BMP was consistent with acute renal injury, which improved to some degree to a CKD level of about 40, which is his baseline. Urine showed evidence of infection and the culture grew out Pseudomonas resistant to oral meds and sensitive to meropenem. CT scan showed pleural fluid and thoracentesis of 1600 mL with serous fluid transudative in nature and no organisms on culture and no cytology abnormalities were noted. He was treated with IV Rocephin for presumed urosepsis and subsequently switched to oral Cipro, but then oral meropenem and the culture showed that the pseudomonas was resistant to multiple meds. Thoracentesis revealed that this is primarily a cardiac related pleural effusion as his ejection fraction is known to be 30% and he has chronic atrial fibrillation as well. He was seen by Dr. Bowles as a executive search consultant as well as Dr. Humphries for urology and he is having a urethral stricture repair in the near future, which is the source of his urinary tract infections. At this time, he is transferred to [place], placed on IV meropenem and oral cardiac meds for supportive care. FINAL DIAGNOSES: 1. Sepsis secondary to Pseudomonas urinary tract infection. 2. Acute renal failure, improved vasomotor nephropathy. 3. Chronic kidney disease 3, stable. 4. Dilated cardiomyopathy. 5. Large right pleural effusion secondary to cardiomyopathy. OPERATIONS AND PROCEDURES: Right thoracentesis. COMPLICATIONS: None. CONSULTATIONS: Dr. Bowles and Dr. Humphries. DISPOSITION: IV meropenem 500 mg IV q.8 hours. All other meds remain the same. He will need Lasix on an as needed basis to prevent the recurrence of pleural effusion. He is a DNR, comfort care measures in place, and he will have urethral surgery per the urologist at a later date. EMMA SHEIKH MD DR: CLAYTON/lester JOB#: [id number] / [id number]
[2019-01-03 03:00] VITALS: BP 133/74
[2019-01-03] MEDS: MEROPENEM 500 MG in IV NORMAL SALINE 50ML 50 ML IV SCH ×2 (05:41→15:14)
[2019-01-03 07:00] VITALS: BP 117/69
[2019-01-03] MEDS: SPIRONOLACTONE 25 MG TABLET PO SCH (08:38)
[2019-01-03] MEDS: GABAPENTIN 100 MG CAPSULE. PO SCH (08:38)
[2019-01-03] MEDS: LISINOPRIL 5 MG TABLET. PO SCH (08:39)
[2019-01-03] MEDS: METOPROLOL SUCC 24HR ER 25 MG TAB.ER.24H. PO SCH (08:39)
[2019-01-03] MEDS: NEOMY/BACITR/POLYMYXIN OINT PACKET. TP SCH (08:39)
--- NOTE | 2019-01-03 09:11 | SNU/HH DC ---
DISCHARGE ORDERS DISCHARGE INFORMATION: FINAL DIAGNOSIS Problems Medical Problems: (1) A-fib Status: Chronic (2) Acute kidney injury superimposed on CKD Status: Acute (3) Acute on chronic systolic (congestive) heart failure Status: Acute (4) Acute respiratory failure Status: Acute (5) LATA (acute kidney injury) Status: Acute (6) Altered mental status Status: Acute (7) Bilateral pleural effusion Status: Acute (8) Bilateral pulmonary infiltrates on chest x-ray Status: Acute (9) CAD (coronary artery disease) Status: Chronic (10) CHF exacerbation Status: Acute (11) Chronic a-fib Status: Chronic (12) DM2 (diabetes mellitus, type 2) Status: Chronic (13) Elevated troponin Status: Acute (14) Fall Status: Acute (15) HLD (hyperlipidemia) Status: Chronic (16) HTN (hypertension) Status: Chronic (17) Metabolic encephalopathy Status: Acute (18) NICM (nonischemic cardiomyopathy) Status: Chronic (19) Urinary tract infection Status: Acute CONDITION ON DISCHARGE: Stable CODE STATUS: Code Status: DNR/DNI ASSISTED: SNF STAY <30 DAYS: Yes POST DISCHARGE ORDERS: ACTIVITY ORDERS: Activity as tolerated WEIGHT BEARING STATUS: As tolerated DIET AFTER DISCHARGE: Cardiac TREATMENT/EQUIPMENT ORDERS: Occupational Therapy For: ADL's DISCHARGE MEDICATIONS: Home Meds Active Scripts Ciprofloxacin Hcl (CIPRO) 500 Mg Tablet, 1 TAB PO BID, #14 TAB Prov:GRISELDA MARTINO MD 03/31/17 Reported Medications Gabapentin (GABAPENTIN) 600 Mg Tablet, 300 MG PO BID for neuropathy 05/27/13 EMMA SHEIKH MD Jan 03, 2019 09:11
[2019-01-03] MEDS ORDERED: MERO500V15 IV (09:25)
[2019-01-03] MEDS ORDERED: METO-239 PO (09:26)
[2019-01-03] MEDS ORDERED: LISI-338 PO (09:26)
[2019-01-03] MEDS ORDERED: SPIR25TA5 PO (09:27)
[2019-01-03] MEDS ORDERED: TRAM50TA PO (09:27)
[2019-01-03] MEDS ORDERED: GABA300C18 PO (09:28)
[2019-01-03] MEDS ORDERED: NEOM1PAC TP (09:29)
--- NOTE | 2019-01-03 10:24 | NUR ---
SS following up with discharge planning. Discharge orders received for [facility]. SS phoned and faxed discharge orders to [facility], ; fax [phone]. Pt will discharge today and go to [facility] at 1215 via [facility] transport at 1215. Pt, pt's spouse and daughter, and pt's RN notified.
--- NOTE | 2019-01-03 10:49 | PDOC ---
PULMONARY PROGRESS NOTES Subjective feels better after thoracentesis Vitals Vital Signs Date Time Temp Pulse Resp B/P (MAP) Pulse Ox O2 Delivery O2 Flow Rate FiO2 01/03/19 09:00 Nasal Cannula 2.0 01/03/19 08:39 68 117/69 01/03/19 07:00 97.6 16 92 97.6 General: Alert, No acute distress Lungs: Other (decrease right base) Cardiovascular: S1 Abdomen: Soft Neuro Exam: Alert Extremities: Other (1+edema) Medications Active Scripts Medications Dose Route/Sig Max Daily Dose Days Date Category Cipro (Ciprofloxacin Hcl) 500 Mg Tablet 1 Tab PO BID 03/31/17 Rx Gabapentin 600 Mg Tablet 300 Mg PO BID 05/27/13 Reported Impression . 1. Acute respiratory failure secondary to bilateral pleural effusion and atelectasis, Highly likely due to ACUTE SYSTOLIC CHF 2. Weakness, status post fall. 3. Acute on chronic systolic congestive heart failure. 4. Nonischemic cardiomyopathy. EF 35% 5. Coronary artery disease. 6. Hypertension. 7. Hyperlipidemia. 8. Diabetes mellitus. 9. Chronic atrial fibrillation. 10. Acute kidney injury. 11. Elevated liver function test. 12. UTI Plan . 1. Titrate FiO2 to keep O2 saturation 92%. 2. po antibiotic. 3. S/P right pleural effusion thoracentesis . transudate 4. Fall precaution. 5. Monitor creatinine and potassium. 6. The findings and recommendations were discussed with the patient and RN. 7. cardiology rec 8. Not much to add. optimize cardiac status 9. UTI per PCP will see CHRISTEN Maurer MD Jan 03, 2019 10:49
[2019-01-03 11:00] VITALS: BP 108/48
--- NOTE | 2019-01-03 13:25 | NUR ---
SS following up with discharge planning. Pt's discharge postponed due to need for PICC placement for IV abx. Pt's RN notified. Pt to get PICC placed today.
[2019-01-03] MEDS ORDERED: LIDOCAINE WITH 8.4% SOD BICARB 3 ML DISP.SYRIN. ONE (13:39)
[2019-01-03] MEDS ORDERED: LIDOCAINE WITH 8.4% SOD BICARB 3 ML DISP.SYRIN. INJ ONE (14:15)
--- NOTE | 2019-01-03 14:40 | RAD ---
Exam: Fluoroscopic and ultrasound guided right percutaneous inserted central venous catheter placement 01/03/2019 12:37 PM .Indication: Long-term antibiotics Technique: Informed oral and written consent were obtained. The right upper extremity was prepped and draped using sterile barrier technique. All elements of maximal sterile barrier technique including the use of a cap, mask, sterile gown, sterile gloves, large sterile sheet, appropriate hand hygiene, and 2% chlorhexidine for cutaneous antisepsis (or acceptable alternative antiseptic per current guidelines) were followed for this procedure.. Real-time ultrasound demonstrated a patent right basilic vein which was prepped and draped in usual sterile fashion. 1% lidocaine used for local anesthesia. Using real-time ultrasound guidance the access needle percutaneously punctured the selected right basilic vein. Reference ultrasound images were saved to the medical record. A guidewire was advanced through the needle to the cavoatrial junction, and a peel-away sheath placed. The catheter was cut to length and inserted through the peel-away sheath such that its tip is at the cavoatrial junction. The wire and sheath were removed, and the catheter secured in place, and a sterile dressing was applied. Catheter was found to flush and aspirate normally. No immediate complications are identified. FLUORO TIME: 0.1 DOSE AREA PRODUCT: 0.1 Gycm2 Impression: Ultrasound and fluoroscopically guided placement of a right upper extremity PICC line.
[2019-01-03 15:00] VITALS: BP 107/53
--- NOTE | 2019-01-03 15:58 | RAD ---
Exam: Chest one view INDICATION: PICC line insertion TECHNIQUE: Frontal view of the chest Comparisons: Chest x-ray 12/31/2018 FINDINGS: Interval placement of a right-sided PICC with catheter tip projecting at the expected location of the intrahepatic IVC. Heart is enlarged. Pulmonary vessels are within normal limits. Small to moderate right pleural effusion with adjacent airspace disease. IMPRESSION: 1. Right-sided PICC with tip projecting at the expected location of the intrahepatic IVC. Recommend retraction. 2. Small to moderate right-sided pleural effusion with adjacent airspace disease. FOR INTERNAL CODING PURPOSES Critical result: Findings discussed with Terrence Kennedy RN at 01/03/2019 3:53 PM. RESULT CODE: (C) Electronically signed by: Kwame Dolan MD (01/03/2019 3:55 PM) [facility]
--- NOTE | 2019-01-03 16:27 | NUR ---
Patient brought to the vascular lab to re-image PICC line placed earlier today. Chest X-ray showed displacement. Dr. Terrell decided to replace PICC line in order to insure proper usage. Patient scheduled to transfer today so Matthew ALCANTARA was notified that we would get procedure done and bring patient right back to his room.
--- NOTE | 2019-01-03 17:54 | NUR ---
Discharge Note: THOMAS MORLEY Discharge instructions and discharge home medications reviewed with MARICRUZ Whitaker at [facility] and a copy given transporter. All questions have been answered and understanding verbalized.
== END 2019-01-03 17:00 | DRG 871 ==
LOC: ER 08:32 → 2 SOUTH 11:10
PROVIDERS: ADMIT Family Medicine; ATTEND Family Medicine
PROC: 0W993ZZ Drainage of Right Pleural Cavity, Percutaneous Approach (ICD-10-PCS; principal; 2018-12-31)
PROC: 06H033Z Insertion of Infusion Device into Inferior Vena Cava, Percutaneous Approach (ICD-10-PCS; 2019-01-03)
PROC: B5191ZA Fluoroscopy of Inferior Vena Cava using Low Osmolar Contrast, Guidance (ICD-10-PCS; 2019-01-03)
PROC: B54MZZA Ultrasonography of Right Upper Extremity Veins, Guidance (ICD-10-PCS; 2019-01-03)
DX: A41.52 Sepsis due to Pseudomonas (principal); G93.41 Metabolic encephalopathy; I50.23 Acute on chronic systolic (congestive) heart failure; J96.00 Acute respiratory failure, unspecified whether with hypoxia or hypercapnia; N17.0 Acute kidney failure with tubular necrosis; I13.0 Hypertensive heart and chronic kidney disease with heart failure and stage 1 through stage 4 chronic kidney disease, or unspecified chronic kidney disease; I42.0 Dilated cardiomyopathy; J98.11 Atelectasis; N39.0 Urinary tract infection, site not specified; E11.22 Type 2 diabetes mellitus with diabetic chronic kidney disease; E78.5 Hyperlipidemia, unspecified; E86.0 Dehydration; I25.10 Atherosclerotic heart disease of native coronary artery without angina pectoris; I48.2 Chronic atrial fibrillation; K21.9 Gastro-esophageal reflux disease without esophagitis; N18.3 Chronic kidney disease, stage 3 (moderate); N35.919 Unspecified urethral stricture, male, unspecified site; N40.0 Benign prostatic hyperplasia without lower urinary tract symptoms; R62.7 Adult failure to thrive; R29.6 Repeated falls; Z96.659 Presence of unspecified artificial knee joint; W18.30XA Fall on same level, unspecified, initial encounter; E11.42 Type 2 diabetes mellitus with diabetic polyneuropathy; Z66 Do not resuscitate; M19.90 Unspecified osteoarthritis, unspecified site; Z51.5 Encounter for palliative care; Z82.49 Family history of ischemic heart disease and other diseases of the circulatory system; Z83.3 Family history of diabetes mellitus; Z95.5 Presence of coronary angioplasty implant and graft; Y93.89 Activity, other specified; Y99.8 Other external cause status; Y92.009 Unspecified place in unspecified non-institutional (private) residence as the place of occurrence of the external cause; Z86.718 Personal history of other venous thrombosis and embolism; Z86.711 Personal history of pulmonary embolism; Z68.22 Body mass index [BMI] 22.0-22.9, adult
CPT/HCPCS: 32555; 36415; 36573; 70450; 71045; 71250; 72125; 76705; 77001; 80048; 80053; 80061; 80076; 80307; 81001; 82140; 82553; 82945; 82947; 82962; 83605; 83615; 83735; 83880; 83986; 84145; 84155; 84157; 84443; 84484; 85007; 85025; 85610; 86803; 87040; 87071; 87075; 87086; 87186; 88112; 88305; 89050; 93005; 93306; C1751; C1892; G0480; J0696; J1940; J2185; J7030; 92526; 92610; 97116; 97530; 99285-25; G0378

== ENCOUNTER 2019-01-09 07:06 | Day surgery (SDC) | payer MEDICARE ==
[~2019-01-09] VITALS: Ht 185.4 cm; Wt 78.6 kg
[~2019-01-09 07:06] MED LIST changes: +GABA300C18 PO; +HYDROmorphone 2 MG/ML VIAL IV PRN; +IV RINGERS,LACTATED 1000ML 1,000 ML IV SCH; +LISI-338 PO; +MERO500V15 IV; +METO-239 PO; +MORPHINE SULFATE 2 MG/ML VIAL. IV PRN; +NEOM1PAC TP; +ONDANSETRON PF 4 MG/2 ML VIAL. IV PRN; +PROCHLORPERAZINE 10 MG/2 ML VIAL. IV PRN; +SIMV40TA18 PO; -SIMV40TA3 PO; +SPIR25TA5 PO; +TRAM50TA PO; +fentaNYL PF VIAL 100 MCG/2 ML VIAL IV PRN
[2019-01-09] MEDS ORDERED: LIDOCAINE 2% JELLY 6ML IN APPLICATOR. ONE (07:10)
[2019-01-09] MEDS ORDERED: CIPROFLOXACIN 400MG PREMIX 200 ML IV ONE (08:00)
[2019-01-09] MEDS ORDERED: INSULIN LISPRO 100 UNIT/ML 3ML VIAL for OP,RR ONLY. SQ PRN (08:00)
[2019-01-09] MEDS ORDERED: PROPOFOL 20 ML IV ONE (08:46)
[2019-01-09] MEDS ORDERED: PHENYLEPHRINE in 0.9% NACL PF 1 MG/10 ML SYRINGE. IV ONE (08:49)
[2019-01-09] MEDS ORDERED: LIDOCAINE 2% PF 5 ML VIAL. ONE (08:49)
[2019-01-09] MEDS ORDERED: ePHEDrine PF IN SALINE 50 MG/10 ML SYRINGE. IV ONE (08:51)
[2019-01-09] MEDS ORDERED: fentaNYL PF VIAL 100 MCG/2 ML VIAL ONE (08:51)
[2019-01-09] MEDS ORDERED: GLYCOPYRROLATE 1 MG/5 ML VIAL. ONE (09:26)
[2019-01-09] MEDS ORDERED: SEVOFLURANE 31 TO 60 MINUTES. IH ONE (09:38)
--- NOTE | 2019-01-09 09:57 | PDOC4 ---
OPERATIVE NOTE Date: Date: Jan 09, 2019 Pre-Op Diagnosis: USD Post-Op Diagnosis: Same, montes urethra Procedure Performed: cysto, urethra dilation, complex cath placement Surgeon: Anesthesia Type: ga Blood Loss: 1ml Specimans Obtained: none Findings: POST-TURP changes in prostate fossa. panurethra stricture disease Complications: none evident Operative Note: Prepped and draped in sterile fashion. time out, sc, iv abx were administered. 21fr scope was placed at meatus, had severe stricture, could not advance past fossa navicularis. Sensor wire was used to cannulate true lumen, dilated with Goodwins to 24fr. scope was placed over wire into bladder. Bladder was with no tumors or stone. Has several mucus plugs, all irrigated. Post-turp changes were noted. 20fr [place] tip was placed over wire. bag.tubing was attached. Awakened , taken to PACU in stable condition. ERON TABARES MD Jan 09, 2019 09:57
[2019-01-09] MEDS ORDERED: PHEN100T82 PO (10:00)
[2019-01-09 10:26] VITALS: BP 111/57
== END 2019-01-09 11:06 ==
LOC: SURG 07:06
PROVIDERS: ATTEND Urology
DX: N35.919 Unspecified urethral stricture, male, unspecified site (principal); E78.00 Pure hypercholesterolemia, unspecified; I25.10 Atherosclerotic heart disease of native coronary artery without angina pectoris; I10 Essential (primary) hypertension; E11.42 Type 2 diabetes mellitus with diabetic polyneuropathy; Z79.84 Long term (current) use of oral hypoglycemic drugs; Z91.041 Radiographic dye allergy status; Z88.8 Allergy status to other drugs, medicaments and biological substances; Z86.718 Personal history of other venous thrombosis and embolism; Z95.5 Presence of coronary angioplasty implant and graft; Z86.711 Personal history of pulmonary embolism; Z87.440 Personal history of urinary (tract) infections; Z87.39 Personal history of other diseases of the musculoskeletal system and connective tissue; Z85.828 Personal history of other malignant neoplasm of skin
CPT/HCPCS: 52281; 82962; A7015; C1713; C1753; J0171; J0744; J2001; J2370; J2704; J3010; J3490

== ENCOUNTER 2019-03-02 02:40 | Emergency (ER) | payer MEDICARE ==
[~2019-03-02] VITALS: Ht 182.9 cm; Wt 76.7 kg
[~2019-03-02 02:40] MED LIST changes: -HYDROmorphone 2 MG/ML VIAL IV PRN; -IV RINGERS,LACTATED 1000ML 1,000 ML IV SCH; -MORPHINE SULFATE 2 MG/ML VIAL. IV PRN; -ONDANSETRON PF 4 MG/2 ML VIAL. IV PRN; +PHEN100T82 PO; -PROCHLORPERAZINE 10 MG/2 ML VIAL. IV PRN; -fentaNYL PF VIAL 100 MCG/2 ML VIAL IV PRN
--- NOTE | 2019-03-02 03:02 | PHYS DOC ---
Past Medical History Past Medical History: A-Fib, Diabetes-Type II, GERD, Hypertension, Renal Disease, Other Additional Past Medical Histor: bph, neuropathy Past Surgical History: Knee Replacement, Other Additional Past Surgical Histo: Suprapubic Catheter, Heart Cath Alcohol Use: None Drug Use: None Adult General Chief Complaint Chief Complaint: MECHANICAL FALL HPI HPI Patient is a 79 year old male presents to emergency department after mechanical fall. Patient called EMS as he couldn't get up. He states he was going to the bathroom fell in bathroom tripping over his feet his large skin tear appreciated to his left humerus. No evidence of obvious deformity appreciated. Patient denies any loss of consciousness. Patient denies any chest pain, shortness breath, nausea, vomiting, headache, visual change, abdominal pain. Daughter is at the bedside. Review of Systems Review of Systems Constitutional: Denies fever or chills [] Respiratory: Denies cough or shortness of breath [] Cardiovascular: No additional information not addressed in HPI [] GI: Denies abdominal pain, nausea, vomiting, bloody stools or diarrhea [] Musculoskeletal: Denies back pain or joint pain [] Integument: Large skin tear appreciated to left arm Neurologic: Denies headache, focal weakness or sensory changes [] All other systems were reviewed and found to be within normal limits, except as documented in this note. Allergies Allergies Allergies Coded Allergies Type Severity Reaction Last Updated Verified No Known Drug Allergies 01/09/19 No Physical Exam Physical Exam Constitutional: Well developed, well nourished, no acute distress, non-toxic appearance. [] HENT: Normocephalic, atraumatic, bilateral external ears normal, oropharynx moist, no oral exudates, nose normal. [] Eyes: PERRLA, EOMI, conjunctiva normal, no discharge. [] Neck: Normal range of motion, no tenderness, supple, no stridor. [] Cardiovascular:Heart rate regular rhythm, no murmur [] Lungs & Thorax: Bilateral breath sounds clear to auscultation [] Abdomen: Bowel sounds normal, soft, no tenderness, no masses, no pulsatile masses. [] Skin: Warm, dry, no erythema, no rash. [] Back: No tenderness, no CVA tenderness. [] Extremities: No tenderness, no edema. large skin tear to the left upper arm[] Neurologic: Alert and oriented X 3, no focal deficits noted. [] Psychologic: Affect normal, judgement normal, mood normal. [] EKG EKG [] Radiology/Procedures Radiology/Procedures [] Course & Med Decision Making Course & Med Decision Making Pertinent Labs and Imaging studies reviewed. (See chart for details) []Patient is a 79 year old male presents to emergency department after mechanical fall. Patient called EMS as he couldn't get up. He states he was going to the bathroom fell in bathroom tripping over his feet his large skin tear appreciated to his left humerus. No evidence of obvious deformity appreciated. Patient denies any loss of consciousness. Patient denies any chest pain, shortness breath, nausea, vomiting, headache, visual change, abdominal pain. Daughter is at the bedside. Skin tear appreciated Cleansing and irrigation to left arm with skin tear Steri-strips applied to the area Dragon Disclaimer Dragon Disclaimer This electronic medical record was generated, in whole or in part, using a voice recognition dictation system. Departure Departure Impression: Primary Impression: Fall Additional Impression: Skin tear Disposition: 01 HOME, SELF-CARE Condition: IMPROVED Referrals: EMMA SHEIKH MD (PCP) Patient Instructions: Skin Tear Care, [id number] Additional Instructions: Recommend follow up with PCP 3 - 5 days Return to the ER with worsening symptoms, intractable pain, fever, altered mental status Tylenol/Motrin as needed for pain Problem Qualifiers Primary Impression: Fall Encounter type: initial encounter Qualified Codes: W19.XXXA - Unspecified fall, initial encounter LADY SRINIVASAN MD Mar 02, 2019 03:02
[2019-03-02 03:22] VITALS: BP 174/72
[2019-03-02] MEDS ORDERED: DIPHTH,PERTUSS(ACELL),TET TOX 0.5 ML DISP.SYRIN. VAX IM ONE (03:45)
== END 2019-03-02 03:50 | disposition home or self-care (01) ==
LOC: ER 02:40
DX: S41.112A Laceration without foreign body of left upper arm, initial encounter (principal); I48.91 Unspecified atrial fibrillation; K21.9 Gastro-esophageal reflux disease without esophagitis; I10 Essential (primary) hypertension; E11.40 Type 2 diabetes mellitus with diabetic neuropathy, unspecified; W18.09XA Striking against other object with subsequent fall, initial encounter; Y93.89 Activity, other specified; Y92.091 Bathroom in other non-institutional residence as the place of occurrence of the external cause; Y99.8 Other external cause status
CPT/HCPCS: 90471; 90715; 99284-25

== ENCOUNTER 2019-06-27 21:07 | Emergency (ER) | payer MEDICARE ==
[~2019-06-27] VITALS: Ht 182.9 cm; Wt 78.1 kg
[~2019-06-27 21:07] MED LIST changes: +CIPR250T30 PO; +GABA-585 PO; -MERO500V15 IV; +MERO500V24 IV
--- NOTE | 2019-06-27 21:47 | PHYS DOC ---
Past Medical History Past Medical History: A-Fib, Diabetes-Type II, GERD, Hypertension, Kidney Stone, Renal Disease, Other Additional Past Medical Histor: bph, neuropathy Past Surgical History: Knee Replacement, Other Additional Past Surgical Histo: Suprapubic Catheter, Heart Cath, SHOULDER, KIDNEY STONE REMOVAL Smoking Status: Never Smoker Alcohol Use: None Drug Use: None Adult General Chief Complaint Chief Complaint: CELLULITIS HPI HPI Patient is a 79 year old male who presents secondary to complaint of left lower extremity pain and swelling on the anterior aspect he noticed this evening. No recent travel or injury. He states it does not hurt to walk. He has a pulsating pain intermittently throughout. He states he has no medical problems, however upon review of his records he has multiple medical comorbidities including hypertension, congestive heart failure, renal insufficiency, history of pleural effusion. Patient states that he also takes gabapentin which could explain the intermittent pain as neuropathy. No fever or chills. Review of Systems Review of Systems All other ROS is negative unless otherwise stated in [facility] Allergies Allergies Allergies Coded Allergies Type Severity Reaction Last Updated Verified No Known Drug Allergies 01/09/19 No Physical Exam Physical Exam See above Constitutional: Well developed, well nourished, no acute distress, non-toxic appearance. [] HENT: Normocephalic, atraumatic, bilateral external ears normal, oropharynx mois t, no oral exudates, nose normal. [] Eyes: PERRLA, EOMI, conjunctiva normal, no discharge. [] Neck: Normal range of motion, no tenderness, supple, no stridor. [] Cardiovascular:Heart rate regular rhythm, no murmur [] Lungs & Thorax: Bilateral breath sounds clear to auscultation [] Abdomen: Bowel sounds normal, soft, no tenderness, no masses, no pulsatile masses. [] Skin: Warm, dry, no erythema, no rash. [] Back: No tenderness, no CVA tenderness. [] Extremities: No tenderness, no cyanosis, no clubbing, ROM intact, there is trace edema of the right lower extremity and 1+ edema on the left lower extremity with some increased warmth on the anterior aspect and mild erythema bilaterally anteriorly. Neurologic: Alert and oriented X 3, normal motor function, normal sensory function, no focal deficits noted. [] Psychologic: Affect normal, judgement normal, mood normal. [] Current Patient Data Vital Signs Vital Signs Date Time Temp Pulse Resp B/P (MAP) Pulse Ox O2 Delivery O2 Flow Rate FiO2 06/27/19 21:54 98.3 79 18 163/70 (101) 100 Room Air 98.3 Lab Values Laboratory Tests Test 06/27/19 21:45 White Blood Count 8.4 x10^3/uL (4.0-11.0) Red Blood Count 3.58 x10^6/uL (4.30-5.70) L Hemoglobin 10.8 g/dL (13.0-17.5) L Hematocrit 32.1 % (39.0-53.0) L Mean Corpuscular Volume 90 fL (79-100) Mean Corpuscular Hemoglobin 30 pg (25-35) Mean Corpuscular Hemoglobin Concent 34 g/dL (31-37) Red Cell Distribution Width 14.4 % (11.5-14.5) Platelet Count 395 x10^3/uL (140-400) Neutrophils (%) (Auto) 69 % (31-73) Lymphocytes (%) (Auto) 20 % (24-48) L Monocytes (%) (Auto) 9 % (0-9) Eosinophils (%) (Auto) 2 % (0-3) Basophils (%) (Auto) 1 % (0-3) Neutrophils # (Auto) 5.8 x10^3/uL (1.8-7.7) Lymphocytes # (Auto) 1.6 x10^3/uL (1.0-4.8) Monocytes # (Auto) 0.8 x10^3/uL (0.0-1.1) Eosinophils # (Auto) 0.1 x10^3/uL (0.0-0.7) Basophils # (Auto) 0.1 x10^3/uL (0.0-0.2) Erythrocyte Sedimentation Rate 60 (0-15) H Sodium Level 139 mmol/L (136-145) Potassium Level 4.5 mmol/L (3.5-5.1) Chloride Level 102 mmol/L (98-107) Carbon Dioxide Level 28 mmol/L (21-32) Anion Gap 9 (6-14) Blood Urea Nitrogen 36 mg/dL (8-26) H Creatinine 1.5 mg/dL (0.7-1.3) H Estimated GFR (Cockcroft-Gault) 45.1 Glucose Level 175 mg/dL (70-99) H Calcium Level 8.4 mg/dL (8.5-10.1) L Troponin I Quantitative < 0.017 ng/mL (0.000-0.055) C-Reactive Protein, Quantitative 27.8 mg/L (0-3.3) H RC-Apk-P-Type Natriuretic Peptide 8754 pg/mL (0-449) H Laboratory Tests 06/27/19 21:45 Laboratory Tests 06/27/19 21:45 EKG EKG [] Radiology/Procedures Radiology/Procedures Exam: Left lower extremity venous duplex study INDICATION: Leg swelling TECHNIQUE: Using a combination of real-time ultrasound imaging and color-flow and pulse Doppler imaging techniques along with graded compression and augmentation, duplex evaluation of the deep venous systems of leftlower extremity was performed. Multiple images were obtained. Findings: Duplicated superficial femoral vein. Nonocclusive thrombus is noted within one of the mid to distal femoral veins Otherwise, There is no sonographic evidence for deep venous thrombosis involving the visualized deep venous structures of the left lower extremity. IMPRESSION: Duplicated superficial femoral vein with a nonocclusive thrombus noted within one of the SFV, mid to distal.[] Course & Med Decision Making Course & Med Decision Making Pertinent Labs and Imaging studies reviewed. (See chart for details) 2146: Patient seen for left lower some pain and swelling. We'll get an ultrasound for DVT, check labs to primary for infection and also check a BNP for congestive heart failure. 2340: Sound shows a DVT in the femoral vein. We'll start on Eliquis and have the patient follow up with his primary care physician next week. Dragon Disclaimer Dragon Disclaimer This electronic medical record was generated, in whole or in part, using a voice recognition dictation system. Departure Departure Impression: Primary Impression: DVT (deep venous thrombosis) Disposition: HOME, SELF-CARE Condition: STABLE Referrals: EMMA SHEIKH MD (PCP) Please follow up next week for reevaluation Patient Instructions: Deep Vein Thrombosis Scripts Apixaban (ELIQUIS) 5 Mg Tablet 5 MG PO BID for 30 Days, #74 TAB Take 2 tabs BID for the first 7 days Prov: CRISTY SPARKS DO 06/27/19 CRISTY SPARKS DO Jun 27, 2019 21:46
[2019-06-27 21:55] LABS: BASO # 0.1 x10^3/uL (0.0-0.2); BASO % 1 % (0-3); EOS # 0.1 x10^3/uL (0.0-0.7); EOS % 2 % (0-3); HEMATOCRIT 32.1 % (39.0-53.0); HEMOGLOBIN 10.8 g/dL (13.0-17.5); LYMPH # 1.6 x10^3/uL (1.0-4.8); LYMPH % 20 % (24-48); MEAN CORPUSCULAR HEMOGLOBIN 30 pg (25-35); MEAN CORPUSCULAR HGB CONC 34 g/dL (31-37); MEAN CORPUSCULAR VOLUME 90 fL (79-100); MONO # 0.8 x10^3/uL (0.0-1.1); MONO % 9 % (0-9); NEUT # 5.8 x10^3/uL (1.8-7.7); NEUT % 69 % (31-73); PLATELET COUNT 395 x10^3/uL (140-400); RED BLOOD COUNT 3.58 x10^6/uL (4.30-5.70); RED CELL DISTRIBUTION WIDTH 14.4 % (11.5-14.5); WHITE BLOOD COUNT 8.4 x10^3/uL (4.0-11.0)
[2019-06-27 22:04] LABS: CALCIUM 8.4 mg/dL (8.5-10.1); CREATININE 1.5 mg/dL (0.7-1.3); GFR 45.1; POTASSIUM 4.5 mmol/L (3.5-5.1)
[2019-06-27 22:07] LABS: C-REACTIVE PROTEIN 27.8 mg/L (0-3.3)
--- NOTE | 2019-06-27 23:24 | RAD ---
Exam: Left lower extremity venous duplex study INDICATION: Leg swelling TECHNIQUE: Using a combination of real-time ultrasound imaging and color-flow and pulse Doppler imaging techniques along with graded compression and augmentation, duplex evaluation of the deep venous systems of leftlower extremity was performed. Multiple images were obtained. Findings: Duplicated superficial femoral vein. Nonocclusive thrombus is noted within one of the mid to distal femoral veins Otherwise, There is no sonographic evidence for deep venous thrombosis involving the visualized deep venous structures of the left lower extremity. IMPRESSION: Duplicated superficial femoral vein with a nonocclusive thrombus noted within one of the SFV, mid to distal. Electronically signed by: Kwame Dolan MD (06/27/2019 11:21 PM) [id number]
[2019-06-27] MEDS ORDERED: APIX5TAB PO (23:47)
[2019-06-27] MEDS ORDERED: APIXABAN 5 MG TABLET. PO ONE (23:55)
[2019-06-28 00:02] VITALS: BP 148/66
== END 2019-06-28 00:15 | disposition home or self-care (01) ==
LOC: ER 21:07
DX: I82.412 Acute embolism and thrombosis of left femoral vein (principal); I48.91 Unspecified atrial fibrillation; K21.9 Gastro-esophageal reflux disease without esophagitis; I10 Essential (primary) hypertension; E11.40 Type 2 diabetes mellitus with diabetic neuropathy, unspecified; Z87.442 Personal history of urinary calculi
CPT/HCPCS: 36415; 80048; 83880; 84484; 85025; 85651; 86140; 93971; 99285-25